=== PATIENT | male | born 1935 | race Caucasian/White ===

== ENCOUNTER 2021-07-15 10:23 | Outpatient (CLI) | payer MEDICARE, SELFPAY ==
--- NOTE | ~2021-07-15 | US_ITS ---
EXAMINATION: US carotid duplex BI DATE: 07/15/2021 11:35 INDICATION: Disorder of the skin. TECHNIQUE: Grayscale, color Doppler, and pulsed Doppler images of the cervical carotid arteries were obtained. The degree of vessel stenosis is placed in one of the following categories: normal, <50%, 5 0-69%, >=70% but less than near-occlusion, near-occlusion, or total occlusion. Note that percent sten osis relative to normal distal artery lumen diameter is indirectly measured from velocity measurement s as described by Angus, et al. Radiology 2003; 229:340-346. Notes: Normal: Peak systolic velocity <125 centimeters/sec and no plaque <50%. Peak systolic velocity <125 ( EDV <40; ICA/CCA PSV ratio <2.0; used these factors only a tandem lesions or low cardiac output or co ntralateral disease) 50-69 %: PSV 125-230 (EDV 40-100; ratio 2-4) >= 70% but less than near occlusion: PSV greater than 230 (EDV > 100; ratio> 4.0) Near Occlusion: PSV that is variable; markedly narrowed lumen Occlusion: Absent flow on color/spectral Doppler and no lumen on dang scale. COMPARISON: None. FINDINGS: RIGHT: The right common carotid artery (CCA) peak systolic velocity (PSV) is 90 cm/s. The right internal car otid artery (ICA) PSV is 75 cm/s. The right ICA end-diastolic velocity (EDV) is 26 cm/s. The right IC A/CCA PSV ratio is 0.8. The external carotid artery (ECA) PSV is 76 cm/s. There is antegrade flow in the right vertebral artery. LEFT: The left CCA PSV is 98 cm/s. The left ICA PSV is 62 cm/s. The left ICA EDV is 14 cm/s. The left ICA/C CA PSV ratio is 0.6. The ECA PSV is 70 cm/s. There is antegrade flow in the left vertebral artery. IMPRESSION: 1. Less than 50% stenosis in the right internal carotid artery by sonographic criteria. 2. Less than 50% stenosis in the left internal carotid artery by sonographic criteria. Reviewed, dictated and finalized at location B. IMPRESSION: 1. Less than 50% stenosis in the right internal carotid artery by sonographic c lynn. 2. Less than 50% stenosis in the left internal carotid artery by sonographic cr tea.
== END 2021-07-15 10:24 | disposition home or self-care (01) ==
PROVIDERS: PCP Family Medicine; Visit Provider Family Medicine
DX: I65.23 Occlusion and stenosis of bilateral carotid arteries (principal); R09.89 Other specified symptoms and signs involving the circulatory and respiratory systems
CPT/HCPCS: 93880

== ENCOUNTER 2022-03-14 13:17 | Outpatient (CLI) | payer MEDICARE, SELFPAY ==
--- NOTE | 2022-03-14 13:42 | ECHO_ITS ---
Patient Info Name: Lefty Haskins Age: 86 years : 1935 Gender: Male Ht: 70 in Wt: 230 lbs BSA: 2.30 m2 HR: 60 bpm BP: 164 / 91 mmHg Technical Quality: Fair Exam Date: 03/14/2022 2:37 PM Exam Location: [facility] Patient Status: Outpatient Admit Date: 03/14/2022 Staff Ordering Physician: Adeel Rick PA-C Gas Line Installer Supervisor: Manjeet Jacome RDCS, RT Attending Provider: Adeel Rick PA-C Referring Physician: Prabhjot MANUEL; Exam Type: CA echo doppler color flow Study Info Indications I35.0 - Nonrheumatic aortic (valve) stenosis Complete two-dimensional, color flow and Doppler transthoracic echocardiogram is performed. Strain analysis performed. Summary 1. Complete two-dimensional, color flow and Doppler transthoracic echocardiogram is performed. 2. Left ventricular chamber dimension is normal. 3. Left ventricular systolic function is normal, estimated at 60-65%. 4. There is mildly increased left ventricular wall thickness. 5. The left ventricular diastolic function is grade I diastolic dysfunction. 6. E/e' 12 is mildly elevated. 7. Global longitudinal strain is abnormal at -8.9%. 8. Right ventricular systolic function is reduced based on abnormal TAPSE 1.4 cm. 9. Left atrial chamber dimension is moderately enlarged. 10. There is severe aortic valve sclerosis. 11. There is mild aortic valve regurgitation. 12. There is moderate aortic valve stenosis based a peak velocity of 280 cm/s, mean gradient of 15 mmHg, and aortic valve area of 1.2 cm2. By visual estimation it appears more to be severe aortic stenosis. Consider JUAN C if clinically indicated. 13. The mitral valve has severely calcified annulus. 14. There is trace tricuspid valve regurgitation. Left Ventricle E/e' 12 is mildly elevated. Global longitudinal strain is abnormal at -8.9%. Left ventricular chamber dimension is normal. Left ventricular systolic function is normal, estimated at 60-65%. There is mildly increased left ventricular wall thickness. The left ventricular diastolic function is grade I diastolic dysfunction. Right Ventricle Right ventricular systolic function is reduced based on abnormal TAPSE 1.4 cm. Right ventricular chamber dimension is not well visualized. Left Atria Left atrial chamber dimension is moderately enlarged. Right Atria Right atrial chamber dimension is normal. Aortic Valve There is moderate aortic valve stenosis based a peak velocity of 280 cm/s, mean gradient of 15 mmHg, and aortic valve area of 1.2 cm2. By visual estimation it appears more to be severe aortic stenosis. Consider JUAN C if clinically indicated. The aortic valve is probable trileaflet. There is severe aortic valve sclerosis. There is mild aortic valve regurgitation. Pulmonic Valve There is no pulmonic regurgitation. Mitral Valve The mitral valve has severely calcified annulus. There is no mitral valve stenosis. There is no mitral valve regurgitation. Tricuspid Valve RVSP is not calculated due to an inadequate TR jet. There is trace tricuspid valve regurgitation. Pericardium/Pleural There is no pericardial effusion. Inferior Vena Cava Normal inferior vena cava with >50% collapse upon inspiration consistent with normal right atrial pressure, 5 mmHg. Aorta The aortic root size at the sinus of Valsalva is normal. Left Ventricular Outflow Tract Name Value No
== END 2022-03-14 13:18 | disposition home or self-care (01) ==
PROVIDERS: PCP Family Medicine; Visit Provider Physician Assistant
DX: I35.0 Nonrheumatic aortic (valve) stenosis (principal); I34.0 Nonrheumatic mitral (valve) insufficiency; I35.1 Nonrheumatic aortic (valve) insufficiency; I36.1 Nonrheumatic tricuspid (valve) insufficiency
CPT/HCPCS: 93306

== ENCOUNTER 2023-01-29 12:32 | Emergency (ER) | payer MEDICARE, SELFPAY ==
[2023-01-29] VITALS (9 sets, daily range): BP systolic 116–170; BP diastolic 66–93; PULSE 54–65; RESP 13–18; TEMP 36.4; O2SAT 91–99
--- NOTE | ~2023-01-29 | XR_ITS ---
EXAMINATION: XR chest 2V Exam Date/Time: 01/29/2023 13:52 CDT HISTORY: weakness Comparison: 03/08/2018. RESULT: Lines, tubes, and devices: Intact sternotomy wires. Lungs and pleura: Clear. Cardiomediastinal silhouette: Stable. Other: No acute osseous or upper abdominal finding. IMPRESSION: No acute cardiopulmonary process. Reviewed, dictated and finalized at location K.
--- NOTE | ~2023-01-29 | CT_ITS ---
EXAMINATION: CTA brain carotid DATE: 01/29/2023 14:57 INDICATION: dizziness TECHNIQUE: Computed tomographic angiography (CTA) of the head was performed without and with 100 mL O mnipaque-350 intravenous contrast. CTA of the neck was performed with intravenous contrast. Automated exposure control and iterative reconstruction technique were employed. The dose-length product was 1 819.27 mGy-cm. Maximum intensity projection and volume rendered 3D-reconstructions were created by e technologist on a separate workstation. COMPARISON: None. FINDINGS: CT BRAIN: No acute large vessel infarct, intracranial hemorrhage, mass, or hydrocephalus. 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 Mild atrophy and chronic white matter change. CTA HEAD: No large vessel occlusion, aneurysm, high flow vascular malformation, nidus or extravasation. Multifo bessie mild-moderate short segment stenoses in the intracranial vasculature, most evident in the anterio r circulation and to lesser extent in the posterior circulation. Moderate calcifications at the carot id siphons. CTA NECK: Aortic arch and proximal great vessels: Mild atherosclerotic calcifications at the visualized aortic arch and proximal great vessels. Right common carotid, carotid bifurcation, and internal carotid artery: Mild calcified plaque at the bifurcation.There is 0% stenosis of the proximal right internal carotid artery relative to normal [place] artery lumen diameter (NASCET criteria). Left common carotid, carotid bifurcation, and internal carotid artery: Minimal calcified plaque at th e bifurcation.There is 0% stenosis of the proximal left internal carotid artery relative to normal di stal artery lumen diameter (NASCET criteria). Vertebral arteries: Calcified plaque at the bilateral vertebral artery origins, without significant s tenosis. Calcified plaque in the bilateral V4 segments, without significant stenosis. Left vertebral artery is dominant. Other findings: Retention cysts/polyps in the left maxillary sinus. Opacification, volume loss, and s urrounding sclerosis in the right maxillary sinus. Bilateral thyroid nodules which require no additio nal imaging at this time. Degenerative changes in the cervical spine. IMPRESSION: No large vessel occlusion. No significant carotid or vertebral artery stenosis. Multifocal short segment mild-moderate atherosclerotic stenoses in the intracranial vasculature, most evident in the anterior circulation. Chronic left maxillary sinusitis. Reviewed, dictated and finalized at location K. IMPRESSION: No large vessel occlusion. No significant carotid or vertebral artery stenosis. Multifocal short segment mild-moderate atherosclerotic stenoses in the intracra nial vasculature, most evident in the anterior circulation. Chronic left maxillary sinusitis.
--- NOTE | 2023-01-29 12:37 | ECG_ITS ---
Measurements Intervals [place] Rate: 58 P: PA: 0 QRS: -20 QRSD: 109 T: 147 QT: 471 QTc: 465 Interpretive Statements SINUS RHYTHM WITH HIGH GRADE AV BLOCK MODERATE VOLTAGE CRITERIA FOR LVH, CONSIDER NORMAL VARIANT [MEETS CRITERIA IN ONE OF: R(aVL), S(V1), R(V5), R(V5/V6)+S(V1)] PREVIOUS INFEROPOSTERIOR INFARCTION MODERATE T-WAVE ABNORMALITY, CONSIDER LATERAL ISCHEMIA [-0.1+ mV T-WAVE IN I/aVL/V5/V6] ABNORMAL ECG COMPARED TO ECG 08/29/2018 13:49:45 NO SIGNIFICANT CHANGES Electronically Signed On 01-30-2023 13:22:57 CDT by Dimitrios Mcmahan M.D.
[2023-01-29 12:55] LABS: Basophils Percent Auto 0.5 % (0.2-1.2); Eosinophils Absolute Auto 0.3 K/mm3 (0-0.3); Hematocrit 39.4 % (42.0-52.0); Hemoglobin 13.4 g/dL (14.0-18.0); Immature Granulocyte Absolute 0.03 K/mm3 (0.00-0.031); Immature Granulocyte Percent A 0.5 % (0-0.5); Lymphocytes Absolute Auto 2.31 K/mm3 (0.9-3.2); Lymphocytes Percent Auto 36.4 % (18.3-44.2); Mean Corpuscular Hemoglobin 30.4 pg (26-34); Mean Corpuscular Volume 89.3 fl (80-100); Mean Platelet Volume 9.8 fl (7.4-10.4); Monocytes Absolute Auto 0.6 K/mm3 (0.1-0.6); Monocytes Percent Auto 9.5 % (2.6-8.5); Neutrophils Absolute Auto 3.1 K/mm3 (1.3-6.7); Neutrophils Percent Auto 48.1 % (45.5-73.1); Platelet Count Result 198 k/mm3 (150-375); Red Blood Count 4.41 M/mm3 (4.6-6.20); Red Cell Distribution Width 13.2 % (11.5-14.5); White Blood Count 6.3 K/mm3 (4.5-10.0)
[2023-01-29 13:05] LABS: Alanine Aminotransferase 48 U/L (6-50); Albumin Level 4.3 g/dL (3.5-5.1); Alkaline Phosphatase 100 U/L (38-126); Anion Gap 8 mmol/L (8-16); Aspartate Amino Transferase 58 U/L (17-59); Bilirubin,Total 0.8 mg/dL (0.2-1.3); Blood Urea Nitrogen 19 mg/dL (9-20); Calcium 8.9 mg/dL (8.4-10.2); Carbon Dioxide 30 mmol/L (22-30); Chloride 101 mmol/L (98-107); Estimated CRCL calculation 61 ml/min; Estimated Glomerular Filt Rate > 60; Glucose 206 mg/dL (65-110); Potassium 3.3 mmol/L (3.4-5.0); Sodium 139 mmol/L (137-145)
[2023-01-29 13:39] LABS: Appearance Urine Clear (Clear); Bilirubin Urine Negative (Negative); Blood Urine Negative (Negative); Color Urine Yellow (Yellow); Glucose Urine UA Negative (Negative); Ketones Urine Negative (Negative); Leukocyte Esterase Ur Negative LEU/UL (Negative); Nitrate Urine Negative (Negative); Protein Urine Negative (Negative); Specific Grav Ur 1.019 (1.001-1.035); pH Urine 7.5 (5.0-9.0)
[2023-01-29 13:40] LABS: Add Urine Microscopic? NO
[2023-01-29] MEDS: MECLIZINE HCL 25 MG TABLET PO (14:06)
[2023-01-29] MEDS: ONDANSETRON INJ 4 MG/2 ML VIAL IV PUSH (14:06)
--- NOTE | 2023-01-29 14:41 | ED.DIZZY ---
HPI - Dizziness General Chief Complaint: Dizziness Stated Complaint: nauseated, dizzy Time Seen by Provider: 01/29/23 13:29 Source: patient and RN notes reviewed Mode of arrival: ambulatory Limitations: no limitations History of Present Illness HPI Narrative: This is 87 year old male who presents for evaluation of dizziness. Patient reports he developed dizziness 3 hours prior to arrival. He states he was sitting down when he developed dizziness. He does report spinning with turn his head. He denies any dizziness or spinning currently sitting still in bed. HE denies history of vertigo. HE denies URI symptoms, tinnitus, focal weakness, headache, numbness or vision changes. He had associated nausea. Related Data Home Medications Medication Instructions Recorded Confirmed amlodipine 5 mg tablet 5 mg PO DAILY 06/07/19 08/17/22 aspirin 81 mg tablet,delayed 81 mg PO DAILY 06/07/19 08/17/22 release (Adult Low Dose Aspirin) hydrochlorothiazide 25 mg tablet 25 mg PO DAILY 06/07/19 08/17/22 lisinopril 40 mg tablet 40 mg PO DAILY 06/07/19 08/17/22 simvastatin 20 mg tablet 20 mg PO DAILY 06/07/19 08/17/22 ascorbic acid (vitamin C) 500 mg 500 mg PO DAILY 08/17/22 08/17/22 capsule cholecalciferol (vitamin D3) 50 50 mcg PO DAILY 08/17/22 08/17/22 mcg (2,000 unit) capsule multivitamin 1 tablet PO DAILY 08/17/22 08/17/22 omega3-dha 200 mg-epa 300 mg-othr 1 cap PO DAILY 08/17/22 08/17/22 om3 100 mg-fish oil 1,000 mg capsule Allergies Allergy/AdvReac Type Severity Reaction Status Date / Time meperidine Allergy Unknown Hallucinati Verified 08/17/22 12:54 ons Review of Systems Constitutional: Constitutional: Denies weakness Eyes: Eyes: Denies change in vision and Denies photophobia Cardiovascular: Cardiovascular: Denies syncope, Denies rapid heart rate, Denies irregular heart rhythm, Denies leg edema and Denies dyspnea Respiratory: Respiratory: Denies chest congestion, Denies hemoptysis, Denies excessive phlegm production and Denies dyspnea Gastrointestinal: Gastrointestinal: Denies abdominal pain, Denies hematochezia, Denies diarrhea, Reports nausea and Denies vomiting Genitourinary: Genitourinary: Denies hematuria, Denies dysuria, Denies penile discharge and Denies testicular pain Musculoskeletal: Musculoskeletal: Denies joint swelling, Denies loss of height and Denies muscle weakness Neurologic: Reports vertigo, Reports dizziness, Denies syncope, Denies focal weakness and Denies weakness PMFSH Past Medical History Medical History Aortic stenosis Atherosclerotic heart disease of [place] coronary artery with other forms of angina pectoris Benign prostatic hyperplasia Chronic venous insufficiency of lower extremity Dyslipidemia Essential (primary) hypertension Hypokalemia Type 2 diabetes mellitus Surgical History Surgical History History of coronary artery stent placement multiple in before CABG History of total right knee replacement (~2012) Dr. Rice Hx of CABG (~2000) MoBab Family History Family History Father Depression, Onset Age: 35 Family history of suicide, Onset Age: 35 Mother Family history of malignant neoplasm of ovary, Onset Age: 77 Other Family history of cardiovascular disease Hypertension Social History Social History Smoking status: Never smoker Alcohol intake: never Substance use: never Substance use type: does not use Lack of Transportation: No Lack of Food: Never True Current Housing: I Have Housing Concerned About Future Housing: No Difficulty Paying Gas/Electric Bills: No Difficulty Paying for Meds: No Currently Unemployed: No Education: Decline to Answer Difficulty w/ Childcare or Family Care:
[2023-01-29] MEDS: CARBAMIDE PEROXIDE 6.5% OT SOLN 15 ML BTL 5 DROP RIGHT EAR (15:22)
== END 2023-01-29 16:54 | disposition home or self-care (01) ==
PROVIDERS: Emergency Medicine; Emergency Provider General Practice; PCP Family Medicine
DX: R42 Dizziness and giddiness (principal); I35.0 Nonrheumatic aortic (valve) stenosis; I25.118 Atherosclerotic heart disease of native coronary artery with other forms of angina pectoris; I87.2 Venous insufficiency (chronic) (peripheral); I10 Essential (primary) hypertension; E78.5 Hyperlipidemia, unspecified; E11.9 Type 2 diabetes mellitus without complications; N40.0 Benign prostatic hyperplasia without lower urinary tract symptoms; Z95.5 Presence of coronary angioplasty implant and graft; Z95.1 Presence of aortocoronary bypass graft; Z96.651 Presence of right artificial knee joint; Z79.84 Long term (current) use of oral hypoglycemic drugs; Z79.82 Long term (current) use of aspirin; R94.31 Abnormal electrocardiogram [ECG] [EKG]; I44.1 Atrioventricular block, second degree; J32.0 Chronic maxillary sinusitis; I67.2 Cerebral atherosclerosis
CPT/HCPCS: 36415; 70496; 70498; 71046; 80053; 81003; 85025; 93005; 96374; 99284; A9270; J2405; Q9967

== ENCOUNTER 2023-02-16 14:30 | Outpatient (CLI) | payer MEDICARE, SELFPAY ==
[2023-02-16 18:50] LABS: Alanine Aminotransferase 46 U/L (6-50); Albumin Level 4.2 g/dL (3.5-5.1); Alkaline Phosphatase 100 U/L (38-126); Anion Gap 7 mmol/L (8-16); Aspartate Amino Transferase 67 U/L (17-59); Bilirubin,Total 0.9 mg/dL (0.2-1.3); Blood Urea Nitrogen 18 mg/dL (9-20); Calcium 9.1 mg/dL (8.4-10.2); Carbon Dioxide 29 mmol/L (22-30); Chloride 102 mmol/L (98-107); Estimated Glomerular Filt Rate > 60; Glucose 128 mg/dL (65-110); Potassium 3.9 mmol/L (3.4-5.0); Sodium 138 mmol/L (137-145)
[2023-02-16 22:32] LABS: Hemoglobin A1C 6.7 % (<5.7)
== END 2023-02-16 14:31 | disposition home or self-care (01) ==
PROVIDERS: PCP Family Medicine; Visit Provider Family Medicine
DX: E87.6 Hypokalemia (principal); E11.9 Type 2 diabetes mellitus without complications; I10 Essential (primary) hypertension
CPT/HCPCS: 36415; 80053; 83036

== ENCOUNTER 2023-06-11 20:32 | Inpatient (IN) | payer MEDICARE, SELFPAY ==
--- NOTE | ~2023-06-11 | XR_ITS ---
Portable chest x-ray Comparison: 01/29/2023 Clinical History: Nausea and vomiting Findings: Questionable minimal right pleural effusion. Left lung clear. Cardiomediastinal silhouett e is stable. Bones and soft tissues are unremarkable. Impression: Questionable minimal right pleural effusion. Reviewed, dictated and finalized at location . INE ACCOUNTANT Impression: Questionable minimal right pleural effusion.
--- NOTE | ~2023-06-11 | XR_ITS ---
EXAMINATION: XR chest 1V portable DATE: 06/13/2023 10:35 INDICATION: Hypoxia. TECHNIQUE: A single frontal view of the chest was obtained. COMPARISON: Chest single view 06/11/2023, CT abdomen and pelvis 06/14/2023 FINDINGS: There are small pleural effusions. There are airspace opacities at the lung bases. No pneum othorax. Cardiomegaly is noted. Median sternotomy wires and mediastinal surgical clips are seen, like ly from prior coronary artery bypass grafting. IMPRESSION: 1. Small pleural effusions. 2. Airspace opacities at the lung bases with worsening on the left, consistent with atelectasis or le ss likely pneumonia. 3. Cardiomegaly. Reviewed, dictated and finalized at location A. ID TESTER IMPRESSION: 1. Small pleural effusions. 2. Airspace opacities at the lung bases with worsening on the left, consistent with atelectasis or less likely pneumonia. 3. Cardiomegaly.
--- NOTE | ~2023-06-11 | XR_ITS ---
Portable chest x-ray Comparison: 06/13/2023 Clinical History: Shortness of breath Findings: Small left pleural effusion and possible minimal right pleural effusion are present. There is mild increasing bibasilar and perihilar haziness. Cardiomediastinal silhouette is stable. Bones and soft tissues are unremarkable. Impression: Probable mild pulmonary edema, worsened from prior exam. Small left pleural effusion and probable minimal right pleural effusion. Reviewed, dictated and finalized at location . GEMENT DIRECTOR Impression: Probable mild pulmonary edema, worsened from prior exam. Small left pleural effusion and probable minimal right pleural effusion.
--- NOTE | ~2023-06-11 | CT_ITS ---
CT of the Abdomen and Pelvis: Indication: Abdominal pain Technique: 2.5 mm axial scans were obtained through the abdomen and pelvis following intravenous adm inistration of 100 cc of Omnipaque 350. Dose reduction technique was used on this scan by utilizing a utomated exposure control and iterative reconstruction technique. The dose-length product (DLP) was 1 206.68 mGy-cm. Findings: Scans through the lung bases are unremarkable. The liver, spleen, adrenals and kidneys are within normal limits. Cholecystectomy clips are present. There are atherosclerotic calcifications of the aorta. No lymphadenopathy. Small amount of ascites s cattered throughout the abdomen and pelvis, with mild peripancreatic fluid as well. Possible mild hyp odensity/hypoenhancement in the pancreatic body and tail. No bowel obstruction or bowel wall thickening. There is no evidence to suggest acute appendicitis. Images through the pelvis were performed. Urinary bladder unremarkable. Prostate gland is enlarged. Impression: Suspected pancreatitis, with possible areas of early pancreatic necrosis. Correlate clinically. Small amount of abdominopelvic ascites. Reviewed, dictated and finalized at location M. MP PEELER Impression: Suspected pancreatitis, with possible areas of early pancreatic necrosis. Corre late clinically. Small amount of abdominopelvic ascites.
--- NOTE | ~2023-06-11 | XR_ITS ---
Portable chest x-ray Comparison: 06/14/2023 Clinical History: Cough Findings: Small left pleural effusion present. Right lung clear. Cardiomediastinal silhouette is st able. Bones and soft tissues are unremarkable. Impression: Small left pleural effusion. Reviewed, dictated and finalized at [facility]. 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
--- NOTE | ~2023-06-11 | MR_ITS ---
EXAMINATION: MR MRCP wo/w con/w 3D wo ind DATE: 06/14/2023 07:27 INDICATION: Pancreatitis. Elevated bilirubin. TECHNIQUE: Magnetic resonance imaging (MRI) of the abdomen was performed without and with 20 mL Multi [place] intravenous contrast. Sequences included coronal T2-weighted FS FSE, coronal T2-weighted FSE, a xial T1-weighted LAVA, coronal FS FIESTA, axial dual-echo T1-weighted SPGR, coronal lava-FLEX, sagitt al T2-weighted FSE, axial T2-weighted FSE, and axial DWI. Thick-slab T2-weighted FSE images were obta ined for magnetic resonance cholangiopancreatography (MRCP). Maximum intensity projection 3-D reconst ructions of the volumetric data were created by the technologist. Postcontrast sequences included cor onal LAVA-flex and time course of axial T1-weighted LAVA. COMPARISON: CT abdomen and pelvis 06/11/2023 FINDINGS: ABDOMEN MRI: There are small pleural effusions. The liver and spleen are normal. There are changes of cholecystectomy. There is heterogeneous enhancement of the pancreatic tail. There is fat stranding a nd fluid around the pancreas. There is a small volume of ascites. The adrenal glands are normal. Ther e are cysts in the kidneys measuring up to 8 mm on the left. The stomach is distended. There are no d ilated loops of small or large bowel. There are no pathologically enlarged lymph nodes. ABDOMEN MRCP: The common duct is normal and measures 7 mm. No choledocholithiasis. IMPRESSION: 1. Acute necrotic pancreatitis. 2. Small volume of ascites. 3. Small pleural effusions. 4. No choledocholithiasis. Reviewed, dictated and finalized at location A. UTIVE SEARCH CONSULTANT
[2023-06-11 20:28] VITALS: BP 113/62; PULSE 101; RESP 20; TEMP 36.8; O2SAT 98
[2023-06-11 20:47] LABS: Hematocrit 42.3 % (42.0-52.0); Hemoglobin 14.8 g/dL (14.0-18.0); Mean Corpuscular Hemoglobin 29.9 pg (26-34); Mean Corpuscular Volume 85.5 fl (80-100); Mean Platelet Volume 9.6 fl (7.4-10.4); Platelet Count Result 194 k/mm3 (150-375); Red Blood Count 4.95 M/mm3 (4.6-6.20); Red Cell Distribution Width 13.8 % (11.5-14.5); White Blood Count 24.2 K/mm3 (4.5-10.0)
[2023-06-11 20:57] LABS: Alanine Aminotransferase 33 U/L (6-50); Albumin Level 3.4 g/dL (3.5-5.1); Alkaline Phosphatase 84 U/L (38-126); Anion Gap 9 mmol/L (8-16); Aspartate Amino Transferase 52 U/L (17-59); Bilirubin,Total 1.8 mg/dL (0.2-1.3); Blood Urea Nitrogen 24 mg/dL (9-20); Calcium 8.4 mg/dL (8.4-10.2); Carbon Dioxide 25 mmol/L (22-30); Chloride 99 mmol/L (98-107); Estimated CRCL calculation 43 ml/min; Estimated Glomerular Filt Rate > 60; Glucose 201 mg/dL (65-110); Potassium 3.1 mmol/L (3.4-5.0); Sodium 133 mmol/L (137-145)
[2023-06-11 21:02] VITALS: BP 123/69; PULSE 84; RESP 15; O2SAT 100
[2023-06-11] MEDS: ONDANSETRON INJ 4 MG/2 ML VIAL IV PUSH (21:02)
[2023-06-11] MEDS: SODIUM CHLORIDE 0.9% IV 2,000 ML 999 ML IV CONT (21:02)
[2023-06-11 21:12] LABS: Band Neutrophils Percent 4 % (0-6); Neutrophils Percent Manual 77 % (46-73); Total Cells Counted 100
[2023-06-11 21:13] LABS: Lymphocytes Absolute Manual 3.38 K/mm3 (1.1-4.5); Lymphocytes Percent Manual 14 % (18-44); Monocytes Absolute Manual 1.21 K/mm3 (0.1-0.90); Monocytes Percent Manual 5 % (3-9); Platelet Estimate Adequate (Adequate); Schistocytes None Seen (NORMAL)
--- NOTE | 2023-06-11 21:14 | ECG_ITS ---
Measurements Intervals [place] Rate: 80 P: 55 WV: 212 QRS: -6 QRSD: 113 T: 137 QT: 427 QTc: 493 Interpretive Statements SINUS RHYTHM WITH FIRST DEGREE AV BLOCK WITH OCCASIONAL SUPRAVENTRICULAR PREMATURE COMPLEXES INFERIOR MYOCARDIAL INFARCTION , PROBABLY OLD WITH POSTERIOR EXTENSION [40+ ms Q WAVE AND/OR ST/T ABNORMALITY IN II/aVFPROMINE ANTEROLATERAL MYOCARDIAL INFARCTION , OF INDETERMINATE AGE [40+ ms Q WAVE IN I/aVL/V3- V6] ABNORMAL ECG COMPARED TO ECG 01/29/2023 12:42:35 FIRST DEGREE AV BLOCK NOW PRESENT Electronically Signed On 06-12-2023 8:40:29 WOOD ROOM HAND by Ranulfo Koch M.D.
[2023-06-11 21:16] LABS: Appearance Urine Cloudy (Clear); Bacteria Urine None Seen /hpf; Bilirubin Urine 1+ (Negative); Blood Urine 1+ (Negative); Glucose Urine UA Negative (Negative); Ketones Urine Trace mg/dL (Negative); Leukocyte Esterase Ur Trace LEU/UL (Negative); Need Manual Microscopic Reviewed; Nitrate Urine Positive (Negative); Protein Urine 2+ mg/dL (Negative); Specific Grav Ur 1.026 (1.001-1.035); Squamous Epithelial Cell Urine Occasional /hpf (Few); WBC Urine 0-5 /hpf; pH Urine 5.5 (5.0-9.0)
[2023-06-11 21:17] LABS: Color Urine Dark Yellow (Yellow)
[2023-06-11 21:18] LABS: Add Urine Microscopic? YES
[2023-06-11 21:28] LABS: Magnesium 1.9 mg/dL (1.6-2.3); Phosphorus 3.3 mg/dL (2.5-4.5)
[2023-06-11 21:36] LABS: Influenza A QL RT-PCR Negative (Negative); Influenza B QL RT-PCR Negative (Negative); RSV RNA, RT-PCR Negative (Negative); SARS-CoV-2 RNA PCR Negative (Negative)
[2023-06-11 21:38] LABS: INR 1.2; Partial Thromboplastin Time 31.7 SECONDS (22.3-36.8); Prothrombin Time 15.6 Seconds (11.1-14.7)
[2023-06-11 21:44] LABS: NT Pro B Type Natriuretic Pept 3510 pg/mL (19.9-100); Troponin I 0.096 ng/mL (0.000-0.034)
[2023-06-11 21:55] LABS: Lipase 2798 U/L (23-300)
[2023-06-11 22:02] LABS: Lactic Acid Reflex 3.6 mmol/L (0.7-2.0)
--- NOTE | 2023-06-11 22:16 | ED.GENADULT ---
HPI - General Adult General Chief complaint: Nausea/Vomiting/Diarrhea Stated complaint: n/v/d Time Seen by Provider: 06/11/23 20:36 History of Present Illness HPI narrative: this is an 87-year-old male presenting the ED with generalized weakness. Over last 2-3 days his family says he has been feeling unwell. He has had nausea vomiting diarrhea. He is also complaining of abdominal pain worse on the right than the left. Last bowel movement was yesterday. Patient denies fevers chills chest pain difficulty breathing. Patient states he gets frequent UTIs. No urinary symptoms at this time Related Data Home Medications Medication Instructions Recorded Confirmed aspirin 81 mg tablet,delayed 81 mg PO DAILY 06/07/19 02/16/23 release (Adult Low Dose Aspirin) hydrochlorothiazide 25 mg tablet 25 mg PO DAILY 06/07/19 02/16/23 lisinopril 40 mg tablet 40 mg PO DAILY 06/07/19 02/16/23 simvastatin 20 mg tablet 20 mg PO DAILY 06/07/19 02/16/23 ascorbic acid (vitamin C) 500 mg 500 mg PO DAILY 08/17/22 02/16/23 capsule cholecalciferol (vitamin D3) 50 50 mcg PO DAILY 08/17/22 02/16/23 mcg (2,000 unit) capsule multivitamin 1 tablet PO DAILY 08/17/22 02/16/23 omega3-dha 200 mg-epa 300 mg-othr 1 cap PO DAILY 08/17/22 02/16/23 om3 100 mg-fish oil 1,000 mg capsule Allergies Allergy/AdvReac Type Severity Reaction Status Date / Time meperidine Allergy Unknown Hallucinati Verified 02/16/23 13:35 ons [facility] Past Medical History Medical History Aortic stenosis Atherosclerotic heart disease of [place] coronary artery with other forms of angina pectoris Benign prostatic hyperplasia Chronic venous insufficiency of lower extremity Dyslipidemia Essential (primary) hypertension Hypokalemia Type 2 diabetes mellitus Surgical History Surgical History History of coronary artery stent placement multiple in before CABG History of total right knee replacement (~2012) Dr. Rice Hx of CABG (~2000) MoBab Family History Family History Father Depression, Onset Age: 35 Family history of suicide, Onset Age: 35 Mother Family history of malignant neoplasm of ovary, Onset Age: 77 Other Family history of cardiovascular disease Hypertension Social History Social History Smoking status: Never smoker Alcohol intake: never Substance use: never Substance use type: does not use Lack of Transportation: No Lack of Food: Never True Current Housing: I Have Housing Concerned About Future Housing: No Difficulty Paying Gas/Electric Bills: No Difficulty Paying for Meds: No Currently Unemployed: No Education: Master's Degree or Higher Difficulty w/ Childcare or Family Care: No Living arrangements: with family Additional living arrangements comments: Occupation/Education: retired 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 Head: atraumatic. EYES: EOMI, NOSE: Atraumatic NECK: Trachea midline RESPIRATORY: No increased rate of breathing, CTAB CARDIOVASCULAR: RRR, ABDOMINAL: tenderness topalpation in the right upper and lower quadrants soft no guarding rebound MUSCULOSKELETAl: No obvious deformities NEURO: Alert. Moving 4/4 extremities SKIN:: Warm, dry. Normal color PSYCHIATRIC: Normal affect Course Vital Signs Vital signs: Vital Signs Temperature 98.3 F 06/11/23 20:28 Pulse Rate 101 H 06/11/23 20:28 Respiratory Rate 20 06/11/23 20:28 Blood Pressure 113/62 06/11/23 20:28
[2023-06-11] MEDS: PIPERACILLN/TAZ 3.375GM/NS50ML 3.375 GM/50 ML BAG IVPB (22:26)
[2023-06-11] MEDS: HYDROmorphone HCL INJ (*CRX) 1 MG/ML SYR 0.5 MG IV PUSH (22:26)
--- NOTE | 2023-06-11 22:52 | PM.IMHP ---
H&P: HPI History of Present Illness Date/Time: 06/11/23 22:52 Chief Complaint: abdominal pain Narrative: This is an 87-year-old male with past medical history significant for hypertension, type diabetes mellitus, benign prostatic hyperplasia, surreptitious use of laxatives. Patient was brought to the emergency room after having 2 days of abdominal pain, lethargy, had episode diarrhea as well, altered mental status, poor appetite, poor per orally intake, patient is so weak the could not stand on his on, has been taking laxatives over the years on and off alternating with Pepto-Bismol according to daughter who is at bedside from home I have obtained most of the history. Preliminary workup was significant for pancreatitis. Portable chest x-ray Comparison: 01/29/2023 Clinical History: Nausea and vomiting Findings:? Questionable minimal right pleural effusion. Left lung clear.? Cardiomediastinal silhouette is stable. Bones and soft tissues are unremarkable. ? Impression: ? Questionable minimal right pleural effusion. CT of the Abdomen and Pelvis: Indication: Abdominal pain Technique:? 2.5 mm axial scans were obtained through the abdomen and pelvis following intravenous administration of 100 cc of Omnipaque 350. Dose reduction technique was used on this scan by utilizing automated exposure control and iterative reconstruction technique. The dose-length product (DLP) was 1206.68 mGy-cm. Findings:? Scans through the lung bases are unremarkable. The liver, spleen, adrenals and kidneys are within normal limits. Cholecystectomy clips are present. There are atherosclerotic calcifications of the aorta.? No lymphadenopathy. Small amount of ascites scattered throughout the abdomen and pelvis, with mild peripancreatic fluid as well. Possible mild hypodensity/hypoenhancement in the pancreatic body and tail. No bowel obstruction or bowel wall thickening. There is no evidence to suggest acute appendicitis. Images through the pelvis were performed. Urinary bladder unremarkable. Prostate gland is enlarged. Impression: Suspected pancreatitis, with possible areas of early pancreatic necrosis. Correlate clinically. Small amount of abdominopelvic ascites. Review of Systems Review of Systems: ROS unobtainable: Yes unobtainable due to mental status ( Lethargy/obtundation) PMFSH Past Medical History Medical History Aortic stenosis Atherosclerotic heart disease of [place] coronary artery with other forms of angina pectoris Benign prostatic hyperplasia Chronic venous insufficiency of lower extremity Dyslipidemia Essential (primary) hypertension Hypokalemia Type 2 diabetes mellitus Surgical History Surgical History History of coronary artery stent placement multiple in 1990s before CABG History of total right knee replacement (~2012) Dr. Rice Hx of CABG (~2000) MoBab Family History Family History Father Depression, Onset Age: 35 Family history of suicide, Onset Age: 35 Mother Family history of malignant neoplasm of ovary, Onset Age: 77 Other Family history of cardiovascular disease Hypertension Social History Social History Smoking status: Never smoker Alcohol intake: never Substance use: never Substance use type: does not use Do You Feel Safe in your Home?: Yes Lack of Transportation: No Lack of Food: Never True Current Housing: I Have Housing Concerned About Future Housing: No Difficulty Paying Gas/Electric Bills: No Difficulty Paying for Meds: No Currently Unemployed: No Education: Master's Degree or Higher Difficulty w/ Childcare or Family Care: No Living arrangements: with family Additional living arrangements comments: Occup
[2023-06-11 22:56] LABS: Triglycerides 138 mg/dL (<150)
[2023-06-11] MEDS: POTASSIUM CHLORIDE INJ 40 MEQ in SODIUM CHLORIDE 0.9% IV 500 ML 130 MEQ IVPB (22:59)
[2023-06-11] MEDS: SODIUM CHLORIDE 0.9% IV 1,000 ML 125 ML IV CONT (23:00)
[2023-06-11 23:30] VITALS: BP 105/63; PULSE 81; RESP 15; O2SAT 100
--- NOTE | 2023-06-11 23:41 | ECG_ITS ---
Measurements Intervals [place] Rate: 81 P: 100 [place]: 191 QRS: -16 QRSD: 114 T: 136 QT: 420 QTc: 489 Interpretive Statements SINUS RHYTHM LATERAL MYOCARDIAL INFARCTION , OF INDETERMINATE AGE [40+ ms Q WAVE AND/OR ST/T ABNORMALITY IN I/aVL/V5/V6] INFERIOR MYOCARDIAL INFARCTION , PROBABLY OLD WITH POSTERIOR EXTENSION [40+ ms Q WAVE AND/OR ST/T ABNORMALITY IN II/aVFPROMINE ABNORMAL ECG COMPARED TO ECG 06/11/2023 21:18:28 NO SIGNIFICANT CHANGES Electronically Signed On 06-12-2023 8:41:26 BUSINESS PERFORMANCE SPECIALIST by Ranulfo Koch M.D.
[2023-06-12] VITALS (18 sets, daily range): BP systolic 97–137; BP diastolic 53–65; PULSE 79–104; RESP 16–24; TEMP 36.2–38.5; O2SAT 91–98; BMI 34.9; BMI 35.0
[2023-06-12 00:08] LABS: Troponin I 0.089 ng/mL (0.000-0.034)
--- NOTE | 2023-06-12 00:37 | ADMGEN ---
This patient, Lefty Haskins, was admitted to IMU Room 204-01. Patient/family oriented to hospital policies and general routines including ID bracelet, bed and alarms, visiting hours, pain management, procedures, bathroom and other care routines, personal items, smoking policy, room service/diet, and visiting hours. Information on how to activate the Rapid Response Team has been discussed. Patient/Family are encouraged to report perceived risks to care and to ask questions if they do not understand what they are told or what they should do.
[2023-06-12 00:48] LABS: Reflex Lactic Acid Yes or No Add Lactic
--- NOTE | 2023-06-12 00:58 | PC.NURSE ---
Per patient and patient's daughter: Patient wishes to be a modified code with MEDICATIONS ONLY. Okay for central line and pressor therapy but patient requests NO CPR and NO INTUBATION at this time.
[2023-06-12 01:42] LABS: Lactic Acid 2.7 mmol/L (0.7-2.0)
[2023-06-12] MEDS: HYDROmorphone HCL INJ (*CRX) 1 MG/ML SYR IV PUSH (02:06)
[2023-06-12] MEDS: DEXTROSE 5%/LACTATED RINGERS 1,000 ML 100 ML IV CONT ×2 (03:10→13:06)
[2023-06-12] MEDS: PIPERACILLN/TAZ 3.375GM/NS50ML 3.375 GM/50 ML BAG IVPB ×3 (04:54→18:09)
--- NOTE | 2023-06-12 08:32 | PM.IMPN ---
Progress Note: A&P Assessment and Plan (1) Acute pancreatitis: Code(s): K85.90 - Acute pancreatitis without necrosis or infection, unspecified Status: Acute (2) Leukocytosis: Code(s): D72.829 - Elevated white blood cell count, unspecified Status: Acute (3) Type 2 diabetes mellitus: Qualifiers: Diabetes mellitus complication status: without complication Diabetes mellitus longwall foreman insulin use: without longwall foreman use Qualified Code(s): E11.9 - Type 2 diabetes mellitus without complications Code(s): E11.9 - Type 2 diabetes mellitus without complications Status: Acute Plan The patient is an 87-year-old male who presented to the emergency room with a chief complaint of not feeling well for an unspecified duration. He reports associated symptoms of nausea, vomiting, and diarrhea. He also complains of abdominal pain, which he describes as being worse on the right side than the left. The patient's last bowel movement was reported to have occurred the day prior to presentation. He denies experiencing fever, chills, chest pain, or shortness of breath. The patient has a history of frequent urinary tract infections but reported no urinary symptoms at this time. His past medical history is significant for aortic stenosis, coronary artery disease, benign prostatic hyperplasia (BPH), chronic venous insufficiency of the lower extremities, hypertension, hyperlipidemia, and type 2 diabetes. He has a dental history of cavities in the , a total knee replacement in 2012, and multiple stent placements prior to coronary artery bypass grafting (CABG). Upon arrival to the emergency department, the patient was found to be hemodynamically stable with no hypotension or hypoxia. Laboratory evaluation revealed leukocytosis with a white cell count of 24,000, mild hypokalemia with a potassium level of 3.1, elevated lactic acid at 3.6, and an elevated troponin I level at 0.096. His lipase was significantly elevated at 2,798. Urinalysis showed the presence of few red blood cells, urinary gas, and was positive for nitrate. Testing for influenza, respiratory syncytial virus (RSV), and COVID-19 was negative. Serial cardiac enzyme measurements showed a troponin I level of 0.096 initially, which decreased slightly to 0.089 on repeat testing. A repeat lactic acid level showed a mild improvement to 2.7. A computed tomography (CT) scan of the abdomen and pelvis was performed, which suggested pancreatitis with possible areas of early pancreatic necrosis. This finding was to be correlated clinically. The CT scan also revealed a small amount of abdominal pelvic ascites. A chest x-ray raised the possibility of a minimal right pleural effusion. Blood cultures have been obtained, and the patient remains afebrile. He has been started on intravenous fluids and intravenous antibiotics with Zosyn. Pain control is being managed with intravenous analgesics. DVT prophylaxis has been initiated with Lovenox. The patient is currently nil per os (NPO). Gastroenterology and surgery services have been consulted for further management. Continue to monitor in IMU will recheck labs this afternoon Subjective Date/time seen: 06/12/23 08:32 Interval history: Patient a poor historian and bit more confused. Reports no pain getting IV fluid chart reviewed discussed with the nursing staff Review of Systems Review of Systems: All systems reviewed & are unremarkable except as noted in HPI and below Exam Narrative: APPEARANCE: No apparent distress. Confused Head: atraumatic. EYES:? EOMI, NOSE: Atraumatic NECK: Trachea midline RESPIRATORY: No increased rate of breathing, CTAB CARDIOVASCULAR: RRR, ABDOMINAL:? Soft nondistended nontender MUSCULOSKELETAl: No obvious deformities NEURO: Alert. Moving 4/4 extremities SKIN:: Warm, dry. Normal color PSYCHIATRIC: Normal affect Objective Data Vital Signs Vital Signs: Vital Signs - 24 hr 06/11/23
[2023-06-12] MEDS: PANTOPRAZOLE SODIUM IV 40 MG VIAL IV PUSH ×2 (09:09→20:28)
[2023-06-12] MEDS: ENOXAPARIN 40 MG/0.4 ML SYRINGE SUB-Q (09:09)
[2023-06-12 14:15] LABS: Basophils Percent Auto 0.2 % (0.2-1.2); Eosinophils Absolute Auto 0.2 K/mm3 (0-0.3); Eosinophils Percent Auto 0.9 % (0-4.4); Hematocrit 34.9 % (42.0-52.0); Hemoglobin 11.9 g/dL (14.0-18.0); Immature Granulocyte Absolute 0.56 K/mm3 (0.00-0.031); Immature Granulocyte Percent A 3.1 % (0-0.5); Lymphocytes Absolute Auto 1.65 K/mm3 (0.9-3.2); Mean Corpuscular HGB Conc 34.1 g/dl (32-36); Mean Corpuscular Hemoglobin 30.6 pg (26-34); Mean Corpuscular Volume 89.7 fl (80-100); Mean Platelet Volume 10.5 fl (7.4-10.4); Monocytes Absolute Auto 1.4 K/mm3 (0.1-0.6); Monocytes Percent Auto 7.7 % (2.6-8.5); Neutrophils Absolute Auto 14.5 K/mm3 (1.3-6.7); Neutrophils Percent Auto 79.1 % (45.5-73.1); Platelet Count Result 165 k/mm3 (150-375); Red Blood Count 3.89 M/mm3 (4.6-6.20); Red Cell Distribution Width 14.5 % (11.5-14.5); White Blood Count 18.3 K/mm3 (4.5-10.0)
[2023-06-12 14:16] LABS: Alanine Aminotransferase 32 U/L (6-50); Albumin Level 2.9 g/dL (3.5-5.1); Alkaline Phosphatase 64 U/L (38-126); Anion Gap 6 mmol/L (8-16); Aspartate Amino Transferase 83 U/L (17-59); Bilirubin,Total 1.4 mg/dL (0.2-1.3); Blood Urea Nitrogen 29 mg/dL (9-20); Calcium 7.5 mg/dL (8.4-10.2); Carbon Dioxide 25 mmol/L (22-30); Chloride 104 mmol/L (98-107); Estimated CRCL calculation 41 ml/min; Estimated Glomerular Filt Rate 48; Glucose 198 mg/dL (65-110); Potassium 3.4 mmol/L (3.4-5.0); Sodium 135 mmol/L (137-145)
[2023-06-12 14:17] LABS: Lactic Acid Reflex 2.2 mmol/L (0.7-2.0)
[2023-06-12 14:37] LABS: Magnesium 1.8 mg/dL (1.6-2.3)
--- NOTE | 2023-06-12 16:33 | WPDGICN ---
Assessment and Plan Assessment and plan (1) Acute pancreatitis: Code(s): K85.90 - Acute pancreatitis without necrosis or infection, unspecified Status: Acute Assessment and Plan: no alcohol, normal TG level, he is post cholecystectomy here with elevated wbc, lactic acid (responding to medical support, fluids and abx) ok to have CL diet for now trend liver enzymes (mild elevated bili) (2) Elevated liver enzymes: Code(s): R74.8 - Abnormal levels of other serum enzymes Status: Acute Assessment and Plan: monitor, probably from pancreatitis (3) Leukocytosis: Code(s): D72.829 - Elevated white blood cell count, unspecified Status: Acute Assessment and Plan: on abx (4) GURPREET (acute kidney injury): Code(s): N17.9 - Acute kidney failure, unspecified Status: Acute Assessment and Plan: on arrival, getting ivf monitor renal function (5) Acidosis, lactic: Code(s): E87.20 - Acidosis, unspecified Status: Acute Assessment and Plan: improving (6) Abdominal pain: Code(s): R10.9 - Unspecified abdominal pain Status: Acute GI Consult Note Consult date/time: 06/12/23 16:33 Reason for consult: pancreatitis HPI: Lefty Haskins is a 87 year old male with history of aortic stenosis, coronary artery disease, benign prostatic hyperplasia (BPH), chronic venous insufficiency of the lower extremities, hypertension, hyperlipidemia, and type 2 diabetes. He is not best historian but says that last 2-3 days feeling unwell, also nausea, vomiting and abdominal pain worse on the right than the left, he was constipated and took some laxatives. ER showed leukocytosis with a white cell count of 24,000, low potassium level of 3.1, elevated lactic acid at 3.6, and an elevated troponin I level at 0.096, bili 1.8, creat 1.4 (baseline 1.1). His lipase was significantly elevated at 2,798. Testing for influenza, respiratory syncytial virus (RSV), and COVID-[address] scan of the abdomen and pelvis was performed and reviewed, which suggested pancreatitis with possible areas of early pancreatic necrosis, post cholecystectomy. Pain now is almost gone and feeling better, no nausea, he is thirsty. Had low grade fever, started on zosyn. No alcohol use, he could not tell me if had pancreatitis previously. TG level normal. Son is at bedside. Review of Systems Constitutional: Constitutional: Reports lethargy Eyes: Eyes: Denies blurry vision ENT: Reports Normal hearing present Cardiovascular: Cardiovascular: Denies chest pain Respiratory: Respiratory: Denies cough Gastrointestinal: Gastrointestinal: Reports abdominal pain and Reports nausea Genitourinary: Genitourinary: Denies dysuria Musculoskeletal: Musculoskeletal: Denies neck pain Integumentary/Breasts: Skin/Breast: Denies rash Neurologic: Denies Abnormal speech present Psychiatric: Psychiatric: Denies behavioral changes [facility] Past Medical History Medical History (Updated 06/12/23 @ 16:40 by Cedric Holliday MD) Abdominal pain GURPREET (acute kidney injury) Aortic stenosis Atherosclerotic heart disease of [place] coronary artery with other forms of angina pectoris Benign prostatic hyperplasia Chronic venous insufficiency of lower extremity Dyslipidemia Elevated liver enzymes Essential (primary) hypertension Hypokalemia Leukocytosis Type 2 diabetes mellitus Surgical History Surgical History History of coronary artery stent placement multiple in 1990s before CABG History of total right knee replacement (~2012) Dr. Rice Hx of CABG (~2000) MoBab Family History Family History Father Depression, Onset Age: 35 Family history of suicide, Onset Age: 35 Mother Family history of malignant neoplasm of ovary, Onset Age: 77 Other Family hist
[2023-06-12 17:00] LABS: Reflex Lactic Acid Yes or No Add Lactic
[2023-06-13] VITALS (22 sets, daily range): BP systolic 131–153; BP diastolic 76–90; PULSE 74–123; RESP 16–28; TEMP 36.2–37; O2SAT 92–96
[2023-06-13] MEDS: PIPERACILLN/TAZ 3.375GM/NS50ML 3.375 GM/50 ML BAG IVPB ×4 (00:20→19:03)
[2023-06-13] MEDS: DEXTROSE 5%/LACTATED RINGERS 1,000 ML 100 ML IV CONT (02:58)
[2023-06-13] MEDS: ENOXAPARIN 40 MG/0.4 ML SYRINGE SUB-Q (08:06)
[2023-06-13] MEDS: PANTOPRAZOLE SODIUM IV 40 MG VIAL IV PUSH ×2 (08:06→21:50)
[2023-06-13 09:25] LABS: Basophils Percent Auto 0.1 % (0.2-1.2); Hematocrit 36.4 % (42.0-52.0); Hemoglobin 12.3 g/dL (14.0-18.0); Immature Granulocyte Absolute 0.25 K/mm3 (0.00-0.031); Immature Granulocyte Percent A 1.4 % (0-0.5); Lymphocytes Absolute Auto 1.17 K/mm3 (0.9-3.2); Lymphocytes Percent Auto 6.7 % (18.3-44.2); Mean Corpuscular HGB Conc 33.8 g/dl (32-36); Mean Corpuscular Hemoglobin 30.1 pg (26-34); Monocytes Absolute Auto 1.2 K/mm3 (0.1-0.6); Neutrophils Absolute Auto 14.7 K/mm3 (1.3-6.7); Neutrophils Percent Auto 84.8 % (45.5-73.1); Platelet Count Result 156 k/mm3 (150-375); Red Blood Count 4.09 M/mm3 (4.6-6.20); Red Cell Distribution Width 14.2 % (11.5-14.5); White Blood Count 17.4 K/mm3 (4.5-10.0)
[2023-06-13 09:38] LABS: Alanine Aminotransferase 39 U/L (6-50); Alkaline Phosphatase 85 U/L (38-126); Anion Gap 6 mmol/L (8-16); Aspartate Amino Transferase 96 U/L (17-59); Bilirubin,Total 1.5 mg/dL (0.2-1.3); Blood Urea Nitrogen 18 mg/dL (9-20); Calcium 7.9 mg/dL (8.4-10.2); Carbon Dioxide 26 mmol/L (22-30); Chloride 105 mmol/L (98-107); Estimated CRCL calculation 63 ml/min; Estimated Glomerular Filt Rate > 60; Glucose 243 mg/dL (65-110); Lipase 269 U/L (23-300); Magnesium 1.9 mg/dL (1.6-2.3); Potassium 3.1 mmol/L (3.4-5.0); Sodium 137 mmol/L (137-145)
[2023-06-13] MEDS: carvediloL 25 MG TABLET PO ×2 (09:51→19:03)
[2023-06-13] MEDS: TAMSULOSIN HCL 0.4 MG CAPSULE PO ×2 (09:51→19:03)
--- NOTE | 2023-06-13 12:05 | PM.IMPN ---
Progress Note: A&P Assessment and Plan (1) Acute pancreatitis: Code(s): K85.90 - Acute pancreatitis without necrosis or infection, unspecified Status: Acute (2) Leukocytosis: Code(s): D72.829 - Elevated white blood cell count, unspecified Status: Acute (3) Type 2 diabetes mellitus: Qualifiers: Diabetes mellitus long-term insulin use: without rat exterminator use Diabetes mellitus complication status: without complication Qualified Code(s): E11.9 - Type 2 diabetes mellitus without complications Code(s): E11.9 - Type 2 diabetes mellitus without complications Status: Acute Plan The patient is an 87-year-old male who presented to the emergency room with a chief complaint of not feeling well for an unspecified duration. He reports associated symptoms of nausea, vomiting, and diarrhea. He also complains of abdominal pain, which he describes as being worse on the right side than the left. The patient's last bowel movement was reported to have occurred the day prior to presentation. He denies experiencing fever, chills, chest pain, or shortness of breath. The patient has a history of frequent urinary tract infections but reported no urinary symptoms at this time. His past medical history is significant for aortic stenosis, coronary artery disease, benign prostatic hyperplasia (BPH), chronic venous insufficiency of the lower extremities, hypertension, hyperlipidemia, and type 2 diabetes. He has a dental history of cavities in the , a total knee replacement in 2012, and multiple stent placements prior to coronary artery bypass grafting (CABG). Upon arrival to the emergency department, the patient was found to be hemodynamically stable with no hypotension or hypoxia. Laboratory evaluation revealed leukocytosis with a white cell count of 24,000, mild hypokalemia with a potassium level of 3.1, elevated lactic acid at 3.6, and an elevated troponin I level at 0.096. His lipase was significantly elevated at 2,798. Urinalysis showed the presence of few red blood cells, urinary gas, and was positive for nitrate. Testing for influenza, respiratory syncytial virus (RSV), and COVID-19 was negative. Serial cardiac enzyme measurements showed a troponin I level of 0.096 initially, which decreased slightly to 0.089 on repeat testing. A repeat lactic acid level showed a mild improvement to 2.7. A computed tomography (CT) scan of the abdomen and pelvis was performed, which suggested pancreatitis with possible areas of early pancreatic necrosis. This finding was to be correlated clinically. The CT scan also revealed a small amount of abdominal pelvic ascites. A chest x-ray raised the possibility of a minimal right pleural effusion. Blood cultures have been obtained, and the patient remains afebrile. He has been started on intravenous fluids and intravenous antibiotics with Zosyn. Pain control is being managed with intravenous analgesics. DVT prophylaxis has been initiated with Lovenox. The patient is currently nil per os (NPO). Gastroenterology and surgery services have been consulted for further management. Hypoxia worsening chest x-ray with airspace opacities of the lung bases worsening on the left consistent with atelectasis less likely pneumonia. Will lower IV fluids today lactic acidosis has resolved. Leukocytosis still persists but slowly improving. Lipase level has normalized today. GI on board continue IV Zosyn as ordered for necrotic pancreatitis. Blood culture to date negative DVT prophylaxis with Lovenox. Mildly tachycardic today. Will resume carvedilol today hold hydrochlorothiazide lisinopril and amlodipine monitor blood pressure Subjective Date/time seen: 06/13/23 12:05 Interval history: Patient is more awake today. Denies any abdominal pain. No nausea vomiting. Tolerating clears. Labs reviewed. Increased oxygen requirement overnight noted. Repeat chest x-ray today with small pleural effusion airspace opacit
[2023-06-13 12:55] LABS: Hemoglobin A1C 7.2 % (<5.7)
[2023-06-13 12:57] LABS: Glucose Point of Care 231 mg/dl (65-105)
--- NOTE | 2023-06-13 13:00 | PC.NURSE ---
The pt continues to remove SPO2 monitor from hand. This RN was summoned to the pts room per family request. Per family the pt was desatting down to the 80s. Upon entering the pts room no distress was noted. SPo2 monitor noted removed from the pts hand. SPO2 monitor reapplied et was WNL. Education given on the need for intervention et a new SPO2 monitor applied. Tele leads also changed. The MD was at the pts bedside giving report to the family. The Requested this RN pull up results from the CT scan for his viewing. One of the family members who self identified as a Radiologist said she wanted to read it out of the pts chart. Education was given that this RN could not do that but the family could follow up with medical records. Education was also given on My Chart. A second family member who identified herself as a RN questioned if the pt had been lying on his back the entire shift education was given that the pt has been able to turn self et reposition et that the pt has been self turning himself et attempting to get out of the bed throughout my shift. Education given the pt has not been in the same position. The pts buttocks remains unchanged with blanchable redness noted to the pts bottom skin intact. Mepilex applied to the pt buttocks et the pt was repositioned on his side with pillow support used the pt assisted in turn. No further complaints voiced. Report was given to the gettering operator et this RN questioned a link for the pt to access my chart. Per the gettering operator advised to reach out to Care Coordination to help the pt gain access to their My Chart. This RN gave report to Care coordination on the family wanting access to My Chart. Per Care Coordination Sandra RN the issue has been escalated to get a link so the pt can have access to the chart. Leads are now changed, SPO2 changed, et the pts is remains on his left side call light in reach.
--- NOTE | 2023-06-13 13:27 | WPDGIPROGNO ---
Progress Note: A&P Assessment and Plan (1) Acute pancreatitis: Code(s): K85.90 - Acute pancreatitis without necrosis or infection, unspecified Status: Acute Assessment and Plan: no obvious etiology bili 1.5 lipase and lactic acid normalized will get MRCP to assess biliary system and pancreas (CT scan report of possible necrosis)- this was discussed with family member that is radiologist. She says that patient had pancreatitis but several years ago, never had alcohol. (2) Elevated liver enzymes: Code(s): R74.8 - Abnormal levels of other serum enzymes Status: Acute Assessment and Plan: trend enzymes bili 1.5 (3) Leukocytosis: Code(s): D72.829 - Elevated white blood cell count, unspecified Status: Acute Assessment and Plan: on abx also noted uti (4) GURPREET (acute kidney injury): Code(s): N17.9 - Acute kidney failure, unspecified Status: Acute Assessment and Plan: resolved (5) Abdominal pain: Code(s): R10.9 - Unspecified abdominal pain Status: Acute (6) Acidosis, lactic: Code(s): E87.20 - Acidosis, unspecified Status: Acute (7) Atherosclerotic heart disease of [place] coronary artery with other forms of angina pectoris: Code(s): I25.118 - Atherosclerotic heart disease of [place] coronary artery with other forms of angina pectoris Status: Acute Subjective Date/time seen: 06/13/23 13:27 Interval history: no much abdominal pain but overall discomfort, also using oxygen, generalized weakness several member at bedside including a physician Review of Systems Review of Systems: All systems reviewed & are unremarkable except as noted in HPI and below Exam Const: Other: using oxygen HENMT: Face/Nose/Sinus: Normal nares present Eyes: Sclera: sclerae normal Neck: Neck: supple Resp: Effort & Inspection: normal respiratory effort Cardio: Rate: regular rate GI: Inspection: distended GI Palp: Yes Soft to palpation and No Guarding due to palpation present (GI) Auscultation: normal bowel sounds Other: only minimal tenderness in epigastric Skin: General skin exam: normal color Neuro: Speech: normal speech Motor exam (neuro): 5/5 motor strength present throughout Extrem: General: normal to inspection Psych: Mental Status: mental status grossly normal Objective Data Vital Signs Vital Signs: Vital Signs - 24 hr 06/12/23 15:18 02/12/24 20:01 06/12/23 14:00 Temperature 98.1 F 98.0 F Pulse Rate 85 87 80 Respiratory Rate 24 H 22 H Blood Pressure 124/56 L 137/65 Pulse Oximetry 91 93 Oxygen Delivery Oxygen Flow Rate 06/12/23 16:00 06/12/23 18:00 06/12/23 16:00 Temperature Pulse Rate 82 87 Respiratory Rate Blood Pressure Pulse Oximetry Oxygen Delivery Room Air Oxygen Flow Rate 06/12/23 20:00 06/12/23 22:00 06/13/23 00:09 Temperature 97.8 F Pulse Rate 83 104 H 83 Respiratory Rate 20 Blood Pressure 136/76 Pulse Oximetry 92 Oxygen Delivery Oxygen Flow Rate 06/13/23 00:00 06/13/23 02:00 06/13/23 04:00 Temperature Pulse Rate 80 74 Respiratory Rate Blood Pressure Pulse Oximetry 94 Oxygen Delivery Nasal Cannula Oxygen Flow Rate 4 06/13/23 04:04 06/13/23 04:00 06/13/23 06:00 Temperature 97.2 F L Pulse Rate 112 H 123 H 106 H Respiratory Rate 16 Blood Pressure 144/84 H Pulse Oximetry 92 Oxygen Delivery Oxygen Flow Rate 06/13/23 08:00 06/13/23 08:00 06/13/23 09:51 Temperature 97.6 F Pulse Rate 110 H 103 H Respiratory Rate 20 Blood Pressure 153/88 H Pulse Oximetry 96 Oxygen Delivery Room Air Oxygen Flow Rate 06/13/23 08:00 06/13/23 10:00 06/13/23 11:30 Temperature Pulse Rate 107 H 112 H Respiratory Rate Blood Pressure Pulse Oximetry 96 Oxygen Delivery Room Air Oxygen Flow Rate 06/13/23 11:48 06/13/23 11:49 06/13/23 12:59 Temperature
[2023-06-13] MEDS: SODIUM CHLORIDE 0.9% IV 1,000 ML 50 ML IV CONT (19:01)
[2023-06-13] MEDS: POTASSIUM CHLORIDE 20 MEQ ER TABLET 40 MEQ PO (19:02)
[2023-06-13 19:32] LABS: Glucose Point of Care 221 mg/dl (65-105)
[2023-06-13] MEDS: MELATONIN 3 MG TABLET 6 MG PO (21:51)
[2023-06-14] VITALS (19 sets, daily range): BP systolic 121–160; BP diastolic 64–89; PULSE 87–117; RESP 20–30; TEMP 36.1–37.1; O2SAT 88–97
[2023-06-14] MEDS: PIPERACILLN/TAZ 3.375GM/NS50ML 3.375 GM/50 ML BAG IVPB ×4 (00:31→16:20)
[2023-06-14] MEDS: FUROSEMIDE INJ 40 MG/4 ML VIAL 20 MG IV PUSH ×2 (03:36→16:36)
--- NOTE | 2023-06-14 03:38 | PM.EVENT ---
Event Note Event Note Event Note: I was called to see this patient admitted for acute pancreatitis with necrosis, scheduled for MRCP today. Developed mild shortness of breath and increased oxygen requirement. Examination revealed an elderly patient not in distress, sitting upright on the edge of the bed, has mild bilateral respiratory wheezes, and also crackles on both lung bases. IV fluid was discontinued, furosemide 20 mg IV push given, DuoNeb breathing treatment ordered once, chest x-ray one view, CBC comprehensive ordered. Patient is currently on Zosyn. We will review labs and x-ray subsequently Lab results and CXR were reviewed, leukocytosis has improved to 14,000, he has potassium of 3.1, he has mild pulmonary edema. Symptoms improved with breathing treatment and furosemide. IVF was discontinued and potassium correction started IV as patient is NPO
[2023-06-14] MEDS: IPRATROPIUM 0.5 MG/ALBUTEROL SULFATE 2.5 MG AMPUL.NEB 3 ML INHALATION (03:50)
[2023-06-14 03:57] LABS: Basophils Percent Auto 0.1 % (0.2-1.2); Eosinophils Percent Auto 0.2 % (0-4.4); Hematocrit 34.8 % (42.0-52.0); Hemoglobin 11.8 g/dL (14.0-18.0); Immature Granulocyte Absolute 0.07 K/mm3 (0.00-0.031); Immature Granulocyte Percent A 0.5 % (0-0.5); Lymphocytes Absolute Auto 1.23 K/mm3 (0.9-3.2); Lymphocytes Percent Auto 8.8 % (18.3-44.2); Mean Corpuscular HGB Conc 33.9 g/dl (32-36); Mean Corpuscular Volume 88.5 fl (80-100); Mean Platelet Volume 9.6 fl (7.4-10.4); Monocytes Absolute Auto 0.9 K/mm3 (0.1-0.6); Monocytes Percent Auto 6.5 % (2.6-8.5); Neutrophils Absolute Auto 11.7 K/mm3 (1.3-6.7); Neutrophils Percent Auto 83.9 % (45.5-73.1); Platelet Count Result 160 k/mm3 (150-375); Red Blood Count 3.93 M/mm3 (4.6-6.20)
[2023-06-14 04:08] LABS: Alanine Aminotransferase 50 U/L (6-50); Albumin Level 2.9 g/dL (3.5-5.1); Alkaline Phosphatase 100 U/L (38-126); Anion Gap 3 mmol/L (8-16); Aspartate Amino Transferase 81 U/L (17-59); Bilirubin,Total 1.4 mg/dL (0.2-1.3); Blood Urea Nitrogen 18 mg/dL (9-20); Calcium 8.2 mg/dL (8.4-10.2); Carbon Dioxide 28 mmol/L (22-30); Chloride 106 mmol/L (98-107); Estimated CRCL calculation 71 ml/min; Estimated Glomerular Filt Rate > 60; Glucose 192 mg/dL (65-110); Magnesium 2.2 mg/dL (1.6-2.3); Potassium 3.7 mmol/L (3.4-5.0); Sodium 137 mmol/L (137-145)
[2023-06-14 08:12] LABS: Glucose Point of Care 176 mg/dl (65-105)
--- NOTE | 2023-06-14 10:18 | PCOTNOTE ---
The patient treatment was not able to be completed. Patient was sleeping and requested to continue to sleep for now. Will plan to continue treatment per plan of care.
--- NOTE | 2023-06-14 10:34 | PM.IMPN ---
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 He reports associated symptoms of nausea, vomiting, and diarrhea. He also complains of abdominal pain, which he describes as being worse on the right side than the left. The patient's last bowel movement was reported to have occurred the day prior to presentation. He denies experiencing fever, chills, chest pain, or shortness of breath. The patient has a history of frequent urinary tract infections but reported no urinary symptoms at this time. History of CAD His past medical history is significant for aortic stenosis, coronary artery diseasemultiple stent placements prior to coronary artery bypass grafting (CABG). Serial cardiac enzyme measurements showed a troponin I level of 0.096 initially, which decreased slightly to 0.089 on repeat testing. Possible demand ischemia Patient denies chest pain Acute necrotic pancreatitis A computed tomography (CT) scan of the abdomen and pelvis was performed, which suggested pancreatitis with possible areas of early pancreatic necrosis. This finding was to be correlated clinically. The CT scan also revealed a small amount of abdominal pelvic ascites Lipase level has normalized today. GI on board continue IV Zosyn as ordered for necrotic pancreatitis. MRCP shows no obstruction Sepsis Possible resulting from acute necrotic pancreatitis and pneumonia Laboratory evaluation revealed leukocytosis with a white cell count of 24,000, mild hypokalemia with a potassium level of 3.1, elevated lactic acid at 3.6, and an elevated troponin I level at 0.096. His lipase was significantly elevated at 2,798. Urinalysis showed the presence of few red blood cells, urinary gas, and was positive for nitrate. Testing for influenza, respiratory syncytial virus (RSV), and COVID-19 was negative. A repeat lactic acid level showed a mild improvement to 2.7. Blood cultures have been obtained, and the patient remains afebrile. started on intravenous fluids and intravenous antibiotics with Zosyn. Pain control is being managed with intravenous analgesics. DVT prophylaxis has been initiated with Lovenox. The patient is currently nil per os (NPO). Gastroenterology and surgery services have been consulted for further management. Aspiration pneumonia Hypoxia worsening chest x-ray with airspace opacities of the lung bases worsening on the left consistent with atelectasis Possible aspiration pneumonia leukocytosis still persists but slowly improving. Patient is on Zosyn Acute respiratory failure Likely secondary to pneumonia, and possible fluid overload Echocardiogram 2001 showed diastolic dysfunction Patient is on 5 L oxygen DC IV fluid Received Lasix in the night 06/13 Start Lasix 20 mg b.i.d. IV push type 2 diabetes. Start insulin sliding scale Continue home medications Essential hypertension Will resume carvedilol today hold hydrochlorothiazide lisinopril and amlodipine monitor blood pressure Subjective Date/time seen: 06/14/23 10:34 Interval history: I saw and examined the patient in presents of patient's family: Patient's daughter and granddaughter. Patient denied shortness of breath, chest pain at rest. Abdomen pain is better controlled, patient is on clear
[2023-06-14] MEDS: carvediloL 25 MG TABLET PO ×2 (10:55→16:21)
[2023-06-14] MEDS: PANTOPRAZOLE SODIUM IV 40 MG VIAL IV PUSH ×2 (10:56→21:07)
[2023-06-14] MEDS: TAMSULOSIN HCL 0.4 MG CAPSULE PO (10:56)
[2023-06-14] MEDS: ENOXAPARIN 40 MG/0.4 ML SYRINGE SUB-Q (10:56)
[2023-06-14 11:51] LABS: Glucose Point of Care 208 mg/dl (65-105)
--- NOTE | 2023-06-14 13:16 | WPDGIPROGNO ---
Progress Note: A&P Assessment and Plan (1) Acute pancreatitis: Code(s): K85.90 - Acute pancreatitis without necrosis or infection, unspecified Status: Acute Assessment and Plan: no obvious etiology, MRCP showed acute necrotizing pancreatitis, no stone in bile duct, no mass on liquid diet (2) Elevated liver enzymes: Code(s): R74.8 - Abnormal levels of other serum enzymes Status: Acute Assessment and Plan: bili 1.4, from pancreatitis (3) Leukocytosis: Code(s): D72.829 - Elevated white blood cell count, unspecified Status: Acute Assessment and Plan: on abx and trending down also noted uti (4) GURPREET (acute kidney injury): Code(s): N17.9 - Acute kidney failure, unspecified Status: Acute Assessment and Plan: resolved (5) Abdominal pain: Code(s): R10.9 - Unspecified abdominal pain Status: Acute (6) Acidosis, lactic: Code(s): E87.20 - Acidosis, unspecified Status: Acute Assessment and Plan: resolved (7) Atherosclerotic heart disease of [place] coronary artery with other forms of angina pectoris: Code(s): I25.118 - Atherosclerotic heart disease of [place] coronary artery with other forms of angina pectoris Status: Acute Subjective Date/time seen: 06/14/23 13:16 Interval history: he says is feeling better, still using oxygen, denies abdominal pain Review of Systems Review of Systems: All systems reviewed & are unremarkable except as noted in HPI and below Exam Const: Other: using oxygen HENMT: Face/Nose/Sinus: Normal nares present Eyes: Sclera: sclerae normal Neck: Neck: supple Resp: Auscultation: diminished lung sounds Cardio: Rate: regular rate GI: Inspection: distended GI Palp: Yes Soft to palpation and No Guarding due to palpation present (GI) Auscultation: normal bowel sounds Skin: General skin exam: normal color Neuro: Speech: normal speech Motor exam (neuro): 5/5 motor strength present throughout Extrem: General: normal to inspection Psych: Mental Status: mental status grossly normal Objective Data Vital Signs Vital Signs: Vital Signs - 24 hr 06/13/23 15:34 06/13/23 15:40 06/13/23 19:03 Temperature 98.6 F Pulse Rate 96 95 Respiratory Rate 28 H Blood Pressure 131/85 Pulse Oximetry 94 Oxygen Delivery Nasal Cannula Oxygen Flow Rate 4 06/13/23 14:00 06/13/23 18:00 06/13/23 16:00 Temperature Pulse Rate 93 98 Respiratory Rate Blood Pressure Pulse Oximetry 94 Oxygen Delivery Nasal Cannula Oxygen Flow Rate 4 06/13/23 20:13 06/14/23 00:20 06/13/23 20:00 Temperature 98.6 F 98.8 F Pulse Rate 100 91 89 Respiratory Rate 26 H 20 Blood Pressure 136/82 160/83 H Pulse Oximetry 94 89 L Oxygen Delivery Oxygen Flow Rate 06/13/23 20:00 06/13/23 22:00 06/14/23 00:00 Temperature Pulse Rate 94 87 Respiratory Rate Blood Pressure Pulse Oximetry 95 Oxygen Delivery Nasal Cannula Oxygen Flow Rate 4 06/14/23 00:00 06/14/23 02:00 06/14/23 03:50 Temperature Pulse Rate 100 95 Respiratory Rate 20 Blood Pressure Pulse Oximetry 88 L Oxygen Delivery Nasal Cannula Oxygen Flow Rate 5 06/14/23 04:23 06/14/23 04:00 06/14/23 04:00 Temperature 98.2 F Pulse Rate 97 90 Respiratory Rate 20 Blood Pressure 144/85 H Pulse Oximetry 97 93 Oxygen Delivery Nasal Cannula Oxygen Flow Rate 5 06/14/23 06:00 06/14/23 08:00 06/14/23 08:00 Temperature 97.3 F L Pulse Rate 90 99 99 Respiratory Rate 20 20 Blood Pressure 137/88 Pulse Oximetry 93 93 Oxygen Delivery Nasal Cannula Oxygen Flow Rate 5 06/14/23 10:55 06/14/23 11:32 06/14/23 08:00 Temperature 98.2 F Pulse Rate 99 95 92 Respiratory Rate 30 H Blood Pressure 136/64 Pulse Oximetry 94 Oxygen Delivery Oxygen Flow Rate 06/14/23 10:00 06/14/23 12:00 06/14/23 12:00 Temperature Pulse
[2023-06-14 16:12] LABS: Glucose Point of Care 194 mg/dl (65-105)
[2023-06-14 20:55] LABS: Glucose Point of Care 217 mg/dl (65-105)
[2023-06-14] MEDS: MELATONIN 3 MG TABLET 6 MG PO (21:08)
[2023-06-15] VITALS (14 sets, daily range): BP systolic 131–163; BP diastolic 65–90; PULSE 65–112; RESP 16–22; TEMP 36.3–36.9; O2SAT 90–99
[2023-06-15] MEDS: PIPERACILLN/TAZ 3.375GM/NS50ML 3.375 GM/50 ML BAG IVPB ×5 (00:03→23:20)
[2023-06-15 08:03] LABS: Glucose Point of Care 211 mg/dl (65-105)
--- NOTE | 2023-06-15 09:59 | PM.IMPN ---
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 He reports associated symptoms of nausea, vomiting, and diarrhea. He also complains of abdominal pain, which he describes as being worse on the right side than the left. The patient's last bowel movement was reported to have occurred the day prior to presentation. He denies experiencing fever, chills, chest pain, or shortness of breath. The patient has a history of frequent urinary tract infections but reported no urinary symptoms at this time. History of CAD His past medical history is significant for aortic stenosis, coronary artery diseasemultiple stent placements prior to coronary artery bypass grafting (CABG). Serial cardiac enzyme measurements showed a troponin I level of 0.096 initially, which decreased slightly to 0.089 on repeat testing. Possible demand ischemia Patient denies chest pain Acute necrotic pancreatitis A computed tomography (CT) scan of the abdomen and pelvis was performed, which suggested pancreatitis with possible areas of early pancreatic necrosis. This finding was to be correlated clinically. The CT scan also revealed a small amount of abdominal pelvic ascites Lipase level has normalized y. GI on board continue IV Zosyn as ordered for necrotic pancreatitis. MRCP shows no obstruction 06/15: Patient tolerate full liquid diet well, procalcitonin 0.2, indicating no sepsis Sepsis Possible resulting from acute necrotic pancreatitis and pneumonia Laboratory evaluation revealed leukocytosis with a white cell count of 24,000, mild hypokalemia with a potassium level of 3.1, elevated lactic acid at 3.6, and an elevated troponin I level at 0.096. His lipase was significantly elevated at 2,798. Urinalysis showed the presence of few red blood cells, urinary gas, and was positive for nitrate. Testing for influenza, respiratory syncytial virus (RSV), and COVID-19 was negative. A repeat lactic acid level showed a mild improvement to 2.7. Blood cultures have been obtained, and the patient remains afebrile. started on intravenous fluids and intravenous antibiotics with Zosyn. Pain control is being managed with intravenous analgesics. DVT prophylaxis has been initiated with Lovenox. . Gastroenterology and surgery services have been consulted for further management. 06/15: Patient is afebrile, white blood cell is trending down, protectin level 0.2, sepsis has resolved Aspiration pneumonia Hypoxia worsening chest x-ray with airspace opacities of the lung bases worsening on the left consistent with atelectasis Possible aspiration pneumonia leukocytosis still persists but slowly improving. Patient is on Zosyn Will continue Zosyn IV today, white blood cells trending down Acute respiratory failure Likely secondary to pneumonia, and possible fluid overload Echocardiogram 2001 showed diastolic dysfunction Patient is on 5 L oxygen DC IV fluid Received Lasix in the night 06/13 Start Lasix 20 mg b.i.d. IV push 06/15: Patient on 2 L oxygen is, still has crackles bilateral base, patient feels short of breath has resolved. Continue Lasix IV today type 2 diabetes. Start insulin sliding scale Continue home medications Essential hypertension Will resume carvedilol today hold hydrochlor
[2023-06-15] MEDS: FUROSEMIDE INJ 40 MG/4 ML VIAL 20 MG IV PUSH ×2 (10:18→17:13)
[2023-06-15] MEDS: carvediloL 25 MG TABLET PO ×2 (10:19→17:12)
[2023-06-15] MEDS: ENOXAPARIN 40 MG/0.4 ML SYRINGE SUB-Q (10:19)
[2023-06-15] MEDS: TAMSULOSIN HCL 0.4 MG CAPSULE PO (10:19)
[2023-06-15] MEDS: PANTOPRAZOLE SODIUM IV 40 MG VIAL IV PUSH ×2 (10:20→19:27)
[2023-06-15 10:25] LABS: Basophils Percent Auto 0.3 % (0.2-1.2); Eosinophils Absolute Auto 0.1 K/mm3 (0-0.3); Eosinophils Percent Auto 0.8 % (0-4.4); Hematocrit 35.9 % (42.0-52.0); Hemoglobin 11.9 g/dL (14.0-18.0); Immature Granulocyte Absolute 0.16 K/mm3 (0.00-0.031); Immature Granulocyte Percent A 1.2 % (0-0.5); Lymphocytes Percent Auto 9.6 % (18.3-44.2); Mean Corpuscular HGB Conc 33.1 g/dl (32-36); Mean Corpuscular Hemoglobin 29.8 pg (26-34); Mean Corpuscular Volume 89.8 fl (80-100); Mean Platelet Volume 9.5 fl (7.4-10.4); Monocytes Absolute Auto 0.9 K/mm3 (0.1-0.6); Monocytes Percent Auto 6.7 % (2.6-8.5); Neutrophils Percent Auto 81.4 % (45.5-73.1); Platelet Count Result 212 k/mm3 (150-375); Red Cell Distribution Width 14.2 % (11.5-14.5); White Blood Count 13.5 K/mm3 (4.5-10.0)
[2023-06-15] MEDS: INSULIN ASPART (*BKC) 100 UNITS/ML SUB-Q ×3 (10:25→17:16)
[2023-06-15 10:38] LABS: Anion Gap 5 mmol/L (8-16); Blood Urea Nitrogen 19 mg/dL (9-20); Calcium 8.5 mg/dL (8.4-10.2); Carbon Dioxide 30 mmol/L (22-30); Chloride 101 mmol/L (98-107); Estimated CRCL calculation 70 ml/min; Estimated Glomerular Filt Rate > 60; Glucose 229 mg/dL (65-110); Magnesium 2.2 mg/dL (1.6-2.3); Phosphorus 2.8 mg/dL (2.5-4.5); Potassium 3.3 mmol/L (3.4-5.0); Sodium 136 mmol/L (137-145)
[2023-06-15 11:20] LABS: Procalcitonin 0.2 ng/mL
[2023-06-15 12:15] LABS: Glucose Point of Care 241 mg/dl (65-105)
[2023-06-15] MEDS: POTASSIUM CHLORIDE 20 MEQ PACKET (FOR LIQUID) 40 MEQ PO (12:30)
--- NOTE | 2023-06-15 14:16 | WPDGIPROGNO ---
Progress Note: A&P Assessment and Plan (1) Acute pancreatitis: Code(s): K85.90 - Acute pancreatitis without necrosis or infection, unspecified Status: Acute Assessment and Plan: no obvious etiology, MRCP showed acute necrotizing pancreatitis, no stone in bile duct, no mass will advance to low fat diet as tolerated (2) Elevated liver enzymes: Code(s): R74.8 - Abnormal levels of other serum enzymes Status: Acute Assessment and Plan: bili 1.4, stable from pancreatitis (3) Leukocytosis: Code(s): D72.829 - Elevated white blood cell count, unspecified Status: Acute Assessment and Plan: on abx and has been trending down also noted uti (4) GURPREET (acute kidney injury): Code(s): N17.9 - Acute kidney failure, unspecified Status: Acute Assessment and Plan: resolved (5) Abdominal pain: Code(s): R10.9 - Unspecified abdominal pain Status: Acute Assessment and Plan: almost resolved Subjective Date/time seen: 06/15/23 14:16 Interval history: he is feeling better, denies abdominal pain, still using oxygen, he thinks that could eat more Review of Systems Review of Systems: All systems reviewed & are unremarkable except as noted in HPI and below Exam Const: Other: using oxygen HENMT: Face/Nose/Sinus: Normal nares present Eyes: Sclera: sclerae normal Neck: Neck: supple Resp: Auscultation: diminished lung sounds Cardio: Rate: regular rate GI: Inspection: distended GI Palp: Yes Soft to palpation and No Guarding due to palpation present (GI) Auscultation: normal bowel sounds Skin: General skin exam: normal color Neuro: Speech: normal speech Motor exam (neuro): 5/5 motor strength present throughout Extrem: General: normal to inspection Psych: Mental Status: mental status grossly normal Objective Data Vital Signs Vital Signs: Vital Signs - 24 hr 06/14/23 16:05 06/14/23 16:14 06/14/23 16:21 Temperature 98.6 F Pulse Rate 91 93 Respiratory Rate 28 H Blood Pressure 149/85 H Pulse Oximetry 92 Oxygen Delivery Nasal Cannula Oxygen Flow Rate 4 06/14/23 16:00 06/14/23 16:00 06/14/23 18:00 Temperature Pulse Rate 93 115 H 115 H Respiratory Rate 28 H Blood Pressure Pulse Oximetry 92 Oxygen Delivery Nasal Cannula Oxygen Flow Rate 2 06/14/23 20:00 06/14/23 23:48 06/14/23 20:00 Temperature 96.9 F L 97 F L Pulse Rate 90 97 Respiratory Rate 26 H 20 Blood Pressure 137/72 121/89 Pulse Oximetry 95 97 93 Oxygen Delivery Nasal Cannula Oxygen Flow Rate 2 06/14/23 20:00 06/15/23 00:00 06/15/23 04:00 Temperature 97.5 F L Pulse Rate 88 96 97 Respiratory Rate 22 H Blood Pressure 143/77 H Pulse Oximetry 92 Oxygen Delivery Oxygen Flow Rate 06/15/23 04:00 06/15/23 07:36 06/15/23 10:19 Temperature 97.9 F Pulse Rate 91 94 85 Respiratory Rate 22 H Blood Pressure 140/74 Pulse Oximetry 99 Oxygen Delivery Oxygen Flow Rate 06/15/23 11:37 06/15/23 12:49 Temperature 97.3 F L Pulse Rate 94 Respiratory Rate 18 Blood Pressure 150/72 H Pulse Oximetry 95 Oxygen Delivery Nasal Cannula Oxygen Flow Rate 1 Intake/Output Intake/Output: Intake & Output 06/12/23 06/13/23 06/14/23 06/15/23 23:59 23:59 23:59 23:59 Intake Total 2009 1680 1329 840 Output Total 250 1100 960 800 Balance 1760 580 369 40 Meds/Results Medications: Active Medications Generic Name Dose Route Start Last Admin Trade Name Freq PRN Reason Stop Dose Admin Carvedilol 25 mg 06/13/23 09:00 06/15/23 10:19 Carvedilol 25 Mg Tablet PO 25 mg BID LEANNE Administration Dextrose 12.5 gm 06/13/23 12:24 Dextrose 50% 25 Gm/50 Ml Syringe IV PUSH PRN PRN Hypoglycemia Protocol Enoxaparin Sodium 40 mg 06/12/23 09:00 06/15/23 10:19 Enoxaparin 40 Mg/0.4 Ml Syringe SUB-Q 40 mg DAILY LEANNE Administration Furosemide 20 m
--- NOTE | 2023-06-15 15:06 | PC.NURSE ---
This patient, Lefty Haskins, was received from [im[facility] [id number]] on 06/15/23 at 1505. Patient/family oriented to unit policies and routines. report from kyle
--- NOTE | 2023-06-15 15:51 | PC.NURSE ---
This patient, Lefty Haskins, was transferred to [facility] on 06/15/23 at 1408. Personal belongings sent with patient. Report given to MOHINI Sigala. Appropriate documentation sent with patient.
--- NOTE | 2023-06-15 16:00 | WPDURCON ---
Assessment and Plan Assessment and plan (1) Benign prostatic hyperplasia: Qualifiers: Lower urinary tract symptom presence: symptoms absent Qualified Code(s): N40.0 - Benign prostatic hyperplasia without lower urinary tract symptoms Code(s): N40.0 - Benign prostatic hyperplasia without lower urinary tract symptoms Status: Acute Assessment and Plan: Continue tamsulosin (2) History of UTI: Code(s): Z87.440 - Personal history of urinary (tract) infections Status: Acute Assessment and Plan: Reports frequent UTIs, however no prior cultures available for review. CT of abdomen/pelvis is unremarkable. Will plan for outpatient follow-up after hospitalization for continued monitoring. May benefit from cystoscopy as an outpatient for further evaluation. Urology Consult Note HPI Date Seen: 06/15/23 Requesting Physician: Shree Oates MD Primary Care Provider: Lesia Jean MD Consult Narrative Narrative: Lefty Haskins is a 87 year old male with a history of BPH on tamsulosin and remote history of kidney stones currently admitted for pancreatitis who is being seen in consultation for evaluation of recurrent UTIs. His daughter is at the bedside who reports he has had chronic infections over the past several years. The patient reports he is asymptomatic at this time. He denies dysuria, hematuria, urgency, frequency, suprapubic pain, or flank pain. Denies nausea, vomiting, fever, or chills. Denies prior issues with urinary retention. His UA on admission was abnormal with leukocytes, nitrites, and blood. A urine culture was not obtained. He has since been on broad spectrum antibiotics. CT of his abdomen/pelvis reviewed with normal kidneys and bladder and prostatomegaly. His WBC has improved to 13.5. Creatinine is within normal limits at 0.8. He is afebrile and his vital signs are stable. At the time of my evaluation, he is feeling well and offers no concerns. Review of Systems Review of Systems: All systems reviewed & are unremarkable except as noted in HPI and below PMFSH Past Medical History Medical History (Updated 06/15/23 @ 16:08 by Elizabeth Cohen PA-C) Abdominal pain GURPREET (acute kidney injury) Aortic stenosis Atherosclerotic heart disease of [place] coronary artery with other forms of angina pectoris Benign prostatic hyperplasia Chronic venous insufficiency of lower extremity Dyslipidemia Elevated liver enzymes Essential (primary) hypertension Hypokalemia Leukocytosis Type 2 diabetes mellitus Surgical History Surgical History History of coronary artery stent placement multiple in 1990s before CABG History of total right knee replacement (~2012) Dr. Rice Hx of CABG (~2000) [facility]Bab Family History Family History Father Depression, Onset Age: 35 Family history of suicide, Onset Age: 35 Mother Family history of malignant neoplasm of ovary, Onset Age: 77 Other Family history of cardiovascular disease Hypertension Social History Social History Smoking status: Never smoker Alcohol intake: never Substance use: never Substance use type: does not use Do You Feel Safe in your Home?: Yes Lack of Transportation: No Lack of Food: Never True Current Housing: I Have Housing Concerned About Future Housing: No Difficulty Paying Gas/Electric Bills: No Difficulty Paying for Meds: No Currently Unemployed: No Education: Master's Degree or Higher Difficulty w/ Childcare or Family Care: No Living arrangements: with family Additional living arrangements comments: Occupation/Education: retired 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
[2023-06-15 16:43] LABS: Glucose Point of Care 230 mg/dl (65-105)
[2023-06-15] MEDS: MELATONIN 3 MG TABLET 6 MG PO (19:30)
[2023-06-15 20:54] LABS: Glucose Point of Care 256 mg/dl (65-105)
[2023-06-16 04:00] VITALS: BP 128/81; PULSE 91; RESP 20; TEMP 36.2; O2SAT 95
[2023-06-16] MEDS: PIPERACILLN/TAZ 3.375GM/NS50ML 3.375 GM/50 ML BAG IVPB ×2 (06:30→12:22)
[2023-06-16 07:47] LABS: Glucose Point of Care 234 mg/dl (65-105)
[2023-06-16 08:00] VITALS: BP 97/81; PULSE 90; PULSE 98; RESP 20; RESP 24; TEMP 35.7; O2SAT 91; O2SAT 98
[2023-06-16] MEDS: POTASSIUM CHLORIDE 20 MEQ PACKET (FOR LIQUID) 40 MEQ PO ×2 (09:04→18:02)
[2023-06-16] MEDS: INSULIN ASPART (*BKC) 100 UNITS/ML SUB-Q ×3 (09:04→18:02)
[2023-06-16] MEDS: FUROSEMIDE INJ 40 MG/4 ML VIAL 20 MG IV PUSH (09:04)
[2023-06-16] MEDS: carvediloL 25 MG TABLET PO ×2 (09:05→18:02)
[2023-06-16] MEDS: TAMSULOSIN HCL 0.4 MG CAPSULE PO (09:05)
[2023-06-16] MEDS: ENOXAPARIN 40 MG/0.4 ML SYRINGE SUB-Q (09:09)
[2023-06-16] MEDS: PANTOPRAZOLE SODIUM IV 40 MG VIAL IV PUSH (09:09)
--- NOTE | 2023-06-16 09:27 | PM.IMPN ---
Progress Note: A&P Assessment and Plan (1) History of UTI: Code(s): Z87.440 - Personal history of urinary (tract) infections Status: Acute (2) GURPREET (acute kidney injury): Code(s): N17.9 - Acute kidney failure, unspecified Status: Acute (3) Leukocytosis: Code(s): D72.829 - Elevated white blood cell count, unspecified Status: Acute (4) Acute pancreatitis: Code(s): K85.90 - Acute pancreatitis without necrosis or infection, unspecified Status: Acute (5) Type 2 diabetes mellitus: Qualifiers: Diabetes mellitus m[facility] insulin use: without termite technician use Diabetes mellitus complication status: without complication Qualified Code(s): E11.9 - Type 2 diabetes mellitus without complications Code(s): E11.9 - Type 2 diabetes mellitus without complications Status: Acute (6) Hypokalemia: Code(s): E87.6 - Hypokalemia Status: Acute Plan The patient is an 87-year-old male who presented to the emergency room with a chief complaint of not feeling well for an unspecified duration. He reports associated symptoms of nausea, vomiting, and diarrhea. He also complains of abdominal pain, which he describes as being worse on the right side than the left. The patient's last bowel movement was reported to have occurred the day prior to presentation. He denies experiencing fever, chills, chest pain, or shortness of breath. The patient has a history of frequent urinary tract infections but reported no urinary symptoms at this time. History of CAD His past medical history is significant for aortic stenosis, coronary artery diseasemultiple stent placements prior to coronary artery bypass grafting (CABG). Serial cardiac enzyme measurements showed a troponin I level of 0.096 initially, which decreased slightly to 0.089 on repeat testing. Possible demand ischemia Patient denies chest pain Acute necrotic pancreatitis A computed tomography (CT) scan of the abdomen and pelvis was performed, which suggested pancreatitis with possible areas of early pancreatic necrosis. This finding was to be correlated clinically. The CT scan also revealed a small amount of abdominal pelvic ascites Lipase level has normalized y.? GI on board continue IV Zosyn as ordered for necrotic pancreatitis. MRCP shows no obstruction 06/15:? Patient tolerate full liquid diet well, procalcitonin 0.2, indicating no sepsis 06/16: Patient is afebrile, leukocytosis has resolved, stop Zosyn, changed to Augmentin for total 7 days Sepsis Possible resulting from acute necrotic pancreatitis and pneumonia Laboratory evaluation revealed leukocytosis with a white cell count of 24,000, mild hypokalemia with a potassium level of 3.1, elevated lactic acid at 3.6, and an elevated troponin I level at 0.096. His lipase was significantly elevated at 2,798. Urinalysis showed the presence of few red blood cells, urinary gas, and was positive for nitrate. Testing for influenza, respiratory syncytial virus (RSV), and COVID-19 was negative. A repeat lactic acid level showed a mild improvement to 2.7. Blood cultures have been obtained, and the patient remains afebrile. ?started on intravenous fluids and intravenous antibiotics with Zosyn. Pain control is being managed with intravenous analgesics.? DVT prophylaxis has been initiated with Lovenox. . Gastroenterology and surgery services have been consulted for further management. 06/15:? Patient is afebrile, white blood cell is trending down, protectin level 0.2, sepsis has resolved 06/16: Patient is afebrile, no leukocytosis, sepsis has resolved, switch from Zosyn to Augmentin p.o. Aspiration pneumonia Hypoxia worsening chest x-ray with airspace opacities of the lung bases worsening on the left consistent with atelectasis Possible aspiration pneumonia leukocytosis still persists but slowly improving.? Patient is on Zosyn Discontinue Zosyn IV today, white blood cells within normal limit, small pleural
[2023-06-16 10:24] LABS: Basophils Percent Auto 0.3 % (0.2-1.2); Eosinophils Absolute Auto 0.2 K/mm3 (0-0.3); Eosinophils Percent Auto 1.7 % (0-4.4); Hematocrit 34.7 % (42.0-52.0); Hemoglobin 11.6 g/dL (14.0-18.0); Immature Granulocyte Absolute 0.21 K/mm3 (0.00-0.031); Immature Granulocyte Percent A 2.1 % (0-0.5); Lymphocytes Absolute Auto 1.48 K/mm3 (0.9-3.2); Lymphocytes Percent Auto 14.9 % (18.3-44.2); Mean Corpuscular HGB Conc 33.4 g/dl (32-36); Mean Corpuscular Hemoglobin 30.1 pg (26-34); Mean Corpuscular Volume 89.9 fl (80-100); Mean Platelet Volume 9.7 fl (7.4-10.4); Monocytes Absolute Auto 0.9 K/mm3 (0.1-0.6); Monocytes Percent Auto 9.3 % (2.6-8.5); Neutrophils Absolute Auto 7.1 K/mm3 (1.3-6.7); Neutrophils Percent Auto 71.7 % (45.5-73.1); Nucleated Red Blood Cells Perc 0.3 % (0.0-0.2); Platelet Count Result 204 k/mm3 (150-375); Red Blood Count 3.86 M/mm3 (4.6-6.20); Red Cell Distribution Width 14.1 % (11.5-14.5); White Blood Count 9.9 K/mm3 (4.5-10.0)
[2023-06-16 10:40] LABS: Anion Gap 4 mmol/L (8-16); Blood Urea Nitrogen 18 mg/dL (9-20); Calcium 8.3 mg/dL (8.4-10.2); Carbon Dioxide 33 mmol/L (22-30); Chloride 101 mmol/L (98-107); Estimated CRCL calculation 55 ml/min; Estimated Glomerular Filt Rate > 60; Glucose 220 mg/dL (65-110); Magnesium 1.9 mg/dL (1.6-2.3); Phosphorus 3.3 mg/dL (2.5-4.5); Potassium 2.9 mmol/L (3.4-5.0); Sodium 138 mmol/L (137-145)
[2023-06-16 11:10] LABS: Procalcitonin 0.2 ng/mL
[2023-06-16 11:42] LABS: Glucose Point of Care 218 mg/dl (65-105)
[2023-06-16 12:00] VITALS: BP 137/76; PULSE 90; RESP 20; TEMP 36.3; O2SAT 98
[2023-06-16] MEDS: POTASSIUM CHLORIDE INJ 40 MEQ in SODIUM CHLORIDE 0.9% IV 500 ML 130 MEQ IVPB (12:58)
--- NOTE | 2023-06-16 13:32 | WPDGIPROGNO ---
Progress Note: A&P Assessment and Plan (1) Acute pancreatitis: Code(s): K85.90 - Acute pancreatitis without necrosis or infection, unspecified Status: Acute Assessment and Plan: no obvious etiology, MRCP showed acute necrotizing pancreatitis, no stone in bile duct, no mass tolerating low fat diet no objections to discharge home by gi standpoint (2) Elevated liver enzymes: Code(s): R74.8 - Abnormal levels of other serum enzymes Status: Acute Assessment and Plan: improved from pancreatitis (3) Leukocytosis: Code(s): D72.829 - Elevated white blood cell count, unspecified Status: Acute Assessment and Plan: on abx and wbc normal now also noted uti- urology on board (4) Abdominal pain: Code(s): R10.9 - Unspecified abdominal pain Status: Acute Assessment and Plan: resolved Subjective Date/time seen: 06/16/23 13:32 Interval history: he is doing much better, having lunch without any pain or nausea daughter is here Review of Systems Review of Systems: All systems reviewed & are unremarkable except as noted in HPI and below Exam Const: Other: using oxygen HENMT: Face/Nose/Sinus: Normal nares present Eyes: Sclera: sclerae normal Neck: Neck: supple Resp: Auscultation: diminished lung sounds Cardio: Rate: regular rate GI: Inspection: distended GI Palp: Yes Soft to palpation and No Guarding due to palpation present (GI) Auscultation: normal bowel sounds Skin: General skin exam: normal color Neuro: Speech: normal speech Motor exam (neuro): 5/5 motor strength present throughout Extrem: General: normal to inspection Psych: Mental Status: mental status grossly normal Objective Data Vital Signs Vital Signs: Vital Signs - 24 hr 06/15/23 15:10 06/15/23 16:00 06/15/23 17:12 Temperature 98.4 F 97.6 F Pulse Rate 106 H 105 H 65 Respiratory Rate 20 18 Blood Pressure 148/65 H 143/73 H Pulse Oximetry 93 96 Oxygen Delivery Oxygen Flow Rate 06/15/23 18:21 06/15/23 15:05 06/15/23 20:00 Temperature Pulse Rate 94 Respiratory Rate Blood Pressure Pulse Oximetry 95 94 Oxygen Delivery Room Air Nasal Cannula Room Air Oxygen Flow Rate 1 06/15/23 20:00 06/15/23 23:26 06/16/23 04:00 Temperature 98.5 F 97.4 F L 97.2 F L Pulse Rate 89 72 91 Respiratory Rate 16 20 20 Blood Pressure 163/90 H 131/74 128/81 Pulse Oximetry 90 94 95 Oxygen Delivery Oxygen Flow Rate 06/16/23 08:00 06/16/23 12:00 Temperature 96.3 F L 97.4 F L Pulse Rate 98 90 Respiratory Rate 24 H 20 Blood Pressure 97/81 L 137/76 Pulse Oximetry 91 98 Oxygen Delivery Oxygen Flow Rate Intake/Output Intake/Output: Intake & Output 06/13/23 06/14/23 06/15/23 06/16/23 23:59 23:59 23:59 23:59 Intake Total 1680 1329 1466 650 Output Total 1100 960 800 650 Balance 580 369 666 0 Meds/Results Medications: Active Medications Generic Name Dose Route Start Last Admin Trade Name Freq PRN Reason Stop Dose Admin Carvedilol 25 mg 06/13/23 09:00 06/16/23 09:05 Carvedilol 25 Mg Tablet PO 25 mg BID LEANNE Administration Dextrose 12.5 gm 06/13/23 12:24 Dextrose 50% 25 Gm/50 Ml Syringe IV PUSH PRN PRN Hypoglycemia Protocol Enoxaparin Sodium 40 mg 06/12/23 09:00 06/16/23 09:09 Enoxaparin 40 Mg/0.4 Ml Syringe SUB-Q 40 mg DAILY LEANNE Administration Glucagon 1 mg 06/13/23 12:24 Glucagon For Inj 1 Mg Vial IM PRN PRN Hypoglycemia Protocol Glucose 15 gm 06/13/23 12:24 Glucose Oral Gel 15 Gm Of Glucse In 37.5 Gm Tube PO PRN PRN Hypoglycemia Protocol Hydromorphone HCl 1 mg 06/12/23 02:30 Hydromorphone Hcl Inj (*Crx) 1 Mg/Ml Syr IV PUSH Q3H PRN Pain Rated 7-10 Piperacillin/Tazobactam/Dextrose 3.375 gm in 50 mls @ 100 mls/hr 06/12/23 06:00 06/16/23 12:22 Zosyn 3.375 Gm/Ns 50 Ml IVPB 100 mls/hr Q6H LEANNE Administrati
--- NOTE | 2023-06-16 14:07 | PM.DS ---
DS: Admitting Diagnosis Discharge Date 06/16/23 Admitting Diagnosis (1) History of UTI: ?Code(s): Z87.440 - Personal history of urinary (tract) infections ?Status:?Acute (2) GURPREET (acute kidney injury): ?Code(s): N17.9 - Acute kidney failure, unspecified ?Status:?Acute (3) Leukocytosis: ?Code(s): D72.829 - Elevated white blood cell count, unspecified ?Status:?Acute (4) Acute pancreatitis: ?Code(s): K85.90 - Acute pancreatitis without necrosis or infection, unspecified ?Status:?Acute (5) Type 2 diabetes mellitus: ?Qualifiers: ?Diabetes mellitus superintendent container terminal insulin use:?without care home use??Diabetes mellitus complication status:?without complication? Qualified Code(s):?E11.9 - Type 2 diabetes mellitus without complications ?Code(s): E11.9 - Type 2 diabetes mellitus without complications ?Status:?Acute (6) Hypokalemia: ?Code(s): E87.6 - Hypokalemia ?Status:?Acute DS: Discharge Diagnosis Discharge Diagnosis (1) History of UTI: Code(s): Z87.440 - Personal history of urinary (tract) infections Status: Acute (2) GURPREET (acute kidney injury): Code(s): N17.9 - Acute kidney failure, unspecified Status: Acute (3) Leukocytosis: Code(s): D72.829 - Elevated white blood cell count, unspecified Status: Acute (4) Acute pancreatitis: Code(s): K85.90 - Acute pancreatitis without necrosis or infection, unspecified Status: Acute (5) Type 2 diabetes mellitus: Qualifiers: Diabetes mellitus superintendent container terminal insulin use: without care home use Diabetes mellitus complication status: without complication Qualified Code(s): E11.9 - Type 2 diabetes mellitus without complications Code(s): E11.9 - Type 2 diabetes mellitus without complications Status: Acute (6) Hypokalemia: Code(s): E87.6 - Hypokalemia Status: Acute DS: Summary Hospital Course Hospital Course: The patient is an 87-year-old male who presented to the emergency room with a chief complaint of not feeling well for an unspecified duration. He reports associated symptoms of nausea, vomiting, and diarrhea. He also complains of abdominal pain, which he describes as being worse on the right side than the left. The patient's last bowel movement was reported to have occurred the day prior to presentation. He denies experiencing fever, chills, chest pain, or shortness of breath. The patient has a history of frequent urinary tract infections but reported no urinary symptoms at this time. History of CAD His past medical history is significant for aortic stenosis, coronary artery diseasemultiple stent placements prior to coronary artery bypass grafting (CABG). Serial cardiac enzyme measurements showed a troponin I level of 0.096 initially, which decreased slightly to 0.089 on repeat testing. Possible demand ischemia Patient denies chest pain Acute necrotic pancreatitis A computed tomography (CT) scan of the abdomen and pelvis was performed, which suggested pancreatitis with possible areas of early pancreatic necrosis. This finding was to be correlated clinically. The CT scan also revealed a small amount of abdominal pelvic ascites Lipase level has normalized y.? GI on board continue IV Zosyn as ordered for necrotic pancreatitis. MRCP shows no obstruction 2:? Patient tolerate full liquid diet well, procalcitonin 0.2, indicating no sepsis 2:? Patient is afebrile, leukocytosis has resolved, stop Zosyn, changed to Augmentin for total 7 days Sepsis Possible resulting from acute necrotic pancreatitis and pneumonia Laboratory evaluation revealed leukocytosis with a white cell count of 24,000, mild hypokalemia with a potassium level of 3.1, elevated lactic acid at 3.6, and an elevated troponin I level at 0.096. His lipase was significantly elevated at 2,798. Urinalysis showed the presence of few red blood cells, urinary gas, and was positive for nitrat
--- NOTE | 2023-06-16 15:58 | PCPTNOTE ---
Two attempts made today to see patient however patient sleeping. RN requested in A.M. to allow patient to sleep since he has not been able to do so and family requested to allow patient to sleep when treatment attempted in the P.M. by Janette Tatum PTA.
[2023-06-16 17:07] LABS: Glucose Point of Care 249 mg/dl (65-105)
[2023-06-16 19:41] LABS: Potassium 3.9 mmol/L (3.4-5.0)
[2023-06-16] MEDS: AMOXICILLIN/CLAVULANATE K 875-125 MG TAB 1 TABLET PO (19:50)
[2023-06-16 21:00] LABS: Glucose Point of Care 266 mg/dl (65-105)
[2023-06-16 21:40] VITALS: BP 135/90; PULSE 85; RESP 20; TEMP 36.6; O2SAT 96
== END 2023-06-16 21:50 | disposition home health service (06) | DRG 871 ==
LOC: ANHED 22:48 → ANH3MEDSUR 23:15 → ANHIMU 23:46 → ANH3MEDSUR 06-15 14:58
PROVIDERS: Internal Medicine; Admitting Provider Internal Medicine; Emergency Provider Emergency Medicine; PCP Family Medicine; Visit Provider Hospitalist
DX: A41.9 Sepsis, unspecified organism (principal); J69.0 Pneumonitis due to inhalation of food and vomit; J96.01 Acute respiratory failure with hypoxia; K85.91 Acute pancreatitis with uninfected necrosis, unspecified; N17.9 Acute kidney failure, unspecified; E87.6 Hypokalemia; I10 Essential (primary) hypertension; I35.0 Nonrheumatic aortic (valve) stenosis; I25.10 Atherosclerotic heart disease of native coronary artery without angina pectoris; I87.2 Venous insufficiency (chronic) (peripheral); E78.5 Hyperlipidemia, unspecified; E11.9 Type 2 diabetes mellitus without complications; N40.0 Benign prostatic hyperplasia without lower urinary tract symptoms; Z20.822 Contact with and (suspected) exposure to COVID-19; Z96.651 Presence of right artificial knee joint; Z95.1 Presence of aortocoronary bypass graft; Z95.5 Presence of coronary angioplasty implant and graft; Z79.82 Long term (current) use of aspirin
CPT/HCPCS: 36415; 71045; 74177; 74183; 76376; 80048; 80053; 81001; 82948; 83036; 83605; 83690; 83735; 83880; 84100; 84132; 84145; 84443; 84478; 84484; 85025; 85610; 85730; 87040; 87637; 93005; 94640; 96365; 96375; 97110; 97161; 97166; 97530; 97535; 99291; A9270; A9577; C9113; J1170; J1650; J1815; J1940; J2405; J2543; J3480; J7030; J7040; J7121; Q9967

== ENCOUNTER 2023-06-20 11:55 | Outpatient (CLI) | payer MEDICARE, SELFPAY ==
[2023-06-20 12:19] LABS: Basophils Absolute Auto 0.1 K/mm3 (0.0-0.1); Basophils Percent Auto 0.5 % (0.2-1.2); Eosinophils Absolute Auto 0.2 K/mm3 (0-0.3); Eosinophils Percent Auto 1.8 % (0-4.4); Hematocrit 35.1 % (42.0-52.0); Hemoglobin 11.5 g/dL (14.0-18.0); Immature Granulocyte Absolute 0.23 K/mm3 (0.00-0.031); Immature Granulocyte Percent A 2.4 % (0-0.5); Lymphocytes Absolute Auto 1.44 K/mm3 (0.9-3.2); Lymphocytes Percent Auto 14.8 % (18.3-44.2); Mean Corpuscular HGB Conc 32.8 g/dl (32-36); Mean Corpuscular Hemoglobin 29.9 pg (26-34); Mean Corpuscular Volume 91.2 fl (80-100); Mean Platelet Volume 9.6 fl (7.4-10.4); Monocytes Absolute Auto 0.7 K/mm3 (0.1-0.6); Monocytes Percent Auto 7.3 % (2.6-8.5); Neutrophils Absolute Auto 7.1 K/mm3 (1.3-6.7); Neutrophils Percent Auto 73.2 % (45.5-73.1); Platelet Count Result 286 k/mm3 (150-375); Red Blood Count 3.85 M/mm3 (4.6-6.20); Red Cell Distribution Width 14.1 % (11.5-14.5); White Blood Count 9.7 K/mm3 (4.5-10.0)
--- NOTE | 2023-06-20 12:28 | ECG_ITS ---
Measurements Intervals [place] Rate: 97 P: MA: 0 QRS: -15 QRSD: 110 T: 142 QT: 352 QTc: 449 Interpretive Statements ATRIAL FIBRILLATION MINIMAL VOLTAGE CRITERIA FOR LVH, CONSIDER NORMAL VARIANT [MEETS CRITERIA IN ONE OF: R(aVL), S(V1), R(V5), R(V5/V6)+S(V1)] ST DEVIATION AND MODERATE T-WAVE ABNORMALITY, CONSIDER LATERAL ISCHEMIA [-0.1+ mV T WAVE IN I/aVL/V5/V6] OLD INFERIOR INFARCTION COMPARED TO ECG 06/11/2023 23:44:42 ATRIAL FIBRILLATION NOW PRESENT Electronically Signed On 06-20-2023 15:47:48 LICENSED [employer] by James Sweeney M.D.
[2023-06-20 12:31] LABS: Alanine Aminotransferase 119 U/L (6-50); Albumin Level 3.1 g/dL (3.5-5.1); Alkaline Phosphatase 225 U/L (38-126); Amylase 58 U/L (30-110); Anion Gap 3 mmol/L (8-16); Aspartate Amino Transferase 65 U/L (17-59); Bilirubin,Total 0.8 mg/dL (0.2-1.3); Blood Urea Nitrogen 22 mg/dL (9-20); Calcium 8.8 mg/dL (8.4-10.2); Carbon Dioxide 27 mmol/L (22-30); Chloride 104 mmol/L (98-107); Estimated Glomerular Filt Rate > 60; Glucose 211 mg/dL (65-110); Lipase 185 U/L (23-300); Potassium 4.7 mmol/L (3.4-5.0); Sodium 134 mmol/L (137-145)
[2023-06-20 12:32] LABS: Appearance Urine Clear (Clear); Bacteria Urine None Seen /hpf; Bilirubin Urine 1+ (Negative); Blood Urine Negative (Negative); Color Urine Dark Yellow (Yellow); Glucose Urine UA Negative (Negative); Ketones Urine Negative (Negative); Leukocyte Esterase Ur Trace LEU/UL (Negative); Nitrate Urine Negative (Negative); Non Pathogenic Casts 0-2; Protein Urine Trace mg/dL (Negative); RBC Urine 0-2 /hpf (0-2); Specific Grav Ur 1.023 (1.001-1.035); Squamous Epithelial Cell Urine None seen /hpf (Few); WBC Urine 0-5 /hpf; pH Urine 5.5 (5.0-9.0)
[2023-06-20 12:45] LABS: Add Urine Microscopic? YES
== END 2023-06-20 11:56 | disposition home or self-care (01) ==
PROVIDERS: PCP Family Medicine; Visit Provider Family Medicine
DX: R93.1 Abnormal findings on diagnostic imaging of heart and coronary circulation (principal); I48.91 Unspecified atrial fibrillation; K85.90 Acute pancreatitis without necrosis or infection, unspecified; D72.829 Elevated white blood cell count, unspecified; E87.6 Hypokalemia; N17.9 Acute kidney failure, unspecified; I10 Essential (primary) hypertension; N39.0 Urinary tract infection, site not specified
CPT/HCPCS: 36415; 80053; 81001; 82150; 83690; 85025; 87086; 93005

== ENCOUNTER 2023-07-06 15:12 | Outpatient (NON) | payer MEDICARE, SELFPAY ==
[2023-07-06 16:51] LABS: Anion Gap 7 mmol/L (8-16); Blood Urea Nitrogen 17 mg/dL (9-20); Carbon Dioxide 28 mmol/L (22-30); Chloride 100 mmol/L (98-107); Estimated Glomerular Filt Rate > 60; Glucose 116 mg/dL (65-110); Potassium 3.3 mmol/L (3.4-5.0); Sodium 135 mmol/L (137-145)
== END 2023-07-06 15:13 | disposition home or self-care (01) ==
PROVIDERS: PCP Family Medicine; Visit Provider Internal Medicine Cardiovascular Disease
DX: I25.10 Atherosclerotic heart disease of native coronary artery without angina pectoris (principal); I35.0 Nonrheumatic aortic (valve) stenosis
CPT/HCPCS: 80048

== ENCOUNTER 2023-07-17 13:04 | Outpatient (NON) | payer MEDICARE, SELFPAY ==
[2023-07-17 15:33] LABS: Alanine Aminotransferase 56 U/L (6-50); Albumin Level 3.8 g/dL (3.5-5.1); Alkaline Phosphatase 148 U/L (38-126); Anion Gap 9 mmol/L (8-16); Aspartate Amino Transferase 53 U/L (17-59); Bilirubin,Total 0.9 mg/dL (0.2-1.3); Blood Urea Nitrogen 16 mg/dL (9-20); Calcium 9.3 mg/dL (8.4-10.2); Carbon Dioxide 26 mmol/L (22-30); Chloride 101 mmol/L (98-107); Estimated Glomerular Filt Rate > 60; Glucose 141 mg/dL (65-110); Potassium 3.3 mmol/L (3.4-5.0); Sodium 136 mmol/L (137-145)
== END 2023-07-17 13:05 | disposition home or self-care (01) ==
PROVIDERS: PCP Family Medicine; Visit Provider Family Medicine
DX: R74.8 Abnormal levels of other serum enzymes (principal); I10 Essential (primary) hypertension
CPT/HCPCS: 80053

== ENCOUNTER 2023-07-25 11:39 | Outpatient (NON) | payer MEDICARE, SELFPAY ==
[2023-07-25 12:19] LABS: Alanine Aminotransferase 45 U/L (6-50); Albumin Level 3.7 g/dL (3.5-5.1); Alkaline Phosphatase 130 U/L (38-126); Anion Gap 6 mmol/L (4-12); Aspartate Amino Transferase 40 U/L (17-59); Bilirubin,Total 0.9 mg/dL (0.2-1.3); Blood Urea Nitrogen 18 mg/dL (9-20); Calcium 9.2 mg/dL (8.4-10.2); Carbon Dioxide 26 mmol/L (22-30); Chloride 103 mmol/L (98-107); Estimated Glomerular Filt Rate > 60; Glucose 124 mg/dL (65-110); Potassium 4.1 mmol/L (3.4-5.0); Sodium 135 mmol/L (137-145)
== END 2023-07-25 11:40 | disposition home or self-care (01) ==
PROVIDERS: PCP Family Medicine; Visit Provider Family Medicine
DX: A41.9 Sepsis, unspecified organism (principal); K85.91 Acute pancreatitis with uninfected necrosis, unspecified; N39.0 Urinary tract infection, site not specified; N40.1 Benign prostatic hyperplasia with lower urinary tract symptoms
CPT/HCPCS: 80053

== ENCOUNTER 2023-09-02 14:50 | Emergency (ER) | payer MEDICARE, SELFPAY ==
--- NOTE | ~2023-09-02 | CT_ITS ---
EXAMINATION: CT cervical spine wo con DATE: 09/02/2023 15:31 INDICATION: fall/hi/on eliquis TECHNIQUE: Computed tomography (CT) of the cervical spine was performed without intravenous contrast. Automated exposure control and iterative reconstruction technique were employed. The dose-length pro duct was 449.26 mGy-cm. COMPARISON: CTA brain carotid 01/29/2023. FINDINGS: Vertebral Body Alignment: Intact. Reversed lordosis, centered at C5. Craniocervical and atlantoaxial alignment: Moderate degenerative change. Alignment intact. Osseous structures/fracture: No evidence of a lytic or blastic process in the visualized spine. No e vidence of acute fracture. Multilevel vertebral body fusions. Cervical soft tissues: The paraspinal soft tissues planes are maintained. Bilateral thyroid nodules w hich require no additional evaluation at this time. Degenerative changes: Multilevel moderate degenerative disc disease and facet arthropathy. Severe rig ht neural foraminal narrowing at C3-4. No severe central canal narrowing. IMPRESSION: No acute fracture or traumatic malalignment in the cervical spine. Reviewed, dictated and finalized at location K.
--- NOTE | ~2023-09-02 | CT_ITS ---
EXAMINATION: CT brain wo con DATE: 09/02/2023 15:31 INDICATION: fall/hi/on eliquis . TECHNIQUE: Computed tomography (CT) of the head was performed without intravenous contrast. The mA wa s adjusted according to patient size. Iterative reconstruction technique was employed. The dose-lengt h product was 605.33 mGy-cm. COMPARISON: CTA brain carotid 01/29/2023. FINDINGS: No acute intracranial hemorrhage or extra-axial fluid collection. No hydrocephalus, mass, or herniation. No acute ischemic infarct. Unremarkable dural venous sinus attenuation. No acute osseous abnormality. Right maxillary opacification, the remaining aerated spaces are clear. Moderate atrophy and chronic white matter change. Atherosclerotic intracranial calcification. 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 IMPRESSION: No acute intracranial process. Reviewed, dictated and finalized at location K.
[2023-09-02 14:51] VITALS: BP 141/97; PULSE 58; RESP 16; TEMP 36.6; O2SAT 100
--- NOTE | 2023-09-02 14:59 | ECG_ITS ---
SEE SCANNED COPY FOR CONFIRMED REPORT MTDD
--- NOTE | 2023-09-02 15:46 | ED.FALL ---
HPI - Fall General Chief Complaint: Fall Stated Complaint: fall with head injury Time Seen by Provider: 09/02/23 14:53 History of Present Illness HPI Narrative: 88-year-old male presenting to the emergency department for evaluation after having a fall down some stairs. Patient states he missed his footing on the last few steps and tumbled and did strike his head on the concrete. Patient denies any recent cough colds fevers or generalized weakness prior to the fall and patient denies any loss of consciousness from the fall. Patient states he did feel that he struck his head but denied any pain. Related Data Home Medications Medication Instructions Recorded Confirmed omega3-dha 200 mg-epa 300 mg-othr 1 cap PO DAILY 08/17/22 07/10/23 om3 100 mg-fish oil 1,000 mg capsule sitagliptin phos 50 mg-metformin 1 tablet PO DAILY 06/12/23 07/10/23 ER 1,000 mg tablet,extend rel 24h mp (Janumet XR) tamsulosin 0.4 mg capsule 0.4 mg PO DAILY 06/12/23 07/10/23 albuterol sulfate 90 mcg/actuation 2 puff inhalation Q4-6H PRN 06/20/23 07/10/23 aerosol inhaler lisinopril 40 mg tablet 40 mg PO DAILY 06/20/23 07/10/23 polyethylene glycol 3350 17 17 g PO DAILY PRN 06/20/23 07/10/23 gram/dose oral powder (Miralax) simvastatin 20 mg tablet 20 mg PO QHS 06/20/23 07/10/23 furosemide 40 mg tablet 40 mg PO DAILY 07/10/23 07/10/23 metoprolol tartrate 50 mg tablet 50 mg PO BID 07/10/23 07/10/23 Allergies Allergy/AdvReac Type Severity Reaction Status Date / Time meperidine Allergy Unknown Hallucinati Verified 09/02/23 15:01 ons Review of Systems Review of Systems: All systems reviewed & are unremarkable except as noted in HPI and below PMFSH Past Medical History Medical History Abdominal pain GURPREET (acute kidney injury) Aortic stenosis Atherosclerotic heart disease of [place] coronary artery with other forms of angina pectoris Benign prostatic hyperplasia Chronic venous insufficiency of lower extremity Dyslipidemia Elevated liver enzymes Essential (primary) hypertension Hypokalemia Leukocytosis Paroxysmal atrial fibrillation Type 2 diabetes mellitus Surgical History Surgical History History of coronary artery stent placement multiple in 1990s before CABG History of total right knee replacement (~2012) Dr. Rice Hx of CABG (~2000) [facility] Family History Family History Father Depression, Onset Age: 35 Family history of suicide, Onset Age: 35 Mother Family history of malignant neoplasm of ovary, Onset Age: 77 Other Family history of cardiovascular disease Hypertension Social History Social History Smoking status: Never smoker Alcohol intake: never Substance use: never Substance use type: does not use Do You Feel Safe in your Home?: Yes Lack of Transportation: No Lack of Food: Never True Current Housing: I Have Housing Concerned About Future Housing: No Difficulty Paying Gas/Electric Bills: No Difficulty Paying for Meds: No Currently Unemployed: No Education: Master's Degree or Higher Difficulty w/ Childcare or Family Care: No Living arrangements: with family Additional living arrangements comments: Occupation/Education: retired 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 HEAD: normocephalic, atraumatic. EYES: PERRLA/EOMI, conjunctivae clear. NOSE: Normal no drainage EARS:TMS clear with good light reflex. THROAT: Pharynx clear,
[2023-09-02 16:20] VITALS: BP 141/82; PULSE 58; RESP 16; O2SAT 97
== END 2023-09-02 16:20 | disposition home or self-care (01) ==
PROVIDERS: Emergency Provider Emergency Medicine; PCP Family Medicine
DX: S09.90XA Unspecified injury of head, initial encounter (principal); I35.0 Nonrheumatic aortic (valve) stenosis; I25.118 Atherosclerotic heart disease of native coronary artery with other forms of angina pectoris; I87.2 Venous insufficiency (chronic) (peripheral); I10 Essential (primary) hypertension; I48.0 Paroxysmal atrial fibrillation; E78.5 Hyperlipidemia, unspecified; E11.9 Type 2 diabetes mellitus without complications; N40.0 Benign prostatic hyperplasia without lower urinary tract symptoms; Z95.1 Presence of aortocoronary bypass graft; Z96.651 Presence of right artificial knee joint; Z95.5 Presence of coronary angioplasty implant and graft; Z79.84 Long term (current) use of oral hypoglycemic drugs; Z79.01 Long term (current) use of anticoagulants; W10.9XXA Fall (on) (from) unspecified stairs and steps, initial encounter
CPT/HCPCS: 70450; 72125; 93005; 99284

== ENCOUNTER 2023-11-01 11:20 | Outpatient (CLI) | payer MEDICARE, SELFPAY ==
[2023-11-01 19:30] LABS: Hematocrit 36.1 % (42.0-52.0); Hemoglobin 12.1 g/dL (14.0-18.0); Mean Corpuscular HGB Conc 33.5 g/dl (32-36); Mean Corpuscular Hemoglobin 29.1 pg (26-34); Mean Corpuscular Volume 86.8 fl (80-100); Mean Platelet Volume 10.3 fl (7.4-10.4); Platelet Count Result 221 k/mm3 (150-375); Red Blood Count 4.16 M/mm3 (4.6-6.20); Red Cell Distribution Width 14.6 % (11.5-14.5); White Blood Count 7.3 K/mm3 (4.5-10.0)
[2023-11-01 19:55] LABS: Alanine Aminotransferase 31 U/L (6-50); Albumin Level 4.1 g/dL (3.5-5.1); Alkaline Phosphatase 122 U/L (38-126); Anion Gap 8 mmol/L (4-12); Aspartate Amino Transferase 37 U/L (17-59); Bilirubin,Total 0.7 mg/dL (0.2-1.3); Blood Urea Nitrogen 24 mg/dL (9-20); Carbon Dioxide 28 mmol/L (22-30); Chloride 103 mmol/L (98-107); Estimated Glomerular Filt Rate > 60; Glucose 127 mg/dL (65-110); Magnesium 2.1 mg/dL (1.6-2.3); Sodium 139 mmol/L (137-145)
[2023-11-01 20:02] LABS: NT Pro B Type Natriuretic Pept 1410 pg/mL (19.9-100)
[2023-11-01 21:24] LABS: Hemoglobin A1C 6.1 % (<5.7)
== END 2023-11-01 11:21 | disposition home or self-care (01) ==
LOC: ANHGOSHLAB 11:21
PROVIDERS: PCP Family Medicine; Visit Provider Nurse Practitioner Family
DX: E53.8 Deficiency of other specified B group vitamins (principal); R60.9 Edema, unspecified; I87.2 Venous insufficiency (chronic) (peripheral); I10 Essential (primary) hypertension; E87.6 Hypokalemia; E11.9 Type 2 diabetes mellitus without complications; R74.8 Abnormal levels of other serum enzymes; I50.9 Heart failure, unspecified
CPT/HCPCS: 36415; 80053; 82607; 83036; 83735; 83880; 85027

== ENCOUNTER 2023-12-18 10:58 | Outpatient (CLI) | payer MEDICARE, SELFPAY ==
[2023-12-18 14:28] LABS: Basophils Absolute Auto 0.1 K/mm3 (0.0-0.1); Basophils Percent Auto 0.7 % (0.2-1.2); Eosinophils Absolute Auto 0.4 K/mm3 (0-0.3); Eosinophils Percent Auto 5.3 % (0-4.4); Hematocrit 37.8 % (42.0-52.0); Hemoglobin 12.3 g/dL (14.0-18.0); Immature Granulocyte Absolute 0.04 K/mm3 (0.00-0.031); Immature Granulocyte Percent A 0.6 % (0-0.5); Lymphocytes Percent Auto 30.1 % (18.3-44.2); Mean Corpuscular HGB Conc 32.5 g/dl (32-36); Mean Corpuscular Hemoglobin 28.9 pg (26-34); Mean Corpuscular Volume 88.7 fl (80-100); Mean Platelet Volume 9.8 fl (7.4-10.4); Monocytes Absolute Auto 0.6 K/mm3 (0.1-0.6); Neutrophils Absolute Auto 3.8 K/mm3 (1.3-6.7); Neutrophils Percent Auto 54.3 % (45.5-73.1); Platelet Count Result 237 k/mm3 (150-375); Red Blood Count 4.26 M/mm3 (4.6-6.20); Red Cell Distribution Width 14.4 % (11.5-14.5)
[2023-12-18 16:11] LABS: Iron 57 ug/dL (49-181)
[2023-12-18 16:21] LABS: Percent Iron Saturation 19 % (20-50)
[2023-12-18 16:54] LABS: Alanine Aminotransferase 30 U/L (6-50); Albumin Level 3.9 g/dL (3.5-5.1); Alkaline Phosphatase 126 U/L (38-126); Anion Gap 10 mmol/L (4-12); Aspartate Amino Transferase 45 U/L (17-59); Bilirubin,Total 0.6 mg/dL (0.2-1.3); Blood Urea Nitrogen 16 mg/dL (9-20); Calcium 8.7 mg/dL (8.4-10.2); Carbon Dioxide 28 mmol/L (22-30); Chloride 99 mmol/L (98-107); Cholesterol 131 mg/dL (0-200); Estimated Glomerular Filt Rate > 60; Glucose 125 mg/dL (65-110); HDL Direct 40 mg/dL; Potassium 3.6 mmol/L (3.4-5.0); Sodium 137 mmol/L (137-145); Triglycerides 178 mg/dL (<150)
[2023-12-18 17:04] LABS: LDL Cholesterol Direct 61 mg/dL
[2023-12-18 17:12] LABS: Hemoglobin A1C 6.3 % (<5.7)
[2023-12-18 17:44] LABS: Prostate Specific Antigen 0.7 ng/mL (< OR = 4.0)
[2023-12-18 18:23] LABS: Folic Acid > 20.0 ng/mL (2.76->20)
== END 2023-12-18 10:59 | disposition home or self-care (01) ==
LOC: ANHGOSHLAB 11:00
PROVIDERS: PCP Family Medicine; Visit Provider Family Medicine
DX: D64.9 Anemia, unspecified (principal); I10 Essential (primary) hypertension; E11.9 Type 2 diabetes mellitus without complications; E78.5 Hyperlipidemia, unspecified; E55.9 Vitamin D deficiency, unspecified; Z12.5 Encounter for screening for malignant neoplasm of prostate
CPT/HCPCS: 36415; 80053; 80061; 82306; 82607; 82746; 83036; 83540; 83550; 84153; 84443; 85025; G0103

== ENCOUNTER 2023-12-20 14:42 | Outpatient (NON) | payer MEDICARE, SELFPAY ==
[2023-12-20 19:43] LABS: Creatinine Urine 82.8 mg/dL
[2023-12-20 19:47] LABS: MALB Creatinine Ratio 22.6 mg/g (0-30); Microalbumin Urine Random 18.7 mg/L (0-16.7)
== END 2023-12-20 14:43 | disposition home or self-care (01) ==
PROVIDERS: PCP Family Medicine; Visit Provider Family Medicine
DX: I10 Essential (primary) hypertension (principal); E11.9 Type 2 diabetes mellitus without complications; D64.9 Anemia, unspecified
CPT/HCPCS: 82043

== ENCOUNTER 2024-01-09 10:08 | Outpatient (CLI) | payer MEDICARE, SELFPAY ==
--- NOTE | ~2024-01-09 | MR_ITS ---
EXAMINATION: MR brain/brain stem wo/w con DATE: 01/09/2024 11:09 INDICATION: Other symptoms and signs involving cognitive function. TECHNIQUE: Magnetic resonance imaging (MRI) of the brain and brainstem was performed without and with 20 mL MultiHance intravenous contrast. COMPARISON: Head CT 09/02/2023 FINDINGS: There are scattered areas of nonspecific increased T2-weighted signal intensity in the cere bral white matter, which is within normal limits for the patient's age. There is no intracranial hemo rrhage, acute infarction, or abnormal intracranial mass lesion. The ventricles are normal in size. Ri ght maxillary sinus is small and completely opacified, consistent with silent sinus syndrome. There i s mild mucosal thickening in the other paranasal sinuses. The orbits are normal. The mastoid air cell s are normal. IMPRESSION: 1. Normal aging brain. Reviewed, dictated and finalized at location A. IMPRESSION: 1. Normal aging brain.
== END 2024-01-09 10:09 | disposition home or self-care (01) ==
LOC: MICIMG 10:09
PROVIDERS: PCP Family Medicine; Visit Provider Family Medicine
DX: R41.89 Other symptoms and signs involving cognitive functions and awareness (principal)
CPT/HCPCS: 70553; A9577

== ENCOUNTER 2024-06-13 14:31 | Outpatient (CLI) | payer MEDICARE, SELFPAY ==
--- OUTSIDE RECORDS SUMMARY | 2024-06-13 14:38 | XMS_ITS | Clinical Summary ---
Author Organization [facility] [address] Address [address] [place] [address] Care Team Providers Care Trauma Surgeon Name Role Phone Lesia Jean MD Primary Care Provider Allergies Active Allergy Reactions Criticality Noted Date Comments Meperidine Hallucinations Medium 10/20/2016 Meperidine Hallucinations Medium Preservative Hallucinations Medium Medications omega-3 fatty acids-fish oil 340-1,000 mg capsule take 1 by Oral route every day 0 05/23/19 13 Active tamsulosin (FLOMAX) 0.4 mg capsule,extend ed release 24hr take 1 capsule by oral route 2 times every day 1/2 hour following the same meal each day 0 0 07/26/19 17 Active potassium chloride ER 20 mEq CR tablet 1 tablet (20 mEq total) 2 (two) times a day 05/04/19 22 Active Janumet XR 50-1,000 mg tablet, ER multiphase 24 hr 05/04/[address] (PROTONIX) 40 mg EC tablet Take 1 tablet (40 mg total) by mouth every morning 06/19/19 24 Active cholecalcifero l (Vitamin D3) 2000 unit tablet Active ascorbic acid (ascorbic acid with devorah hips) 500 mg tablet,chewabl e Active furosemide (LASIX) 40 mg tablet Take 1 tablet (40 mg total) by mouth daily 30 tablet 11 06/29/19 24 025 Active escitalopram (LEXAPRO) 10 mg tablet Take 1 tablet (10 mg total) by mouth nightly 12/17/19 24 Active ferrous sulfate 325 mg (65 mg of elemental iron) tablet Take 1 tablet (325 mg total) by mouth daily 12/19/19 24 Active atorvastatin (LIPITOR) 20 mg tablet Take 1 tablet (20 mg total) by mouth nightly 90 tablet 6 01/17/20 24 Active amLODIPine (NORVASC) 10 mg tablet Take 1 tablet (10 mg total) by mouth daily 02/21/20 24 Active traZODone (DESYREL) 50 mg tablet Take 1 tablet (50 mg total) by mouth nightly Active multivitamin with minerals tablet Take 1 tablet by mouth daily Active magnesium citrate 100 mg tablet Take 250 mg by mouth 2 gummies Active docusate sodium (COLACE) 100 mg capsuleIndicat ions:constipat ion Take 1 capsule (100 mg total) by mouth 2 (two) times a day Active aspirin 81 mg chewable tabletIndicati ons:coronary artery disease Take 1 tablet (81 mg total) by mouth daily 30 tablet 11 04/06/20 24 025 Active clopidogreL (PLAVIX) 75 mg tabletIndicati ons:coronary artery disease Take 1 tablet (75 mg total) by mouth daily 30 tablet 11 04/06/20 24 025 Active lisinopriL (PRINIVIL,ZEST RIL) 40 mg tablet Take 1 tablet (40 mg total) by mouth daily 90 tablet 04/22/20 24 Active metoprolol tartrate (LOPRESSOR) 50 mg immediate release tablet TAKE 1 TABLET BY MOUTH TWICE A DAY(REPLACE CARVEDILOL) 180 tablet 3 06/07/19 25 Active metoprolol tartrate (LOPRESSOR) 50 mg immediate release tablet Take 1 tablet (50 mg total) by mouth 2 (two) times a day 180 tablet 3 06/27/19 24 025 Discontinued Active Problems Problem Noted Date Diagnosed Date Presence of Amulet left atrial appendage closure device 04/04/2024 Class 2 severe obesity due t o excess calories with serious comorbidity and body mass index (BMI) of 35.0 to 35.9 in adult 08/23/2022 Aortic valve stenosis 11/10/2020 Hypertension associated with diabetes 05/06/2020 Mixed diabetic hyperlipidemi a associated with type 2 diabetes mellitus ([facility]) 11/16/2017 Coronary artery disease invo lving jackson coronary artery of jackson heart without angina pectoris 05/17/2016 Overview (08/04/2016): Coronary artery disease involving jackson coronary artery of jackson heart without angina pectoris History of coronary artery bypass surgery 2016 Overview (08/04/2016): S/P CABG x 5 Hypertensive heart disease with congestive heart failure 05/17/2016 Overview (08/04/2016): Hypertensive heart disease with CHF Resolved Problems Problem Noted Date Diagnosed Date Resolved Date Dyslipidemia 05/17/2016 05/18/2021 Overview (08/04/2016): Mixed dyslipidemia Generalized ischemic myocardial dysfunction 05/17/2016 08/23/2022 Overview (08/04/2016): Ischemic cardiomyopathy Chronic coronary artery disease 12/02/2014 08/23/2022 Overview (08/04/2016): CAD (coronary artery disease) Encounters Date Type Department Care Team Description 06/04/2024 9:30 AM PIPELINE INSPECTOR Office Visit [facility] Cardiology [address] [place] [address] Svitlana Gomez NP Presence of Amulet left atrial appendage closure device (Primary Dx); PAF (paroxysmal atrial fibrillation) (CMS/HCC) ([facility]); Coronary artery disease involving jackson coronary artery of jackson heart without angina pectoris; Moderate aortic stenosis; Hypertension associated with type 2 diabetes mellitus ([facility]); Lymphedema 04/04/2024 2:18 PM PIPELINE INSPECTOR Anesthesia Event [facility] Cardiac Catheterization Lab [address] [place] [address] Jennifer Carter DO Barnhart, Lynlee Jo, NP 04/04/2024 1:50 PM PIPELINE INSPECTOR - 04/04/2024 3:50 PM PIPELINE INSPECTOR Surgery [facility] Cardiac Catheterization Lab [address] [place] [address] Bijan Echevarria MD PERC JOSUÉ CLOSE W/IMPLANT [id number] 04/04/2024 10:02 AM PIPELINE INSPECTOR - 04/04/2024 11:59 PM PIPELINE INSPECTOR Hospital Encounter [facility] Cardiac Catheterization Lab [address] [place] [id number] Discharge Disposition: Discharge to home or self care 04/04/2024 9:41 AM PIPELINE INSPECTOR - 04/05/2024 2:57 PM PIPELINE INSPECTOR Hospital Encounter [address] [address] Bijan Echevarria MD Nonrheumatic aortic valve stenosis Discharge Disposition: Discharge to home or self care 04/02/2024 11:15 AM PIPELINE INSPECTOR Ancillary Procedure [facility] Cardiology [address] [place] [address] Coronary artery disease involving jackson coronary artery of jackson heart without angina pectoris; Hypertension associated with diabetes (HCC); History of coronary artery bypass surgery; Nonrheumatic aortic valve stenosis 04/01/2024 10:45 AM PIPELINE INSPECTOR Pre-Admission Testing [facility] Pre Anesthesia Testing [address] [place] [address] 03/26/2024 9:00 AM PIPELINE INSPECTOR - 03/26/2024 11:59 PM PIPELINE INSPECTOR Hospital Encounter [facility] Imaging and Radiology [address] [place] [address] PAF (paroxysmal atrial fibrillation) (CMS/HCC) ([facility]); Gait instability; Personal history of fall Discharge Disposition: Discharge to home or self care 03/19/2024 Orders Only Cardiology Bijan Echevarria MD Nonrheumatic aortic valve stenosis (Primary Dx) from Last 3 Months Surgical History Surgery Date Site/Laterality Comments CORONARY ARTERY BYPASS GRAFT 2000 Left rad art graft to first branch of diagonal system sequentially to the major marginal branch of circumflex coronary art, Saphenous vein graft to third diagonal branch of ant desc coronary system. Saphenous vein graft sequentially to post desc & post vent branches of right coronary art. Left int mammary artery graft of the anterior descending coronary artery (total of six distal anastomoses) CORONARY ANGIOPLASTY WITH ST ENT PLACEMENT CHOLECYSTECTOMY Medical History Medical History Date Comments Cardiovascular disease Coronary Artery Disease Hypertension Hypertension Hx Other Medical Cardiomyopathy Adiposity Obesity Hyperlipidemia Atrial fibrillation (CMS/HCC) (HCC) Cardiomyopathy (HCC) Myocardial infarction (HCC) Coronary artery disease Type 2 diabetes mellitus (HCC) GERD (gastroesophageal reflux disease) Kidney stone Depression Cataract Personal history of fall Memory deficit per daughter, luz maria elma will attempt to get out of bed without help when hospitalized Family History Medical History Relation Name Comments Suicidality Father 2 suicide; Cause of : suicide Ovarian cancer Mother 2 Ovarian Cance r; Cause of : Ovarian Cancer Relation Name Status Comments Father 1 (Age 41) Father 2 Mother 1 (Age 77) Mother 2 Social History Tobacco Use Types Packs/Day Years Used Date Smoking Tobacco: Never Smokeless Tobacco: Never Tobacco Cessation:Counseling Given: Not Answered Alcohol Use Standard Drinks/Week Comments No 0 (1 standard drink = 0.6 oz pur e alcohol) [facility] Utilities Answer Date Recorded In the past 12 months has th e electric, gas, oil, or water company threatened to shut off services in your home? No 04/05/2024 Social Connection and Isolat ion Panel [NHANES] Answer Date Recorded In a typical week, how many times do you talk on the phone with family, friends, or neighbors? More than three times a week 04/05/2024 How often do you get togethe r with friends or relatives? More than three times a week 04/05/2024 How often do you attend chur ch or uatsdin services? More than 4 times per year 04/05/2024 Do you belong to any clubs o r organizations such as scientology groups, unions, fraternal or athletic groups, or school groups? Yes 04/05/2024 How often do you attend meet ings of the clubs or organizations you belong to? Never 04/05/2024 Are you , , di vorced, , never , or living with a partner? 04/05/2024 AUDIT-C Answer Date Recorded Q1: How often do you have a drink containing alcohol? Never 04/04/2024 Q2: How many drinks containi ng alcohol do you have on a typical day when you are drinking? Patient does not drink Q3: How often do you have si x or more drinks on one occasion? Never 04/04/2024 Overall Financial Resource Strain (CARDIA) Answe r Date Recorded How hard is it for you to pa y for the very basics like food, housing, medical care, and heating? Not hard at all 04/05/2024 Hunger Vital Sign Answer Date Recorded Within the past 12 months, y ou worried that your food would run out before you got the money to buy more. Never true 04/05/20 24 Within the past 12 months, t he food you bought just didn't last and you didn't have money to get more. Never true 04/05/2024 PRAPARE - Transportation Answer Date Re corded In the past 12 months, has l ack of transportation kept you from medical appointments or from getting medications? No 09/2023 In the past 12 months, has l ack of transportation kept you from meetings, work, or from getting things needed for daily living? No 04/05/2024 Housing Stability Vital Sign Answer Adi e Recorded In the last 12 months, was t here a time when you were not able to pay the mortgage or rent on time? No 04/05/2024 In the past 12 months, how m any times have you moved where you were living? 0 04/05/2024 At any time in the past 12 m [facility], were you homeless or living in a mcc (including now)? No 04/05/2024 Personal Safety Answer Date Recorded Have you ever been in or are you currently in a harmful physical or emotional relationship or is someone making you feel afraid or unsafe? Denies 04/04/2024 Sex and Gender Information Value Date Recorded Sex Assigned at Not on file Legal Sex Male 5:27 PM PIPELINE INSPECTOR Gender Identity Not on file Sexual Orientation Not on file Obstetrics History Last Filed Vital Signs Vital Sign Reading Time Taken Comments Blood Pressure 132/74 06/04/2024 9:21 AM PIPELINE INSPECTOR Pulse 64 06/04/2024 9:21 AM PIPELINE INSPECTOR Temperature 36.6 C (97.8 F) 04/05/2024 3:56 AM PIPELINE INSPECTOR Respiratory Rate 22 04/05/2024 11:47 AM PIPELINE INSPECTOR Oxygen Saturation 98% 06/04/2024 9:21 AM PIPELINE INSPECTOR Inhaled Oxygen Concentration - - Weight 113.4 kg (250 lb) 04/04/2024 6:41 PM PIPELINE INSPECTOR Height 175.3 cm (5' 9 ) 04/04/2024 6:41 PM PIPELINE INSPECTOR Body Mass Index 36.92 04/04/2024 6:41 PM PIPELINE INSPECTOR Plan of Treatment Health Maintenance Due Date Last Done Comments Albumin Creatinine Ratio, Urine 1936 Depression Screening 1935 Hemoglobin A1C 1936 Dilated Eye Exam 1936 Foot Exam 1936 Pneumococcal vaccine 65+ (1 of 2 - PCV) 1942 DTaP/Tdap/Td Vaccine (1 - Tdap) 07/24/1947 Hepatitis B Screening 1954 Zoster Vaccine (1 of 2) 1986 Well Visit 65+ 2001 Lipid Panel 08/24/2023 08/23/2022, 05/01, 05/06/2020, Additional history exists Influenza Vaccine (#1) 2023 0, 02/21/2019, 02/01/2018, Additional history exists Fall Risk Assessment 04/05/2025 04/05/2024 eGFR 04/05/2025 04/05/2024, 04/01/2024 Medical Devices Implanted Type Area Para Machine Operator Device Identifier Shelf Expiration Date Model / Serial / Lot [employer] System Closure Repair Femoral Artery Suture Mediated Perclose Prostyle 07870-21 - [id number] Implanted:Qty: 1 on 04/04/2024 by Bijan Echevarria MD at [facility] [employer] 12/29/2025 [id number] / / [id number] [employer] Occluder Cvasc Josué Flexible Braided Amplatzer Amulet 25mm Nitinol [id number] - [id number] Implanted:Qty: 1 on 04/04/2024 by Bijan Echevarria MD at [facility] 08/29/2027 [id number] / / [id number] [employer] [facility] Vascade Mvp [id number] Venous Closure [id number] - [id number] Implanted:Qty: 1 on 04/04/2024 by Bijan Echevarria MD at [facility] 08/24/2025 [id number] / / [id number] Procedures Procedure Name Priority Date/Time Associated Diagnosis Comments TRANSTHORACIC ECHO (TTE) LIMITED/FOLLOW UP W LTD DOPPLER/CF WO CONTRAST Routine 04/05/2024 8:30 AM PIPELINE INSPECTOR ECG 12-LEAD Routine 04/05/2024 7:29 AM PIPELINE INSPECTOR EGFR Routine 04/05/2024 2:42 AM PIPELINE INSPECTOR DIFFERENTIAL AUTO Routine 04/05/2024 2:4 2 AM PIPELINE INSPECTOR CBC WITH AUTO DIFFERENTIAL Routine 04/05/2024 2:42 AM PIPELINE INSPECTOR MAGNESIUM Routine 04/05/2024 2:42 AM PIPELINE INSPECTOR BASIC METABOLIC PANEL Routine 04/05/2024 2:42 AM PIPELINE INSPECTOR APTT Routine 04/04/2024 7:20 PM PIPELINE INSPECTOR PROTIME-INR Routine 04/04/2024 7:20 PM PIPELINE INSPECTOR XR CHEST 1 VIEW IP Routine 04/04/2024 6:13 PM PIPELINE INSPECTOR POCT GLUCOSE DEVICE Routine 04/04/2024 5 :05 PM PIPELINE INSPECTOR PERC JOSUÉ CLOSURE W/IMPLANT (WATCHMAN) [id number] Routine 04/04/2024 4:28 PM PIPELINE INSPECTOR Nonrheumatic aortic valve stenosis POCT ACTIVATED CLOTTING TIME, HIGH RANGE Routine 04/04/2024 3:59 PM PIPELINE INSPECTOR POCT ACTIVATED CLOTTING TIME, HIGH RANGE Routine 04/04/2024 3:40 PM PIPELINE INSPECTOR POCT GLUCOSE DEVICE Routine 04/04/2024 3 :22 PM PIPELINE INSPECTOR POCT ACTIVATED CLOTTING TIME, HIGH RANGE Routine 04/04/2024 3:20 PM PIPELINE INSPECTOR VT AN ELECTIVE ENDOTRACHEAL AIRWAY Routine 04/04/2024 2:41 PM PIPELINE INSPECTOR ANESTHESIA ARTERIAL LINE PLACEMENT Routine 04/04/2024 2:28 PM PIPELINE INSPECTOR POCT GLUCOSE DEVICE Routine 04/04/2024 1 :39 PM PIPELINE INSPECTOR B CHECK SAMPLE STAT 04/04/2024 10:46 AM PIPELINE INSPECTOR POTASSIUM, WHOLE BLOOD STAT 04/04/2024 10:05 AM PIPELINE INSPECTOR POCT GLUCOSE DEVICE Routine 04/04/2024 10:04 AM PIPELINE INSPECTOR PREPARE RBC STAT 04/04/2024 9:57 AM PIPELINE INSPECTOR TRANSTHORACIC ECHO (TTE) COMPLETE W DOPPLER/CF WO CONTRAST Routine 04/02/2024 11:59 AM PIPELINE INSPECTOR Coronary artery disease involving jackson coronary artery of jackson heart without angina pectoris Hypertension associated with diabetes (HCC) History of coronary artery bypass surgery Nonrheumatic aortic valve stenosis ECG 12-LEAD Routine 04/01/2024 12:48 PM PIPELINE INSPECTOR EGFR Routine 04/01/2024 12:20 PM PIPELINE INSPECTOR DIFFERENTIAL AUTO Routine 04/01/2024 12:20 PM PIPELINE INSPECTOR TYPE AND SCREEN Timed 04/01/2024 12:20 PM PIPELINE INSPECTOR PROTIME-INR Routine 04/01/2024 12:20 PM PIPELINE INSPECTOR COMPREHENSIVE METABOLIC PANEL Routine 04/01/2024 12:20 PM PIPELINE INSPECTOR CBC WITH AUTO DIFFERENTIAL Routine 04/01/2024 12:20 PM PIPELINE INSPECTOR APTT Routine 04/01/2024 12:[address] HEART MORPHOLOGY W CONTRAST Schedule Routine, Read Routine (OP Routine) 03/26/2024 9:51 AM PIPELINE INSPECTOR PAF (paroxysmal atrial fibrillation) (CMS/HCC) (HCC) Gait instability Personal history of fall POCT CREATININE FOR CONTRAST EVALUATION Routine 03/26/2024 9:36 AM PIPELINE INSPECTOR POCT LIPID PANEL Routine 08/23/2022 8:35 AM CDT Coronary artery disease involving jackson coronary artery of jackson heart without angina pectoris Mixed diabetic hyperlipidemia associated with type 2 diabetes mellitus (CMS/HCC) (HCC) from Last 3 Months or Most Recently Relevant to Health Maintenance Results * TRANSTHORACIC ECHO (TTE) LIMITED/FOLLOW UP W LTD DOPPLER/CF WO CONTRAST (04/05/2024 8:30 AM PIPELINE INSPECTOR) Anatomical Region Laterality Modality Ultrasound 04/05/2024 9:38 AM PIPELINE INSPECTOR Narrative 04/05/2024 10:16 AM PIPELINE INSPECTOR [place] [id number] Limited Echocardiogram Report Patient Name: FAUSTINO HASKINS WILLIAM : 1935 Study Date: 04/05/2024 9:38:31 AM Gender: M Tech: Location: [id number] Ref Provider: BIJAN ECHEVARRIA Height(Cm): 175 BSA: Weight(Kg): 113 Heart Rate: 63 BP: 148/67 Quality: Good Order Provider: BIJAN ECHEVARRIA PROCEDURES: Echocardiographic Report: Limited transthoracic echocardiogram with 2D and M-Mode. INDICATIONS: S/P LAAO. MEASUREMENTS: 2D/MM Value Range Estimated EF 55 % 2D/MM Value Range - FINDINGS: Atrial Septum: Normal atrial septum. Left Ventricle: Normal left ventricular systolic function with no focal wall motion abnormalities. Normal left ventricular size. Normal global left ventricular systolic function. Ejection Fraction: Ejection Fraction is visually estimated to be 55 %. Left Atrium: Left atrium is adequately Visualized. Left atrial appendage occluder device is present. Pericardium: Normal pericardium with no significant pericardial effusion. CONCLUSIONS: Normal left ventricular systolic function with no focal wall motion abnormalities. Normal left ventricular size. Normal global left ventricular systolic function. Ejection Fraction is visually estimated to be 55 %. Left atrium is adequately Visualized. Left atrial appendage occluder device is present. Normal pericardium with no significant pericardial effusion. Electronically Signed By: Tess Amos DO, FACC, FASE, FASNC 04/05/2024 10:16:26 AM PIPELINE INSPECTOR Procedure Note Tess Amos DO - 04/05/2024 [place] [address] Limited Echocardiogram Report Patient Name: FAUSTINO HASKINS WILLIAM : 1935 Study Date: 04/05/2024 9:38:31 AM Gender: M Tech: Location: [id number] [facility] Provider: BIJAN ECHEVARRIA Height(Cm): 175 BSA: Weight(Kg): 113 Heart Rate: 63 BP: 148/67 Quality: Good Order Provider: BIJAN ECHEVARRIA PROCEDURES: Echocardiographic Report: Limited transthoracic echocardiogram with 2D and M-Mode. INDICATIONS: S/P LAAO. MEASUREMENTS: 2D/MM Value Range Estimated EF 55 % 2D/MM Value Range - FINDINGS: Atrial Septum: Normal atrial septum. Left Ventricle: Normal left ventricular systolic function with no focal wall motionabnormalities. Normal left ventricular size. Normal global left ventricular systolic function. Ejection Fraction: Ejection Fraction is visually estimated to be 55 %. Left Atrium: Left atrium is adequately Visualized. Left atrial appendage occluderdevice is present. Pericardium: Normal pericardium with no significant pericardial effusion. CONCLUSIONS: Normal left ventricular systolic function with no focal wall motionabnormalities. Normal left ventricular size. Normal global left ventricular systolic function. Ejection Fraction is visually estimated to be 55 %. Left atrium is adequately Visualized. Left atrial appendage occluderdevice is present. Normal pericardium with no significant pericardial effusion. Electronically Signed By: Tess Amos, , FACRivera, TAYLOR LOMELI 04/05/2024 10:16:26 AM PIPELINE INSPECTOR Bijan Echevarria MD CV ECHO PROCEDURES Final Result * ECG 12 lead (04/05/2024 7:29 AM PIPELINE INSPECTOR) 04/05/2024 7:29 AM PIPELINE INSPECTOR Narrative [facility] - 04/05/2024 8:10 AM PIPELINE INSPECTOR Vent Rate: 61 bpm RR Interval: 981 msec VT Interval: 189 msec QRS Duration: 113 msec QT Interval: 442 msec QTC Interval: 444 msec P-R-T [place]: 69 - -15 - 148 degrees IMPRESSION: SINUS RHYTHM Unchanged from March [address] changes, Electronically Signed By: Dr. Adán Sal[facility] Bijan Echevarria MD ECG ORDERABLES Final Result [facility] * eGFR (04/05/2024 2:42 AM PIPELINE INSPECTOR) eGFR 86 >=60 mL/min/1. 73 m2 Comment: Interpretive Data Reference Interval Normal >/= 90 mL/min/1.73m2 Mildly decreased* 60 - 89 mL/min/1.73m2 Mildly to moderately decreased 45 - 59 mL/min/1.73m2 Moderately to severely decreased 30 - 44 mL/min/1.73m2 Severely decreased 15 - 29 mL/min/1.73m2 Kidney Failure < 15 mL/min/1.73m2 *Relative to young adult level Estimated glomerular filtration rate is determined by the 2020 CKD-EPI equation recommended by the National Kidney Foundation (A Unifying Approach to GFR Estimation: Recommendations of the NKF-ASK Task Force on Reassessing the Inclusion of Race in Diagnosing Kidney Disease, JASN 2021). The CKD-EPI equation should not be used for patients with unstable renal function and has not been validated in children and those over 70. Current interpretive data was last reviewed 2021. Blood 04/05/2024 2:42 AM PIPELINE INSPECTOR 04/05/2024 3:08 AM PIPELINE INSPECTOR us Bijan Echevarria MD LAB BLOOD ORDERABLES Final Resul t [facility] [id number] Department [place] [address] * Differential, auto (04/05/2024 2:42 AM PIPELINE INSPECTOR) Neutrophil abs 1.8 1.5 - 6.5 K/cumm Imm gran abs 0.0 0.0 - 0.1 K/cumm [facility] Lymphocyte abs 1.5 0.8 - 3.3 K/cumm [facility] Monocyte abs 0.5 0.2 - 0.8 K/cumm [facility] Eosinophil abs 0.0 0.0 - 0.5 K/cumm [facility] Basophil abs 0.0 0.0 - 0.1 K/cumm [facility] Neutrophil pct 45.7 % [facility] Comment: Interpretive Data Percent cell count reference ranges are not reported, since discordance with absolute values may lead to misinterpretation of CBC data. Current Interpretive Data was last revised on 2017. Imm gran pct 0.8 % [facility] Comment: Interpretive Data Percent cell count reference ranges are not reported, since discordance with absolute values may lead to misinterpretation of CBC data. Current Interpretive Data was last revised on 2017. Lymphocyte pct 38.4 % [facility] Comment: Interpretive Data Percent cell count reference ranges are not reported, since discordance with absolute values may lead to misinterpretation of CBC data. Current Interpretive Data was last revised on 2017. Monocyte pct 13.8 % [facility] Comment: Interpretive Data Percent cell count reference ranges are not reported, since discordance with absolute values may lead to misinterpretation of CBC data. Current Interpretive Data was last revised on 2017. Eosinophil pct 1.0 % [facility] Comment: Interpretive Data Percent cell count reference ranges are not reported, since discordance with absolute values may lead to misinterpretation of CBC data. Current Interpretive Data was last revised on 2017. Basophil pct 0.3 % [facility] Comment: Interpretive Data Percent cell count reference ranges are not reported, since discordance with absolute values may lead to misinterpretation of CBC data. Current Interpretive Data was last revised on 2017. Blood 04/05/2024 2:42 AM PIPELINE INSPECTOR 04/05/2024 3:07 AM PIPELINE INSPECTOR Bijan Echevarria MD LAB BLOOD ORDERABLES Final Resul t Performing Organization Address City/[facility]/ZIP Co de Phone Number JERROD [id number] [address] Department [place] [address] * (ABNORMAL) CBC with auto differential (04/05/2024 2:42 AM PIPELINE INSPECTOR) WBC 3.8 3.8 - 9.9 K/cumm Hgb 11.3(L) 13.0 - 17.5 g/dL [facility] Hct 33.4(L) 38.9 - 50.3 % [facility] Plt 146(L) 150 - 400 K/cumm [facility] MPV 9.4 9.1 - 12.3 fL [facility] RBC 3.87(L) 4.30 - 5.80 M/cumm [facility] MCV 86.3 81.3 - 96.4 fL [facility] MCH 29.2 27.1 - 33.3 pg [facility] MCHC 33.8 32.3 - 35.7 g/dL [facility] RDW CV 14.1 11.1 - 14.9 % [facility] RDW SD 44.3 35.7 - 48.1 fL [facility] NRBC abs 0.00 0.00 - 0.01 K/cumm [facility] Blood 04/05/2024 2:42 AM PIPELINE INSPECTOR 04/05/2024 3:07 AM PIPELINE INSPECTOR Bijan Echevarria MD LAB BLOOD ORDERABLES Final Resul t JERROD BRAR [address] [facility] [place] [address] * Magnesium (04/05/2024 2:42 AM PIPELINE INSPECTOR) Pathologist [facility] Magnesium 1.7 1.4 - 2.5 mg/dL Blood 04/05/2024 2:42 AM PIPELINE INSPECTOR 04/05/2024 3:08 AM PIPELINE INSPECTOR Bijan Echevarria MD LAB BLOOD ORDERABLES Final Resul t Performing Organization Address [facility] de Phone Number [facility] [address] [place] [address] * Basic metabolic panel (04/05/2024 2:42 AM PIPELINE INSPECTOR) Pathologist [facility] Sodium 139 135 - 145 mmol/L Potassium, pl 3.6 3.3 - 4.9 mmol/L [facility] Chloride 103 97 - 110 mmol/L [facility] CO2 24 22 - 32 mmol/L [facility] Anion gap 12 2 - 15 mmol/L [facility] BUN 9 6 - 25 mg/dL [facility] Creatinine 0.80 0.80 - 1.30 mg/dL [facility] Glucose 164 70 - 199 mg/dL [facility] Comment: Interpretive Data Fasting glucose >/= 126 mg/dl is diagnostic for diabetes. Fasting is defined as no caloric intake for at least 8 hours. Fasting glucose between 100 mg/dl to 125 mg/dl is diagnostic of prediabetes. In a patient with classic symptoms of hyperglycemia or hyperglycemic crisis, a random glucose >/= 200 mg/dl is diagnostic for diabetes. In the absence of unequivocal hyperglycemia, results should be confirmed by repeat testing. The classification and Diagnosis of Diabetes Diabetes Care 2021; 46: S19-S40. Current interpretive data was last revised 2022. Calcium 8.6 8.5 - 10.3 mg/dL [facility] Blood 04/05/2024 2:42 AM PIPELINE INSPECTOR 04/05/2024 3:08 AM PIPELINE INSPECTOR Bijan Echevarria MD LAB BLOOD ORDERABLES Final Resul t Performing Organization Address [facility]/ZIP Co de Phone Number JERROD BRAR [address] [facility] [place] [address] * aPTT (04/04/2024 7:20 PM PIPELINE INSPECTOR) aPTT 35 28 - 38 sec Comment: Interpretive Data Heparin therapeutic range: 66.0 - 100.0 seconds. Range based on correlation with therapeutic heparin activity range of 0.3 - 0.7 Units/mL. Current interpretive data was last revised on 2023. Blood 04/04/2024 7:20 PM PIPELINE INSPECTOR 04/04/2024 7:46 PM PIPELINE INSPECTOR Bijan Echevarria MD LAB BLOOD ORDERABLES Final Resul t Performing Organization Address [facility] de Phone Number JERROD [address] [address] [facility] [place] [address] * Protime-INR (04/04/2024 7:20 PM PIPELINE INSPECTOR) PT 12.3 9.7 - 13.0 sec INR 1.14 0.90 - 1.20 [facility] Comment: Interpretive data Oral anticoagulant therapeutic ranges: Venous thromboembolism prophylaxis or treatment: 2.0-3.0 CARDIOLOGY Standard range: 2.0-3.0 High-intensity range: 2.5-3.5 Refer to indication-specific guidelines for appropriate target ranges for prosthetic heart valve replacement. Current interpretive data was last revised on 2019. Blood 04/04/2024 7:20 PM PIPELINE INSPECTOR 04/04/2024 7:46 PM PIPELINE INSPECTOR Bijan Echevarria MD LAB BLOOD ORDERABLES Final Resul t Performing Organization Address [facility] de Phone Number JERROD BRAR [address] [address] [facility] [employer] [place], [place] [phone] * XR Chest 1 Vw Portable (04/04/2024 6:13 PM PIPELINE INSPECTOR) Anatomical Region Laterality Modality Body, Chest N/A Computed Radiogr aphy 04/04/2024 6:19 PM PIPELINE INSPECTOR Impressions 04/04/2024 6:19 PM PIPELINE INSPECTOR Findings/impression: No pneumothorax or pleural effusion. Poststernotomy changes. No cardiomegaly. Mild pulmonary vascular congestion. No acute osseous abnormality. Electronically signed by: Obi Esteban II, D.O. Narrative 04/04/2024 6:19 PM PIPELINE INSPECTOR EXAMINATION: XR CHEST 1 VIEW DATE: 04/04/2024 6:05 PM INDICATION: Josué placement. COMPARISON: None. Procedure Note Obi Esteban II, - 04/04/2024 EXAMINATION: XR CHEST 1 VIEW DATE: 04/04/2024 6:05 PM INDICATION: Josué placement. COMPARISON: None. IMPRESSION: Findings/impression: No pneumothorax or pleural effusion. Poststernotomy changes. No cardiomegaly. Mild pulmonary vascular congestion. No acute osseous abnormality. Electronically signed by: Obi Esteban II, D.O. Bijan Echevarria MD IMG XR PROCEDURES Final Result * POCT glucose (04/04/2024 5:05 PM PIPELINE INSPECTOR) Glucose, POC 133 70 - 199 mg/dL Blood 04/04/2024 5:05 PM PIPELINE INSPECTOR 04/04/2024 5:05 PM PIPELINE INSPECTOR Bijan Echevarria MD LAB POCT ORDERABLES - DEVICE Fin al Result [facility] [address] Department [place] [address] * PERC JOSUÉ CLOSURE W/IMPLANT (WATCHMAN) [id number] (04/04/2024 4:28 PM PIPELINE INSPECTOR) Anatomical Region Laterality Modality X-Ray Angiograph y Narrative 04/04/2024 4:51 PM PIPELINE INSPECTOR LEFT ATRIAL APPENDAGE OCCLUSION (LAAO) PROCEDURE REPORT DATE OF PROCEDURE: 04/04/24 INDICATION FOR PROCEDURE: Atrial fibrillation with contraindication for anticoagulation. BRIEF CLINICAL HISTORY: Faustino Haskins is a 88 y.o. male with CAD, history of PCI/stenting; remote CABG (Left radial artery graft to the first branch of the diagonal system sequentially to the major marginal branch of the circumflex coronary artery. Saphenous vein graft to the third diagonal branch of the anterior descending coronary system. Saphenous vein graft sequentially to the posterior descending and posterior ventricular branches of the right coronary artery. Left internal mammary artery graft of the anterior descending coronary artery (total of six distal anastomoses) on 06/06/2000; PAF, HTN, DM2, history of ? Pancreatitis as per family, obesity, history of falls. Patient has paroxysmal atrial fibrillation and has been on anticoagulation with apixaban. He has unsteady gait, uses walker for ambulation and has had 2 falls this year. Patient and his family were concerned about continuation of anticoagulation. Current CHADSVASc score is 6 (high-risk of CVA in the absence of chronic anticoagulation) and HASBLED score is 2 (intermediate risk). After discussing benefits, risks and alternatives, patient and his family were willing to proceed with percutaneous left atrial appendage closure. Preprocedure cardiac CT was performed for assessment of the left atrial appendage. Left atrial appendage thrombus was ruled out prior to the procedure. Patient was given IV hydration with normal saline prior to the procedure. Benefits and risks of the procedure were discussed with the patient in depth, and informed consent was taken prior to the procedure. Risks of the procedure include but are not limited to vascular complications like groin hematoma, retroperitoneal bleed, vessel perforation; pericardial effusion or tamponade; cardiac arrhythmias; device embolization, air embolization, device thrombosis or leak, contrast induced nephropathy, . After discussing all the benefits, risks and alternatives, patient was willing to proceed with the procedure. PROCEDURES PERFORMED: Successful implantation of 25 mm Huang Amplatzer Amulet left atrial appendage occluder (CPT 39202) Transesophageal echocardiogram and Intracardiac echocardiogram (3D/4D ICE) Deployment of Perclose and Vascade closure devices at the right common femoral venous access sites SEDATION: General anesthesia - by anesthesiology team ACCESS SITES: Right common femoral vein PROCEDURE: After obtaining informed consent, patient was brought to the chemical processing laborer and prepped and draped in the usual sterile manner. Time-out and immediate reassessment of the patient was performed. Patient was placed under general anesthesia by the anesthesiologist team. Two right common femoral venous accesses were taken under ultrasound guidance with micropuncture needle. Preclose suture mediated vascular closure device were placed. [place] [address] units of unfractionated heparin for procedural anticoagulation at different intervals during the procedure, to maintain ACT between 250-350 seconds. ACT was monitored throughout the procedure at regular intervals. Long 12 Belizean sheath was advanced over 035 wire from the inferior access site in the right common femoral vein. 3D/4D ICE catheter was advanced in to right atrium. [place] sheath was advanced over 035 wire from the superior access site in the right common femoral vein. Atrial septal puncture was performed using [place] transseptal needle under intracardiac echo and fluoroscopic guidance. The sheath was advanced to the left atrium towards the pulmonary vein over the pre shaped wire. The sheath was taken out and it was exchanged with a 14 Belizean amulet delivery sheath. The sheath was advanced into the left atrium, the atrial septum was dilated with the sheath, and then sheath was taken out over the wire and positioned in the right atrium/IVC junction. Next, ICE catheter was advanced however, despite multiple attempts, the ice catheter could not be advanced through the transseptal puncture into the left atrial cavity. In light of this, the remainder of the procedure was done under transesophageal echocardiogram with assistance in holding the transesophageal echocardiogram probe by anesthesiology team. After this, the 14 Belizean sheath was reintroduced over [place] wire. A 5 Belizean pigtail catheter was advanced over the wire and the pre shaped wire was taken out. Left atrial pressure was measured at 23 mmHg. A 5 Belizean pigtail catheter was later positioned in the left atrial appendage. Left atrial appendage was visualized after injection of contrast in PETE caudal projection. The tip of the sheath was advanced close to the left atrial appendage orifice over the pigtail catheter. Next, the delivery sheath of the Amplatzer amulet was thoroughly prepped and flushed with normal saline multiple times to remove any air from the device. Wet to wet connection was performed and the delivery sheath was advanced to the left atrial appendage orifice through the delivery sheath after removal of the pigtail catheter. 25 mm Amulet at device was deployed under 3D and 4D ICE and fluoroscopic guidance. The amulet device was retrieved device, and finally optimized and deployed. Verification of proper Amulet device deployment was performed with CLOSE signs (Cx lobe at least 2/3 distal, lobe compression, orientation of lobe in line with axis of the JOSUÉ neck, separation between the disc lobe and the disc, elliptical -concave disc). TUG test was performed. Post-implant ICE did not show rivera-device leak or pericardial effusion. After completion of successful procedure, hemostasis was achieved by deployment of Perclose and Vascade hemostatic devices. Patient received 50 mg protamine at the conclusion of the procedure. Patient tolerated procedure well without any immediate procedural complications. Estimated blood loss minimal. All specimens removed. Patient was transferred to the telemetry bed in hemodynamically stable condition. Patient's family was updated about the procedure. CONCLUSIONS: Successful implantation of 25 Amplatzer Amulet left atrial appendage closure device. PLAN/RECOMMENDATIONS: Patient will be admitted to the telemetry unit and will be monitored for any potential postprocedure complications. Follow-up JUAN C or CTA heart in 45 to 90 days for device surveillance to assess for any peridevice leak and device related thrombus. Dual antiplatelet therapy with aspirin and clopidogrel for 6 months, then single antiplatelet treatment. Endocarditis prophylaxis for 6 months. Outpatient cardiology follow-up. Voice recognition software was used to complete this document, therefore, transcription coordinator variances may occur. Bijan Echevarria MD, [facility] 04/04/24 Bijan Echevarria MD CV ELECTROPHYSIOLOGY PROCS Final Result * (ABNORMAL) POC Activated Clotting Time, High Range (04/04/2024 3:59 PM PIPELINE INSPECTOR) ACT 269(H) 87 - 138 sec Blood 04/04/2024 3:59 PM PIPELINE INSPECTOR 04/04/2024 3:59 PM PIPELINE INSPECTOR Bijan Echevarria MD LAB BLOOD ORDERABLES Final Resul t [facility] [address] Department [place] [address] * (ABNORMAL) POC Activated Clotting Time, High Range (04/04/2024 3:40 PM PIPELINE INSPECTOR) ACT 211(H) 87 - 138 sec Blood 04/04/2024 3:40 PM PIPELINE INSPECTOR 04/04/2024 3:40 PM PIPELINE INSPECTOR Bijan Echevarria MD LAB BLOOD ORDERABLES Final Resul t Performing Organization Address [facility] de Phone Number JERROD BRAR [address] [address] [facility] [employer] [place], [place] [id number] * POCT glucose (04/04/2024 3:22 PM PIPELINE INSPECTOR) Glucose, POC 125 70 - 199 mg/dL Blood 04/04/2024 3:22 PM PIPELINE INSPECTOR 04/04/2024 3:22 PM PIPELINE INSPECTOR Bijan Echevarria MD LAB POCT ORDERABLES - DEVICE Fin al Result Performing Organization Address [facility] de Phone Number JERROD BRAR [address] [facility] [place] [address] * (ABNORMAL) POC Activated Clotting Time, High Range (04/04/2024 3:20 PM PIPELINE INSPECTOR) ACT 170(H) 87 - 138 sec Blood 04/04/2024 3:20 PM PIPELINE INSPECTOR 04/04/2024 3:20 PM PIPELINE INSPECTOR Result [facility] Bijan Echevarria MD LAB BLOOD ORDERABLES Final Resul t Performing Organization Address [facility] Phone Number JERROD BRAR [address] [address] [facility] [place] [address] * VT AN ELECTIVE ENDOTRACHEAL AIRWAY (04/04/2024 2:41 PM PIPELINE INSPECTOR) Narrative Efe Corea AA - 04/04/2024 2:41 PM PIPELINE INSPECTOR Efe Corea AA 04/04/2024 2:42 PM Airway Patient location: OR Urgency: elective Indications for airway management: anesthesia Difficult airway: no Staff: Supervising provider: eJnnifer Carter DO Placed by: AA: Efe Corea AA Emergent airway documentation: Risks and benefits discussed: yes Consent obtained: yes Consent given by: patient Airway prep: Preoxygenated: yes Patient position: ramp Mask difficulty assessment: 2 - vent by mask + OA or adjuvant Spontaneous ventilation during airway: absent Sedation level during airway: GA Final airway details: Final airway type: endotracheal airway Tube type: ETT ETT size: 8.0 mm Cuffed: yes Technique used for successful ETT placement: video laryngoscopy Devices/Methods used in placement: cricoid pressure and stylet Insertion site: oral Blade type: Damian Video blade type: Manriquez Blade size: 4 Cormack-Lehane (video): grade I - full view of glottis Cuff volume: 7 mL Cuff inflated with: air ETT to lips: 23 cm Placement verified by: auscultation and CO2 detection Airway secured with: silk tape Number of attempts: 1 Additional comments: Cruz ZURITA performed intubation under direct supervision Jennifer Carter DO ANESTHESIA ORDERABLES Final Result * Arterial Line (04/04/2024 2:28 PM PIPELINE INSPECTOR) Narrative Efe Corea AA - 04/04/2024 2:28 PM PIPELINE INSPECTOR Efe Corea AA 04/04/2024 2:41 PM Arterial Line Patient location: OR Indication: continuous blood pressure monitoring Staff: Supervising provider: Jennifer Carter DO Placed by: Anesthesiologist: Jennifer Carter DO Procedure prep: Prep solution: alcohol Prep: provider hat/mask Skin infiltrated with lidocaine 1%: yes Arterial line: Catheter size: 20 gauge Catheter length: 1 and 1/4 inch Catheter type: wire-guided catheter Seldinger technique: yes Laterality: right Site: radial artery Line secured: suture and Tegaderm Results: good waveform Number of attempts: 1 Assessment: Events: patient tolerated procedure well with no complications Jennifer Carter DO ANESTHESIA ORDERABLES Edite d Result - Final * POCT glucose (04/04/2024 1:39 PM PIPELINE INSPECTOR) Glucose, POC 131 70 - 199 mg/dL Blood 04/04/2024 1:39 PM PIPELINE INSPECTOR 04/04/2024 1:39 PM PIPELINE INSPECTOR Bijan Echevarria MD LAB POCT ORDERABLES - DEVICE Fin al Result JERROD BRAR [address] [place] [address] * Check Sample (04/04/2024 10:46 AM PIPELINE INSPECTOR) ABO Rh O Positive [facility] OTHER 04/04/2024 10:4 6 AM PIPELINE INSPECTOR 04/04/2024 10:46 AM PIPELINE INSPECTOR Bijan Echevarria MD LAB BLOOD ORDERABLES Final Resul t Performing Organization Address [facility] Co de Phone Number JERROD BRAR [address] Department [place] [address] CH * Potassium, whole blood (04/04/2024 10:05 AM PIPELINE INSPECTOR) Potassium, bld 3.9 3.3 - 4.9 mmol/L Comment: Interpretive Data This method is not able to assess for hemolysis, which may falsely increase potassium concentrations. If further testing is needed to evaluate this result, consider in-laboratory plasma potassium. Current Interpretive Data was last revised on 2022. Blood 04/04/2024 10:0 5 AM PIPELINE INSPECTOR 04/04/2024 10:42 AM PIPELINE INSPECTOR Deepthi Raza NP LAB BLOOD ORDERABLES Final Res ult Performing Organization Address [facility] Co de Phone Number JERROD BRAR [address] of [employer] [place], [place] [phone] * POCT glucose (04/04/2024 10:04 AM PIPELINE INSPECTOR) Glucose, POC 169 70 - 199 mg/dL Blood 04/04/2024 10:0 4 AM PIPELINE INSPECTOR 04/04/2024 10:04 AM PIPELINE INSPECTOR Bijan Echevarria MD LAB POCT ORDERABLES - DEVICE Fin al Result Performing Organization Address [facility] Co de Phone Number JERROD BRAR [address] Department of Laboratories [place], [place] [phone] * Prepare RBC: 2 Units (04/04/2024 9:57 AM PIPELINE INSPECTOR) Product code [id number] CERNER CH Unit Number [id number] 9-T CERNER CH Product Blood Type OPOS CERNER CH Dispense Status RETURNED CERNER CH Product code [id number] Unit Number [id number] 6-H CERNER CH Product Blood Type OPOS CERNER CH Dispense Status RETURNED CERNER CH Blood 04/04/2024 9:57 AM PIPELINE INSPECTOR Narrative CERNER CH - 04/05/2024 12:28 AM PIPELINE INSPECTOR Specify Procedure:->LAAO Are special requirements needed? (All products are leukoreduced and CMV- safe)- >No Date required:-[id number] LRRBC # of [id number] Reasons:-Hold for procedure (specify procedure)} us Bijan Echevarria MD BLOOD BANK PRODUCT ORDERABLES Fi nal Result JERROD [address] Department [place] [address] * TRANSTHORACIC ECHO (TTE) COMPLETE W DOPPLER/CF WO CONTRAST (04/02/2024 11:59 AM PIPELINE INSPECTOR) Anatomical Region Laterality Modality Ultrasound 04/02/2024 11:1 9 AM PIPELINE INSPECTOR Narrative 04/02/2024 2:36 PM PIPELINE INSPECTOR [facility] Medical Group Cardiology [address] [place] [address], [place] [address] [address] [facility] [address], [place] [address] P:[phone] P:[phone] Echocardiographic Report Patient Name: FAUSTINO HASKINS W : 1935 Study Date: 04/02/2024 11:19:12 AM Gender: M Tech: DARLYN Location: CT Ref Provider: CARISA ROBBINS Height(Cm): 175 BSA: 2.31 Weight(Kg): 110.2 Heart Rate: 63 BP: 139 / 86 Quality: Good Order Provider: CARISA ROBBINS PROCEDURES: Echocardiographic Report: Transthoracic echocardiogram with complete 2D, M-Mode, and color Doppler examination. With Strain Analysis. 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 Measurements: 2D/M Mode Doppler Measurement Value Normal Range Measurement Value Normal Range LVIDd 2D 4.33 [ 4.20 - 5.80 ] cm ELEAZAR Vmax 1.01 [ 2.00 - 4.00 ] cm2 LVIDs 2D 3.79 [ 2.50 - 4.00 ] cm AV Mean PG 24 mmHg LVPWd 2D 1.73 [ 0.60 - 1.00 ] cm AV Peak Connor 3.29 [ 1.00 - 1.70 ] m/s IVSd 2D 1.73 [ 0.60 - 1.00 ] cm AV Peak PG 43 mmHg LA Dimension MM 5.01 [ 3.00 - 4.00 ] cm AV VTI 69.61 cm AoR Diam MM 3.75 [ 3.10 - 3.70 ] cm LVOT Diam 2.25 [ 1.70 - 2.10 ] cm LA Volume Index 38 [ 16 - 34 ] cc/m2 LVOT Peak Connor 0.57 [ 0.70 - 1.10 ] m/s ACS MM 1.59 [ 1.50 - 2.60 ] cm LVOT VTI 13.27 cm ___ ___ ___ MV E Peak Connor 0.85 [ 0.60 - 1.30 ] m/s ___ ___ ___ MV A Peak Connor 0.78 [ 1.00 - 1.20 ] m/s ___ ___ ___ MV Mean PG 0 [ 0 - 5 ] mmHg ___ ___ ___ MV Decel Time 323 [ 104 - 258 ] msec ___ ___ ___ Lateral E` 0.06 [ 0.10 - 0.15 ] m/s ___ ___ ___ E` 0.04 m/s E/E` 15 Measurement Value Normal Range Measurement Value Normal Range 2D/M Mode Doppler - FINDINGS: Interpretation Site: Exam was interpreted at [facility]. Left Ventricle: Global Longitudinal Strain is -12 %. The left ventricle is normal in size and systolic function. There is moderate concentric left ventricular hypertrophy. Left ventricular ejection fraction is visually estimated to be 60-65%. There is grade 2 diastolic dysfunction suggestive of elevated filling pressures. Right Ventricle: The right ventricle is normal in size and systolic function. Left Atrium: The left atrium is mildly dilated. Right Atrium: The right atrium is normal size. Atrial Septum: Normal atrial septum. Mitral Valve: The mitral valve leaflets are sclerotic and there is mitral annular calcification. There is trace mitral regurgitation. Aortic Valve: The aortic valve is trileaflet and heavily calcified. There is paradoxical low- flow low gradient severe aortic stenosis with a valve area of 0.7cm2 and stroke volume index of 23.51cc/m2. There is trace aortic regurgitation. Tricuspid Valve: The tricuspid valve is not well visualized. There is no tricuspid regurgitation. Pulmonic Valve: The pulmonic valve is not well visualized. There is trace pulmonic valve regurgitation. Pericardium: Normal pericardium with no significant pericardial effusion. Aorta: The aortic root at the level of the sinus of Valsalva measures 3.5 cm in diameter which is normal when indexed to BSA. IVC: Normal size and normal respiratory collapse consistent with normal right atrial pressure (<5 mmHg). CONCLUSIONS: There is moderate concentric left ventricular hypertrophy. The left ventricular ejection fraction is visually estimated to be 60-65% with no regional wall motion abnormalities. There is grade 2 diastolic dysfunction. There is paradoxical low-flow low gradient severe aortic stenosis with a valve area of 0.7 cm2 by continuity equation. Electronically Signed By: Dr. Alhaji Martinez 2024-04-02 14:35:50 PIPELINE INSPECTOR Procedure Note Alhaji Martinez MD - 04/02/2024 [facility] Medical Group Cardiology [address] [facility] [address], [place] [address] [address] [facility] [address], [place] [address] P:[phone] P:[phone] Echocardiographic Report Patient Name: FAUSTINO HASKINS W : [birth year] Study Date: 04/02/2024 11:19:12 AM Gender: M Tech: Location: [place] Ref Provider: DIMMITT,CARISA Height(Cm): 175 BSA: 2.31 Weight(Kg): 110.2 Heart Rate: 63 BP: 139 / 86 Quality: Good Order Provider: CARISA ROBBINS PROCEDURES: Echocardiographic Report: Transthoracic echocardiogram with complete 2D, M-Mode, and color Dopplerexamination. With Strain Analysis. 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 Measurements: 2D/M ModeDoppler Measurement Value Normal Range Measurement ValueNormal Range LVIDd 2D 4.33 [ 4.20 - 5.80 ] cm ELEAZAR Vmax 1.01[ 2.00 - 4.00 ] cm2 LVIDs 2D 3.79 [ 2.50 - 4.00 ] cm AV Mean PG 24mmHg LVPWd 2D 1.73 [ 0.60 - 1.00 ] cm AV Peak Connor 3.29[ 1.00 - 1.70 ] m/s IVSd 2D 1.73 [ 0.60 - 1.00 ] cm AV Peak PG 43mmHg LA Dimension MM 5.01 [ 3.00 - 4.00 ] cm AV VTI 69.61cm AoR Diam MM 3.75 [ 3.10 - 3.70 ] cm LVOT Diam 2.25[ 1.70 - 2.10 ] cm LA Volume Index 38 [ 16 - 34 ] cc/m2 LVOT Peak Connor 0.57[ 0.70 - 1.10 ] m/s ACS MM 1.59 [ 1.50 - 2.60 ] cm LVOT VTI 13.27cm ___ ___ ___ MV E Peak Connor 0.85[ 0.60 - 1.30 ] m/s ___ ___ ___ MV A Peak Connor 0.78[ 1.00 - 1.20 ] m/s ___ ___ ___ MV Mean PG 0[ 0 - 5 ] mmHg ___ ___ ___ MV Decel Time 323[ 104 - 258 ] msec ___ ___ ___ Lateral E` 0.06[ 0.10 - 0.15 ] m/s ___ ___ ___ E` 0.04m/s E/E` 15 Measurement Value Normal Range Measurement ValueNormal Range 2D/M ModeDoppler - FINDINGS: Interpretation Site: Exam was interpreted at [facility]. Left Ventricle: Global Longitudinal Strain is -12 %. The left ventricle is normal in sizeand systolic function. There is moderate concentric left ventricular hypertrophy. Leftventricular ejection fraction is visually estimated to be 60-65%. There is grade 2diastolic dysfunction suggestive of elevated filling pressures. Right Ventricle: The right ventricle is normal in size and systolic function. Left Atrium: The left atrium is mildly dilated. Right Atrium: The right atrium is normal size. Atrial Septum: Normal atrial septum. Mitral Valve: The mitral valve leaflets are sclerotic and there is mitral annularcalcification. There is trace mitral regurgitation. Aortic Valve: The aortic valve is trileaflet and heavily calcified. There is paradoxicallow- flow low gradient severe aortic stenosis with a valve area of 0.7cm2 and strokevolume index of 23.51cc/m2. There is trace aortic regurgitation. Tricuspid Valve: The tricuspid valve is not well visualized. There is no tricuspidregurgitation. Pulmonic Valve: The pulmonic valve is not well visualized. There is trace pulmonic valveregurgitation. Pericardium: Normal pericardium with no significant pericardial effusion. Aorta: The aortic root at the level of the sinus of Valsalva measures 3.5 cm indiameter which is normal when indexed to BSA. IVC: Normal size and normal respiratory collapse consistent with normal rightatrial pressure (<5 mmHg). CONCLUSIONS: There is moderate concentric left ventricular hypertrophy. The left ventricular ejection fraction is visually estimated to be 60-65%with no regional wall motion abnormalities. There is grade 2 diastolic dysfunction. 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 Electronically Signed By: Dr. Alhaji Martinez 2024-04-02 14:35:50 PIPELINE INSPECTOR us Carisa Robbins MD CV ECHO PROCEDURES Final Result * ECG 12 lead (04/01/2024 12:48 PM PIPELINE INSPECTOR) 04/01/2024 12:4 8 PM PIPELINE INSPECTOR Narrative [facility] - 04/01/2024 2:45 PM PIPELINE INSPECTOR Vent Rate: 58 bpm RR Interval: 1025 msec VT Interval: 210 msec QRS Duration: 109 msec QT Interval: 460 msec QTC Interval: 457 msec P-R-T [place]: 79 - -18 - 131 degrees IMPRESSION: SINUS BRADYCARDIA WITH MARKED SINUS ARRHYTHMIA WITH FIRST DEGREE AV BLOCK LEFT VENTRICULAR HYPERTROPHY AND ST-T CHANGE ABNORMAL ECG Electronically Signed By: Ella Nails MD Bijan Echevarria MD ECG ORDERABLES Final Result [facility] * eGFR (04/01/2024 12:20 PM PIPELINE INSPECTOR) eGFR 78 >=60 mL/min/1. 73 m2 Comment: Interpretive Data Reference Interval Normal >/= 90 mL/min/1.73m2 Mildly decreased* 60 - 89 mL/min/1.73m2 Mildly to moderately decreased 45 - 59 mL/min/1.73m2 Moderately to severely decreased 30 - 44 mL/min/1.73m2 Severely decreased 15 - 29 mL/min/1.73m2 Kidney Failure < 15 mL/min/1.73m2 *Relative to young adult level Estimated glomerular filtration rate is determined by the 2020 CKD-EPI equation recommended by the National Kid[employer] (A Unifying Approach to GFR Estimation: Recommendations of the NKF-ASK Task Force on Reassessing the Inclusion of Race in Diagnosing Kidney Disease, JASN 2020). The CKD-EPI equation should not be used for patients with unstable renal function and has not been validated in children and those over 70. Current interpretive data was last reviewed 2021. Blood 04/01/2024 12:2 0 PM PIPELINE INSPECTOR 04/01/2024 12:38 PM PIPELINE INSPECTOR Bijan Echevarria MD LAB BLOOD ORDERABLES Final Resul t [facility] [id number] Department [place] [address] * Differential, auto (04/01/2024 12:20 PM PIPELINE INSPECTOR) Neutrophil abs 2.6 1.5 - 6.5 K/cumm Imm gran abs 0.0 0.0 - 0.1 K/cumm [facility] Lymphocyte abs 1.6 0.8 - 3.3 K/cumm [facility] Monocyte abs 0.6 0.2 - 0.8 K/cumm [facility] Eosinophil abs 0.2 0.0 - 0.5 K/cumm [facility] Basophil abs 0.0 0.0 - 0.1 K/cumm [facility] Neutrophil pct 51.3 % [facility] Comment: Interpretive Data Percent cell count reference ranges are not reported, since discordance with absolute values may lead to misinterpretation of CBC data. Current Interpretive Data was last revised on 2017. Imm gran pct 0.2 % [facility] Comment: Interpretive Data Percent cell count reference ranges are not reported, since discordance with absolute values may lead to misinterpretation of CBC data. Current Interpretive Data was last revised on 2017. Lymphocyte pct 32.2 % [facility] Comment: Interpretive Data Percent cell count reference ranges are not reported, since discordance with absolute values may lead to misinterpretation of CBC data. Current Interpretive Data was last revised on 2017. Monocyte pct 10.8 % [facility] Comment: Interpretive Data Percent cell count reference ranges are not reported, since discordance with absolute values may lead to misinterpretation of CBC data. Current Interpretive Data was last revised on 2017. Eosinophil pct 4.7 % [facility] Comment: Interpretive Data Percent cell count reference ranges are not reported, since discordance with absolute values may lead to misinterpretation of CBC data. Current Interpretive Data was last revised on 2017. Basophil pct 0.8 % [facility] Comment: Interpretive Data Percent cell count reference ranges are not reported, since discordance with absolute values may lead to misinterpretation of CBC data. Current Interpretive Data was last revised on 2017. Blood 04/01/2024 12:2 0 PM PIPELINE INSPECTOR 04/01/2024 12:39 PM PIPELINE INSPECTOR us Bijan Echevarria MD LAB BLOOD ORDERABLES Final Resul t JERR[facility] [id number] [address] Department [place] [address] * (ABNORMAL) CBC with auto differential (04/01/2024 12:20 PM PIPELINE INSPECTOR) [facility] WBC 5.1 3.8 - 9.9 K/cumm Hgb 12.5(L) 13.0 - 17.5 g/dL [facility] Hct 37.4(L) 38.9 - 50.3 % [facility] Plt 197 150 - 400 K/cumm [facility] MPV 9.4 9.1 - 12.3 fL [facility] RBC 4.27(L) 4.30 - 5.80 M/cumm [facility] MCV 87.6 81.3 - 96.4 fL [facility] MCH 29.3 27.1 - 33.3 pg [facility] MCHC 33.4 32.3 - 35.7 g/dL [facility] RDW CV 14.1 11.1 - 14.9 % [facility] RDW SD 45.2 35.7 - 48.1 fL [facility] NRBC abs 0.00 0.00 - 0.01 K/cumm [facility] Blood 04/01/2024 12:2 0 PM PIPELINE INSPECTOR 04/01/2024 12:39 PM PIPELINE INSPECTOR us Bijan Echevarria MD LAB BLOOD ORDERABLES Final Resul t Performing Organization Address [facility] Co de Phone Number [facility] [id number] [facility] Department [place] [address] * aPTT (04/01/2024 12:20 PM PIPELINE INSPECTOR) [facility] aPTT 34 28 - 38 sec Comment: Interpretive Data Heparin therapeutic range: 66.0 - 100.0 seconds. Range based on correlation with therapeutic heparin activity range of 0.3 - 0.7 Units/mL. Current interpretive data was last revised on 2023. Blood 04/01/2024 12:2 0 PM PIPELINE INSPECTOR 04/01/2024 12:39 PM PIPELINE INSPECTOR us Bijan Echevarria MD LAB BLOOD ORDERABLES Final Resul t [facility] [facility] [id number] [facility] [place] [address] * Protime-INR (04/01/2024 12:20 PM PIPELINE INSPECTOR) Pathologist [facility] PT 11.0 9.7 - 13.0 sec INR 1.02 0.90 - 1.20 [facility] Comment: Interpretive data Oral anticoagulant therapeutic ranges: Venous thromboembolism prophylaxis or treatment: 2.0-3.0 CARDIOLOGY Standard range: 2.0-3.0 High-intensity range: 2.5-3.5 Refer to indication-specific guidelines for appropriate target ranges for prosthetic heart valve replacement. Current interpretive data was last revised on 2019. Blood 04/01/2024 12:2 0 PM PIPELINE INSPECTOR 04/01/2024 12:39 PM PIPELINE INSPECTOR Bijan Echevarria MD LAB BLOOD ORDERABLES Final Resul t Performing Organization Address [facility] de Phone Number [facility] [facility] [address] [address] [facility] [place] [address] * Type and screen (04/01/2024 12:20 PM PIPELINE INSPECTOR) Pathologist [facility] Bro, indirect Negative ABO Rh O Positive [facility] Blood 04/01/2024 12:2 0 PM PIPELINE INSPECTOR 04/01/2024 12:38 PM PIPELINE INSPECTOR Narrative [facility] - 04/01/2024 1:22 PM PIPELINE INSPECTOR Has the patient had Daratumumab or Isatuximab in the past 6 months?->Unknown Bijan Echevarria MD LAB BLOOD BANK TEST ORDERABLES F inal Result Performing Organization Address [facility] Co de Phone Number [facility] [facility] [address] [address] [facility] [place] [address] * (ABNORMAL) Comprehensive metabolic panel (04/01/2024 12:20 PM PIPELINE INSPECTOR) Pathologist [facility] Sodium 137 135 - 145 mmol/L Potassium, pl 4.2 3.3 - 4.9 mmol/L [facility] Chloride 101 97 - 110 mmol/L [facility] CO2 23 22 - 32 mmol/L [facility] Anion gap 13 2 - 15 mmol/L [facility] BUN 12 6 - 25 mg/dL [facility] Creatinine 0.94 0.80 - 1.30 mg/dL [facility] Glucose 133 70 - 199 mg/dL [facility] Comment: Interpretive Data Fasting glucose >/= 126 mg/dl is diagnostic for diabetes. Fasting is defined as no caloric intake for at least 8 hours. Fasting glucose between 100 mg/dl to 125 mg/dl is diagnostic of prediabetes. In a patient with classic symptoms of hyperglycemia or hyperglycemic crisis, a random glucose >/= 200 mg/dl is diagnostic for diabetes. In the absence of unequivocal hyperglycemia, results should be confirmed by repeat testing. The classification and Diagnosis of Diabetes Diabetes Care 2021; 46: S19-S40. Current interpretive data was last revised 2022. Calcium 9.4 8.5 - 10.3 mg/dL [facility] Bilirubin, total 0.5 0.1 - 1.2 mg/dL [facility] Protein, pl 7.5 6.5 - 8.5 g/dL [facility] Albumin 3.9 3.5 - 5.0 g/dL [facility] Alk phos 163(H) 40 - 130 Units/L [facility] ALT 39 7 - 55 Units/L [facility] AST 47 10 - 50 Units/L [facility] Blood 04/01/2024 12:2 0 PM PIPELINE INSPECTOR 04/01/2024 12:38 PM PIPELINE INSPECTOR us Bijan Echevarria MD LAB BLOOD ORDERABLES Final Resul t [facility] [address] [address] Department [place] [address] * CT Heart Morphology W Contrast (03/26/2024 9:51 AM PIPELINE INSPECTOR) Anatomical Region Laterality Modality Chest N/A Computed Tomogra phy 03/26/2024 10:3 5 AM PIPELINE INSPECTOR Impressions 03/26/2024 11:00 AM PIPELINE INSPECTOR 1. Left atrial appendage measurements for placement of occlusion device as described. 2. No evidence of left atrial appendage thrombus. Dictated by: Jose Tovar M.D. The radiology attending physician has personally reviewed this study, and had reviewed and/or edited this written report and agrees with it. Electronically signed by: Ashley Motta M.D. Narrative 03/26/2024 11:[address] of the heart with IV contrast. HISTORY: Atrial fibrillation. Measurements in preparation for left atrial appendage occlusion device placement. COMPARISON: None TECHNIQUE: Heart CT performed during administration of 118 mL of Optiray 350, intravenously per pulmonary vein protocol. Images were transferred to an independent workstation for additional 3D post-processing. FINDINGS: Left atrial depth: 17 mm Left atrial length: 36 mm Left atrial appendage ostium: Area 470 mm squared, Circumference 8.1 cm, Diameter 29 x 21 mm. Left atrial appendage shape: Chicken wing No evidence of left atrial appendage thrombus. Left atrial diameter (atrial diastole): 60 mm Interatrial septum measures 7 mm thick and is free of device or thrombus. Esophagus lies immediately posterior to the Left superior and inferior pulmonary vein. Other findings: There is severe three-vessel coronary artery disease present. Aortic valvular calcifications consistent with aortic stenosis. Mitral annular calcifications. 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 No pericardial effusion. No thoracic lymphadenopathy. There is subpleural reticulation is noted within the lungs. 2 mm nodule in the right upper lobe. No suspicious pulmonary nodules. No dense consolidation. No pleural effusions. No pneumothorax. Small hiatal hernia. Procedure Note Ashley Motta MD - 03/26/2024 CT of the heart with IV contrast. HISTORY: Atrial fibrillation. Measurements in preparation for left atrial appendage occlusion device placement. COMPARISON: None TECHNIQUE: Heart CT performed during administration of 118 mL of Optiray 350, intravenously per pulmonary vein protocol. Images were transferred to an independent workstation for additional 3D post-processing. FINDINGS: Left atrial depth: 17 mm Left atrial length: 36 mm Left atrial appendage ostium: Area 470 mm squared, Circumference 8.1 cm, Diameter 29 x 21 mm. Left atrial appendage shape: Chicken wing No evidence of left atrial appendage thrombus. Left atrial diameter (atrial diastole): 60 mm Interatrial septum measures 7 mm thick and is free of device or thrombus. Esophagus lies immediately posterior to the Left superior and inferior pulmonary vein. Other findings: There is severe three-vessel coronary artery disease present. Aortic valvular calcifications consistent with aortic stenosis. Mitral annular calcifications. 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 No pericardial effusion. No thoracic lymphadenopathy. There is subpleural reticulation is noted within the lungs. 2 mm nodule in the right upper lobe. No suspicious pulmonary nodules. No dense consolidation. No pleural effusions. No pneumothorax. Small hiatal hernia. IMPRESSION: 1. Left atrial appendage measurements for placement of occlusion device as described. 2. No evidence of left atrial appendage thrombus. Dictated by: Jose Tovar M.D. The radiology attending physician has personally reviewed this study, and had reviewed and/or edited this written report and agrees with it. Electronically signed by: Ashley Motta M.D. Result [facility] Bijan Echevarria MD IMG CT PROCEDURES Final Result * POCT creatinine for contrast evaluation (03/26/2024 9:36 AM PIPELINE INSPECTOR) Creatinine, POC 1.0 0.6 - 1.3 mg/dL Blood 03/26/2024 9:36 AM PIPELINE INSPECTOR Result [facility] Bijan Echevarria MD POINT OF CARE TEST ORDERABLES Fi nal Result * POCT lipid panel (08/23/2022 8:35 AM CDT) Cholesterol, POC 106 mg/dL Comment:GLU = 203 HDL, POC 34 mg/dL Triglycerides, POC 217 mg/dL LDL Cholesterol POC 29 mg/dL Chol/HDL Ratio, POC 0.9 Non-HDL Cholesterol, POC 72 mg/dL Cholesterol Total, POC 106 mg/dL Capillary blood 08/23/2022 8 :35 AM CDT Result [facility] Carisa Robbins MD POINT OF CARE TEST ORDER IZABEL Final Result from Last 3 Months or Most Recently Relevant to Health Maintenance Insurance [facility] MEDICARE [facility] MEDICARE [facility] Care Teams Trauma Surgeon Relationship Specialty Start Date End Date Lesia Jean MD PCP - General Family Practice 05/16/22
--- OUTSIDE RECORDS SUMMARY | 2024-06-13 14:38 | XMS_ITS | Referral Summary ---
Author Organization [facility] [address] Address [address] [place] [address] Care Team Providers Care Waste Specialist Name Role Phone Lesia Jean MD Primary Care Provider Encounters Date Type Department Care Team Description 06/04/2024 9:30 AM TURRET PUNCH OPERATOR Office Visit [facility] Medical Group Cardiology [address] [place] [address] Svitlana Gomez NP Presence of Amulet left atrial appendage closure device (Primary Dx); PAF (paroxysmal atrial fibrillation) (CMS/HCC) (HCC); Coronary artery disease involving [place] coronary artery of [place] heart without angina pectoris; Moderate aortic stenosis; Hypertension associated with type 2 diabetes mellitus ([facility]); Lymphedema 04/04/2024 9:41 AM TURRET PUNCH OPERATOR - 04/05/2024 2:57 PM TURRET PUNCH OPERATOR Hospital Encounter [address] [address] Bijan Echevarria MD Nonrheumatic aortic valve stenosis Discharge Disposition: Discharge to home or self care 04/04/2024 10:02 AM TURRET PUNCH OPERATOR - 04/04/2024 11:59 PM TURRET PUNCH OPERATOR Hospital Encounter [facility] Cardiac Catheterization Lab [address] [place] [address] Discharge Disposition: Discharge to home or self care 04/04/2024 1:50 PM TURRET PUNCH OPERATOR - 04/04/2024 3:50 PM TURRET PUNCH OPERATOR Surgery [facility] Cardiac Catheterization Lab [address] [place] [address] Bijan Echevarria MD PERC JOSUÉ CLOSE W/IMPLANT [id number] 04/04/2024 2:18 PM TURRET PUNCH OPERATOR Anesthesia Event [facility] Cardiac Catheterization Lab [address] [place] [address] Jennifer Carter DO Barnhart, Lynlee Jo, NP 04/02/2024 11:15 AM TURRET PUNCH OPERATOR Ancillary Procedure [facility] Medical Group Cardiology [address] [place] [address] Coronary artery disease involving [place] coronary artery of [place] heart without angina pectoris; Hypertension associated with diabetes ([facility]); History of coronary artery bypass surgery; Nonrheumatic aortic valve stenosis 04/01/2024 10:45 AM TURRET PUNCH OPERATOR Pre-Admission Testing [facility] Pre Anesthesia Testing [address] [place] [address] 03/26/2024 9:00 AM TURRET PUNCH OPERATOR - 03/26/2024 11:59 PM TURRET PUNCH OPERATOR Hospital Encounter [facility] Imaging and Radiology [address] [place] [id number] PAF (paroxysmal atrial fibrillation) (CMS/HCC) ([facility]); Gait instability; Personal history of fall Discharge Disposition: Discharge to home or self care 03/19/2024 Orders Only Cardiology Bijan Echevarria MD Nonrheumatic aortic valve stenosis (Primary Dx) from Last 3 Months Allergies Active Allergy Reactions Criticality Noted Date [...] a associated with type 2 diabetes mellitus ([facility]/HCC) 11/16/2017 Coronary artery disease invo lving [place] coronary artery of [place] heart without angina pectoris 05/17/2016 Overview (08/04/2016): Coronary artery disease involving [place] coronary artery of [place] heart without angina pectoris History of coronary [...] 08/23/2022 Overview (08/04/2016): CAD (coronary artery disease) Social History Tobacco Use Types Packs/Day Years Used Date Smoking Tobacco: Never Smokeless Tobacco: Never Tobacco Cessation:Counseling Given: Not Answered Alcohol Use Standard Drinks/Week Comments No 0 (1 standard drink = 0.6 oz pur e alcohol) [facility] Utilities Answer Date Recorded In the past 12 months has e [employer], gas, oil, or water [employer] threatened to shut off services in your [...] often do you attend chur ch or congregation services? More than 4 times per year 04/05/2024 Do you belong to any clubs o r organizations such as adventist groups, unions, fraternal or athletic groups, or [...] any time in the past 12 m [facility], were you homeless or living in a long term (including now)? No 04/05/2024 Personal Safety Answer Date Recorded Have you ever been in or are you currently in a harmful physical or emotional relationship or is someone making you feel afraid or unsafe? Denies 04/04/2024 Sex and Gender Information Value Date Recorded Sex Assigned at Not on file Legal Sex Male 5:27 PM TURRET PUNCH OPERATOR Gender Identity Not on file Sexual Orientation Not on file Last Filed Vital Signs Vital Sign Reading Time Taken Comments Blood Pressure 132/74 06/04/2024 9:21 AM TURRET PUNCH OPERATOR Pulse 64 06/04/2024 9:21 AM TURRET PUNCH OPERATOR Temperature 36.6 C (97.8 F) 04/05/2024 3:56 AM TURRET PUNCH OPERATOR Respiratory Rate 22 04/05/2024 11:47 AM TURRET PUNCH OPERATOR Oxygen Saturation 98% 06/04/2024 9:21 AM TURRET PUNCH OPERATOR Inhaled Oxygen Concentration - - Weight 113.4 kg (250 lb) 04/04/2024 6:41 PM TURRET PUNCH OPERATOR Height 175.3 cm (5' 9 ) 04/04/2024 6:41 PM TURRET PUNCH OPERATOR Body Mass Index 36.92 04/04/2024 6:41 PM TURRET PUNCH OPERATOR Plan of Treatment Not on file Medical Devices Implanted Type Area Lang Path Therapist Device Identifier Shelf Expiration Date Model / Serial / Lot [employer] V[employer] System Closure Repair Femoral Artery Suture Mediated Perclose Prostyle 68295-61 - [id number] Implanted:Qty: 1 on 04/04/2024 by Bijan Echevarria MD at [facility] [employer] 12/29/2025 [id number] / / [id number] [employer] Occluder Cvasc Josué Flexible Braided Amplatzer Amulet 25mm Nitinol [id number] - [id number] Implanted:Qty: 1 on 04/04/2024 by Bijan Echevarria MD at [facility] [employer] 08/29/2027 [id number] / / [id number] [employer] Vascade Mvp 6-12fr Venous Closure [id number] - [id number] Implanted:Qty: 1 on 04/04/2024 by Bijan Echevarria MD at [facility] [employer] 08/24/2025 [id number] / / [id number] Procedures Procedure Name Priority Date/Time Associated Diagnosis Comments TRANSTHORACIC ECHO (TTE) LIMITED/FOLLOW UP W LTD DOPPLER/CF WO CONTRAST Routine 04/05/2024 8:30 AM TURRET PUNCH OPERATOR ECG 12-LEAD Routine 04/05/2024 7:29 AM TURRET PUNCH OPERATOR EGFR Routine 04/05/2024 2:42 AM TURRET PUNCH OPERATOR DIFFERENTIAL AUTO Routine 04/05/2024 2:4 2 AM TURRET PUNCH OPERATOR CBC WITH AUTO DIFFERENTIAL Routine 04/05/2024 2:42 AM TURRET PUNCH OPERATOR MAGNESIUM Routine 04/05/2024 2:42 AM TURRET PUNCH OPERATOR BASIC METABOLIC PANEL Routine 04/05/2024 2:42 AM TURRET PUNCH OPERATOR APTT Routine 04/04/2024 7:20 PM TURRET PUNCH OPERATOR PROTIME-INR Routine 04/04/2024 7:20 PM TURRET PUNCH OPERATOR XR CHEST 1 VIEW IP Routine 04/04/2024 6:13 PM TURRET PUNCH OPERATOR POCT GLUCOSE DEVICE Routine 04/04/2024 5 :05 PM TURRET PUNCH OPERATOR PERC JOSUÉ CLOSURE W/IMPLANT (WATCHMAN) [id number] Routine 04/04/2024 4:28 PM TURRET PUNCH OPERATOR Nonrheumatic aortic valve stenosis POCT ACTIVATED CLOTTING TIME, HIGH RANGE Routine 04/04/2024 3:59 PM TURRET PUNCH OPERATOR POCT ACTIVATED CLOTTING TIME, HIGH RANGE Routine 04/04/2024 3:40 PM TURRET PUNCH OPERATOR POCT GLUCOSE DEVICE Routine 04/04/2024 3 :22 PM TURRET PUNCH OPERATOR POCT ACTIVATED CLOTTING TIME, HIGH RANGE Routine 04/04/2024 3:20 PM TURRET PUNCH OPERATOR ID AN ELECTIVE ENDOTRACHEAL AIRWAY Routine 04/04/2024 2:41 PM TURRET PUNCH OPERATOR ANESTHESIA ARTERIAL LINE PLACEMENT Routine 04/04/2024 2:28 PM TURRET PUNCH OPERATOR POCT GLUCOSE DEVICE Routine 04/04/2024 1 :39 PM TURRET PUNCH OPERATOR B CHECK SAMPLE STAT 04/04/2024 10:46 AM TURRET PUNCH OPERATOR POTASSIUM, WHOLE BLOOD STAT 04/04/2024 10:05 AM TURRET PUNCH OPERATOR POCT GLUCOSE DEVICE Routine 04/04/2024 10:04 AM TURRET PUNCH OPERATOR PREPARE RBC STAT 04/04/2024 9:57 AM TURRET PUNCH OPERATOR TRANSTHORACIC ECHO (TTE) COMPLETE W DOPPLER/CF WO CONTRAST Routine 04/02/2024 11:59 AM TURRET PUNCH OPERATOR Coronary artery disease involving [place] coronary artery of [place] heart without angina pectoris Hypertension associated with diabetes (HCC) History of coronary artery bypass surgery Nonrheumatic aortic valve stenosis ECG 12-LEAD Routine 04/01/2024 12:48 PM TURRET PUNCH OPERATOR EGFR Routine 04/01/2024 12:20 PM TURRET PUNCH OPERATOR DIFFERENTIAL AUTO Routine 04/01/2024 12:20 PM TURRET PUNCH OPERATOR TYPE AND SCREEN Timed 04/01/2024 12:20 PM TURRET PUNCH OPERATOR PROTIME-INR Routine 04/01/2024 12:20 PM TURRET PUNCH OPERATOR COMPREHENSIVE METABOLIC PANEL Routine 04/01/2024 12:20 PM TURRET PUNCH OPERATOR CBC WITH AUTO DIFFERENTIAL Routine 04/01/2024 12:20 PM TURRET PUNCH OPERATOR APTT Routine 04/01/2024 12:[address] HEART MORPHOLOGY W CONTRAST Schedule Routine, Read Routine (OP Routine) 03/26/2024 9:51 AM TURRET PUNCH OPERATOR PAF (paroxysmal atrial fibrillation) (CMS/HCC) (HCC) Gait instability Personal history of fall POCT CREATININE FOR CONTRAST EVALUATION Routine 03/26/2024 9:36 AM TURRET PUNCH OPERATOR POCT LIPID PANEL Routine 08/23/2022 8:35 AM CDT Coronary artery disease involving [place] coronary artery of [place] heart without angina pectoris Mixed diabetic hyperlipidemia associated with type 2 diabetes mellitus (CMS/HCC) (HCC) from Last 3 Months or Most Recently Relevant to Health Maintenance Results * TRANSTHORACIC ECHO (TTE) LIMITED/FOLLOW UP W LTD DOPPLER/CF WO CONTRAST (04/05/2024 8:30 AM TURRET PUNCH OPERATOR) Anatomical Region Laterality Modality Ultrasound 04/05/2024 9:38 AM TURRET PUNCH OPERATOR Narrative 04/05/2024 10:16 AM TURRET [place] [address] Limited Echocardiogram Report Patient Name: FAUSTINO HASKINS WILLIAM : 1935 Study Date: 04/05/2024 9:38:31 AM Gender: M Tech: Location: [id number] Ref Provider: BIJAN ECHEVARRIA Height(Cm): 175 BSA: [...] DO, FACC, FASE, FASNC 04/05/2024 10:16:26 AM TURRET PUNCH OPERATOR Procedure Note Tess Amos DO - 04/05/2024 [place] [address] Limited Echocardiogram Report Patient Name: FAUSTINO HASKINS WILLIAM : 1935 Study Date: 04/05/2024 9:38:31 AM Gender: M Tech: Location: [id number] Ref Provider: BIJAN ECHEVARRIA Height(Cm): 175 BSA: [...] Signed By: Tess Amos DO, FACC, FASE, FASSARAN 04/05/2024 10:16:26 AM TURRET PUNCH OPERATOR Bijan Echevarria MD CV ECHO PROCEDURES Final Result * ECG 12 lead (04/05/2024 7:29 AM TURRET PUNCH OPERATOR) 04/05/2024 7:29 AM TURRET PUNCH OPERATOR Narrative [facility] - 04/05/2024 8:10 AM TURRET PUNCH OPERATOR Vent Rate: 61 bpm RR Interval: 981 msec ID Interval: 189 msec QRS Duration: 113 msec QT Interval: 442 msec QTC Interval: 444 msec P-R-T [place]: 69 - -15 - 148 degrees IMPRESSION: SINUS RHYTHM Unchanged from March [address] changes, Electronically Signed By: Dr. Adán Salgado [facility] Bijan Echevarria MD ECG ORDERABLES Final Result [facility] * eGFR (04/05/2024 2:42 AM TURRET PUNCH OPERATOR) eGFR 86 >=60 mL/min/1. 73 m2 Comment: [...] of Race in Diagnosing Kidney Disease, JASN 202). The CKD-EPI equation should not be used for patients with unstable renal function and has not been validated in children and those over 70. Current interpretive data was last reviewed 2021. Blood 04/05/2024 2:42 AM TURRET PUNCH OPERATOR 04/05/2024 3:08 AM TURRET PUNCH OPERATOR us Bijan Echevarria MD LAB BLOOD ORDERABLES Final Resul t [facility] [id number] Department [place] [address] * Differential, auto (04/05/2024 2:42 AM TURRET PUNCH OPERATOR) Neutrophil abs 1.8 1.5 - 6.5 K/cumm Imm gran abs 0.0 0.0 - 0.1 K/cumm [facility] Lymphocyte abs 1.5 0.8 - 3.3 K/cumm [facility] Monocyte abs 0.5 0.2 - 0.8 K/cumm [facility] Eosinophil abs 0.0 0.0 - 0.5 K/cumm [facility] Basophil abs 0.0 0.0 - 0.1 K/cumm [facility] Neutrophil pct 45.7 % [facility] Comment: Interpretive Data Percent cell count reference ranges are not reported, since discordance with absolute values may lead to misinterpretation of CBC data. Current Interpretive Data was last revised on 2017. Imm gran pct 0.8 % [facility] Comment: Interpretive Data Percent cell count reference ranges are not reported, since discordance with absolute values may lead to misinterpretation of CBC data. Current Interpretive Data was last revised on 2017. Lymphocyte pct 38.4 % [facility] Comment: Interpretive Data Percent cell count reference ranges are not reported, since discordance with absolute values may lead to misinterpretation of CBC data. Current Interpretive Data was last revised on 2017. Monocyte pct 13.8 % [facility] Comment: Interpretive Data Percent cell count reference ranges are not reported, since discordance with absolute values may lead to misinterpretation of CBC data. Current Interpretive Data was last revised on 2017. Eosinophil pct 1.0 % [facility] Comment: Interpretive Data Percent cell count reference ranges are not reported, since discordance with absolute values may lead to misinterpretation of CBC data. Current Interpretive Data was last revised on 2017. Basophil pct 0.3 % [facility] Comment: Interpretive Data Percent cell count reference ranges are not reported, since discordance with absolute values may lead to misinterpretation of CBC data. Current Interpretive Data was last revised on 2017. Blood 04/05/2024 2:42 AM TURRET PUNCH OPERATOR 04/05/2024 3:07 AM TURRET PUNCH OPERATOR us Bijan Echevarria MD LAB BLOOD ORDERABLES Final Resul t [facility] [address] Department [place] [address] * (ABNORMAL) CBC with auto differential (04/05/2024 2:42 AM TURRET PUNCH OPERATOR) WBC 3.8 3.8 - 9.9 K/cumm Hgb 11.3(L) 13.0 - 17.5 g/dL [facility] Hct 33.4(L) 38.9 - 50.3 % [facility] Plt 146(L) 150 - 400 K/cumm [facility] MPV 9.4 9.1 - 12.3 fL [facility] RBC 3.87(L) 4.30 - 5.80 M/cumm [facility] MCV 86.3 81.3 - 96.4 fL [facility] MCH 29.2 27.1 - 33.3 pg [facility] MCHC 33.8 32.3 - 35.7 g/dL [facility] RDW CV 14.1 11.1 - 14.9 % [facility] RDW SD 44.3 35.7 - 48.1 fL [facility] NRBC abs 0.00 0.00 - 0.01 K/cumm [facility] Blood 04/05/2024 2:42 AM TURRET PUNCH OPERATOR 04/05/2024 3:07 AM TURRET PUNCH OPERATOR Bijan Echevarria MD LAB BLOOD ORDERABLES Final Resul t Performing Organization Address City/[facility] Co de Phone Number [facility] [address] [facility] [place] [address] * Magnesium (04/05/2024 2:42 AM TURRET PUNCH OPERATOR) Magnesium 1.7 1.4 - 2.5 mg/dL Blood 04/05/2024 2:42 AM TURRET PUNCH OPERATOR 04/05/2024 3:08 AM TURRET PUNCH OPERATOR Bijan Echevarria MD LAB BLOOD ORDERABLES Final Resul t Performing Organization Address [facility] de Phone Number [facility] [address] [address] [facility] [place] [address] * Basic metabolic panel (04/05/2024 2:42 AM TURRET PUNCH OPERATOR) Sodium 139 135 - 145 mmol/L Potassium, pl 3.6 3.3 - 4.9 mmol/L [facility] Chloride 103 97 - 110 mmol/L [facility] CO2 24 22 - 32 mmol/L [facility] Anion gap 12 2 - 15 mmol/L [facility] BUN 9 6 - 25 mg/dL [facility] Creatinine 0.80 0.80 - 1.30 mg/dL [facility] Glucose 164 70 - 199 mg/dL [facility] Comment: Interpretive Data Fasting glucose >/= 126 [...] 2022. Calcium 8.6 8.5 - 10.3 mg/dL [facility] Blood 04/05/2024 2:42 AM TURRET PUNCH OPERATOR 04/05/2024 3:08 AM TURRET PUNCH OPERATOR us Bijan Echevarria MD LAB BLOOD ORDERABLES Final Resul t Performing Organization Address City/[facility] Co de Phone Number JERROD [address] [place] [address] * aPTT (04/04/2024 7:20 PM TURRET PUNCH OPERATOR) aPTT 35 28 - 38 sec Comment: Interpretive Data Heparin therapeutic range: 66.0 - 100.0 seconds. Range based on correlation with therapeutic heparin activity range of 0.3 - 0.7 Units/mL. Current interpretive data was last revised on 2023. Blood 04/04/2024 7:20 PM TURRET PUNCH OPERATOR 04/04/2024 7:46 PM TURRET PUNCH OPERATOR us Bijan Echevarria MD LAB BLOOD ORDERABLES Final Resul t Performing Organization Address [facility] Co de Phone Number [facility] [address] [facility] [place] [address] * Protime-INR (04/04/2024 7:20 PM TURRET PUNCH OPERATOR) PT 12.3 9.7 - 13.0 sec INR 1.14 0.90 - 1.20 [facility] Comment: Interpretive data Oral anticoagulant therapeutic ranges: Venous thromboembolism prophylaxis or treatment: 2.0-3.0 CARDIOLOGY Standard range: 2.0-3.0 High-intensity range: 2.5-3.5 Refer to indication-specific guidelines for appropriate target ranges for prosthetic heart valve replacement. Current interpretive data was last revised on 2019. Blood 04/04/2024 7:20 PM TURRET PUNCH OPERATOR 04/04/2024 7:46 PM TURRET PUNCH OPERATOR us Bijan Echevarria MD LAB BLOOD ORDERABLES Final Resul t Performing Organization Address [facility] Co de Phone Number JERROD [address] [facility] [place] [address] * XR Chest 1 Vw Portable (04/04/2024 6:13 PM TURRET PUNCH OPERATOR) Anatomical Region Laterality Modality Body, Chest N/A Computed Radiogr aphy 04/04/2024 6:19 PM TURRET PUNCH OPERATOR Impressions 04/04/2024 6:19 PM TURRET PUNCH OPERATOR Findings/impression: No pneumothorax or pleural effusion. Poststernotomy changes. No cardiomegaly. Mild pulmonary vascular congestion. No acute osseous abnormality. Electronically signed by: Obi Esteban II, D.O. Narrative 04/04/2024 6:19 PM TURRET PUNCH OPERATOR EXAMINATION: XR CHEST 1 VIEW DATE: 04/04/2024 6:05 PM INDICATION: Josué placement. COMPARISON: None. Procedure Note Obi Esteban II, DO - 04/04/2024 EXAMINATION: XR CHEST 1 VIEW DATE: 04/04/2024 6:05 PM INDICATION: Josué placement. COMPARISON: None. IMPRESSION: Findings/impression: No pneumothorax or pleural effusion. Poststernotomy changes. No cardiomegaly. Mild pulmonary vascular congestion. No acute osseous abnormality. Electronically signed by: Obi Esteban II, D.O. us Bijan Echevarria MD IMG XR PROCEDURES Final Result * POCT glucose (04/04/2024 5:05 PM TURRET PUNCH OPERATOR) Glucose, POC 133 70 - 199 mg/dL Blood 04/04/2024 5:05 PM TURRET PUNCH OPERATOR 04/04/2024 5:05 PM TURRET PUNCH OPERATOR us Bijan Echevarria MD LAB POCT ORDERABLES - DEVICE Fin al Result JERR[facility] [address] Department [place] [address] * PERC JOSUÉ CLOSURE W/IMPLANT (WATCHMAN) [id number] (04/04/2024 4:28 PM TURRET PUNCH OPERATOR) Anatomical Region Laterality Modality X-Ray Angiograph y Narrative 04/04/2024 4:51 PM TURRET PUNCH OPERATOR LEFT ATRIAL APPENDAGE OCCLUSION (LAAO) PROCEDURE REPORT [...] Amplatzer Amulet left atrial appendage occluder (CPT 29447) Transesophageal echocardiogram and Intracardiac echocardiogram (3D/4D ICE) Deployment of Perclose and Vascade closure devices at the right common femoral venous access sites SEDATION: General anesthesia - by anesthesiology team ACCESS SITES: Right common femoral vein PROCEDURE: After obtaining informed consent, patient was brought to the lab pack chemist and prepped and draped in the usual sterile manner. Time-out and immediate reassessment of the patient was performed. Patient was placed under general anesthesia by the anesthesiologist team. Two right common femoral venous accesses were taken under ultrasound guidance with micropuncture needle. Preclose suture mediated vascular closure [place]. [place] [address] [place] of unfractionated heparin for procedural anticoagulation at different intervals during the procedure, to maintain ACT between 250-350 seconds. ACT was monitored throughout the procedure at regular intervals. Long 12 Malawian sheath was advanced over 035 wire from the inferior access site in the right common femoral vein. 3D/4D ICE catheter was advanced in to right atrium. [place] sheath was advanced over 035 wire from the superior access site in the right common femoral vein. Atrial septal puncture was performed using [place] transseptal needle under intracardiac echo and fluoroscopic guidance. The sheath was advanced to the left atrium towards the pulmonary vein over the pre shaped wire. The sheath was taken out and it was exchanged with a 14 Malawian amulet delivery sheath. The sheath was advanced [...] by anesthesiology team. After this, the 14 Malawian sheath was reintroduced over [place] wire. A 5 Malawian pigtail catheter was advanced over the wire and the pre shaped wire was taken out. Left atrial pressure was measured at 23 mmHg. A 5 [place]awian pigtail catheter was later positioned in the [...] was used to complete this document, therefore, evs manager variances may occur. Bijan Echevarria MD, [facility] 04/04/24 us Bijan Echevarria MD CV ELECTROPHYSIOLOGY PROCS Final Result * (ABNORMAL) POC Activated Clotting Time, High Range (04/04/2024 3:59 PM TURRET PUNCH OPERATOR) ACT 269(H) 87 - 138 sec Blood 04/04/2024 3:59 PM TURRET PUNCH OPERATOR 04/04/2024 3:59 PM TURRET PUNCH OPERATOR us Bijan Echevarria MD LAB BLOOD ORDERABLES Final Resul t [facility] [address] Department [place] [address] * (ABNORMAL) POC Activated Clotting Time, High Range (04/04/2024 3:40 PM TURRET PUNCH OPERATOR) ACT 211(H) 87 - 138 sec Blood 04/04/2024 3:40 PM TURRET PUNCH OPERATOR 04/04/2024 3:40 PM TURRET PUNCH OPERATOR us Bijan Echevarria MD LAB BLOOD ORDERABLES Final Resul t Performing Organization Address [facility] de Phone Number JERROD [address] [address] [facility] [place] [address] * POCT glucose (04/04/2024 3:22 PM TURRET PUNCH OPERATOR) Glucose, POC 125 70 - 199 mg/dL Blood 04/04/2024 3:22 PM TURRET PUNCH OPERATOR 04/04/2024 3:22 PM TURRET PUNCH OPERATOR Result Alfredo Echevarria MD LAB POCT ORDERABLES - DEVICE Fin al Result Performing Organization Address [facility] de Phone Number JERROD [address] [address] [facility] [place] [address] * (ABNORMAL) POC Activated Clotting Time, High Range (04/04/2024 3:20 PM TURRET PUNCH OPERATOR) ACT 170(H) 87 - 138 sec Blood 04/04/2024 3:20 PM TURRET PUNCH OPERATOR 04/04/2024 3:20 PM TURRET PUNCH OPERATOR us Bijan Echevarria MD LAB BLOOD ORDERABLES Final Resul t Performing Organization Address [facility] de Phone Number [facility] [address] [address] [facility] [place] [address] * ID AN ELECTIVE ENDOTRACHEAL AIRWAY (04/04/2024 2:41 PM TURRET PUNCH OPERATOR) Narrative Efe Corea AA - 04/04/2024 2:41 PM TURRET PUNCH OPERATOR Efe Corea AA 04/04/2024 2:42 PM Airway Patient location: OR Urgency: elective Indications for airway management: anesthesia Difficult airway: no Staff: Supervising provider: Jennifer Carter DO Placed by: AA: Efe Corea [...] Number of attempts: 1 Additional comments: Cruz RICHTERS performed intubation under direct supervision Jennifer Carter DO ANESTHESIA ORDERABLES Final Result * Arterial Line (04/04/2024 2:28 PM TURRET PUNCH OPERATOR) Narrative Efe Corea AA - 04/04/2024 2:28 PM TURRET PUNCH OPERATOR Efe Corea AA 04/04/2024 2:41 PM Arterial [...] patient tolerated procedure well with no complications us Jennifer Carter DO ANESTHESIA ORDERABLES Edite d Result - Final * POCT glucose (04/04/2024 1:39 PM TURRET PUNCH OPERATOR) Glucose, POC 131 70 - 199 mg/dL Blood 04/04/2024 1:39 PM TURRET PUNCH OPERATOR 04/04/2024 1:39 PM TURRET PUNCH OPERATOR Bijan Echevarria MD LAB POCT ORDERABLES - DEVICE Fin al Result Performing Organization Address [facility] Co de Phone Number JERROD BRAR [address] [facility] [place] [address] * Check Sample (04/04/2024 10:46 AM TURRET PUNCH OPERATOR) ABO Rh O Positive [facility] OTHER 04/04/2024 10:4 6 AM TURRET PUNCH OPERATOR 04/04/2024 10:46 AM TURRET PUNCH OPERATOR Bijan Echevarria MD LAB BLOOD ORDERABLES Final Resul t Performing Organization Address [facility] de Phone Number JERROD BRAR [address] [facility] [place] [address] CH * Potassium, whole blood (04/04/2024 10:05 AM TURRET PUNCH OPERATOR) Pathologist [facility] Potassium, bld 3.9 3.3 - 4.9 mmol/L Comment: Interpretive Data This method is not able to assess for hemolysis, which may falsely increase potassium concentrations. If further testing is needed to evaluate this result, consider in-laboratory plasma potassium. Current Interpretive Data was last revised on 2022. Blood 04/04/2024 10:0 5 AM TURRET PUNCH OPERATOR 04/04/2024 10:42 AM TURRET PUNCH OPERATOR Deepthi Raza GAS DERRICK OPERATOR LAB BLOOD ORDERABLES Final Res ult Performing Organization Address [facility] Co de Phone Number JERROD BRAR [address] [address] [place] [address] * POCT glucose (04/04/2024 10:04 AM TURRET PUNCH OPERATOR) Glucose, POC 169 70 - 199 mg/dL Blood 04/04/2024 10:0 4 AM TURRET PUNCH OPERATOR 04/04/2024 10:04 AM TURRET PUNCH OPERATOR Bijan Echevarria MD LAB POCT ORDERABLES - DEVICE Fin al Result Performing Organization Address [facility] Co de Phone Number JERROD [address] [facility] [place] [address] * Prepare RBC: 2 Units (04/04/2024 9:57 AM TURRET PUNCH OPERATOR) Product code [id number] CERNER CH Unit Number [id number] 9-T CERNER CH Product Blood Type OPOS CERNER CH Dispense Status RETURNED [facility]ERNER [facility] Product code [id number] Unit Number [id number] 6-H CERNER CH Product Blood Type OPOS CERNER CH Dispense Status RETURNED [facility]ERNER CH Blood 04/04/2024 9:57 AM TURRET PUNCH OPERATOR Narrative [facility] - 04/05/2024 12:28 AM TURRET PUNCH OPERATOR Specify Procedure:->LAAO Are special requirements needed? (All products are leukoreduced and CMV- safe)- >No Date required:-[id number] LRRBC # of [id number] Reasons:-Hold for procedure (specify procedure)} Bijan Echevarria MD BLOOD BANK PRODUCT ORDERABLES Fi nal Result Performing Organization Address [facility] Co de Phone Number JERROD [address] [place] [place] [address] * TRANSTHORACIC ECHO (TTE) COMPLETE W DOPPLER/CF WO CONTRAST (04/02/2024 11:59 AM TURRET PUNCH OPERATOR) Anatomical Region Laterality Modality Ultrasound 04/02/2024 11:1 9 AM TURRET PUNCH OPERATOR Narrative 04/02/2024 2:36 PM TURRET PUNCH OPERATOR [facility] Medical Group Cardiology [address], [place] [address] [address] [facility] [address], [place] [address] P:[phone] P:[phone] Echocardiographic Report Patient Name: FAUSTINO HASKINS W : 1935 Study Date: 04/02/2024 11:19:12 AM Gender: M Tech: DARLYN Location: [place] Ref Provider: CARISA ROBBINS Height(Cm): 175 BSA: 2.31 Weight(Kg): 110.2 Heart Rate: 63 BP: 139 / 86 Quality: Good Order Provider: CARISA ROBBINS PROCEDURES: Echocardiographic Report: Transthoracic echocardiogram with complete 2D, M-Mode, and color Doppler examination. With Strain Analysis. INDICATIONS: I25.10 Atherosclerotic heart disease of [place] coronary artery without angina pectoris, E11.59 Type [...] FINDINGS: Interpretation Site: Exam was interpreted at [facility]. Left Ventricle: Global Longitudinal Strain is -12 [...] Signed By: Dr. Alhaji Martinez 2024-04-02 14:35:50 TURRET PUNCH OPERATOR Procedure Note Alhaji Martinez MD - 04/02/2024 [facility] Medical Group Cardiology [address] [facility] [address] [facility] [address], [place] [address] [address] [facility] [address], [place] [address] P:[phone] P:[phone] Echocardiographic Report Patient Name: FAUSTINO HASKINS W : 1935 Study Date: 04/02/2024 11:19:12 AM Gender: M Tech: DARLYN Location: [place] Ref Provider: CARISA ROBBINS Height(Cm): 175 BSA: 2.31 Weight(Kg): 110.2 Heart Rate: 63 BP: 139 / 86 Quality: Good Order Provider: CARISA ROBBINS PROCEDURES: Echocardiographic Report: Transthoracic echocardiogram with complete 2D, M-Mode, and color Dopplerexamination. With Strain Analysis. 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 Left Ventricle: Global Longitudinal Strain is -12 [...] Signed By: Dr. Alhaji Martinez 2024-04-02 14:35:50 TURRET PUNCH OPERATOR Carisa Robbins MD CV ECHO PROCEDURES Final Result * ECG 12 lead (04/01/2024 12:48 PM TURRET PUNCH OPERATOR) 04/01/2024 12:4 8 PM TURRET PUNCH OPERATOR Narrative [facility] - 04/01/2024 2:45 PM TURRET PUNCH OPERATOR Vent Rate: 58 bpm RR Interval: 1025 msec ID Interval: 210 msec QRS Duration: 109 msec QT Interval: 460 msec QTC Interval: 457 msec P-R-T [place]: 79 - -18 - 131 degrees IMPRESSION: SINUS BRADYCARDIA WITH MARKED SINUS ARRHYTHMIA WITH FIRST DEGREE AV BLOCK LEFT VENTRICULAR HYPERTROPHY AND ST-T CHANGE ABNORMAL ECG Electronically Signed By: Ella Nails MD Bijan Echevarria MD ECG ORDERABLES Final Result Performing Organization Address City/[facility]/ZIP Co de Phone Number [facility] * eGFR (04/01/2024 12:20 PM TURRET PUNCH OPERATOR) eGFR 78 >=60 mL/min/1. 73 m2 Comment: [...] reviewed 2021. Blood 04/01/2024 12:2 0 PM TURRET PUNCH OPERATOR 04/01/2024 12:38 PM TURRET PUNCH OPERATOR us Bijan Echevarria MD LAB BLOOD ORDERABLES Final Resul t JERROD [address] [place] [address] * Differential, auto (04/01/2024 12:20 PM TURRET PUNCH OPERATOR) Neutrophil abs 2.6 1.5 - 6.5 K/cumm Imm gran abs 0.0 0.0 - 0.1 K/cumm CERNER CH Lymphocyte abs 1.6 0.8 - 3.3 K/cumm CERNER CH Monocyte abs 0.6 0.2 - 0.8 K/cumm CERNER CH Eosinophil abs 0.2 0.0 - 0.5 K/cumm CERNER CH Basophil abs 0.0 0.0 - 0.1 K/cumm CERNER Neutrophil pct 51.3 % CERNER CH Comment: Interpretive Data Percent cell count reference ranges are not reported, since discordance with absolute values may lead to misinterpretation of CBC data. Current Interpretive Data was last revised on 2017. Imm gran pct 0.2 % CERNER Comment: Interpretive Data Percent cell count reference ranges are not reported, since discordance with absolute values may lead to misinterpretation of CBC data. Current Interpretive Data was last revised on 2017. Lymphocyte pct 32.2 % CERNER Comment: Interpretive Data Percent cell count reference ranges are not reported, since discordance with absolute values may lead to misinterpretation of CBC data. Current Interpretive Data was last revised on 2017. Monocyte pct 10.8 % CERNER Comment: Interpretive Data Percent cell count reference ranges are not reported, since discordance with absolute values may lead to misinterpretation of CBC data. Current Interpretive Data was last revised on 2017. Eosinophil pct 4.7 % CERNER Comment: Interpretive Data Percent cell count reference ranges are not reported, since discordance with absolute values may lead to misinterpretation of CBC data. Current Interpretive Data was last revised on 2017. Basophil pct 0.8 % CERNER Comment: Interpretive Data Percent cell count reference ranges are not reported, since discordance with absolute values may lead to misinterpretation of CBC data. Current Interpretive Data was last revised on 2017. Blood 04/01/2024 12:2 0 PM TURRET PUNCH OPERATOR 04/01/2024 12:39 PM TURRET PUNCH OPERATOR Bijan Echevarria MD LAB BLOOD ORDERABLES Final Resul t Performing Organization Address [facility] Co de Phone Number JERROD BRAR [address] [place], [place] [id number] * (ABNORMAL) CBC with auto differential (04/01/2024 12:20 PM TURRET PUNCH OPERATOR) WBC 5.1 3.8 - 9.9 K/cumm Hgb 12.5(L) 13.0 - 17.5 g/dL CERNER CH Hct 37.4(L) 38.9 - 50.3 % [facility] Plt 197 150 - 400 K/cumm [facility] MPV 9.4 9.1 - 12.3 fL [facility] RBC 4.27(L) 4.30 - 5.80 M/cumm [facility] MCV 87.6 81.3 - 96.4 fL [facility] MCH 29.3 27.1 - 33.3 pg [facility] MCHC 33.4 32.3 - 35.7 g/dL [facility] R[facility] CV 14.1 11.1 - 14.9 % [facility] RDW SD 45.2 35.7 - 48.1 fL [facility] NRBC abs 0.00 0.00 - 0.01 K/cumm [facility] Blood 04/01/2024 12:2 0 PM TURRET PUNCH OPERATOR 04/01/2024 12:39 PM TURRET PUNCH OPERATOR Bijan Echevarria MD LAB BLOOD ORDERABLES Final Resul t Performing Organization Address [facility] Co de Phone Number JERROD BRAR [address] [place] [address] * aPTT (04/01/2024 12:20 PM TURRET PUNCH OPERATOR) aPTT 34 28 - 38 sec Comment: Interpretive Data Heparin therapeutic range: 66.0 - 100.0 seconds. Range based on correlation with therapeutic heparin activity range of 0.3 - 0.7 Units/mL. Current interpretive data was last revised on 2023. Blood 04/01/2024 12:2 0 PM TURRET PUNCH OPERATOR 04/01/2024 12:39 PM TURRET PUNCH OPERATOR Bijan Echevarria MD LAB BLOOD ORDERABLES Final Resul t Performing Organization Address City/[facility]/ZIP Co de Phone Number JERROD BRAR [address] [address] [facility] [place] [address] * Protime-INR (04/01/2024 12:20 PM TURRET PUNCH OPERATOR) PT 11.0 9.7 - 13.0 sec INR 1.02 0.90 - 1.20 [facility] Comment: Interpretive data Oral anticoagulant therapeutic ranges: Venous thromboembolism prophylaxis or treatment: 2.0-3.0 CARDIOLOGY Standard range: 2.0-3.0 High-intensity range: 2.5-3.5 Refer to indication-specific guidelines for appropriate target ranges for prosthetic heart valve replacement. Current interpretive data was last revised on 2019. Blood 04/01/2024 12:2 0 PM TURRET PUNCH OPERATOR 04/01/2024 12:39 PM TURRET PUNCH OPERATOR Bijan Echevarria MD LAB BLOOD ORDERABLES Final Resul t Performing Organization Address [facility] Co de Phone Number AMBROCIOFLORIDA BRAR [address] [address] [facility] [place] [address] * Type and screen (04/01/2024 12:20 PM TURRET PUNCH OPERATOR) Bro, indirect Negative ABO Rh O Positive [facility] Blood 04/01/2024 12:2 0 PM TURRET PUNCH OPERATOR 04/01/2024 12:38 PM TURRET PUNCH OPERATOR Narrative [facility] - 04/01/2024 1:22 PM TURRET PUNCH OPERATOR Has the patient had Daratumumab or Isatuximab in the past 6 months?->Unknown Result [facility] us Bijan Echevarria MD LAB BLOOD BANK TEST ORDERABLES F inal Result Performing Organization Address City/[facility]/ZIP Co de Phone Number JERROD BRAR [address] [address] [facility] [place] [address] * (ABNORMAL) Comprehensive metabolic panel (04/01/2024 12:20 PM TURRET PUNCH OPERATOR) Sodium 137 135 - 145 mmol/L Potassium, pl 4.2 3.3 - 4.9 mmol/L C[facility]ER [facility] Chloride 101 97 - 110 mmol/L CERNER [...] CERNER CH Blood 04/01/2024 12:2 0 PM TURRET PUNCH OPERATOR 04/01/2024 12:38 PM TURRET PUNCH OPERATOR us Bijan Echevarria MD LAB BLOOD ORDERABLES Final Resul t JERROD BRAR [address] Department [place] [address] * CT Heart Morphology W Contrast (03/26/2024 9:51 AM TURRET PUNCH OPERATOR) Anatomical Region Laterality Modality Chest N/A Computed Tomogra phy 03/26/2024 10:3 5 AM TURRET PUNCH OPERATOR Impressions 03/26/2024 11:00 AM TURRET PUNCH OPERATOR 1. Left atrial appendage measurements for placement of occlusion device as described. 2. No evidence of left atrial appendage thrombus. Dictated by: Jose Tovar M.D. The radiology attending physician has personally reviewed this study, and had reviewed and/or edited this written report and agrees with it. Electronically signed by: Ashley Motta M.D. Narrative 03/26/2024 11:00 [address]URRET PUNCH OPERATOR CT of the heart with IV contrast. [...] it. Electronically signed by: Ashley Motta M.D. us Bijan Echevarria MD IMG CT PROCEDURES Final Result * POCT creatinine for contrast evaluation (03/26/2024 9:36 AM TURRET PUNCH OPERATOR) Creatinine, POC 1.0 0.6 - 1.3 mg/dL Blood 03/26/2024 9:36 AM TURRET PUNCH OPERATOR Bijan Echevarria MD POINT OF CARE TEST ORDERABLES Fi nal Result * POCT lipid panel (08/23/2022 8:35 AM CDT) Cholesterol, POC 106 mg/dL Comment:GLU = 203 HDL, POC 34 mg/dL Triglycerides, POC 217 mg/dL LDL Cholesterol POC 29 mg/dL Chol/HDL Ratio, POC 0.9 Non-HDL Cholesterol, POC 72 mg/dL Cholesterol Total, POC 106 mg/dL Capillary blood 08/23/2022 8 :35 AM CDT Carisa Robbins MD POINT OF CARE TEST ORDER IZABEL Final Result from Last 3 Months or Most Recently Relevant to Health Maintenance Insurance [employer] MEDICARE AETNA MEDICARE T MEDICARE Care Teams Waste Specialist Relationship Specialty Start Date End Date Lesia Jean MD PCP - General Family Practice 05/16/22
--- OUTSIDE RECORDS SUMMARY | 2024-06-13 14:38 | XMS_ITS | Clinical Summary ---
Author Organization [facility] Address [facility] [place] [address] Care Team Providers Care Core Baker Name Role Phone Unavailable Primary Care Provider Unavailabl e Social History Tobacco Use Types Packs/Day Years Used Date Smoking Tobacco: Never Assessed Sex and Gender Information Value Date Recorded Sex Assigned at Not on file Legal Sex Male 5:01 PM CDT Gender Identity Not on file Sexual Orientation Not on file Plan of Treatment Health Maintenance Due Date Last Done Comments DTaP, Tdap and Td Vaccines ( 1 - Tdap) [birth year]24/1954 Zoster Vaccines (1 of 2) 1986 Pneumococcal Vaccine: 65+ Ye ars (1 of 1 - PCV) 2001 RSV Immunization or 60+ Years (1 - 1-dose 75+ series) 07/24/2011 COVID-19 Vaccine (2023-2 5 season) 2023 Influenza Adult (#1) 2024 Meningococcal B Vaccine Aged Out No l onger eligible based on patient's age to complete this topic Meningococcal Vaccine Aged Out No chiquita greg eligible based on patient's age to complete this topic RSV Immunizations Under 20 Months Aged Out No longer eligible based on patient's age to complete this topic
--- OUTSIDE RECORDS SUMMARY | 2024-06-13 14:38 | XMS_ITS | Encounter Summary ---
Author Organization [facility] Healthcare Address [address] [place] [address] Care Team Providers Care Library Circulation Assistant Name Role Phone Lesia Jean MD Primary Care Provider Encounter Details Date Type Department Care Team (Late st Contact Info) Description 07/17/2023 Orders Only [facility] [place] [address] [place] [address] Scanning, Provider Social History Tobacco Use Types Packs/Day Years Used Date Smoking Tobacco: Never Smokeless Tobacco: Never Alcohol Use Standard Drinks/Week Comments No 0 (1 standard drink = 0.6 oz pur e alcohol) Sex and Gender Information Value Date Recorded Sex Assigned at Not on file Legal Sex Male 5:27 PM MEDICAL SUPERVISOR Gender Identity Not on file Sexual Orientation Not on file documented as of this encounter Plan of Treatment Not on file documented as of this encounter Procedures Procedure Name Priority Date/Time Associated Diagnosis Comments SCAN - LABS 07/17/2023 documented in this encounter Results * SCAN - LABS (07/17/2023) us Provider Scanning Final Result documented in this encounter Visit Diagnoses Not on filedocumented in this encounter Care Teams Library Circulation Assistant Relationship Specialty Start Date End Date Lesia Jean MD PCP - General Family Practice 05/16/22 documented as of this encounter
[2024-06-13 19:49] LABS: Alanine Aminotransferase 32 U/L (6-50); Albumin Level 3.7 g/dL (3.5-5.1); Alkaline Phosphatase 163 U/L (38-126); Anion Gap 9 mmol/L (4-12); Aspartate Amino Transferase 67 U/L (17-59); Bilirubin,Total 0.8 mg/dL (0.2-1.3); Blood Urea Nitrogen 16 mg/dL (9-20); Calcium 9.1 mg/dL (8.4-10.2); Carbon Dioxide 28 mmol/L (22-30); Chloride 101 mmol/L (98-107); Estimated Glomerular Filt Rate > 60; Glucose 121 mg/dL (65-110); Potassium 4.3 mmol/L (3.4-5.0); Sodium 138 mmol/L (137-145)
[2024-06-13 20:20] LABS: Hemoglobin A1C 6.9 % (<5.7)
== END 2024-06-13 14:32 | disposition home or self-care (01) ==
PROVIDERS: PCP Family Medicine; Visit Provider Family Medicine
DX: E11.9 Type 2 diabetes mellitus without complications (principal); I10 Essential (primary) hypertension
CPT/HCPCS: 36415; 80053; 83036

== ENCOUNTER 2024-08-08 13:11 | Inpatient (IN) | payer MEDICARE, SELFPAY ==
[2024-08-08] VITALS (10 sets, daily range): BP systolic 154–183; BP diastolic 63–82; PULSE 55–62; RESP 16–26; TEMP 36.5–36.8; O2SAT 89–96; BMI 32.5
--- NOTE | ~2024-08-08 | CT_ITS ---
CTA chest PE protocol Ordering provider: Ariana Hunter MD History: 89 years Male with . SOB, dimer >1 . Comparison: None. Technique: CT angiogram chest was performed following timed intravenous injection of contrast. Thin s lice axial images and reformatted coronal images were obtained. Three dimensional reformatted images of the chest were also obtained using a [employer] workstation. . Automated exposure control and iterati ve reconstruction technique were employed. The dose-length product was 921.99 mGy-cm. 100 mL Omnipaqu e 350 was given IV. Findings: PULMONARY ARTERIES: No pulmonary embolus. VISUALIZED THORACIC INLET: Normal. MEDIASTINUM: Aorta/coronary arteries: Mild atheromatous disease. Heart/other: The heart is not enlarged. Lymph nodes: No mediastinal or hilar adenopathy. Precarinal lymph node measuring 1.5 cm is noted. Sma ll paratracheal lymph nodes are seen. Postoperative changes seen in the sternum and mediastinum. LUNGS: No pulmonary nodules or masses. Bilateral moderate pleural effusion more on the right side with adjac ent atelectasis versus pneumonia. No pneumothorax. VISUALIZED UPPER ABDOMEN: Status post cholecystectomy. Otherwise, the visualized upper abdomen is nor mal. MUSCULOSKELETAL: Soft tissues: The superficial soft tissues are normal. Bones: Age appropriate degenerative changes of the spine. IMPRESSION: 1. No pulmonary embolism. 2. Bilateral moderate pleural effusion larger on the right side with adjacent atelectasis versus pne umonia. Reviewed, dictated and finalized at location A. IMPRESSION: 1. No pulmonary embolism. 2. Bilateral moderate pleural effusion larger on the right side with adjacent atelectasis versus pneumonia.
--- NOTE | ~2024-08-08 | XR_ITS ---
EXAM/PROCEDURE: XR chest 1V portable - 08/10/2024 09:10 CDT HISTORY: 89 years old Male with pleural effusion TECHNIQUE: Two view(s) of the chest. COMPARISON: 08/08/2024 FINDINGS: LUNGS/ PLEURA: Small bilateral pleural effusions causing compressive atelectasis. Bibasilar linear op acities may represent pneumonia, atelectasis versus scarring. No large pneumothorax or airspace plast y. HEART/ MEDIASTINUM: Cardiomediastinal silhouette is unchanged. Findings of prior median sternotomy ar e noted. BONES: Degenerative changes. OTHER: Visualized upper abdomen is unremarkable. IMPRESSION: 1. Small bilateral pleural effusions causing compressive atelectasis. 2. Bibasilar linear opacities may represent pneumonia, atelectasis versus scarring. Clinical correla tion is recommended. Short-term total follow-up chest radiograph is recommended after appropriate cli nical therapy. Reviewed, dictated and finalized at location A. IMPRESSION: 1. Small bilateral pleural effusions causing compressive atelectasis. 2. Bibasilar linear opacities may represent pneumonia, atelectasis versus scar ring. Clinical correlation is recommended. Short-term total follow-up chest rad iograph is recommended after appropriate clinical therapy.
--- NOTE | ~2024-08-08 | XR_ITS ---
EXAMINATION: XR chest 1V portable DATE: 08/08/2024 14:30 INDICATION: Shortness of breath TECHNIQUE: frontal view of the chest was obtained. COMPARISON: Chest radiograph dated 06/16/2023 FINDINGS: Interstitial and airspace opacities in the bilateral lower lung zones. Small bilateral pleural effusi ons. No pneumothorax. Cardiomegaly. Median sternotomy wires and mediastinal surgical clips are seen, likely from prior coronary artery bypass grafting. IMPRESSION: 1. Small bilateral pleural effusions with interstitial and airspace opacities in the bilateral lower lung zones most likely mild pulmonary edema with differential including pneumonia. 2. Cardiomegaly. Reviewed, dictated and finalized at location B. IMPRESSION: 1. Small bilateral pleural effusions with interstitial and airspace opacities i n the bilateral lower lung zones most likely mild pulmonary edema with differen tial including pneumonia. 2. Cardiomegaly.
--- NOTE | 2024-08-08 13:27 | ECG_ITS ---
Test Date: 2024-08-08 13:29:22 Measurements Intervals [place] Rate: 56 P: 0 NE: 0 QRS: -12 QRSD: 110 T: 161 QT: 450 QTc: 436 Interpretive Statements ECTOPIC ATRIAL RHYTHM INTRAVENTRICULAR CONDUCTION DELAY LEFT VENTRICULAR HYPERTROPHY WITH ST-T CHANGE MINIMAL Q WAVES- HIGH LATERAL LEADS CONSIDER INFERIOR INFARCT, AGE INDETERMINATE BORDERLINE ST-T WAVE ABNORMALITY- LATERAL LEADS BASELINE ARTIFACT- I, II, AVR, AVL, AVF, V1-V6 ABNORMAL ECG No previous ECG available for comparison Electronically Signed On 08-08-2024 13:51:57 CDT by Jovanny Cano D.O.
[2024-08-08 13:37] LABS: Basophils Percent Auto 0.4 % (0.2-1.2); Eosinophils Absolute Auto 0.1 K/mm3 (0-0.3); Eosinophils Percent Auto 1.8 % (0-4.4); Hematocrit 34.8 % (42.0-52.0); Hemoglobin 11.4 g/dL (14.0-18.0); Immature Granulocyte Absolute 0.05 K/mm3 (0.00-0.031); Immature Granulocyte Percent A 0.7 % (0-0.5); Lymphocytes Absolute Auto 1.54 K/mm3 (0.9-3.2); Lymphocytes Percent Auto 20.8 % (18.3-44.2); Mean Corpuscular HGB Conc 32.8 g/dl (32-36); Mean Corpuscular Hemoglobin 28.4 pg (26-34); Mean Corpuscular Volume 86.8 fl (80-100); Monocytes Absolute Auto 0.6 K/mm3 (0.1-0.6); Neutrophils Absolute Auto 5.1 K/mm3 (1.3-6.7); Neutrophils Percent Auto 68.3 % (45.5-73.1); Platelet Count Result 226 k/mm3 (150-375); Red Blood Count 4.01 M/mm3 (4.6-6.20); Red Cell Distribution Width 14.9 % (11.5-14.5); White Blood Count 7.4 K/mm3 (4.5-10.0)
--- OUTSIDE RECORDS SUMMARY | 2024-08-08 13:37 | XMS_ITS | Clinical Summary ---
Author Organization [facility] Address [address] [place] [address] Care Team Providers Care Geriatric Physical Therapist Name Role Phone Unavailable Primary Care Provider [...] - 1-dose 75+ series) 07/24/2011 COVID-19 Vaccine ( - 2023-2 5 season) 2023 Meningococcal B Vaccine Aged Out No l onger eligible based on patient's age to complete this topic Meningococcal Vaccine Aged Out No chiquita greg eligible based on patient's age to complete this topic RSV Immunizations Under 20 Months Aged Out No longer eligible based on patient's age to complete this topic
--- OUTSIDE RECORDS SUMMARY | 2024-08-08 13:37 | XMS_ITS | Referral Summary ---
Author Organization [place] [address] [address] [place] [address] [address] [place] [address] Care Team Providers Care Feed Elevator Worker Name Role Phone Lesia Jean MD Primary Care Provider Encounters Date Type Department Care Team Description 07/15/2024 9:30 AM CDT Office Visit [facility] Medical [facility] Cardiology [address] [place] [address] [address] [place] [phone] Dimitrios Mcmahan MD History of coronary artery bypass surgery (Primary Dx); Nonrheumatic aortic valve stenosis; Presence of Amulet left atrial appendage closure device 06/17/2024 Telephone [facility] Cardiology [address] [place] [address] [address] [place] [phone] Bijan Alvares MD Med Management 06/04/2024 9:30 AM EDGE GRINDER MACHINE Office Visit [facility] Cardiology [address] [place] [address] [address] [place] [phone] Svitlana Gomez NP Presence of Amulet left atrial appendage closure device (Primary Dx); PAF (paroxysmal atrial fibrillation) ([facility]); Coronary artery disease involving kashia coronary artery of kashia heart without angina pectoris; Moderate aortic stenosis; Hypertension associated with type 2 diabetes mellitus ([facility]); Lymphedema from Last 3 Months Allergies Active Allergy [...] each day 0 0 07/26/19 17 Active Additional Information Patient taking differently:0.4 mg,Take 1 capsule with eat meal, Reported on 07/15/2024 potassium chloride ER 20 mEq CR tablet [...] mouth daily 30 tablet 11 06/29/19 24 Active Additional Information Patient not taking.Reported on 07/15/2024 escitalopram (LEXAPRO) 10 mg tablet Take 1 [...] tablet (50 mg total) by mouth nightly 1-2 tablets nightly Active multivitamin with minerals tablet Take [...] 30 tablet 11 04/06/20 24 025 Active metoprolol tartrate (LOPRESSOR) 50 mg immediate release tablet TAKE 1 TABLET BY MOUTH TWICE A DAY(REPLACE CARVEDILOL) 180 tablet 3 06/07/19 25 Active lisinopriL (PRINIVIL,ZEST RIL) 40 mg tablet TAKE 1 TABLET BY MOUTH EVERY DAY 90 tablet 07/30/19 25 Active lisinopriL (PRINIVIL,ZEST RIL) 40 mg tablet Take 1 tablet (40 mg total) by mouth daily 90 tablet 04/22/20 24 025 Discontinued Active Problems Problem Noted Date Diagnosed Date Presence of Amulet left atrial appendage closure device 04/04/2024 Class 2 severe obesity due t o excess calories with serious comorbidity and body mass index (BMI) of 35.0 to 35.9 in adult 08/23/2022 Aortic valve stenosis 11/10/2020 Hypertension associated with diabetes 05/06/2020 Mixed diabetic hyperlipidemi a associated with type 2 diabetes mellitus ([facility]) 11/16/2017 Coronary artery disease invo lving kashia coronary artery of kashia heart without angina pectoris 05/17/2016 Overview (08/04/2016): 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 More than 4 times per year 04/05/2024 Do you belong to any clubs o r organizations such as buddhism groups, unions, fraternal or athletic groups, or [...] any time in the past 12 m [facility], were you homeless or living in a custodial (including now)? No 04/05/2024 Personal Safety Answer Date Recorded Have you ever been in or are you currently in a harmful physical or emotional relationship or is someone making you feel afraid or unsafe? Denies 04/04/2024 Sex and Gender Information Value Date Recorded Sex Assigned at Not on file Legal Sex Male 5:27 PM EDGE GRINDER MACHINE Gender Identity Not on file Sexual Orientation Not on file Last Filed Vital Signs Vital Sign Reading Time Taken Comments Blood Pressure 118/80 07/15/2024 9:17 AM CDT Pulse 53 07/15/2024 9:17 AM CDT Temperature 36.6 C (97.8 F) 04/05/2024 3:56 AM EDGE GRINDER MACHINE Respiratory Rate 22 04/05/2024 11:47 AM EDGE GRINDER MACHINE Oxygen Saturation 96% 07/15/2024 9:17 AM CDT Inhaled Oxygen Concentration - - Weight 104.3 kg (230 lb) 07/15/2024 9:17 AM CDT per Height 175.3 cm (5' 9 ) 07/15/2024 9:17 AM CDT Body Mass Index 33.97 07/15/2024 9:17 AM CDT Plan of Treatment Not on file Medical Devices Implanted Type Area Hospice Plan Administrator Device Identifier Shelf Expiration Date Model / Serial / Lot Huang Vascular System Closure Repair Femoral Artery Suture Mediated Perclose Prostyle 23034-86 - [id number] Implanted:Qty: 1 on 04/04/2024 by Bijan Alvares MD at [facility] [employer] 12/29/2025 [id number] / / [id number] [employer] Occluder Cvasc Maddie Flexible Braided Amplatzer Amulet 25mm Nitinol [id number] - [id number] Implanted:Qty: 1 on 04/04/2024 by Bijan Alvares MD at [facility] V[facility] 08/29/2027 9-ACP2-01 0- [id number] / / [id number] [facility] Vascade Mvp 6-12fr Venous Closure [id number] - [id number] Implanted:Qty: 1 on 04/04/2024 by Bijan Alvares MD at [facility] 08/24/2025 [id number] / / [id number] Procedures Procedure Name Priority Date/Time Associated Diagnosis Comments EGFR Routine 04/05/2024 2:42 AM EDGE GRINDER MACHINE POCT LIPID PANEL Routine 08/23/2022 8:35 AM CDT 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 73 m2 Comment: [...] last reviewed 2021. Blood 04/05/2024 2:42 AM EDGE GRINDER MACHINE 04/05/2024 3:08 AM EDGE GRINDER MACHINE Bijan Alvares MD LAB BLOOD ORDERABLES Final Resul t [facility] [address] [place] [address] * POCT lipid panel (08/23/2022 8:35 AM CDT) Cholesterol, POC 106 mg/dL Comment:GLU = 203 HDL, POC 34 mg/dL Triglycerides, POC 217 mg/dL LDL Cholesterol POC 29 mg/dL Chol/HDL Ratio, POC 0.9 Non-HDL Cholesterol, POC 72 mg/dL Cholesterol Total, POC 106 mg/dL Capillary blood 08/23/2022 8 :35 AM CDT Aaron Robbins MD POINT OF CARE TEST ORDER IZABEL Final Result from Last 3 Months or Most Recently Relevant to Health Maintenance Insurance T MEDICARE [employer] MEDICARE T MEDICARE Care Teams Feed Elevator Worker Relationship Specialty Start Date End Date Lesia Jean MD PCP - General Family Practice 05/16/22
--- OUTSIDE RECORDS SUMMARY | 2024-08-08 13:37 | XMS_ITS | Clinical Summary ---
Author Organization [facility] [address] Address [address] [place] [address] Care Team Providers Care Executive Admin Name Role Phone Lesia Jean MD Primary [...] a associated with type 2 diabetes mellitus ([facility]/HCC) 11/16/2017 Coronary artery disease invo lving [place] band coronary artery of [place] heart without angina pectoris 05/17/2016 Overview (08/04/2016): Coronary artery disease involving [place] band coronary artery of [place] heart without angina pectoris History of coronary [...] Description 07/15/2024 9:30 AM CDT Office Visit [facility] Cardiology [address] [place] [address] [place] [phone] Dimitrios Mcmahan MD History of coronary artery bypass surgery (Primary Dx); Nonrheumatic aortic valve stenosis; Presence of Amulet left atrial appendage closure device 06/17/2024 Telephone [facility] Cardiology [address] [place] [address] [address] [place] [phone] Bijan Alvares MD Med Management 06/04/2024 9:30 AM TOUCH UP PAINTER Office Visit [facility] Cardiology [address] [place] [address] [address] [place] [phone] Svitlana Gomez NP Presence of Amulet left atrial appendage closure device (Primary Dx); PAF (paroxysmal atrial fibrillation) (HCC); Coronary artery disease involving [place] band coronary artery of [place] heart without angina pectoris; Moderate aortic stenosis; Hypertension associated with type 2 diabetes mellitus (HCC); Lymphedema from Last 3 Months Surgical History Surgery [...] Medical Cardiomyopathy Adiposity Obesity Hyperlipidemia Atrial fibrillation (HCC) Cardiomyopathy (HCC) Myocardial infarction (HCC) Coronary artery disease Type 2 diabetes mellitus (HCC) GERD (gastroesophageal reflux disease) Kidney stone Depression Cataract Personal history of fall Memory deficit per daughter, luz maria wills will attempt to get out of bed [...] drink = 0.6 oz pur e alcohol) [facility] Utilities Answer Date Recorded In the past 12 months has [employer], gas, oil, or water [employer] threatened to shut off services in your [...] often do you attend chur ch or hoahaoism services? More than 4 times per year 04/05/2024 Do you belong to any clubs o r organizations such as congregation groups, unions, fraternal or athletic groups, or [...] any time in the past 12 m [facility], were you homeless or living in a assisted (including now)? No 04/05/2024 Personal Safety Answer Date Recorded Have you ever been in or are you currently in a harmful physical or emotional relationship or is someone making you feel afraid or unsafe? Denies 04/04/2024 Sex and Gender Information Value Date Recorded Sex Assigned at Not on file Legal Sex Male 5:27 PM TOUCH UP PAINTER Gender Identity Not on file Sexual Orientation Not on file Obstetrics History Last Filed Vital Signs Vital Sign Reading Time Taken Comments Blood Pressure 118/80 07/15/2024 9:17 AM CDT Pulse 53 07/15/2024 9:17 AM CDT Temperature 36.6 C (97.8 F) 04/05/2024 3:56 AM TOUCH UP PAINTER Respiratory Rate 22 04/05/2024 11:47 AM TOUCH UP PAINTER Oxygen Saturation 96% 07/15/2024 9:17 AM CDT Inhaled Oxygen Concentration - - Weight 104.3 kg (230 lb) 07/15/2024 9:17 AM CDT per Height 175.3 cm (5' 9 ) 07/15/2024 9:17 AM CDT Body Mass Index 33.97 07/15/2024 9:17 AM CDT Plan of Treatment Health Maintenance Due Date Last Done Comments Albumin Creatinine Ratio, Urine 1936 Depression Screening 1936 Hemoglobin A1C 1936 Dilated Eye Exam 1936 Foot Exam 1936 DTaP/Tdap/Td Vaccine (1 - Tdap) 07/24/1947 Hepatitis B Screening 1954 Pneumococcal vaccine 65+ (1 of 2 - PCV) 07/24/1955 Zoster Vaccine (1 of 2) 1986 Well Visit 65+ 2001 Lipid Panel 08/24/2023 08/23/2022, 05/01, 05/06/2020, Additional history exists Influenza Vaccine (#1) 2023 , 02/21/2019, 02/01/2018, Additional history exists Fall Risk Assessment 04/05/2025 04/05/2024 eGFR 04/05/2025 04/05/2024, 04/01/2024 Medical Devices Implanted Type Area Evaporator Device Identifier Shelf Expiration Date Model / Serial / Lot Huang Vascular System Closure Repair Femoral Artery Suture Mediated Perclose Prostyle 51852-31 - [id number] Implanted:Qty: 1 on 04/04/2024 by Bijan Alvares MD at [facility] [employer] 12/29/2025 [id number] / / [id number] [employer] Occluder Cvasc Maddie Flexible Braided Amplatzer Amulet 25mm Nitinol [id number] - [id number] Implanted:Qty: 1 on 04/04/2024 by Bijan lAvares MD at [facility] [employer] 08/29/2027 9-ACP2-01 0- 025 / / [id number] [employer] [facility] Vascade Mvp 6-12fr Venous Closure [id number] - [id number] Implanted:Qty: 1 on 04/04/2024 by Bijan Alvares MD at [facility] 08/24/2025 [id number] / / [id number] Procedures Procedure Name Priority Date/Time Associated Diagnosis Comments EGFR Routine 04/05/2024 2:42 AM TOUCH UP PAINTER POCT LIPID PANEL Routine 08/23/2022 8:35 AM CDT Coronary artery disease involving [place] band coronary artery of [place] heart without angina pectoris Mixed diabetic hyperlipidemia associated with type 2 diabetes mellitus (CMS/HCC) (HCC) from Last 3 Months or Most Recently Relevant to Health Maintenance Results * eGFR (04/05/2024 2:42 AM TOUCH UP PAINTER) eGFR 86 >=60 mL/min/1. 73 m2 Comment: [...] last reviewed 2021. Blood 04/05/2024 2:42 AM TOUCH UP PAINTER 04/05/2024 3:08 AM TOUCH UP PAINTER us Bijan Alvares MD LAB BLOOD ORDERABLES Final Resul t [facility] [address] Department [place] [address] * POCT lipid panel (08/23/2022 8:35 AM CDT) Cholesterol, POC 106 mg/dL Comment:GLU = 203 HDL, POC 34 mg/dL Triglycerides, POC 217 mg/dL LDL Cholesterol POC 29 mg/dL Chol/HDL Ratio, POC 0.9 Non-HDL Cholesterol, POC 72 mg/dL Cholesterol Total, POC 106 mg/dL Capillary blood 08/23/2022 8 :35 AM CDT us Aaron Robbins MD POINT OF CARE TEST ORDER IZABEL Final Result from Last 3 Months or Most Recently Relevant to Health Maintenance Insurance [facility] T MEDICARE T MEDICARE Care Teams Executive Admin Relationship Specialty Start Date End Date Lesia Jean MD PCP - General Family Practice 05/16/22
[2024-08-08 13:55] LABS: Alanine Aminotransferase 30 U/L (6-50); Alkaline Phosphatase 148 U/L (38-126); Anion Gap 12 mmol/L (4-12); Aspartate Amino Transferase 36 U/L (17-59); Bilirubin,Total 1.1 mg/dL (0.2-1.3); Blood Urea Nitrogen 13 mg/dL (9-20); Calcium 8.8 mg/dL (8.4-10.2); Carbon Dioxide 26 mmol/L (22-30); Chloride 101 mmol/L (98-107); Estimated CRCL calculation 71 ml/min; Estimated Glomerular Filt Rate > 60; Glucose 260 mg/dL (65-110); Potassium 3.9 mmol/L (3.4-5.0); Sodium 139 mmol/L (137-145)
--- NOTE | 2024-08-08 14:11 | ED.SOB ---
HPI - SOB/Dyspnea General Chief Complaint: Shortness of Breath/Dyspnea Stated Complaint: Shortness of breath Time Seen by Provider: 08/08/24 13:42 Source: patient and family ( and daughter) History of Present Illness HPI Narrative: Patient with History of atrial fibrillation, aortic stenosis, and diabetes mellitus presents report of shortness of breath particularly dyspnea on exertion. He has been going the past 3 days. He was saturating 87% on room air per family who also note that he was hypertensive. Daughter is a nurse. He had been on furosemide which had been discontinued by PCP Dr Samuel who felt that his leg edema was not cardiac in nature, per family. With patient's symptoms today daughter did give him pill of his previously prescribed furosemide as pill of potassium. He has been trying to participate in physical therapy exercises but seems to get winded more easily. He denies any chest pain or cough. No fevers or chills. He denies any underlying respiratory issues. Nonsmoker. Patient is metoprolol and tamsulosin this was clopidogrel an aspirin a his other medications. He is not on other anticoagulation. Related Data Home Medications ?Medication ?Instructions ?Recorded ?Confirmed ?Last Taken ?Type omega3-dha 200 mg-epa 300 mg-othr 1 cap PO .pm 08/17/22 08/08/24 08/07/24 History om3 100 mg-fish oil 1,000 mg capsule lisinopril 40 mg tablet 40 mg PO DAILY 06/20/23 08/08/24 08/08/24 History metoprolol tartrate 50 mg tablet 50 mg PO BID 07/10/23 08/08/24 08/08/24 09:33 History ascorbate calcium (vitamin C) 500 500 mg PO .pm 11/01/23 08/08/24 08/07/24 History mg tablet cholecalciferol (vitamin D3) 50 50 mcg PO .pm 11/01/23 08/08/24 08/07/24 History mcg (2,000 unit) capsule magnesium citrate,mag oxide 250 mg 250 mg PO DAILY 12/12/23 08/08/24 08/08/24 History capsule aspirin 81 mg tablet,delayed 81 mg PO DAILY 04/12/24 08/08/24 08/08/24 History release clopidogrel 75 mg tablet (Plavix) 75 mg PO DAILY 04/12/24 08/08/24 08/08/24 History misbyili-jx-fqmkr 300 mcg-K 60 1 tablet PO DAILY 04/12/24 08/08/24 08/08/24 History mcg-lycop 600 mcg-lutein 300 mcg tablet (Men 50 Plus Multivitamin) pantoprazole 40 mg tablet,delayed 40 mg PO DAILY 06/13/24 08/08/24 08/08/24 History release amlodipine 10 mg tablet 10 mg PO .pm 08/08/24 08/08/24 08/07/24 History atorvastatin 20 mg tablet (Lipitor) 20 mg PO QPM 08/08/24 08/08/24 08/07/24 History diclofenac sodium 0.1 % eye drops 1 drp LEFT EYE BID 08/08/24 08/08/24 08/08/24 09:00 History escitalopram oxalate 10 mg tablet 10 mg PO .pm 08/08/24 08/08/24 08/07/24 History sitagliptin phos 50 mg-metformin 1 tablet PO QPM 08/08/24 08/08/24 08/07/24 History ER 1,000 mg tablet,extend rel 24h mp (Janumet XR) tamsulosin 0.4 mg capsule 0.4 mg PO QPM 08/08/24 08/08/24 08/07/24 History triamcinolone acetonide 0.1 % 1 applic topical BID PRN itching 08/08/24 08/08/24 Unknown History topical cream Allergies Allergy/AdvReac Type Severity Reaction Status Date / Time meperidine Allergy Unknown Hallucinati Verified 06/13/24 13:14 ons [facility] Past Medical History Medical History Insomnia Lymphedema of lower extremity Dermatitis Paroxysmal atrial fibrillation Abdominal pain GURPREET (acute kidney injury) Leukocytosis Elevated liver enzymes Chronic venous insufficiency of lower extremity Dyslipidemia Aortic stenosis Hypokalemia Benign prostatic hyperplasia Type 2 diabetes mellitus Atherosclerotic heart disease of [place] coronary artery with other forms of angina pectoris Essential (primary) hypertension Surgical History Surgical History 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 Rice Family History Family History Father Depression, Onset Age: 35 Family history of suicide, Onset Age: 35 Mother Family history of malignant neoplasm of ovary, Onset Age: 77 Other Family history of cardiovascular disease Hypertension Social History Social History Smoking status: Never smoker Alcohol intake: never Substance use: never Substance use type: does not use Do You Feel Safe in your Home?: Yes Lack of Transportation: No Lack of Food: Never True Current Housing: I Have Housing Concerned About Future Housing: No Difficulty Paying Gas/Electric Bills: No Difficulty Paying for Meds: No Currently Unemployed: No Education: Master's Degree or Higher Difficulty w/ Childcare or Family Care: No Living arrangements: with family Additional living arrangements comments: and daughter Occupation/Education: retired 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 HEAD: Normocephalic, atraumatic. EYES: Non injected, non icteric ENT: Nares clear, no rhinorrhea or epistaxis. NECK: Supple. CHEST: Speaking in full sentences. No respiratory distress. HEART: Rate controlled. Holosystolic murmur. ABDOMEN: Protuberant but Soft, nondistended. EXTREMITIES: Normal range of motion. 4+ bilateral lower extremity edema. SKIN: Warm, dry, no rash. NEURO: No focal deficits. Alert and oriented x3. PSYCH: Normal mood and affect. Course Vital Signs Vital signs: Vital Signs Temperature 97.9 F 08/08/24 13:16 Pulse Rate 60 08/08/24 13:16 Respiratory Rate 26 H 08/08/24 13:16 Blood Pressure 172/76 H 08/08/24 13:16 Pulse Oximetry 93 08/08/24 13:16 Oxygen Delivery Room Air 08/08/24 13:16 Temperature 98.1 F 08/09/24 08:00 Pulse Rate 63 08/09/24 08:00 Respiratory Rate 18 08/09/24 08:00 Blood Pressure 160/90 H 08/09/24 09:45 Pulse Oximetry 95 08/09/24 10:44 Oxygen Delivery Nasal Cannula 08/09/24 10:44 Oxygen Flow Rate 1 08/09/24 10:44 MDM - SOB/Dyspnea MDM Narrative Medical decision making narrative: Patient presents with shortness of breath, particularly dyspnea on exertion for the past 3 days. In the emergency department he is afebrile with vital signs notable for hypertension, tachypnea, and hypoxia/borderline hypoxia as he is 9 3% on room air. 4+ bilateral lower extremity edema. Dimer greater than 1, will proceed with CT PE imaging. Normocytic anemia, stable from previous. Hyperglycemia without anion gap acidosis. Isolated alkaline phosphatase elevation. BNP is 2870. Patient has ranged from the 1000s to 3000s previously. Patient desaturates while in bed down to 86 - 87% and oxygen applied. IV Lasix ordered. Given patient's aortic stenosis, caution will need to be paid in regards to his hemodynamics. Given patient has a new oxygen requirement, recommend admission. Patient initially adamantly declining. Family will discuss with him. They have convinced him to stay. Are requesting that be allowed to stay as a visitor as patient has a history of sundowning . bridges and buildings supervisor to work on this request. We did discuss code status and, in the event of cardiopulmonary arrest, chest compressions and intubation/mechanical ventilation would not be in line with his goals/values/wishes/desires. He would prefer a more natural if it came to and even states, if it came to that, my brain probably wouldn't come back right, would it? Discussed with home mission worker hospitals[facility]. Differential Diagnosis Differential diagnosis: Likely congestive heart failure, community acquired pneumonia, pulmonary embolism and other (acute viral syndrome) Lab Data Attestation: I reviewed the patient's lab results. Lab results narrative: Troponin normal. Viral swab negative. 08/09/24 05:33 08/09/24 05:33 Labs: Lab Results 08/08/24 08/08/24 08/08/24 Range/Units 13:30 14:29 22:20 WBC 7.4 (4.5-10.0) K/mm3 RBC 4.01 L (4.6-6.20) M/mm3 Hgb 11.4 L (14.0-18.0) g/dL Hct 34.8 L (42.0-52.0) % MCV 86.8 (80-100) fl MCH 28.4 (26-34) pg MCHC 32.8 (32-36) g/dl RDW 14.9 H (11.5-14.5) % Plt Count 226 (150-375) k/mm3 MPV 9.0 (7.4-10.4) fl Immature Gran % (Auto) 0.7 H (0-0.5) % Neut % (Auto) 68.3 (45.5-73.1) % Lymph % (Auto) 20.8 (18.3-44.2) % [place] % (Auto) 8.0 (2.6-8.5) % Eos % (Auto) 1.8 (0-4.4) % Baso % (Auto) 0.4 (0.2-1.2) % Lymph # (Auto) 1.54 (0.9-3.2) K/mm3 [place] # (Auto) 0.6 (0.1-0.6) K/mm3 Eos # (Auto) 0.1 (0-0.3) K/mm3 Baso # (Auto) 0.0 (0.0-0.1) K/mm3 Abs Immat Gran (auto) 0.05 H (0.00-0.031) K/mm3 Absolute Neuts (auto) 5.1 (1.3-6.7) K/mm3 Absolute Nucleated RBC 0.000 (0.0-0.012) K/mm3 Nucleated RBC % 0.0 (0.0-0.2) % D-Dimer 1.27 H (<0.48) ug/mL Sodium 139 (137-145) mmol/L Potassium 3.9 (3.4-5.0) mmol/L Chloride 101 (98-107) mmol/L Carbon Dioxide 26 (22-30) mmol/L Anion Gap 12 (4-12) mmol/L BUN 13 (9-20) mg/dL Creatinine 0.77 (0.7-1.3) mg/dL Estim Creat Clear Calc 71 ml/min Estimated GFR > 60 (59 - ) Glucose 260 H (65-110) mg/dL POC Capillary Glucose 166 H (65-105) mg/dl Calcium 8.8 (8.4-10.2) mg/dL Magnesium 2.0 (1.6-2.3) mg/dL Total Bilirubin 1.1 (0.2-1.3) mg/dL AST 36 (17-59) U/L ALT 30 (6-50) U/L Alkaline Phosphatase 148 H (38-126) U/L Troponin I 0.016 (0.000-0.034) ng/mL NT-Pro-B Natriuret Pep 2870 H (19.9-100) pg/mL Total Protein 7.0 (6.3-8.2) g/dL Albumin 4.0 (3.5-5.1) g/dL Influenza A (RT-PCR) Negative (Negative) Influenza B (RT-PCR) Negative (Negative) RSV (RT-PCR) Negative (Negative) SARS-CoV-2 RNA (RT-PCR) Negative (Negative) 08/09/24 Range/Units 05:33 WBC 7.8 (4.5-10.0) K/mm3 RBC 4.12 L (4.6-6.20) M/mm3 Hgb 11.7 L (14.0-18.0) g/dL Hct 35.1 L (42.0-52.0) % MCV 85.2 (80-100) fl MCH 28.4 (26-34) pg MCHC 33.3 (32-36) g/dl RDW 14.8 H (11.5-14.5) % Plt Count 235 (150-375) k/mm3 MPV 8.9 (7.4-10.4) fl Immature Gran % (Auto) 0.4 (0-0.5) % Neut % (Auto) 62.7 (45.5-73.1) % Lymph % (Auto) 23.4 (18.3-44.2) % [place] % (Auto) 9.5 H (2.6-8.5) % Eos % (Auto) 3.5 (0-4.4) % Baso % (Auto) 0.5 (0.2-1.2) % Lymph # (Auto) 1.82 (0.9-3.2) K/mm3 [place] # (Auto) 0.7 H (0.1-0.6) K/mm3 Eos # (Auto) 0.3 (0-0.3) K/mm3 Baso # (Auto) 0.0 (0.0-0.1) K/mm3 Abs Immat Gran (auto) 0.03 (0.00-0.031) K/mm3 Absolute Neuts (auto) 4.9 (1.3-6.7) K/mm3 Absolute Nucleated RBC 0.000 (0.0-0.012) K/mm3 Nucleated RBC % 0.0 (0.0-0.2) % D-Dimer (<0.48) ug/mL Sodium 138 (137-145) mmol/L Potassium 2.9 L (3.4-5.0) mmol/L Chloride 98 (98-107) mmol/L Carbon Dioxide 29 (22-30) mmol/L Anion Gap 11 (4-12) mmol/L BUN 10 (9-20) mg/dL Creatinine 0.68 L (0.7-1.3) mg/dL Estim Creat Clear Calc 75 ml/min Estimated GFR > 60 (59 - ) Glucose 172 H (65-110) mg/dL POC Capillary Glucose (65-105) mg/dl Calcium 8.5 (8.4-10.2) mg/dL Magnesium (1.6-2.3) mg/dL Total Bilirubin 1.3 (0.2-1.3) mg/dL AST 33 (17-59) U/L ALT 30 (6-50) U/L Alkaline Phosphatase 173 H (38-126) U/L Troponin I (0.000-0.034) ng/mL NT-Pro-B Natriuret Pep (19.9-100) pg/mL Total Protein 8.0 (6.3-8.2) g/dL Albumin 3.9 (3.5-5.1) g/dL Influenza A (RT-PCR) (Negative) Influenza B (RT-PCR) (Negative) RSV (RT-PCR) (Negative) SARS-CoV-2 RNA (RT-PCR) (Negative) Imaging Data Radiologist's impression: Impressions Chest X-Ray 08/08/24 14:39 IMPRESSION: 1. Small bilateral pleural effusions with interstitial and airspace opacities in the bilateral lower lung zones most likely mild pulmonary edema with differential including pneumonia. 2. Cardiomegaly. Chest CTA 08/08/24 16:00 IMPRESSION: 1. No pulmonary embolism. 2. Bilateral moderate pleural effusion larger on the right side with adjacent atelectasis versus pneumonia. ECG Data EKG #1: Attestation: I personally reviewed and interpreted this ECG as follows: ECG completion date: 08/08/24 ECG completion time: 13:29 Interpretation: Pre populated EKG algorithm suggests sinus rhythm with a high grade AV block however there are not consistent distinct P-waves in the thus this does appear to be more of an atrial rhythm although the significant baseline artifact/wander of the tracing limits full interpretation. Good R-wave progression across the precordial leads. QRS 110. QT/QTC 450/441. Discharge Plan Discharge Clinical Impression: Bilateral pleural effusion, Cardiomegaly, Normocytic anemia, Shortness of breath, [place] (dyspnea on exertion), Hyperglycemia due to diabetes mellitus, Alkaline phosphatase elevation, Holosystolic murmur Aortic stenosis Qualifiers: Cardiac valve disease etiology: nonrheumatic Qualified Code(s): I35.0 - Nonrheumatic aortic (valve) stenosis Patient Disposition: Still a Patient Condition: Stable
--- OUTSIDE RECORDS SUMMARY | 2024-08-08 14:17 | XMS_ITS | Clinical Summary ---
Author Organization [facility] Address [address] [place] [address] Care Team Providers Care Staff Accountant Name Role Phone Unavailable Primary Care Provider [...]
--- OUTSIDE RECORDS SUMMARY | 2024-08-08 14:17 | XMS_ITS | Clinical Summary ---
Author Organization [facility] [address] Address [address] [place] [address] Care Team Providers Care Brassiere Cup Mold Cutter Name Role Phone Lesia Jean MD Primary [...] tablet Active ascorbic acid (ascorbic acid with devroah hips) 500 mg tablet,chewabl e Active furosemide [...] a associated with type 2 diabetes mellitus ([facility]/HCC) 11/16/2017 Coronary artery disease invo lving [place] coronary artery of [place] heart without angina pectoris 05/17/2016 Overview (08/04/2016): Coronary artery disease involving [place] coronary artery of [place] heart without angina pectoris History of coronary [...] Description 07/15/2024 9:30 AM CDT Office Visit [facility] Cardiology [address] [place] [address] [place] [phone] Dimitrios Mcmahan MD History of coronary artery bypass surgery (Primary Dx); Nonrheumatic aortic valve stenosis; Presence of Amulet left atrial appendage closure device 06/17/2024 Telephone [facility]iology [address] [place] [address] [address] [place] [phone] Bijan Alvares MD Med Management 06/04/2024 9:30 AM SECURITY SYSTEMS ADMINISTRATOR Office Visit [facility]iology [address] [place] [address] [address] [place] [phone] Svitlana Gomez NP Presence of Amulet left atrial appendage closure device (Primary Dx); PAF (paroxysmal atrial fibrillation) (HCC); Coronary artery disease involving [place] coronary artery of [place] heart without angina pectoris; Moderate aortic stenosis; [...] drink = 0.6 oz pur e alcohol) [facility] Utilities Answer Date Recorded In the past 12 months has [facility], gas, oil, or water [employer] threatened to shut off services in your [...] often do you attend chur ch or sikh services? More than 4 times per year 04/05/2024 Do you belong to any clubs o r organizations such as episcopalian groups, unions, fraternal or athletic groups, or [...] any time in the past 12 m [facility], were you homeless or living in a jail (including now)? No 04/05/2024 Personal Safety Answer Date Recorded Have you ever been in or are you currently in a harmful physical or emotional relationship or is someone making you feel afraid or unsafe? Denies 04/04/2024 Sex and Gender Information Value Date Recorded Sex Assigned at Not on file Legal Sex Male 5:27 PM SECURITY SYSTEMS ADMINISTRATOR Gender Identity Not on file Sexual Orientation Not on file Obstetrics History Last Filed Vital Signs Vital Sign Reading Time Taken Comments Blood Pressure 118/80 07/15/2024 9:17 AM CDT Pulse 53 07/15/2024 9:17 AM CDT Temperature 36.6 C (97.8 F) 04/05/2024 3:56 AM SECURITY SYSTEMS ADMINISTRATOR Respiratory Rate 22 04/05/2024 11:47 AM SECURITY SYSTEMS ADMINISTRATOR Oxygen Saturation 96% 07/15/2024 9:17 AM CDT [...] 04/05/2024, 04/01/2024 Medical Devices Implanted Type Area Rock Worker Device Identifier Shelf Expiration Date Model / Serial / Lot Huang Vascular System Closure Repair Femoral Artery Suture Mediated Perclose Prostyle 39334-39 - [id number] Implanted:Qty: 1 on 04/04/2024 by Bijan Alvares MD at [facility] [employer] 12/29/2025 [id number] / / [id number] [employer] Occluder Cvasc Maddie Flexible Braided Amplatzer Amulet 25mm Nitinol [id number] - [id number] Implanted:Qty: 1 on 04/04/2024 by Bijan Alvares MD at [facility] [employer] 08/29/2027 9-ACP2-01 [id number] / / [id number] [facility] Vascade Mvp 6-12fr Venous Closure [id number] - [id number] Implanted:Qty: 1 on 04/04/2024 by Bijan Alvares MD at [facility] 08/24/2025 [id number]-10 [id number] / / [id number] Procedures Procedure Name Priority Date/Time Associated Diagnosis Comments EGFR Routine 04/05/2024 2:42 AM SECURITY SYSTEMS ADMINISTRATOR POCT LIPID PANEL Routine 08/23/2022 8:35 AM CDT Coronary artery disease involving [place] coronary artery of [place] heart without angina pectoris Mixed diabetic hyperlipidemia associated with type 2 diabetes mellitus (CMS/HCC) (HCC) from Last 3 Months or Most Recently Relevant to Health Maintenance Results * eGFR (04/05/2024 2:42 AM SECURITY SYSTEMS ADMINISTRATOR) eGFR 86 >=60 mL/min/1. 73 m2 Comment: [...] last reviewed 2021. Blood 04/05/2024 2:42 AM SECURITY SYSTEMS ADMINISTRATOR 04/05/2024 3:08 AM SECURITY SYSTEMS ADMINISTRATOR us Bijan Alvares MD LAB BLOOD ORDERABLES Final Resul t JERROD [address] Department [place] [address] * POCT lipid panel (08/23/2022 [...] Most Recently Relevant to Health Maintenance Insurance [facility] MEDICARE T MEDICARE T MEDICARE Care Teams Brassiere Cup Mold Cutter Relationship Specialty Start Date End Date Lesia Jean MD PCP - General Family Practice 05/16/22
--- OUTSIDE RECORDS SUMMARY | 2024-08-08 14:17 | XMS_ITS | Referral Summary ---
Author Organization [facility] [address] [address] [place] [address] [address] [place] [address] Care Team Providers Care Backer Up Name Role Phone Lesia Jean MD Primary Care Provider Encounters Date Type Department Care Team Description 07/15/2024 9:30 AM CDT Office Visit [facility] Medical [facility] Cardiology [address] [place] [address] [place] [phone] Dimitrios Mcmahan MD History of coronary artery bypass surgery (Primary Dx); Nonrheumatic aortic valve stenosis; Presence of Amulet left atrial appendage closure device 06/17/2024 Telephone [facility] Cardiology [address] [place] [address] [address] [place] [phone] Bijan Alvares MD Med Management 06/04/2024 9:30 AM APPLE SORTER Office Visit [facility] Cardiology [address] [place] [address] [address] [place] [phone] Svitlana Gomez NP Presence of Amulet left atrial appendage closure device (Primary Dx); PAF (paroxysmal atrial fibrillation) ([facility]); Coronary artery disease involving [place] coronary artery of [place] heart without angina pectoris; Moderate aortic stenosis; Hypertension associated with type 2 diabetes mellitus ([facility]); Lymphedema from Last 3 Months Allergies Active [...] a associated with type 2 diabetes mellitus ([facility]) 11/16/2017 Coronary artery disease invo lving [place] coronary artery of [place] heart without angina pectoris 05/17/2016 Overview (08/04/2016): Coronary artery disease involving [place] coronary artery of [place] heart without angina pectoris History of coronary [...] drink = 0.6 oz pur e alcohol) [facility] Utilities Answer Date Recorded In the [...] How often do you attend chur or congregational services? More than 4 times per year 04/05/2024 Do you belong to any clubs o r organizations such as methodist groups, unions, fraternal or athletic groups, or [...] any time in the past 12 m [facility], were you homeless or living in a fci (including now)? No 04/05/2024 Personal Safety Answer Date Recorded Have you ever been in or are you currently in a harmful physical or emotional relationship or is someone making you feel afraid or unsafe? Denies 04/04/2024 Sex and Gender Information Value Date Recorded Sex Assigned at Not on file Legal Sex Male 5:27 PM APPLE SORTER Gender Identity Not on file Sexual Orientation Not on file Last Filed Vital Signs Vital Sign Reading Time Taken Comments Blood Pressure 118/80 07/15/2024 9:17 AM CDT Pulse 53 07/15/2024 9:17 AM CDT Temperature 36.6 C (97.8 F) 04/05/2024 3:56 AM APPLE SORTER Respiratory Rate 22 04/05/2024 11:47 AM APPLE SORTER Oxygen Saturation 96% 07/15/2024 9:17 AM CDT Inhaled Oxygen Concentration - - Weight 104.3 kg (230 lb) 07/15/2024 9:17 AM CDT per Height 175.3 cm (5' 9 ) 07/15/2024 9:17 AM CDT Body Mass Index 33.97 07/15/2024 9:17 AM CDT Plan of Treatment Not on file Medical Devices Implanted Type Area Assembling Inspector Device Identifier Shelf Expiration Date Model / Serial / Lot Huang Vascular System Closure Repair Femoral Artery Suture Mediated Perclose Prostyle 65562-98 - [id number] Implanted:Qty: 1 on 04/04/2024 by Bijan Alvares MD at [facility] [employer] 12/29/2025 [id number] / / [id number] [employer] Occluder Cvasc Maddie Flexible Braided Amplatzer Amulet 25mm Nitinol [id number] - [id number] Implanted:Qty: 1 on 04/04/2024 by Bijan Alvares MD at [facility] Vascular 08/29/2027 9-ACP2-01 0- [id number] / / [id number] [facility] Vascade Mvp 6-12fr Venous Closure [id number] - [id number] Implanted:Qty: 1 on 04/04/2024 by Bijan Alvares MD at [facility] 08/24/2025 800-612C-10 [id number] / / [id number] Procedures Procedure Name Priority Date/Time Associated Diagnosis Comments EGFR Routine 04/05/2024 2:42 AM APPLE SORTER POCT LIPID PANEL Routine 08/23/2022 8:35 AM CDT Coronary artery disease involving [place] coronary artery of [place] heart without angina pectoris Mixed diabetic hyperlipidemia associated with type 2 diabetes mellitus ([facility]/HCC) ([facility]) from Last 3 Months or Most Recently Relevant to Health Maintenance Results * eGFR (04/05/2024 2:42 AM APPLE SORTER) eGFR 86 >=60 mL/min/1. 73 m2 Comment: [...] last reviewed 2021. Blood 04/05/2024 2:42 AM APPLE SORTER 04/05/2024 3:08 AM APPLE SORTER Bijan Alvares MD LAB BLOOD ORDERABLES Final Resul t [facility] [address] [address] Department [place] [address] * POCT lipid panel (08/23/2022 8:35 AM [...] MEDICARE [employer] MEDICARE T MEDICARE Care Teams Backer Up Relationship Specialty Start Date End Date Lesia Jean MD PCP - General Family Practice 05/16/22
[2024-08-08 14:52] LABS: D Dimer 1.27 ug/mL (<0.48)
[2024-08-08 15:14] LABS: Influenza A QL RT-PCR Negative (Negative); Influenza B QL RT-PCR Negative (Negative); RSV RNA, RT-PCR Negative (Negative); SARS-CoV-2 RNA PCR Negative (Negative)
[2024-08-08 15:33] LABS: NT Pro B Type Natriuretic Pept 2870 pg/mL (19.9-100); Troponin I 0.016 ng/mL (0.000-0.034)
[2024-08-08] MEDS: FUROSEMIDE INJ 40 MG/4 ML VIAL IV PUSH ×2 (16:40→23:45)
--- NOTE | 2024-08-08 18:01 | PC.NURSE ---
Patient linens changed and patient cleaned up after urinating through depend. patient is incontinent.
--- NOTE | 2024-08-08 18:02 | PC.NURSE ---
Male purewick placed on patient
--- NOTE | 2024-08-08 19:22 | PC.NURSE ---
Assumed care of patient after receiving report from MOHINI De Souza @ [phone]
--- NOTE | 2024-08-08 21:03 | PM.IMHP ---
H&P: HPI History of Present Illness Date/Time: 08/08/24 21:03 Chief Complaint: 1. Shortness of breath 2. Bilatera leg swellings Narrative: Lefty Haskins is an 89-year-old male with a medical history significant for hypertension, dyslipidemia, CAD s/p CABG, depression, MENA, GERD, BPH, CHF; Since his PCP advised him to stop his daily furosemide regimen about a month ago, he has remained stable until the recent 1-2 weeks when he has developed progressive bilateral pedal edema, and last 3 days dyspnea on exertion. He is dyspneic status aggravated by exertion, alleviated by rest, associated with restriction of his ADLs. He denies cough, hemoptysis, fevers, chills, wheezing, orthopnea or PND. He does not smoke or chew tobacco, vape nicotine, or consume recreational drugs or alcohol Work-up findings: VS demonstrate hypertension and hypoxia Mildly confused at the bedside Na 139; K 3.9; Cl 101; CO2 26; A/G 12; BUN 13; CR 0.77; GFR > 60 Mg 2; AST 36; ALT 30; ALP 148; Tdap bilirubin 1.1 Troponin 0.016; BNP 2870 CTA Chest: 1. No pulmonary embolism. 2. Bilateral moderate pleural effusion larger on the right side with adjacent atelectasis versus pneumonia. CXR: 1. Small bilateral pleural effusions with interstitial and airspace opacities in the bilateral lower lung zones most likely mild pulmonary edema with differential including pneumonia. 2. Cardiomegaly. EKG: Ectopic atrial rhythm; left ventricular hypertrophy; obvious signs of ischemia; HR 56; QTC 436 Influenza a/B; RSV; COVID-19: Negative Lefty Haskins will be admitted, evaluated and managed for CHF exacerbation, dyspnea, pleural effusions, physical deconditioning Review of Systems Review of Systems: All systems reviewed & are unremarkable except as noted in HPI and below PMFSH Past Medical History Medical History Insomnia Lymphedema of lower extremity Dermatitis Paroxysmal atrial fibrillation Abdominal pain GURPREET (acute kidney injury) Leukocytosis Elevated liver enzymes Chronic venous insufficiency of lower extremity Dyslipidemia Aortic stenosis Hypokalemia Benign prostatic hyperplasia Type 2 diabetes mellitus Atherosclerotic heart disease of [place] coronary artery with other forms of angina pectoris Essential (primary) hypertension Surgical History Surgical History 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 Rice Family History Family History Father Depression, Onset Age: 35 Family history of suicide, Onset Age: 35 Mother Family history of malignant neoplasm of ovary, Onset Age: 77 Other Family history of cardiovascular disease Hypertension Social History Social History Smoking status: Never smoker Alcohol intake: never Substance use: never Substance use type: does not use Do You Feel Safe in your Home?: Yes Lack of Transportation: No Lack of Food: Never True Current Housing: I Have Housing Concerned About Future Housing: No Difficulty Paying Gas/Electric Bills: No Difficulty Paying for Meds: No Currently Unemployed: No Education: Master's Degree or Higher Difficulty w/ Childcare or Family Care: No Living arrangements: with family Additional living arrangements comments: Occupation/Education: retired 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 [employer] Gender identity (if verbalized by the patient): Male Sexual Orientation (if Verbalized by the Patient): Straight or Heterosexual Spiritual care concerns: No Agree to blood products: Yes Meds Home Medications and Allergies Home Medications ?Medication ?Instructions ?Recorded ?Confirmed ?Type omega3-dha 200 mg-epa 300 mg-othr 1 cap PO DAILY 08/17/22 06/13/24 History om3 100 mg-fish oil 1,000 mg capsule lisinopril 40 mg tablet 40 mg PO DAILY 06/20/23 06/13/24 History blood sugar diagnostic (Blood #100 ea 07/05/23 06/13/24 Rx Glucose Test strips) lancets #100 ea 07/05/23 06/13/24 Rx furosemide 40 mg tablet 40 mg PO DAILY 07/10/23 06/13/24 History metoprolol tartrate 50 mg tablet 50 mg PO BID 07/10/23 06/13/24 History blood-glucose meter (OneTouch #1 ea 07/24/23 06/13/24 Rx Verio Flex Meter) ascorbate calcium (vitamin C) 500 500 mg PO DAILY 11/01/23 06/13/24 History mg tablet cholecalciferol (vitamin D3) 50 50 mcg PO DAILY 11/01/23 06/13/24 History mcg (2,000 unit) capsule sitagliptin phos 50 mg-metformin 1 tablet PO DAILY #90 tabs 11/23/23 06/13/24 Rx ER 1,000 mg tablet,extend rel 24h mp (Janumet XR) magnesium citrate,mag oxide 250 mg 250 mg PO DAILY 12/12/23 06/13/24 History capsule ferrous sulfate 325 mg (65 mg 325 mg PO DAILY #100 tabs 12/19/23 06/13/24 Rx iron) tablet,delayed release potassium chloride 20 mEq 40 meq (2 x 20 mEq) PO BID #360 01/22/24 06/13/24 Rx tablet,extended release tabs amlodipine 10 mg tablet 10 mg PO DAILY #90 tabs 02/21/24 06/13/24 Rx escitalopram oxalate 10 mg tablet 10 mg PO DAILY #90 tabs 03/14/24 06/13/24 Rx aspirin 81 mg tablet,delayed 81 mg PO DAILY 04/12/24 06/13/24 History release clopidogrel 75 mg tablet (Plavix) 75 mg PO DAILY 04/12/24 06/13/24 History ctcfgesr-wa-wftzb 300 mcg-K 60 1 tablet PO DAILY 04/12/24 06/13/24 History mcg-lycop 600 mcg-lutein 300 mcg tablet (Men 50 Plus Multivitamin) tamsulosin 0.4 mg capsule 0.4 mg PO DAILY #90 caps 05/13/24 06/13/24 Rx atorvastatin 20 mg tablet (Lipitor) 20 mg PO QHS #100 tabs 06/13/24 06/13/24 Rx pantoprazole 40 mg tablet,delayed 40 mg PO DAILY 06/13/24 06/13/24 History release trazodone 50 mg tablet See Rx Instructions PO QHS PRN 06/13/24 06/13/24 Rx sleep #180 tabs triamcinolone acetonide 0.1 % 1 applic topical BID #30 grams 06/13/24 06/13/24 Rx topical cream Allergies Allergy/AdvReac Type Severity Reaction Status Date / Time meperidine Allergy Unknown Hallucinati Verified 06/13/24 13:14 ons Vital Signs Vital Signs - 24 hr 08/08/24 13:16 08/08/24 15:00 08/08/24 16:00 Temperature 97.9 F Pulse Rate 60 57 L 55 L Respiratory Rate 26 H 16 21 H Blood Pressure 172/76 H 168/68 H 154/63 H Pulse Oximetry 93 94 89 L Oxygen Delivery Room Air Oxygen Flow Rate 08/08/24 16:39 08/08/24 17:00 08/08/24 19:30 Temperature Pulse Rate 56 L 62 Respiratory Rate 23 H Blood Pressure 173/75 H Pulse Oximetry 95 96 Oxygen Delivery Nasal Cannula Oxygen Flow Rate 2 08/08/24 19:30 Temperature 98.2 F Pulse Rate 61 Respiratory Rate 22 H Blood Pressure 183/82 H Pulse Oximetry 96 Oxygen Delivery Oxygen Flow Rate Exam Const: General: comfortable and no acute distress HENMT: Ears: TM's normal bilaterally Face/Nose/Sinus: Normal nares present Eyes: General: appearance normal, both eyes and all related structures Pupils: Equal, round and reactive pupils present Neck: Neck: supple Thyroid: thyroid normal Resp: Effort & Inspection: normal respiratory effort Auscultation: diminished lung sounds bilateral Cardio: Rate: regular rate Urinary Catheter: Urinary Catheter: patent and draining and urine clear Skin: General skin exam: normal color Neuro: Speech: normal speech Motor exam (neuro): 5/5 motor strength present throughout Extrem: General: pedal edema bilaterally pitting Psych: Mental Status: mental status grossly normal Affect: Anxious affect present H&P: Results Labs Labs: Short CBC 08/08/24 Range/Units 13:30 WBC 7.4 (4.5-10.0) K/mm3 Hgb 11.4 L (14.0-18.0) g/dL Hct 34.8 L (42.0-52.0) % Plt Count 226 (150-375) k/mm3 BMP 08/08/24 13:30 Sodium 139 Potassium 3.9 Chloride 101 Carbon Dioxide 26 BUN 13 Creatinine 0.77 Glucose 260 H Calcium 8.8 Cardiac Enzymes 08/08/24 Range/Units 13:30 Troponin I 0.016 (0.000-0.034) ng/mL Liver Function 08/08/24 Range/Units 13:30 Total Bilirubin 1.1 (0.2-1.3) mg/dL AST 36 (17-59) U/L ALT 30 (6-50) U/L Alkaline Phosphatase 148 H (38-126) U/L Albumin 4.0 (3.5-5.1) g/dL Assessment and Plan Assessment and plan (1) CHF exacerbation: Code(s): I50.9 - Heart failure, unspecified Status: Acute (2) Aortic stenosis: Qualifiers: Cardiac valve disease etiology: nonrheumatic Qualified Code(s): I35.0 - Nonrheumatic aortic (valve) stenosis Code(s): I35.0 - Nonrheumatic aortic (valve) stenosis Status: Acute (3) Cardiomegaly: Code(s): I51.7 - Cardiomegaly Status: Acute (4) Essential (primary) hypertension: Code(s): I10 - Essential (primary) hypertension Status: Acute (5) Dyslipidemia: Code(s): E78.5 - Hyperlipidemia, unspecified Status: Acute Plan Acute and principal conditions 1. Bilateral pleural effusion 2. Acute hypoxic respiratory failure 3. CHF exacerbation; Fluid overload 4. Physical deconditioning Rx: A. Furosemide gtt; I/O B. Supplemental oxygen with wean as tolerated C. Incentive spirometry D. PT/OT eval and Rx; Fall and safety precautions E. Telemetry monitoring F. ECHO Chronic and stable conditions 1. Hx of A-fib 2. CAD s/p CABG 3. Insomnia. 4. BPH. 5. GERD. 6. Hypertension. 7. Obesity. BMI 36 8. Cognitive impairment. Probably unconfirmed 9. MENA. 10. Dyslipidemia. Miscellaneous care 1. Code status. DNR 2. Nutrition. Heart healthy; low Na 3. VTE prophylaxis. SCDs; [facility] Quality VTE Prophylaxis VTE prophylaxis: mechanical ordered and pharmacologic ordered Hospitalist MIPS Advance Care Plan I have confirmed that the patient's Advanced Care Plan is present, code status is documented, or surrogate decision maker is listed in patient medical record.: Yes Medication Reconciliation I have utilized all available resources to obtain, update and review the patients current medications (includes all prescriptions, OTC, herbals, cannabis, and nutritional supplements).: Yes The patient is not eligible for med reconciliation; the patient is in a emergent medical situation where delaying treatment would jeopardize the patients health.: Yes
--- NOTE | 2024-08-08 21:10 | PC.NURSE ---
This RN called report at [phone]. Floor RN asked for pt to receive bp medication before being brought to the floor. DR. Hunter ordered metoprolol. Pharmacy stated it is to be pulled from [address] [place] [address].
--- NOTE | 2024-08-08 21:20 | ADMGEN ---
This patient, Lefty Haskins, was admitted to Medical Room 258-. Patient/family oriented to hospital policies and general routines including ID bracelet, bed and alarms, visiting hours, pain management, procedures, bathroom and other care routines, personal items, smoking policy, room service/diet, and visiting hours. Information on how to activate the Rapid Response Team has been discussed. Patient/Family are encouraged to report perceived risks to care and to ask questions if they do not understand what they are told or what they should do.
[2024-08-08] MEDS: METOPROLOL SUCCINATE EXT REL 50 MG TABCR PO (22:14)
[2024-08-08 22:23] LABS: Glucose Point of Care 166 mg/dl (65-105)
[2024-08-08] MEDS: traZODone HCL 50 MG TABLET PO (23:45)
[2024-08-09] VITALS (17 sets, daily range): BP systolic 125–176; BP diastolic 64–119; PULSE 58–67; RESP 16–20; TEMP 36.6–36.9; O2SAT 93–96
--- NOTE | 2024-08-09 | ECHO_ITS ---
Patient Info Name: Lefyt Haskins Age: 89 years : 1935 Gender: Male Ht: 69 in Wt: 244 lbs BSA: 2.36 m2 HR: 63 bpm BP: 176 / 64 mmHg Technical Quality: Good Exam Date: 08/09/2024 11:16 AM Exam Location: Echo Lab Patient Status: Inpatient Admit Date: 08/09/2024 Staff Ordering Physician: Gurinder Garnett MD Service Delivery Manager: Thuy Huizar RDCS Attending Provider: Sissy Chakraborty APRN Referring Physician: Mariola LOUIE; Exam Type: CA echo doppler color flow Study Info Indications - CHF Complete two-dimensional, color flow and Doppler transthoracic echocardiogram is performed. Summary 1. Left ventricular chamber dimension is normal. 2. Left ventricular systolic function is normal, estimated at 65-70%. 3. There is moderately increased left ventricular wall thickness. 4. The left ventricular diastolic function is grade I diastolic dysfunction. 5. Right ventricular systolic function is normal. 6. Left atrial chamber dimension is severely enlarged. 7. There is severe aortic valve calcification. 8. There is moderate aortic valve stenosis with a peak velocity of 341 cm/s, mean gradient of 27 mmHg, and aortic valve area of 1.0 cm2. 9. There is mild aortic valve regurgitation. 10. There is moderate mitral valve regurgitation. 11. There is moderate tricuspid valve regurgitation; this may be underestimated due to eccentricity of the jet. 12. There is mild pulmonic regurgitation. Left Ventricle Left ventricular chamber dimension is normal. Left ventricular systolic function is normal, estimated at 65-70%. There is moderately increased left ventricular wall thickness. The left ventricular diastolic function is grade I diastolic dysfunction. Right Ventricle Right ventricular chamber dimension is normal. Right ventricular systolic function is normal. Left Atria Left atrial chamber dimension is severely enlarged. Right Atria Right atrial chamber dimension is normal. Atrial Septum Intact interatrial septum visualized by color flow imaging. Aortic Valve The aortic valve is not well visualized. There is moderate aortic valve stenosis with a peak velocity of 341 cm/s, mean gradient of 27 mmHg, and aortic valve area of 1.0 cm2. There is mild aortic valve regurgitation. There is severe aortic valve calcification. Pulmonic Valve The pulmonic valve is not well visualized. There is mild pulmonic regurgitation. Mitral Valve The mitral valve has thickened leaflets. There is moderate mitral valve regurgitation. The mitral valve annulus is severely calcified. Tricuspid Valve There is moderate tricuspid valve regurgitation; this may be underestimated due to eccentricity of the jet. Pericardium/Pleural There is no pericardial effusion. Inferior Vena Cava Inferior vena cava is not well visualized. Aorta The aortic root size at the sinus of Valsalva is normal. Left Ventricular Outflow Tract Name Value Normal LVOT 2D LVOT Diameter 2.3 cm LVOT Doppler LVOT Peak Gradient 3 mmHg LVOT Mean Gradient 2 mmHg LVOT VTI 22 cm LVOT VTI/AV VTI Ratio 0.3 LVOT Stroke Volume 90 ml LVOT CO 16.3 l/min LVOT CI 6.9 l/min/m2 Pulmonic Valve Name Value Normal PV Doppler PV Peak Gradient 4 mmHg Mitral Valve Name Value Normal MV Doppler MV Peak Gradient 7 mmHg MV Mean Gradient 2 mmHg MV Decel Maverick 476 cm/s2 MV PHT 71 ms MV Area (PHT) 3.1 cm2 4.0-5.0 MV Area (Cont Eq VTI) 2.2 cm2 MV Diastolic Function MV E Peak Velocity 116 cm/s MV A Peak Velocity 81 cm/s MV E/A 1.4 MV Decel Time 244 ms MV Annular TDI MV E/e' (Septal) 25.6 <=8.0 MV E/e' (Lateral) 24.2 <=8.0 MV E/e' (Average) 24.9 Tricuspid Valve Name Value Normal TV Regurgitation Doppler TR Peak Velocity 184 cm/s TR Peak Gradient 14 mmHg Estimated PAP/RSVP RA Pressure 10 mmHg <=5 PA Systolic Pressure 24 mmHg <36 RV Systolic Pressure 24 mmHg <36 Aorta Name Value Normal Ascending Aorta Ao Root Diameter (MM) 3.7 cm Ao Root Diam Index (MM) 1.6 cm/m2 Aortic Valve Name Value Normal AV Doppler AV Peak Velocity 341 cm/s AV Peak Gradient 47 mmHg AV Mean Gradient 27 mmHg AV VTI 86 cm AV Area (Cont Eq VTI) 1.0 cm2 >=3.0 AV Area (Cont Eq Connor) 1.1 cm2 AV Regurgitation 2D LVOT Area 4.0 cm2 Ventricles Name Value Normal LV Dimensions 2D/MM IVS Diastolic Thickness (2D) 1.5 cm 0.6-1.0 LVID Diastole (2D) 4.7 cm 4.2-5.8 LVIW Diastolic Thickness (2D) 1.4 cm 0.6-1.0 LVID Systole (2D) 3.8 cm 2.5-4.0 LVOT Diameter 2.3 cm LV Mass (2D Cubed) 290.89 g 88.00-224.00 LV Mass Index (2D Cubed) 123 g/m2 49-115 Relative Wall Thickness (2D) 0.61 LV Fractional Shortening/Ejection Fraction 2D/MM LV Fractional Shortening (2D) 21 % 25-43 LV EF (2D Teicholz) 42 % 52-72 LV Diastolic Volume (4C MOD) 90 ml LV EF (4C MOD) 76 % LV Diastolic Volume (2C MOD) 101 ml LV EF (2C MOD) 76 % LV Diastolic Volume (BP MOD) 96 ml 62-150 LV Diastolic Volume Index (BP MOD) 41 ml/m2 34-74 LV Systolic Volume (BP MOD) 23 ml 21-61 LV Systolic Volume Index (BP MOD) 10 ml/m2 11-31 LV EF (BP MOD) 76 % 52-72 LV Diastolic Length (4C) 7.6 cm LV Systolic Length (4C) 6.1 cm LV Stroke Volume (4C MOD) 68 ml RV Dimensions 2D/MM RVID Diastole (2D) 3.7 cm 2.5-3.5 Atria Name Value Normal LA Dimensions LA Dimension (MM) 4.0 cm 3.0-4.1 LA Volume (4C A-L) 88 ml LA Volume (BP A-L) 86 ml RA Dimensions RA Area (4C) 15.6 cm2 <=18.0 Report Signatures
[2024-08-09 05:41] LABS: Basophils Percent Auto 0.5 % (0.2-1.2); Eosinophils Absolute Auto 0.3 K/mm3 (0-0.3); Eosinophils Percent Auto 3.5 % (0-4.4); Hematocrit 35.1 % (42.0-52.0); Hemoglobin 11.7 g/dL (14.0-18.0); Immature Granulocyte Absolute 0.03 K/mm3 (0.00-0.031); Immature Granulocyte Percent A 0.4 % (0-0.5); Lymphocytes Absolute Auto 1.82 K/mm3 (0.9-3.2); Lymphocytes Percent Auto 23.4 % (18.3-44.2); Mean Corpuscular HGB Conc 33.3 g/dl (32-36); Mean Corpuscular Hemoglobin 28.4 pg (26-34); Mean Corpuscular Volume 85.2 fl (80-100); Mean Platelet Volume 8.9 fl (7.4-10.4); Monocytes Absolute Auto 0.7 K/mm3 (0.1-0.6); Monocytes Percent Auto 9.5 % (2.6-8.5); Neutrophils Absolute Auto 4.9 K/mm3 (1.3-6.7); Neutrophils Percent Auto 62.7 % (45.5-73.1); Platelet Count Result 235 k/mm3 (150-375); Red Blood Count 4.12 M/mm3 (4.6-6.20); Red Cell Distribution Width 14.8 % (11.5-14.5); White Blood Count 7.8 K/mm3 (4.5-10.0)
[2024-08-09 05:58] LABS: Alanine Aminotransferase 30 U/L (6-50); Albumin Level 3.9 g/dL (3.5-5.1); Alkaline Phosphatase 173 U/L (38-126); Anion Gap 11 mmol/L (4-12); Aspartate Amino Transferase 33 U/L (17-59); Bilirubin,Total 1.3 mg/dL (0.2-1.3); Blood Urea Nitrogen 10 mg/dL (9-20); Calcium 8.5 mg/dL (8.4-10.2); Carbon Dioxide 29 mmol/L (22-30); Chloride 98 mmol/L (98-107); Estimated CRCL calculation 75 ml/min; Estimated Glomerular Filt Rate > 60; Glucose 172 mg/dL (65-110); Potassium 2.9 mmol/L (3.4-5.0); Sodium 138 mmol/L (137-145)
--- NOTE | 2024-08-09 09:10 | P.PNIM_ITS ---
Progress Note: A&P Assessment and Plan (1) CHF exacerbation: Code(s): I50.9 - Heart failure, unspecified Status: Acute Assessment and Plan: * Chest x-ray showed small bilateral pleural effusion with opacities in bilateral lower lung zones likely mild pulmonary edema, cardiomegaly. * Chest CTA was negative for PE, showed bilateral moderate pleural effusions larger on the right side with adjacent atelectasis. * Echo from 03/14/22 was reviewed and shown normal LV systolic function with an estimated EF of 60-65%, grade 1 diastolic dysfunction, moderate aortic valve stenosis with severe aortic valve sclerosis * Continue IV Lasix 40 mg b.i.d. * Obtain echocardiogram * Continue cardiac monitoring * Monitor electrolytes (2) Aortic stenosis: Qualifiers: Cardiac valve disease etiology: nonrheumatic Qualified Code(s): I35.0 - Nonrheumatic aortic (valve) stenosis Code(s): I35.0 - Nonrheumatic aortic (valve) stenosis Status: Acute Assessment and Plan: * Noted on last Echo 2021, was noted to be severe * Will obtain another echo today (3) Cardiomegaly: Code(s): I51.7 - Cardiomegaly Status: Acute Assessment and Plan: * Noted on chest x-ray (4) Essential (primary) hypertension: Code(s): I10 - Essential (primary) hypertension Status: Acute Assessment and Plan: * Blood pressures ranging 154/69 to 175/119 * Continue amlodipine, lisinopril, metoprolol (5) Dyslipidemia: Code(s): E78.5 - Hyperlipidemia, unspecified Status: Acute Assessment and Plan: * Continue aspirin, Plavix, atorvastatin (6) Weakness: Code(s): R53.1 - Weakness Status: Acute Assessment and Plan: * PT and OT Time Spent With Patient Time with patient: 25 - 35 minutes Subjective Date/time seen: 08/09/24 09:10 Interval history: Interval history: This is an 89-year-old male with a significant past medical history of hypertension, hyperlipidemia, coronary artery disease status post CABG, depression, iron deficiency anemia, GERD, BPH, CHF, aortic stenosis who presented to the hospital with increased shortness of breath and bilateral leg swelling. Workup in the hospital included a chest x-ray which showed small bilateral pleural effusions with interstitial airspace opacities in bilateral lower lung zones compatible with mild pulmonary edema, cardiomegaly. Chest CTA was negative for PE however did show bilateral moderate pleural effusions larger on the right side with adjacent atelectasis. Initial labs showed a normal white blood cell count of 7.4, hemoglobin 11.4, D-dimer 1.27, blood sugar ranging 166- 260, alkaline phosphate 148, troponin negative, proBNP 2870. Respiratory panel was negative for influenza a and B, RSV, COVID. EKG shown ectopic atrial rhythm with a rate of 56, QTC 436. Last echocardiogram was reviewed from 03/14/2022 which showed normal LV systolic function with an estimated EF of 60-65%, grade 1 diastolic dysfunction, moderate aortic valve stenosis, severe aortic valve sclerosis. Patient was given 40 mg IV push Lasix and metoprolol while in the ED. Subjective: Patient denies any new complaints today. Labs reviewed. Review of Systems Review of Systems: All systems reviewed & are unremarkable except as noted in HPI and below Exam Narrative: General: In no acute distress, well nourished Head: atraumatic, no encephalopathy Eyes: PERRLA, sclera clear ENT: moist mucous membranes, nasal passages clear Neck: supple, no JVD, no adenopathy, trachea midline Cardiac: Normal S1 and S2. Murmur noted, no gallops or friction rubs, peripheral pulses intact. Respiratory: Lungs clear to auscultation, no adventitious lung sounds, currently on 1L NC Gastrointestinal: soft, non-distended, non-tender, normoactive bowel sounds. : voiding without difficulty. Extremities: moves all extremities well, 3-4+ edema BLE Skin: clean, dry, intact. No wounds or lesions. Neuro: Alert and oriented x4, cranial nerves intact, no neuro deficits. Psych: normal mood, normal affect, interactive Objective Data Vital Signs Vital Signs: Vital Signs - 24 hr 08/08/24 13:16 08/08/24 15:00 08/08/24 16:00 Temperature 97.9 F Pulse Rate 60 57 L 55 L Respiratory Rate 26 H 16 21 H Blood Pressure 172/76 H 168/68 H 154/63 H Pulse Oximetry 93 94 89 L Oxygen Delivery Room Air Oxygen Flow Rate 08/08/24 16:39 08/08/24 17:00 08/08/24 19:30 Temperature Pulse Rate 56 L 62 Respiratory Rate 23 H Blood Pressure 173/75 H Pulse Oximetry 95 96 Oxygen Delivery Nasal Cannula Oxygen Flow Rate 2 08/08/24 19:30 08/08/24 21:42 08/08/24 21:43 Temperature 98.2 F 97.7 F Pulse Rate 61 57 L 56 L Respiratory Rate 22 H 20 Blood Pressure 183/82 H 181/74 H Pulse Oximetry 96 92 Oxygen Delivery Oxygen Flow Rate 08/08/24 22:00 08/08/24 22:14 08/09/24 00:00 Temperature Pulse Rate 56 L 62 Respiratory Rate Blood Pressure Pulse Oximetry 92 Oxygen Delivery Nasal Cannula Oxygen Flow Rate 2 08/09/24 00:03 08/09/24 04:00 08/09/24 04:31 Temperature 97.8 F Pulse Rate 62 64 Respiratory Rate 20 Blood Pressure 154/69 H 176/64 H Pulse Oximetry 93 Oxygen Delivery Oxygen Flow Rate 08/09/24 08:00 08/09/24 08:00 Temperature 98.1 F Pulse Rate 67 63 Respiratory Rate 18 Blood Pressure 175/119 H Pulse Oximetry 95 Oxygen Delivery Oxygen Flow Rate Intake/Output Intake/Output: Intake & Output 08/06/24 08/07/24 08/08/24 08/09/24 23:59 23:59 23:59 23:59 Intake Total 390 Output Total 1700 Balance -1310 Meds/Results Medications: Active Medications Generic Name Dose Route Start Last Admin Trade Name Freq PRN Reason Stop Dose Admin Acetaminophen 650 mg 08/08/24 17:33 Acetaminophen 325 Mg Tablet PO Q4H PRN Mild Pain (1-3) or Fever Furosemide 40 mg 08/08/24 22:25 08/08/24 23:45 Furosemide Inj 40 Mg/4 Ml Vial IV PUSH 40 mg BID LEANNE Administration Heparin Sodium (Porcine) 5,000 units 08/09/24 09:00 Heparin Sodium 5,000 Units/Ml Vial SUB-Q Q12HR LEANNE Melatonin 5 mg 08/08/24 21:01 Melatonin 5 Mg Tablet PO HS PRN Insomnia Ondansetron HCl 4 mg 08/08/24 17:33 Ondansetron Inj 4 Mg/2 Ml Vial IV PUSH Q4H PRN Nausea Perflutren Lipid Microsphere 0 ml 08/08/24 21:27 Perflutren Lipid Microspheres 1.5 Ml Vial Diluted To 10 Ml Total Volume IV PUSH 08/11/24 21:27 ONCE PRN adequate visualization Protocol Trazodone HCl 50 - 100 mg 08/08/24 22:27 08/08/24 23:45 Trazodone Hcl 50 Mg Tablet PO 100 mg QHS PRN Administration sleep Radiology Results: ITS Impressions Chest X-Ray 08/08/24 14:39 IMPRESSION: 1. Small bilateral pleural effusions with interstitial and airspace opacities in the bilateral lower lung zones most likely mild pulmonary edema with differential including pneumonia. 2. Cardiomegaly. Chest CTA 08/08/24 16:00 IMPRESSION: 1. No pulmonary embolism. 2. Bilateral moderate pleural effusion larger on the right side with adjacent atelectasis versus pneumonia. Labs Labs: Laboratory Results - last 24 hr 08/08/24 08/08/24 08/08/24 13:30 14:29 22:20 WBC 7.4 RBC 4.01 L Hgb 11.4 L Hct 34.8 L MCV 86.8 MCH 28.4 MCHC 32.8 RDW 14.9 H Plt Count 226 MPV 9.0 Immature Gran % (Auto) 0.7 H Neut % (Auto) 68.3 Lymph % (Auto) 20.8 [place] % (Auto) 8.0 Eos % (Auto) 1.8 Baso % (Auto) 0.4 Lymph # (Auto) 1.54 [place] # (Auto) 0.6 Eos # (Auto) 0.1 Baso # (Auto) 0.0 Abs Immat Gran (auto) 0.05 H Absolute Neuts (auto) 5.1 Absolute Nucleated RBC 0.000 Nucleated RBC % 0.0 D-Dimer 1.27 H Sodium 139 Potassium 3.9 Chloride 101 Carbon Dioxide 26 Anion Gap 12 BUN 13 Creatinine 0.77 Estim Creat Clear Calc 71 Estimated GFR > 60 Glucose 260 H POC Capillary Glucose 166 H Calcium 8.8 Magnesium 2.0 Total Bilirubin 1.1 AST 36 ALT 30 Alkaline Phosphatase 148 H Troponin I 0.016 NT-Pro-B Natriuret Pep 2870 H Total Protein 7.0 Albumin 4.0 Influenza A (RT-PCR) Negative Influenza B (RT-PCR) Negative RSV (RT-PCR) Negative SARS-CoV-2 RNA (RT-PCR) Negative 08/09/24 05:33 WBC 7.8 RBC 4.12 L Hgb 11.7 L Hct 35.1 L MCV 85.2 MCH 28.4 MCHC 33.3 RDW 14.8 H Plt Count 235 MPV 8.9 Immature Gran % (Auto) 0.4 Neut % (Auto) 62.7 Lymph % (Auto) 23.4 [place] % (Auto) 9.5 H Eos % (Auto) 3.5 Baso % (Auto) 0.5 Lymph # (Auto) 1.82 [place] # (Auto) 0.7 H Eos # (Auto) 0.3 Baso # (Auto) 0.0 Abs Immat Gran (auto) 0.03 Absolute Neuts (auto) 4.9 Absolute Nucleated RBC 0.000 Nucleated RBC % 0.0 D-Dimer Sodium 138 Potassium 2.9 L Chloride 98 Carbon Dioxide 29 Anion Gap 11 BUN 10 Creatinine 0.68 L Estim Creat Clear Calc 75 Estimated GFR > 60 Glucose 172 H POC Capillary Glucose Calcium 8.5 Magnesium Total Bilirubin 1.3 AST 33 ALT 30 Alkaline Phosphatase 173 H Troponin I NT-Pro-B Natriuret Pep Total Protein 8.0 Albumin 3.9 Influenza A (RT-PCR) Influenza B (RT-PCR) RSV (RT-PCR) SARS-CoV-2 RNA (RT-PCR) Quality VTE Prophylaxis VTE prophylaxis: mechanical ordered and pharmacologic ordered
[2024-08-09] MEDS: FUROSEMIDE INJ 40 MG/4 ML VIAL IV PUSH ×2 (10:09→18:11)
[2024-08-09] MEDS: HEPARIN SODIUM 5,000 UNITS/ML VIAL 5000 UNITS SUB-Q ×2 (10:09→20:38)
[2024-08-09] MEDS: METOPROLOL TARTRATE 50 MG TAB PO ×2 (11:51→20:38)
[2024-08-09] MEDS: OPTI-GEN TAB 1 TABLET PO (11:51)
[2024-08-09] MEDS: ASPIRIN 81 MG ENTERIC TABLET PO (11:52)
[2024-08-09] MEDS: CLOPIDOGREL BISULFATE 75 MG TABLET PO (11:52)
[2024-08-09] MEDS: lisinopriL 20 MG TABLET 40 MG PO (11:52)
[2024-08-09] MEDS: FERROUS SULFATE 325 MG TABLET DR PO (11:53)
[2024-08-09] MEDS: PANTOPRAZOLE 40 MG TABLET PO (11:55)
[2024-08-09] MEDS: POTASSIUM CHLORIDE 20 MEQ ER TABLET 40 MEQ PO ×2 (12:19→18:11)
[2024-08-09] MEDS: DICLOFENAC SODIUM 0.1% OPHTH SOLN 2.5 ML BOTTLE 1 DROP LEFT EYE ×2 (12:52→18:59)
[2024-08-09] MEDS: TAMSULOSIN HCL 0.4 MG CAPSULE PO (18:10)
[2024-08-09] MEDS: ASCORBIC ACID 500 MG TABLET PO (18:10)
[2024-08-09] MEDS: ATORVASTATIN 20 MG TABLET PO (18:10)
[2024-08-09] MEDS: CHOLECALCIFEROL 1,000 UNITS TABLET 2000 UNITS PO (18:11)
[2024-08-09] MEDS: ESCITALOPRAM OXALATE 10 MG TABLET PO (18:11)
[2024-08-09] MEDS: amLODIPine BESYLATE 10 MG TABLET PO (18:11)
[2024-08-09] MEDS: MELATONIN 5 MG TABLET PO (22:39)
[2024-08-09] MEDS: traZODone HCL 50 MG TABLET 100 MG PO (22:39)
[2024-08-10] VITALS (16 sets, daily range): BP systolic 123–169; BP diastolic 68–78; PULSE 52–63; RESP 16–18; TEMP 36.5–36.8; O2SAT 94–99
[2024-08-10 06:27] LABS: Basophils Percent Auto 0.6 % (0.2-1.2); Eosinophils Absolute Auto 0.3 K/mm3 (0-0.3); Eosinophils Percent Auto 4.7 % (0-4.4); Hemoglobin 11.4 g/dL (14.0-18.0); Immature Granulocyte Absolute 0.03 K/mm3 (0.00-0.031); Immature Granulocyte Percent A 0.5 % (0-0.5); Lymphocytes Absolute Auto 1.82 K/mm3 (0.9-3.2); Lymphocytes Percent Auto 27.4 % (18.3-44.2); Mean Corpuscular HGB Conc 32.6 g/dl (32-36); Mean Corpuscular Hemoglobin 28.5 pg (26-34); Mean Corpuscular Volume 87.5 fl (80-100); Mean Platelet Volume 9.3 fl (7.4-10.4); Monocytes Absolute Auto 0.7 K/mm3 (0.1-0.6); Monocytes Percent Auto 11.1 % (2.6-8.5); Neutrophils Absolute Auto 3.7 K/mm3 (1.3-6.7); Neutrophils Percent Auto 55.7 % (45.5-73.1); Platelet Count Result 239 k/mm3 (150-375); Red Cell Distribution Width 15.1 % (11.5-14.5); White Blood Count 6.7 K/mm3 (4.5-10.0)
[2024-08-10 06:43] LABS: Alanine Aminotransferase 30 U/L (6-50); Albumin Level 3.7 g/dL (3.5-5.1); Alkaline Phosphatase 161 U/L (38-126); Anion Gap 7 mmol/L (4-12); Aspartate Amino Transferase 34 U/L (17-59); Blood Urea Nitrogen 13 mg/dL (9-20); Calcium 8.5 mg/dL (8.4-10.2); Carbon Dioxide 31 mmol/L (22-30); Chloride 99 mmol/L (98-107); Estimated CRCL calculation 58 ml/min; Estimated Glomerular Filt Rate > 60; Glucose 151 mg/dL (65-110); Potassium 3.3 mmol/L (3.4-5.0); Sodium 137 mmol/L (137-145)
--- NOTE | 2024-08-10 09:24 | P.PNIM_ITS ---
Progress Note: A&P Assessment and Plan (1) CHF exacerbation: Code(s): I50.9 - Heart failure, unspecified Status: Acute Assessment and Plan: * Chest x-ray showed small bilateral pleural effusion with opacities in bilateral lower lung zones likely mild pulmonary edema, cardiomegaly. * Chest CTA was negative for PE, showed bilateral moderate pleural effusions larger on the right side with adjacent atelectasis. * Echo from 03/14/22 was reviewed and shown normal LV systolic function with an estimated EF of 60-65%, grade 1 diastolic dysfunction, moderate aortic valve stenosis with severe aortic valve sclerosis * Continue IV Lasix 40 mg b.i.d. * Obtain echocardiogram * Continue cardiac monitoring * Monitor electrolytes 08/10 * CXR today showing improvement * Switch Lasix to 40 mg daily p.o. * Echocardiogram showing normal LV systolic function with an estimated EF of 65- 70%, grade 1 diastolic dysfunction, severe aortic valve calcification, moderate aortic valve stenosis, moderate mitral and tricuspid valve regurgi tation * Continue cardiac monitoring * Continue potassium 40 meq p.o. b.i.d., potassium today 3.3 * Continue to wean O2 for oxygen saturation of 92% or greater * IS 10x per hour while awake (2) Aortic stenosis: Qualifiers: Cardiac valve disease etiology: nonrheumatic Qualified Code(s): I35.0 - Nonrheumatic aortic (valve) stenosis Code(s): I35.0 - Nonrheumatic aortic (valve) stenosis Status: Acute Assessment and Plan: * Noted on last Echo 2021, was noted to be severe * Will obtain another echo today 08/10 * Essentially no change on echocardiogram for his aortic stenosis. (3) Cardiomegaly: Code(s): I51.7 - Cardiomegaly Status: Acute Assessment and Plan: * Noted on chest x-ray (4) Essential (primary) hypertension: Code(s): I10 - Essential (primary) hypertension Status: Acute Assessment and Plan: * Blood pressures ranging 154/69 to 175/119 * Continue amlodipine, lisinopril, metoprolol 08/10 * No change to current treatment plan (5) Dyslipidemia: Code(s): E78.5 - Hyperlipidemia, unspecified Status: Acute Assessment and Plan: * Continue aspirin, Plavix, atorvastatin 08/10 * No change to current treatment plan (6) Weakness: Code(s): R53.1 - Weakness Status: Acute Assessment and Plan: * PT and OT 08/10 * PT and OT recommending skilled therapy for strength training, gait, balance, endurance, transfers * Case coordination following for potential outpatient rehab needs Time Spent With Patient Time with patient: 25 - 35 minutes Subjective Date/time seen: 08/10/24 09:24 Interval history: Interval history: This is an 89-year-old male with a significant past medical history of hypertension, hyperlipidemia, coronary artery disease status post CABG, depression, iron deficiency anemia, GERD, BPH, CHF, aortic stenosis who presented to the hospital with increased shortness of breath and bilateral leg swelling. Workup in the hospital included a chest x-ray which showed small bilateral pleural effusions with interstitial airspace opacities in bilateral lower lung zones compatible with mild pulmonary edema, cardiomegaly. Chest CTA was negative for PE however did show bilateral moderate pleural effusions larger on the right side with adjacent atelectasis. Initial labs showed a normal white blood cell count of 7.4, hemoglobin 11.4, D-dimer 1.27, blood sugar ranging 166- 260, alkaline phosphate 148, troponin negative, proBNP 2870. Respiratory panel was negative for influenza A and B, RSV, COVID. EKG shown ectopic atrial rhythm with a rate of 56, QTC 436. Last echocardiogram was reviewed from 03/14/2022 which showed normal LV systolic function with an estimated EF of 60-65%, grade 1 diastolic dysfunction, moderate aortic valve stenosis, severe aortic valve sclerosis. Patient was given 40 mg IV push Lasix and metoprolol while in the ED. Subjective: Patient denies any new complaints today. Labs reviewed. Review of Systems Review of Systems: All systems reviewed & are unremarkable except as noted in HPI and below Exam Narrative: General: In no acute distress, well nourished Cardiac: Normal S1 and S2. Murmur noted, no gallops or friction rubs, peripheral pulses intact. Respiratory: Lungs clear to auscultation, no adventitious lung sounds, currently on 1L NC Gastrointestinal: soft, non-distended, non-tender, normoactive bowel sounds. : voiding without difficulty. Extremities: moves all extremities well, 3-4+ edema BLE Neuro: Alert and oriented x4 Objective Data Vital Signs Vital Signs: Vital Signs - 24 hr 08/09/24 09:45 08/09/24 10:44 08/09/24 11:51 Temperature Pulse Rate 64 Respiratory Rate Blood Pressure 160/90 H Pulse Oximetry 95 Oxygen Delivery Nasal Cannula Oxygen Flow Rate 1 08/09/24 12:00 08/09/24 12:06 08/09/24 14:00 Temperature 98.5 F Pulse Rate 65 58 L Respiratory Rate 16 Blood Pressure 167/75 H Pulse Oximetry 93 96 Oxygen Delivery Nasal Cannula Oxygen Flow Rate 1 08/09/24 14:05 08/09/24 14:44 08/09/24 16:00 Temperature Pulse Rate 64 Respiratory Rate Blood Pressure Pulse Oximetry Oxygen Delivery Nasal Cannula Nasal Cannula Oxygen Flow Rate 1 1 08/09/24 20:00 08/09/24 20:18 08/09/24 20:28 Temperature 98.3 F Pulse Rate 60 63 Respiratory Rate 18 Blood Pressure 125/68 Pulse Oximetry 96 96 Oxygen Delivery Nasal Cannula Oxygen Flow Rate 1 08/09/24 20:38 08/09/24 21:20 08/10/24 00:00 Temperature Pulse Rate 63 54 L Respiratory Rate Blood Pressure Pulse Oximetry 95 Oxygen Delivery Nasal Cannula Oxygen Flow Rate 1 08/10/24 04:00 08/10/24 05:11 Temperature 97.7 F Pulse Rate 56 L 58 L Respiratory Rate 17 Blood Pressure 157/72 H Pulse Oximetry 94 Oxygen Delivery Oxygen Flow Rate Intake/Output Intake/Output: Intake & Output 08/07/24 08/08/24 08/09/24 08/10/24 23:59 23:59 23:59 23:59 Intake Total 1235 350 Output Total 3300 600 Balance -2065 -250 Meds/Results Medications: Active Medications Generic Name Dose Route Start Last Admin Trade Name Freq PRN Reason Stop Dose Admin Acetaminophen 650 mg 08/08/24 17:33 Acetaminophen 325 Mg Tablet PO Q4H PRN Mild Pain (1-3) or Fever Amlodipine Besylate 10 mg 08/09/24 18:00 08/09/24 18:11 Amlodipine Besylate 10 Mg Tablet PO 10 mg QPM LEANNE Administration Ascorbic Acid 500 mg 08/09/24 18:00 08/09/24 18:10 Ascorbic Acid 500 Mg Tablet PO 500 mg QPM LEANNE Administration Aspirin 81 mg 08/09/24 09:00 08/09/24 11:52 Aspirin 81 Mg Enteric Tablet PO 81 mg DAILY LEANNE Administration Atorvastatin Calcium 20 mg 08/09/24 18:00 08/09/24 18:10 Atorvastatin 20 Mg Tablet PO 20 mg QPM LEANNE Administration Clopidogrel Bisulfate 75 mg 08/09/24 09:00 08/09/24 11:52 Clopidogrel Bisulfate 75 Mg Tablet PO 75 mg DAILY LEANNE Administration Diclofenac Sodium 1 drop 08/09/24 09:00 08/09/24 18:59 Diclofenac Sodium 0.1% Ophth Soln 2.5 Ml Bottle LEFT EYE 1 drop BID LEANNE Administration Escitalopram Oxalate 10 mg 08/09/24 18:00 08/09/24 18:11 Escitalopram Oxalate 10 Mg Tablet PO 10 mg QPM LEANNE Administration Ferrous Sulfate 325 mg 08/09/24 09:00 08/09/24 11:53 Ferrous Sulfate [address] PO 325 mg DAILY@0800 LEANNE Administration Furosemide 40 mg 08/08/24 22:25 08/09/24 18:11 Furosemide Inj 40 Mg/4 Ml Vial IV PUSH 40 mg BID LEANNE Administration Heparin Sodium (Porcine) 5,000 units 08/09/24 09:00 08/09/24 20:38 Heparin Sodium 5,000 Units/Ml Vial SUB-Q 5,000 units Q12HR LEANNE Administration Lisinopril 40 mg 08/09/24 09:00 08/09/24 11:52 Lisinopril 20 Mg Tablet PO 40 mg DAILY LEANNE Administration Melatonin 5 mg 08/08/24 21:01 08/09/24 22:39 Melatonin 5 Mg Tablet PO 5 mg HS PRN Administration Insomnia Metoprolol Tartrate 50 mg 08/09/24 09:00 08/09/24 20:38 Metoprolol Tartrate 50 Mg Tab PO 50 mg Q12HR LEANNE Administration Multivitamins/Minerals 1 tablet 08/09/24 09:00 08/09/24 11:51 Opti-Gen Tab PO 1 tablet DAILY LEANNE Administration Ondansetron HCl 4 mg 08/08/24 17:33 Ondansetron Inj 4 Mg/2 Ml Vial IV PUSH Q4H PRN Nausea Pantoprazole Sodium 40 mg 08/09/24 09:00 08/09/24 11:55 Pantoprazole 40 Mg Tablet PO 40 mg DAILY LEANNE Administration Perflutren Lipid Microsphere 0 ml 08/08/24 21:27 Perflutren Lipid Microspheres 1.5 Ml Vial Diluted To 10 Ml Total Volume IV PUSH 08/11/24 21:27 ONCE PRN adequate visualization Protocol Potassium Chloride 40 meq 08/09/24 11:45 08/09/24 18:11 Potassium Chloride 20 Meq Er Tablet PO 40 meq BID LEANNE Administration Tamsulosin HCl 0.4 mg 08/09/24 18:00 08/09/24 18:10 Tamsulosin Hcl 0.4 Mg Capsule PO 0.4 mg QPM LEANNE Administration Trazodone HCl 100 mg 08/09/24 11:41 08/09/24 22:39 Trazodone Hcl 50 Mg Tablet PO 100 mg QHS PRN Administration sleep Vitamin D 2,000 units 08/09/24 18:00 08/09/24 18:11 Cholecalciferol 1,000 Units Tablet PO 2,000 units QPM LEANNE Administration Radiology Results: ITS Impressions Chest X-Ray 08/08/24 14:39 IMPRESSION: 1. Small bilateral pleural effusions with interstitial and airspace opacities in the bilateral lower lung zones most likely mild pulmonary edema with differe ntial including pneumonia. 2. Cardiomegaly. Chest CTA 08/08/24 16:00 IMPRESSION: 1. No pulmonary embolism. 2. Bilateral moderate pleural effusion larger on the right side with adjacent atelectasis versus pneumonia. Labs Labs: Laboratory Results - last 24 hr 08/10/24 06:06 WBC 6.7 RBC 4.00 L Hgb 11.4 L Hct 35.0 L MCV 87.5 MCH 28.5 MCHC 32.6 RDW 15.1 H Plt Count 239 MPV 9.3 Immature Gran % (Auto) 0.5 Neut % (Auto) 55.7 Lymph % (Auto) 27.4 [place] % (Auto) 11.1 H Eos % (Auto) 4.7 H Baso % (Auto) 0.6 Lymph # (Auto) 1.82 [place] # (Auto) 0.7 H Eos # (Auto) 0.3 Baso # (Auto) 0.0 Abs Immat Gran (auto) 0.03 Absolute Neuts (auto) 3.7 Absolute Nucleated RBC 0.000 Nucleated RBC % 0.0 Sodium 137 Potassium 3.3 L Chloride 99 Carbon Dioxide 31 H Anion Gap 7 BUN 13 Creatinine 0.90 Estim Creat Clear Calc 58 Estimated GFR > 60 Glucose 151 H Calcium 8.5 Total Bilirubin 1.0 AST 34 ALT 30 Alkaline Phosphatase 161 H Total Protein 7.0 Albumin 3.7 Quality VTE Prophylaxis VTE prophylaxis: mechanical ordered and pharmacologic ordered
[2024-08-10] MEDS: FERROUS SULFATE 325 MG TABLET DR PO (09:37)
[2024-08-10] MEDS: ASPIRIN 81 MG ENTERIC TABLET PO (09:37)
[2024-08-10] MEDS: POTASSIUM CHLORIDE 20 MEQ ER TABLET 40 MEQ PO ×2 (09:37→17:24)
[2024-08-10] MEDS: PANTOPRAZOLE 40 MG TABLET PO (09:37)
[2024-08-10] MEDS: lisinopriL 20 MG TABLET 40 MG PO (09:37)
[2024-08-10] MEDS: OPTI-GEN TAB 1 TABLET PO (09:37)
[2024-08-10] MEDS: CLOPIDOGREL BISULFATE 75 MG TABLET PO (09:37)
[2024-08-10] MEDS: FUROSEMIDE INJ 40 MG/4 ML VIAL IV PUSH (09:38)
[2024-08-10] MEDS: HEPARIN SODIUM 5,000 UNITS/ML VIAL 5000 UNITS SUB-Q ×2 (09:38→20:33)
[2024-08-10] MEDS: DICLOFENAC SODIUM 0.1% OPHTH SOLN 2.5 ML BOTTLE 1 DROP LEFT EYE ×2 (09:38→17:33)
[2024-08-10] MEDS: TAMSULOSIN HCL 0.4 MG CAPSULE PO (17:24)
[2024-08-10] MEDS: ATORVASTATIN 20 MG TABLET PO (17:24)
[2024-08-10] MEDS: ESCITALOPRAM OXALATE 10 MG TABLET PO (17:24)
[2024-08-10] MEDS: CHOLECALCIFEROL 1,000 UNITS TABLET 2000 UNITS PO (17:24)
[2024-08-10] MEDS: amLODIPine BESYLATE 10 MG TABLET PO (17:24)
[2024-08-10] MEDS: ASCORBIC ACID 500 MG TABLET PO (17:24)
[2024-08-10] MEDS: METOPROLOL TARTRATE 50 MG TAB PO (20:34)
[2024-08-10] MEDS: traZODone HCL 50 MG TABLET 100 MG PO (20:38)
[2024-08-11] VITALS: PULSE 66
[2024-08-11 04:00] VITALS: PULSE 58
[2024-08-11 05:32] VITALS: BP 164/68; PULSE 64; RESP 16; TEMP 36.6; O2SAT 95
[2024-08-11 06:13] LABS: Basophils Absolute Auto 0.1 K/mm3 (0.0-0.1); Basophils Percent Auto 0.7 % (0.2-1.2); Eosinophils Absolute Auto 0.4 K/mm3 (0-0.3); Eosinophils Percent Auto 6.1 % (0-4.4); Hematocrit 37.3 % (42.0-52.0); Hemoglobin 11.9 g/dL (14.0-18.0); Immature Granulocyte Absolute 0.02 K/mm3 (0.00-0.031); Immature Granulocyte Percent A 0.3 % (0-0.5); Lymphocytes Absolute Auto 1.95 K/mm3 (0.9-3.2); Lymphocytes Percent Auto 27.9 % (18.3-44.2); Mean Corpuscular HGB Conc 31.9 g/dl (32-36); Mean Corpuscular Hemoglobin 28.1 pg (26-34); Mean Platelet Volume 9.3 fl (7.4-10.4); Monocytes Absolute Auto 0.6 K/mm3 (0.1-0.6); Monocytes Percent Auto 8.6 % (2.6-8.5); Neutrophils Percent Auto 56.4 % (45.5-73.1); Platelet Count Result 248 k/mm3 (150-375); Red Blood Count 4.24 M/mm3 (4.6-6.20); Red Cell Distribution Width 15.2 % (11.5-14.5)
[2024-08-11 06:25] LABS: Alanine Aminotransferase 33 U/L (6-50); Alkaline Phosphatase 161 U/L (38-126); Anion Gap 10 mmol/L (4-12); Aspartate Amino Transferase 37 U/L (17-59); Bilirubin,Total 0.8 mg/dL (0.2-1.3); Blood Urea Nitrogen 14 mg/dL (9-20); Calcium 8.9 mg/dL (8.4-10.2); Carbon Dioxide 29 mmol/L (22-30); Chloride 100 mmol/L (98-107); Estimated CRCL calculation 59 ml/min; Estimated Glomerular Filt Rate > 60; Glucose 153 mg/dL (65-110); Potassium 3.7 mmol/L (3.4-5.0); Sodium 139 mmol/L (137-145)
--- NOTE | 2024-08-11 07:34 | P.PNIM_ITS ---
Progress Note: A&P Assessment and Plan (1) CHF exacerbation: Code(s): I50.9 - Heart failure, unspecified Status: Acute Assessment and Plan: * Chest x-ray showed small bilateral pleural effusion with opacities in bilateral lower lung zones likely mild pulmonary edema, cardiomegaly. * Chest CTA was negative for PE, showed bilateral moderate pleural effusions larger on the right side with adjacent atelectasis. * Echo from 03/14/22 was reviewed and shown normal LV systolic function with an estimated EF of 60-65%, grade 1 diastolic dysfunction, moderate aortic valve stenosis with severe aortic valve sclerosis * Continue IV Lasix 40 mg b.i.d. * Obtain echocardiogram * Continue cardiac monitoring * Monitor electrolytes 08/10 * CXR today showing improvement * Switch Lasix to 40 mg daily p.o. * Echocardiogram showing normal LV systolic function with an estimated EF of 65- 70%, grade 1 diastolic dysfunction, severe aortic valve calcification, moderate aortic valve stenosis, moderate mitral and tricuspid valve regurgi tation * Continue cardiac monitoring * Continue potassium 40 meq p.o. b.i.d., potassium today 3.3 * Continue to wean O2 for oxygen saturation of 92% or greater * IS 10x per hour while awake 08/11 * Continue cardiac monitoring * IS 10x per hour while awake * Continue to wean O2 for oxygen saturation of 92% or greater * Lasix 40 mg daily p.o. (2) Aortic stenosis: Qualifiers: Cardiac valve disease etiology: nonrheumatic Qualified Code(s): I35.0 - Nonrheumatic aortic (valve) stenosis Code(s): I35.0 - Nonrheumatic aortic (valve) stenosis Status: Acute Assessment and Plan: * Noted on last Echo 2021, was noted to be severe * Will obtain another echo today 08/10 * Essentially no change on echocardiogram for his aortic stenosis. (3) Cardiomegaly: Code(s): I51.7 - Cardiomegaly Status: Acute Assessment and Plan: * Noted on chest x-ray (4) Essential (primary) hypertension: Code(s): I10 - Essential (primary) hypertension Status: Acute Assessment and Plan: * Blood pressures ranging 154/69 to 175/119 * Continue amlodipine, lisinopril, metoprolol 08/10 * No change to current treatment plan (5) Dyslipidemia: Code(s): E78.5 - Hyperlipidemia, unspecified Status: Acute Assessment and Plan: * Continue aspirin, Plavix, atorvastatin 08/10 * No change to current treatment plan (6) Weakness: Code(s): R53.1 - Weakness Status: Acute Assessment and Plan: * PT and OT 08/10 * PT and OT recommending skilled therapy for strength training, gait, balance, endurance, transfers * Case coordination following for potential outpatient rehab needs Subjective Date/time seen: 08/11/24 07:34 Interval history: Interval history: This is an 89-year-old male with a significant past medical history of hypertension, hyperlipidemia, coronary artery disease status post CABG, depression, iron deficiency anemia, GERD, BPH, CHF, aortic stenosis who presented to the hospital with increased shortness of breath and bilateral leg swelling. Workup in the hospital included a chest x-ray which showed small bilateral pleural effusions with interstitial airspace opacities in bilateral lower lung zones compatible with mild pulmonary edema, cardiomegaly. 08/11/2024 Patient denies any new complaints today. Labs reviewed. Review of Systems Review of Systems: All systems reviewed & are unremarkable except as noted in HPI and below Exam Narrative: General: In no acute distress, well nourished Cardiac: Normal S1 and S2. Murmur noted, no gallops or friction rubs, peripheral pulses intact. Respiratory: Lungs clear to auscultation, no adventitious lung sounds, currently on 1L NC Gastrointestinal: soft, non-distended, non-tender, normoactive bowel sounds. : voiding without difficulty. Extremities: moves all extremities well, 3-4+ edema BLE Neuro: Alert and oriented x4 Const: General: comfortable and no acute distress HENMT: Ears: TM's normal bilaterally Face/Nose/Sinus: Normal nares present Eyes: General: appearance normal, both eyes and all related structures Pupils: Equal, round and reactive pupils present Neck: Neck: supple Thyroid: thyroid normal Resp: Effort & Inspection: normal respiratory effort Auscultation: diminished lung sounds bilateral Cardio: Rate: regular rate Urinary Catheter: Urinary Catheter: patent and draining and urine clear Skin: General skin exam: normal color Neuro: Cranial nerves: Yes Equal, round and reactive pupils present Speech: normal speech Motor exam (neuro): 5/5 motor strength present throughout Extrem: General: pedal edema bilaterally pitting Psych: Mental Status: mental status grossly normal Affect: Anxious affect present Objective Data Vital Signs Vital Signs: Vital Signs - 24 hr 08/10/24 08:00 08/10/24 09:34 08/10/24 09:45 Temperature Pulse Rate 58 L 52 L Respiratory Rate 16 Blood Pressure 160/70 H Pulse Oximetry 97 95 Oxygen Delivery Nasal Cannula Oxygen Flow Rate 1 08/10/24 10:00 08/10/24 12:00 08/10/24 14:00 Temperature 98.1 F Pulse Rate 52 L 52 L 52 L Respiratory Rate 16 Blood Pressure 123/78 Pulse Oximetry 99 Oxygen Delivery Oxygen Flow Rate 08/10/24 16:00 08/10/24 17:30 08/10/24 17:50 Temperature Pulse Rate 61 Respiratory Rate Blood Pressure Pulse Oximetry 96 94 Oxygen Delivery Nasal Cannula Room Air Oxygen Flow Rate 1 08/10/24 18:37 08/10/24 20:00 08/10/24 20:00 Temperature Pulse Rate 60 63 Respiratory Rate 18 Blood Pressure Pulse Oximetry 95 95 Oxygen Delivery Room Air Room Air Oxygen Flow Rate 08/10/24 20:34 08/10/24 21:00 08/11/24 00:00 Temperature 98.3 F Pulse Rate 63 63 66 Respiratory Rate 18 Blood Pressure 169/68 H Pulse Oximetry 95 Oxygen Delivery Oxygen Flow Rate 08/11/24 04:00 08/11/24 05:32 Temperature 97.9 F Pulse Rate 58 L 64 Respiratory Rate 16 Blood Pressure 164/68 H Pulse Oximetry 95 Oxygen Delivery Oxygen Flow Rate Intake/Output Intake/Output: Intake & Output 08/08/24 08/09/24 08/10/24 08/11/24 23:59 23:59 23:59 23:59 Intake Total 1235 930 327 Output Total 3300 1250 850 [facility] -[phone] Meds/Results Medications: Active Medications Generic Name Dose Route Start Last Admin Trade Name Freq PRN Reason Stop Dose Admin Acetaminophen 650 mg 08/08/24 17:33 Acetaminophen 325 Mg Tablet PO Q4H PRN Mild Pain (1-3) or Fever Amlodipine Besylate 10 mg 08/09/24 18:00 08/10/24 17:24 Amlodipine Besylate 10 Mg Tablet PO 10 mg QPM LEANNE Administration Ascorbic Acid 500 mg 08/09/24 18:00 08/10/24 17:24 Ascorbic Acid 500 Mg Tablet PO 500 mg QPM LEANNE Administration Aspirin 81 mg 08/09/24 09:00 08/10/24 09:37 Aspirin 81 Mg Enteric Tablet PO 81 mg DAILY [facility] Administration Atorvastatin Calcium 20 mg 08/09/24 18:00 08/10/24 17:24 Atorvastatin 20 Mg Tablet PO 20 mg QPM LEANNE Administration Clopidogrel Bisulfate 75 mg 08/09/24 09:00 08/10/24 09:37 Clopidogrel Bisulfate 75 Mg Tablet PO 75 mg DAILY [facility] Administration Diclofenac Sodium 1 drop 08/09/24 09:00 08/10/24 17:33 Diclofenac Sodium 0.1% Ophth Soln 2.5 Ml Bottle LEFT EYE 1 drop BID [facility] Administration Escitalopram Oxalate 10 mg 08/09/24 18:00 08/10/24 17:24 Escitalopram Oxalate 10 Mg Tablet PO 10 mg QPM LEANNE Administration Ferrous Sulfate 325 mg 08/09/24 09:00 08/10/24 09:37 Ferrous Sulfate [address] PO 325 mg DAILY@0800 [facility] Administration Furosemide 40 mg 08/11/24 09:00 Furosemide 40 Mg Tablet PO DAILY [facility] Heparin Sodium (Porcine) 5,000 units 08/09/24 09:00 08/10/24 20:33 Heparin Sodium 5,000 Units/Ml Vial SUB-Q 5,000 units Q12HR [facility] Administration Lisinopril 40 mg 08/09/24 09:00 08/10/24 09:37 Lisinopril 20 Mg Tablet PO 40 mg DAILY [facility] Administration Melatonin 5 mg 08/08/24 21:01 08/09/24 22:39 Melatonin 5 Mg Tablet PO 5 mg HS PRN Administration Insomnia Metoprolol Tartrate 50 mg 08/09/24 09:00 08/10/24 20:34 Metoprolol Tartrate 50 Mg Tab PO 50 mg Q12HR [facility] Administration Multivitamins/Minerals 1 tablet 08/09/24 09:00 08/10/24 09:37 Opti-Gen Tab PO 1 tablet DAILY [facility] Administration Ondansetron HCl 4 mg 08/08/24 17:33 Ondansetron Inj 4 Mg/2 Ml Vial IV PUSH Q4H PRN Nausea Pantoprazole Sodium 40 mg 08/09/24 09:00 08/10/24 09:37 Pantoprazole 40 Mg Tablet PO 40 mg DAILY [facility] Administration Perflutren Lipid Microsphere 0 ml 08/08/24 21:27 Perflutren Lipid Microspheres 1.5 Ml Vial Diluted To 10 Ml Total Volume IV PUSH 08/11/24 21:27 ONCE PRN adequate visualization Protocol Potassium Chloride 40 meq 08/09/24 11:45 08/10/24 17:24 Potassium Chloride 20 Meq Er Tablet PO 40 meq BID LEANNE Administration Tamsulosin HCl 0.4 mg 08/09/24 18:00 08/10/24 17:24 Tamsulosin Hcl 0.4 Mg Capsule PO 0.4 mg QPM LEANNE Administration Trazodone HCl 100 mg 08/09/24 11:41 08/10/24 20:38 Trazodone Hcl 50 Mg Tablet PO 100 mg QHS PRN Administration sleep Vitamin D 2,000 units 08/09/24 18:00 08/10/24 17:24 Cholecalciferol 1,000 Units Tablet PO 2,000 units QPM LEANNE Administration Radiology Results: ITS Impressions Chest CTA 08/08/24 16:00 IMPRESSION: 1. No pulmonary embolism. 2. Bilateral moderate pleural effusion larger on the right side with adjacent atelectasis versus pneumonia. Chest X-Ray 08/10/24 10:09 IMPRESSION: 1. Small bilateral pleural effusions causing compressive atelectasis. 2. Bibasilar linear opacities may represent pneumonia, atelectasis versus scarring. Clinical correlation is recommended. Short-term total follow-up chest radiograph is recommended after appropriate clinical therapy. Labs Labs: Laboratory Results - last 24 hr 08/11/24 05:45 WBC 7.0 RBC 4.24 L Hgb 11.9 L Hct 37.3 L MCV 88.0 MCH 28.1 MCHC 31.9 L RDW 15.2 H Plt Count 248 MPV 9.3 Immature Gran % (Auto) 0.3 Neut % (Auto) 56.4 Lymph % (Auto) 27.9 [place] % (Auto) 8.6 H Eos % (Auto) 6.1 H Baso % (Auto) 0.7 Lymph # (Auto) 1.95 [place] # (Auto) 0.6 Eos # (Auto) 0.4 H Baso # (Auto) 0.1 Abs Immat Gran (auto) 0.02 Absolute Neuts (auto) 4.0 Absolute Nucleated RBC 0.000 Nucleated RBC % 0.0 Sodium 139 Potassium 3.7 Chloride 100 Carbon Dioxide 29 Anion Gap 10 BUN 14 Creatinine 0.88 Estim Creat Clear Calc 59 Estimated GFR > 60 Glucose 153 H Calcium 8.9 Total Bilirubin 0.8 AST 37 ALT 33 Alkaline Phosphatase 161 H Total Protein 8.0 Albumin 4.0 Quality VTE Prophylaxis VTE prophylaxis: mechanical ordered and pharmacologic ordered
[2024-08-11 09:04] VITALS: BP 136/55; PULSE 61; O2SAT 98
[2024-08-11 09:05] VITALS: PULSE 61
[2024-08-11] MEDS: PANTOPRAZOLE 40 MG TABLET PO (09:05)
[2024-08-11] MEDS: ASPIRIN 81 MG ENTERIC TABLET PO (09:05)
[2024-08-11] MEDS: POTASSIUM CHLORIDE 20 MEQ ER TABLET 40 MEQ PO (09:05)
[2024-08-11] MEDS: HEPARIN SODIUM 5,000 UNITS/ML VIAL 5000 UNITS SUB-Q (09:05)
[2024-08-11] MEDS: METOPROLOL TARTRATE 50 MG TAB PO (09:05)
[2024-08-11] MEDS: OPTI-GEN TAB 1 TABLET PO (09:05)
[2024-08-11] MEDS: CLOPIDOGREL BISULFATE 75 MG TABLET PO (09:05)
[2024-08-11] MEDS: FUROSEMIDE 40 MG TABLET PO (09:05)
[2024-08-11] MEDS: lisinopriL 20 MG TABLET 40 MG PO (09:05)
[2024-08-11] MEDS: FERROUS SULFATE 325 MG TABLET DR PO (09:05)
[2024-08-11] MEDS: DICLOFENAC SODIUM 0.1% OPHTH SOLN 2.5 ML BOTTLE 1 DROP LEFT EYE (09:06)
--- NOTE | 2024-08-11 10:51 | P.DS_ITS ---
DS: Admitting Diagnosis Discharge Date 08/11/2024 Admitting Diagnosis Bilateral pleural effusion CHF exacerbation; Fluid overload Acute hypoxic respiratory failure DS: Discharge Diagnosis Discharge Diagnosis (1) CHF exacerbation: Code(s): I50.9 - Heart failure, unspecified Status: Acute (2) Aortic stenosis: Qualifiers: Cardiac valve disease etiology: nonrheumatic Qualified Code(s): I35.0 - Nonrheumatic aortic (valve) stenosis Code(s): I35.0 - Nonrheumatic aortic (valve) stenosis Status: Acute (3) Cardiomegaly: Code(s): I51.7 - Cardiomegaly Status: Acute (4) Essential (primary) hypertension: Code(s): I10 - Essential (primary) hypertension Status: Acute (5) Dyslipidemia: Code(s): E78.5 - Hyperlipidemia, unspecified Status: Acute (6) Weakness: Code(s): R53.1 - Weakness Status: Acute DS: Summary Hospital Course Reason for hospitalization: Shortness of breath Hospital Course: This is an 89-year-old male with a significant past medical history of hypertension, hyperlipidemia, coronary artery disease status post CABG, depression, iron deficiency anemia, GERD, BPH, CHF, aortic stenosis who presented to the hospital with increased shortness of breath and bilateral leg swelling. Workup in the hospital included a chest x-ray which showed small bilateral pleural effusions with interstitial airspace opacities in bilateral lower lung zones compatible with mild pulmonary edema, cardiomegaly. Chest CTA was negative for PE however did show bilateral moderate pleural effusions larger on the right side with adjacent atelectasis. Initial labs showed a normal white blood cell count of 7.4, hemoglobin 11.4, D-dimer 1.27, blood sugar ranging 166- 260, alkaline phosphate 148, troponin negative, proBNP 2870. Respiratory panel was negative for influenza a and B, RSV, COVID. EKG shown ectopic atrial rhythm with a rate of 56, QTC 436. Last echocardiogram was reviewed from 03/14/2022 which showed normal LV systolic function with an estimated EF of 60-65%, grade 1 diastolic dysfunction, moderate aortic valve stenosis, severe aortic valve sclerosis. Patient was given 40 mg IV push Lasix and metoprolol while in the ED. Lasix 40mg PO daily was continued throughout visit and additional echocardiogram was obtained and showed normal LV systolic function with an estimated EF of 65- 70%, grade 1 diastolic dysfunction, severe aortic valve calcification, moderate aortic valve stenosis, moderate mitral and tricuspid valve regurgitation. CXR obtained on 08/10 and showed improvement. O2 supplementation was weaned to the point where pt had o2 saturation of 98% on room air. He was able to work with PT/OT with minimal limitations. Home health was managed to be set up and pt otherwise with stable blood work and vital signs at time of discharge. She's otherwise stable for discharge at this time. Time Spent with Patient Time attestation: Total time spent providing and/or coordinating discharge services:45 Exam Narrative: General: In no acute distress, well nourished Cardiac: Normal S1 and S2. Murmur noted, no gallops or friction rubs, peripheral pulses intact. Respiratory: Lungs clear to auscultation, no adventitious lung sounds, currently on 1L NC Gastrointestinal: soft, non-distended, non-tender, normoactive bowel sounds. : voiding without difficulty. Extremities: moves all extremities well, 1+ edema BLE Neuro: Alert and oriented x4 DS: Data Data Completed and Pending Labs on day of discharge: Labs from last 24 hours 08/11/24 05:45 WBC 7.0 RBC 4.24 L Hgb 11.9 L Hct 37.3 L MCV 88.0 MCH 28.1 MCHC 31.9 L RDW 15.2 H Plt Count 248 MPV 9.3 Immature Gran % (Auto) 0.3 Neut % (Auto) 56.4 Lymph % (Auto) 27.9 [place] % (Auto) 8.6 H Eos % (Auto) 6.1 H Baso % (Auto) 0.7 Lymph # (Auto) 1.95 [place] # (Auto) 0.6 Eos # (Auto) 0.4 H Baso # (Auto) 0.1 Abs Immat Gran (auto) 0.02 Absolute Neuts (auto) 4.0 Absolute Nucleated RBC 0.000 Nucleated RBC % 0.0 Sodium 139 Potassium 3.7 Chloride 100 Carbon Dioxide 29 Anion Gap 10 BUN 14 Creatinine 0.88 Estim Creat Clear Calc 59 Estimated GFR > 60 Glucose 153 H Calcium 8.9 Total Bilirubin 0.8 AST 37 ALT 33 Alkaline Phosphatase 161 H Total Protein 8.0 Albumin 4.0 Imaging Radiologist's impression: XR chest 1V portable 08/08/24 IMPRESSION: 1. Small bilateral pleural effusions with interstitial and airspace opacities in the bilateral lower lung zones most likely mild pulmonary edema with differential including pneumonia. 2. Cardiomegaly. CTA chest PE protocol 08/08/24 IMPRESSION: 1. No pulmonary embolism. 2. Bilateral moderate pleural effusion larger on the right side with adjacent atelectasis versus pneumonia. XR chest 1V portable 08/10/24 IMPRESSION: 1. Small bilateral pleural effusions causing compressive atelectasis. 2. Bibasilar linear opacities may represent pneumonia, atelectasis versus scarr ing. Clinical correlation is recommended. Short-term total follow-up chest radiograph is recommended after appropriate clinical therapy. CA echo doppler color flow 08/09/24 Summary 1. Left ventricular chamber dimension is normal. 2. Left ventricular systolic function is normal, estimated at 65-70%. 3. There is moderately increased left ventricular wall thickness. 4. The left ventricular diastolic function is grade I diastolic dysfunction. 5. Right ventricular systolic function is normal. 6. Left atrial chamber dimension is severely enlarged. 7. There is severe aortic valve calcification. 8. There is moderate aortic valve stenosis with a peak velocity of 341 cm/s, mean gradient of 27 mmHg, and aortic valve area of 1.0 cm2. 9. There is mild aortic valve regurgitation. 10. There is moderate mitral valve regurgitation. 11. There is moderate tricuspid valve regurgitation; this may be underestimated due to eccentricity of the jet. 12. There is mild pulmonic regurgitation. Discharge Plan Discharge Attending physician on discharge: Spencer Galarza Discharging Clinician: Spencer Galarza Anticipated Discharge Date/Time: 08/11/24 10:49 Patient Disposition: Home with Home Health Service Activity: as tolerated Diet: as tolerated Discharge Instructions: Per Care Coordiantion Patient has been accepted to have [facility] for RN, PT,OT. [facility] will see you early next week. [phone] Take medications as prescribed. Continue taking Lasix 40mg once daily. Maintain a cardiac diet, 2 g sodium, do not over hydrate Remain active Monitor urine output Daily weights, if you gain more than 3 lb within 1 day or 5 lb in 1 week notify your primary care provider If you develop chest pain, shortness breath, fever greater than 101, nausea, or vomiting notify a clinician or come to the emergency department Follow-up with primary care provider within 1-2 weeks Thank you for [facility] for your healthcare needs Patient Instructions: Antibiotic Form, Clopidogrel (By mouth), Heart Failure (GEN), Pain Management in Older Adults (DC), Safe Use of Anticoagulants (GEN), Blood Thinners (GEN) Patient Language: Brazilian Stand Alone Forms: General Discharge Information Follow-up/Referrals: Barbara Jean MD [Primary Care Provider] - Discharge Medications: New furosemide 40 mg tablet 40 mg PO DAILY Qty: 30 0RF Continued [id number] oil 200 mg-300 mg- 100 mg-1,000 mg capsule 1 cap PO .pm Men 50 Plus Multivitamin [id number] mcg tablet 1 tablet PO DAILY clopidogrel [Plavix] 75 mg tablet 75 mg PO DAILY aspirin 81 mg tablet,delayed release (DR/EC) 81 mg PO DAILY lisinopril 40 mg tablet 40 mg PO DAILY metoprolol tartrate 50 mg tablet 50 mg PO BID ascorbate calcium (vitamin C) 500 mg tablet 500 mg PO .pm cholecalciferol (vitamin D3) 50 mcg (2,000 unit) capsule 50 mcg PO .pm magnesium citrate,mag oxide 250 mg capsule 250 mg PO DAILY pantoprazole 40 mg tablet,delayed release (DR/EC) 40 mg PO DAILY trazodone 50 mg tablet See Rx Instructions PO QHS PRN (Reason: sleep) Qty: 180 1RF Rx Instructions: 1-2 tablets orally every day at bedtime PRN; diclofenac sodium 0.1 % drops 1 drp LEFT EYE BID atorvastatin [Lipitor] 20 mg tablet 20 mg PO QPM triamcinolone acetonide 0.1 % cream 1 applic topical BID PRN (Reason: itching) Rx Instructions: legs tamsulosin 0.4 mg capsule 0.4 mg PO QPM amlodipine 10 mg tablet 10 mg PO .pm escitalopram oxalate 10 mg tablet 10 mg PO .pm Janumet XR 50-1,000 mg tablet, ER multiphase 24 hr 1 tablet PO QPM (DME) Blood Glucose Test Strip See Rx Instructions .Route Qty: 100 1RF Rx Instructions: Use to check BS daily (DME) lancets Misc See Rx Instructions .Route Qty: 100 1RF Rx Instructions: Use to kitty BS daily (DME) blood-glucose meter [OneTouch Verio Flex meter] Misc See Rx Instructions .Route Qty: 1 0RF Rx Instructions: check blood sugars q.day As directed ferrous sulfate 325 mg (65 mg iron) tablet,delayed release (DR/EC) 325 mg PO DAILY Qty: 100 2RF Date of admission: 08/09/24 07:40 Primary Care Provider: Barbara Jean Admitting Provider: Anthony Pryor Attending physician on admission: Spencer Galarza Condition: Stable Quality VTE Prophylaxis VTE prophylaxis: mechanical ordered and pharmacologic ordered Hospitalist MIPS Heart Failure (Exclusion) Patient has history of Heart Transplant or Left Ventricular Assistive Device?: No IF YES, STOP HERE Heart Failure (Qualifier) Patient has current or prior documentation of LVEF less than or equal to 40%, or mod/servere depressed LVSF?: No IF NO, STOP HERE
== END 2024-08-11 11:50 | disposition home health service (06) | DRG 291 ==
LOC: ANHED 13:46 → ANH3MEDSUR 18:39 → ANH2MED 20:37
PROVIDERS: Emergency Medicine; Internal Medicine; Admitting Provider Internal Medicine; Emergency Provider Student in an Organized Health Care Education/Training Program; PCP Family Medicine; Visit Provider Physician Assistant
DX: I11.0 Hypertensive heart disease with heart failure (principal); I50.33 Acute on chronic diastolic (congestive) heart failure; I35.0 Nonrheumatic aortic (valve) stenosis; E78.5 Hyperlipidemia, unspecified; I25.10 Atherosclerotic heart disease of native coronary artery without angina pectoris; D50.9 Iron deficiency anemia, unspecified; K21.9 Gastro-esophageal reflux disease without esophagitis; N40.0 Benign prostatic hyperplasia without lower urinary tract symptoms; E11.9 Type 2 diabetes mellitus without complications; I48.0 Paroxysmal atrial fibrillation; E66.9 Obesity, unspecified; Z66 Do not resuscitate; Z96.651 Presence of right artificial knee joint; Z95.1 Presence of aortocoronary bypass graft; Z95.5 Presence of coronary angioplasty implant and graft
CPT/HCPCS: 36415; 71045; 71275; 80053; 82948; 83735; 83880; 84484; 85025; 85380; 87637; 93005; 93306; 96374; 96375; 96376; 97110; 97161; 97166; 97530; 97535; 99285; A9270; G0378; J1644; J1938; Q9967

== ENCOUNTER 2024-08-15 10:52 | Outpatient (CLI) | payer MEDICARE, SELFPAY ==
--- OUTSIDE RECORDS SUMMARY | 2024-08-15 11:45 | XMS_ITS | Clinical Summary ---
Author Organization [facility] [address] Address [address] [place] [address] Care Team Providers Care News Gathering Technician Name Role Phone Lesia Jean MD Primary [...] a associated with type 2 diabetes mellitus ([facility]) 11/16/2017 Coronary artery disease invo lving [place] coronary artery of [place] heart without angina pectoris 05/17/2016 Overview (08/04/2016): Coronary artery disease involving [place] coronary artery of [place] heart without angina pectoris History of coronary [...] Encounters Date Type Department Care Team Description 08/14/2024 Telephone [facility] Cardiology [address] [place] [address] [place] [phone] Dimitrios Mcmahan MD 07/15/2024 9:30 AM CDT Office Visit [facility] Cardiology [address] [place] [address] [place] [phone] Dimitrios Mcmahan MD History of coronary artery bypass surgery (Primary Dx); Nonrheumatic aortic valve stenosis; Presence of Amulet left atrial appendage closure device 06/17/2024 Telephone [facility] Cardiology [address] [place] [address] [place] [phone] Bijan Alvares MD Med Management 06/04/2024 9:30 AM CLAIMS SORTER Office Visit [facility] Cardiology [address] [place] [address] [place] [phone] Svitlana Gomez NP Presence of Amulet left atrial appendage closure device (Primary Dx); PAF (paroxysmal atrial fibrillation) (HCC); Coronary artery disease involving [place] coronary artery of [place] heart without angina pectoris; Moderate aortic stenosis; [...] drink = 0.6 oz pur e alcohol) [employer] Utilities Answer Date Recorded In the past 12 months has [employer], oil, or water [employer] threatened to shut off services in your [...] week 04/05/2024 How often do you attend [facility] or anglican services? More than 4 times per year 04/05/2024 Do you belong to any clubs o r organizations such as mu-ism groups, unions, fraternal or athletic groups, or [...] any time in the past 12 m [facility], were you homeless or living in a residential (including now)? No 04/05/2024 Personal Safety Answer Date Recorded Have you ever been in or are you currently in a harmful physical or emotional relationship or is someone making you feel afraid or unsafe? Denies 04/04/2024 Sex and Gender Information Value Date Recorded Sex Assigned at Not on file Legal Sex Male 5:27 PM CLAIMS SORTER Gender Identity Not on file Sexual Orientation Not on file Obstetrics History Last Filed Vital Signs Vital Sign Reading Time Taken Comments Blood Pressure 118/80 07/15/2024 9:17 AM CDT Pulse 53 07/15/2024 9:17 AM CDT Temperature 36.6 C (97.8 F) 04/05/2024 3:56 AM CLAIMS SORTER Respiratory Rate 22 04/05/2024 11:47 AM CLAIMS SORTER Oxygen Saturation 96% 07/15/2024 9:17 AM [...] 05/01, 05/06/2020, Additional history exists Influenza Vaccine (Season Ended) 2024 02/19/2020, 02/21/2019, 02/01/2018, Additional history exists Fall Risk Assessment 04/05/2025 04/05/2024 eGFR 04/05/2025 04/05/2024, 04/01/2024 Medical Devices Implanted Type Area Cad Manager Device Identifier Shelf Expiration Date Model / Serial / Lot Huang Vascular System Closure Repair Femoral Artery Suture Mediated Perclose Prostyle 73732-82 - [id number] Implanted:Qty: 1 on 04/04/2024 by Bijan Alvares MD at [facility] [employer] 12/29/2025 [id number] / / [id number] [employer] Vascular Occluder Cvasc Maddie Flexible Braided Amplatzer Amulet 25mm Nitinol [id number] - [id number] Implanted:Qty: 1 on 04/04/2024 by Bijan Alvares MD at [facility] [employer] 08/29/2027 9-ACP2-01 0- 025 / / [id number] [employer] Vascade Mvp 6-12fr Venous Closure [id number] - [id number] Implanted:Qty: 1 on 04/04/2024 by Bijan Alvares MD at [facility] [employer] 08/24/2025 [id number]-10 [id number] / / [id number] C Procedures Procedure Name Priority Date/Time Associated Diagnosis Comments EGFR Routine 04/05/2024 2:42 AM CLAIMS SORTER POCT LIPID PANEL Routine 08/23/2022 8:35 AM CDT Coronary artery disease involving [place] coronary artery of [place] heart without angina pectoris Mixed diabetic hyperlipidemia associated with type 2 diabetes mellitus (CMS/HCC) (HCC) from Last 3 Months or Most Recently Relevant to Health Maintenance Results * eGFR (04/05/2024 2:42 AM CLAIMS SORTER) eGFR 86 >=60 mL/min/1. 73 m2 [...] last reviewed 2021. Blood 04/05/2024 2:42 AM CLAIMS SORTER 04/05/2024 3:08 AM CLAIMS SORTER Bijan Alvares MD LAB [place] [id number] [address] Department [place] [address] * POCT lipid panel (08/23/2022 8:35 AM [...] Relevant to Health Maintenance Insurance T MEDICARE T MEDICARE [facility] MEDICARE Care Teams News Gathering Technician Relationship Specialty Start Date End Date Lesia Jean MD PCP - General Family Practice 05/16/22
--- OUTSIDE RECORDS SUMMARY | 2024-08-15 11:45 | XMS_ITS | Clinical Summary ---
Author Organization [facility] Address [address] [place] [address] Care Team Providers Care Launch Manager Name Role Phone Unavailable Primary Care Provider [...] Td Vaccines ( 1 - Tdap) 07/24/1954 Pneumococcal Vaccine: 50+ Ye ars (1 of 1 - PCV) 1986 Zoster Vaccines (1 of 2) 1986 RSV Immunization or 60+ Years (1 - [...]
--- OUTSIDE RECORDS SUMMARY | 2024-08-15 11:45 | XMS_ITS | Encounter Summary ---
Author Organization [facility] Healthcare Address [address] [place] [address] Care Team Providers Care Transcriber Name Role Phone Lesia Jean MD Primary Care Provider Encounter Details Date Type Department Care Team (Late st Contact Info) Description 08/14/2024 Telephone [facility] Medical Group Cardiology [address] [facility] [address] [place] [address] Dimitrios Mcmahan MD [address] [facility] [address] [place] [address] Social History Tobacco Use Types Packs/Day Years Used Date Smoking Tobacco: Never Smokeless Tobacco: Never Alcohol Use Standard Drinks/Week Comments No 0 (1 standard drink = 0.6 oz pur e alcohol) [facility] Utilities Answer Date Recorded In the past 12 months has [employer], gas, oil, or water [employer] threatened to shut off services in your [...] How often do you attend chur or worship services? More than 4 times per year 04/05/2024 Do you belong to any clubs o r organizations such as yazdanism groups, unions, fraternal or athletic groups, or [...] any time in the past 12 m [facility], were you homeless or living in a halfway (including now)? No 04/05/2024 Personal Safety Answer Date Recorded Have you ever been in or are you currently in a harmful physical or emotional relationship or is someone making you feel afraid or unsafe? Denies 04/04/2024 Sex and Gender Information Value Date Recorded Sex Assigned at Not on file Legal Sex Male 5:27 PM ADMINISTRATIVE DIRECTOR Gender Identity Not on file Sexual Orientation Not on file documented as of this encounter Miscellaneous Notes * Telephone Encounter - Rosy Espinal RN - 08/15/2024 8:27 AM CDT Reviewed chart, it does not look like we were involved in pts care while he was admitted to the . I scanned in the discharge summary under media. Spoke with Layla the nurse and advised that they should reach out to pts PCP for orders. She verbalizes understanding. Will forward to CT as FYI. * Telephone Encounter - Rosy Espinal RN - 08/14/2024 3:15 PM CDT Spoke with Layla with [facility], she advised that pt was recently discharged from the hospital with CHFexacerbation and they are seeing pt now at home. Pt is taking lasix 40 mg daily and daughter is concerned that pt is not taking potassium with the lasix, they are also requesting an order for 2 layer compression stockings due to 3+ pitting edema to lower extremities. Advised that MJF and CT out of the office this week and will get back to her with an answer as soon as possible. Will forward to CT. Please advise. * Telephone Encounter - Alesia Cabral - 08/14/2024 2:51 PM CDT Layla hutchins/ [facility] called requesting to speak with [facility] nurse regarding compression and potassium. Please advise she needs a call back today. Thank you Contact: documented in this encounter Plan of Treatment Not on file documented as of this encounter Visit Diagnoses Not on filedocumented in this encounter Care Teams Transcriber Relationship Specialty Start Date End Date Lesia Jean MD PCP - General Family Practice 05/16/22 documented as of this encounter
--- OUTSIDE RECORDS SUMMARY | 2024-08-15 11:45 | XMS_ITS | Referral Summary ---
Author Organization [facility] [address] [address] [place] [address] [address] [place] [address] Care Team Providers Care Speech And Language Tutor Name Role Phone Lesia Jean MD Primary Care Provider Encounters Date Type Department Care Team Description 08/14/2024 Telephone [facility] Cardiology [address] [place] [address] [address] [place] [phone] Dimitrios Mcmahan MD 07/15/2024 9:30 AM CDT Office Visit [address] [place] [phone] Dimitrios Mcmahan MD History of coronary artery bypass surgery (Primary Dx); Nonrheumatic aortic valve stenosis; Presence of Amulet left atrial appendage closure device 06/17/[address] [place] [phone] Bijan Alvares MD Med Management 06/04/2024 9:30 AM RACING MECHANIC Office Visit [address] [place] [phone] Svitlana Gomez NP Presence of Amulet left atrial appendage closure device (Primary Dx); PAF (paroxysmal atrial fibrillation) (HCC); Coronary artery disease involving [place] coronary artery of [place] heart without angina pectoris; Moderate aortic stenosis; Hypertension associated with type 2 diabetes mellitus (HCC); Lymphedema from Last 3 Months Allergies Active [...] a associated with type 2 diabetes mellitus ([facility]) 11/16/2017 Coronary artery disease invo lving [place] coronary artery of [place] heart without angina pectoris 05/17/2016 Overview (08/04/2016): Coronary artery disease involving [place] coronary artery of [place] heart without angina pectoris History of coronary [...] drink = 0.6 oz pur e alcohol) [facility] Utilities Answer Date Recorded In the [...] any clubs o r organizations such as mandaeism groups, unions, fraternal or athletic groups, or [...] any time in the past [address] [facility], were you homeless or living in a retirement (including now)? No 04/05/2024 Personal Safety Answer Date Recorded Have you ever been in or are you currently in a harmful physical or emotional relationship or is someone making you feel afraid or unsafe? Denies 04/04/2024 Sex and Gender Information Value Date Recorded Sex Assigned at Not on file Legal Sex Male 5:27 PM RACING MECHANIC Gender Identity Not on file Sexual Orientation Not on file Last Filed Vital Signs Vital Sign Reading Time Taken Comments Blood Pressure 118/80 07/15/2024 9:17 AM CDT Pulse 53 07/15/2024 9:17 AM CDT Temperature 36.6 C (97.8 F) 04/05/2024 3:56 AM RACING MECHANIC Respiratory Rate 22 04/05/2024 11:47 AM RACING MECHANIC Oxygen Saturation 96% 07/15/2024 9:17 AM CDT Inhaled Oxygen Concentration - - Weight 104.3 kg (230 lb) 07/15/2024 9:17 AM CDT per Height 175.3 cm (5' 9 ) 07/15/2024 9:17 AM CDT Body Mass Index 33.97 07/15/2024 9:17 AM CDT Plan of Treatment Not on file Medical Devices Implanted Type Area Boilermaker Welder Device Identifier Shelf Expiration Date Model / Serial / Lot Huang Vascular System Closure Repair Femoral Artery Suture Mediated Perclose Prostyle 63542-02 - [id number] Implanted:Qty: 1 on 04/04/2024 by Bijan Alvares MD at [facility] [employer] 12/29/2025 [id number] / / [id number] [employer] V[employer] Occluder Cvasc Maddie Flexible Braided Amplatzer Amulet 25mm Nitinol [id number] - [id number] Implanted:Qty: 1 on 04/04/2024 by Bijan Alvares MD at [facility] [employer] 08/29/2027 9-ACP2-01 0- 025 / / [id number] [employer] Vascade Mvp 6-12fr Venous Closure [id number] - [id number] Implanted:Qty: 1 on 04/04/2024 by Bijan Alvares MD at [facility] [employer] 08/24/2025 800-612C-10 [id number] / / [id number] C Procedures Procedure Name Priority Date/Time Associated Diagnosis Comments EGFR Routine 04/05/2024 2:42 AM RACING MECHANIC POCT LIPID PANEL Routine 08/23/2022 8:35 AM CDT Coronary artery disease involving [place] coronary artery of [place] heart without angina pectoris Mixed diabetic hyperlipidemia associated with type 2 diabetes mellitus ([facility]/HCC) ([facility]) from Last 3 Months or Most Recently Relevant to Health Maintenance Results * eGFR (04/05/2024 2:42 AM RACING MECHANIC) eGFR 86 >=60 mL/min/1. 73 m2 Comment: [...] last reviewed 2021. Blood 04/05/2024 2:42 AM RACING MECHANIC 04/05/2024 3:08 AM RACING MECHANIC Bijan Alvares MD LAB BLOOD ORDERABLES Final Resul t [place] [address] [id number] [address] Department [place] [address] * POCT lipid panel (08/23/2022 [...] Most Recently Relevant to Health Maintenance Insurance [facility] MEDICARE [facility] Address: [facility] [id number] [place] [address] [employer] MEDICARE A[employer] MEDICARE Care Teams Speech And Language Tutor Relationship Specialty Start Date End Date Lesia Jean MD PCP - General Family Practice 05/16/22
[2024-08-15 13:04] LABS: Alanine Aminotransferase 31 U/L (6-50); Albumin Level 3.9 g/dL (3.5-5.1); Alkaline Phosphatase 146 U/L (38-126); Anion Gap 9 mmol/L (4-12); Aspartate Amino Transferase 76 U/L (17-59); Bilirubin,Total 0.9 mg/dL (0.2-1.3); Blood Urea Nitrogen 17 mg/dL (9-20); Calcium 8.8 mg/dL (8.4-10.2); Carbon Dioxide 30 mmol/L (22-30); Chloride 100 mmol/L (98-107); Estimated Glomerular Filt Rate > 60; Glucose 164 mg/dL (65-110); Potassium 3.5 mmol/L (3.4-5.0); Sodium 139 mmol/L (137-145)
== END 2024-08-15 10:53 | disposition home or self-care (01) ==
PROVIDERS: PCP Family Medicine; Visit Provider Family Medicine
DX: I10 Essential (primary) hypertension (principal)
CPT/HCPCS: 36415; 80053

== ENCOUNTER 2024-08-27 09:53 | Outpatient (CLI) | payer MEDICARE, SELFPAY ==
[2024-08-27 10:22] LABS: Anion Gap 7 mmol/L (4-12); Blood Urea Nitrogen 17 mg/dL (9-20); Calcium 8.9 mg/dL (8.4-10.2); Carbon Dioxide 29 mmol/L (22-30); Chloride 101 mmol/L (98-107); Estimated Glomerular Filt Rate > 60; Glucose 145 mg/dL (65-110); Potassium 3.8 mmol/L (3.4-5.0); Sodium 137 mmol/L (137-145)
--- OUTSIDE RECORDS SUMMARY | 2024-08-27 11:03 | XMS_ITS | Clinical Summary ---
Author Organization [facility] Address [address] [place] [address] Care Team Providers Care Line Assembler Aircraft Name Role Phone Unavailable Primary Care Provider [...]
--- OUTSIDE RECORDS SUMMARY | 2024-08-27 11:03 | XMS_ITS | Clinical Summary ---
Author Organization [facility] [address] Address [address] [place] [address] Care Team Providers Care Engineer Chief Name Role Phone Lesia Jean MD Primary [...] a associated with type 2 diabetes mellitus ([facility]) 11/16/2017 Coronary artery disease invo lving [place] coronary artery of big [place] heart without angina pectoris 05/17/2016 Overview (08/04/2016): Coronary artery disease involving big [place] coronary artery of [place] heart without angina pectoris History of coronary [...] Type Department Care Team Description 08/14/2024 Telephone [facility] Cardiology [address] [place] [address] [place] [phone] Dimitrios Mcmahan MD 07/15/2024 9:30 AM CDT Office Visit [facility] Cardiology [address] [place] [address] [place] [phone] Dimitrios Mcmahan MD History of coronary artery bypass surgery (Primary Dx); Nonrheumatic aortic valve stenosis; Presence of Amulet left atrial appendage closure device 06/17/2024 Telephone [facility] Cardiology [address] [place] [address] [place] [phone] Bijan Alvares MD Med Management 06/04/2024 9:30 AM MECHANICAL ORDNANCE ASSEMBLER Office Visit [facility] Cardiology [address] [place] [address] [place] [phone] Svitlana Gomez NP Presence of Amulet left atrial appendage closure device (Primary Dx); PAF (paroxysmal atrial fibrillation) (HCC); Coronary artery disease involving [place] coronary artery of big [place] heart without angina pectoris; Moderate aortic stenosis; [...] drink = 0.6 oz pur e alcohol) [employer] Utilities Answer Date Recorded In the past 12 months has [employer], oil, or water [employer] threatened to shut off services in your [...] week 04/05/2024 How often do you attend [facility] or adventism services? More than 4 times per year 04/05/2024 Do you belong to any clubs o r organizations such as alevism groups, unions, fraternal or athletic groups, or [...] any time in the past 12 m [facility], were you homeless or living in a usp (including now)? No 04/05/2024 Personal Safety Answer Date Recorded Have you ever been in or are you currently in a harmful physical or emotional relationship or is someone making you feel afraid or unsafe? Denies 04/04/2024 Sex and Gender Information Value Date Recorded Sex Assigned at Not on file Legal Sex Male 5:27 PM MECHANICAL ORDNANCE ASSEMBLER Gender Identity Not on file Sexual Orientation Not on file Obstetrics History Last Filed Vital Signs Vital Sign Reading Time Taken Comments Blood Pressure 118/80 07/15/2024 9:17 AM CDT Pulse 53 07/15/2024 9:17 AM CDT Temperature 36.6 C (97.8 F) 04/05/2024 3:56 AM MECHANICAL ORDNANCE ASSEMBLER Respiratory Rate 22 04/05/2024 11:47 AM MECHANICAL ORDNANCE ASSEMBLER Oxygen Saturation 96% 07/15/2024 9:17 AM CDT [...] 04/05/2024, 04/01/2024 Medical Devices Implanted Type Area Manager Of Tax Device Identifier Shelf Expiration Date Model / Serial / Lot Huang Vascular System Closure Repair Femoral Artery Suture Mediated Perclose Prostyle 81336-91 - [id number] Implanted:Qty: 1 on 04/04/2024 by Bijan Alvares MD at [facility] [employer] 12/29/2025 [id number] / / [id number] [employer] Occluder Cvasc Maddie Flexible Braided Amplatzer Amulet 25mm Nitinol [id number] - [id number] Implanted:Qty: 1 on 04/04/2024 by Bijan Alvares MD at [facility] [employer] 08/29/2027 9-ACP2-01 0- 025 / / [id number] [employer] Vascade Mvp 6-12fr Venous Closure [id number] - [id number] Implanted:Qty: 1 on 04/04/2024 by Bijan Alvares MD at [facility] [employer] 08/24/2025 800-612C-10 [id number] / / [id number] Procedures Procedure Name Priority Date/Time Associated Diagnosis Comments EGFR Routine 04/05/2024 2:42 AM MECHANICAL ORDNANCE ASSEMBLER POCT LIPID PANEL Routine 08/23/2022 8:35 AM CDT Coronary artery disease involving [place] coronary artery of big [place] heart without angina pectoris Mixed diabetic hyperlipidemia associated with type 2 diabetes mellitus (CMS/HCC) (HCC) from Last 3 Months or Most Recently Relevant to Health Maintenance Results * eGFR (04/05/2024 2:42 AM MECHANICAL ORDNANCE ASSEMBLER) eGFR 86 >=60 mL/min/1. 73 m2 Comment: [...] last reviewed 2021. Blood 04/05/2024 2:42 AM MECHANICAL ORDNANCE ASSEMBLER 04/05/2024 3:08 AM MECHANICAL ORDNANCE ASSEMBLER Bijan Alvares MD LAB [place] [id number] [address] Department [place] [address] * POCT lipid panel (08/23/2022 8:35 AM [...] Health Maintenance Insurance T MEDICARE T MEDICARE [facility] MEDICARE Care Teams Engineer Chief Relationship Specialty Start Date End Date Lesia Jean MD PCP - General Family Practice 05/16/22
--- OUTSIDE RECORDS SUMMARY | 2024-08-27 11:03 | XMS_ITS | Encounter Summary ---
Author Organization [facility] Healthcare Address [address] [place] [address] Care Team Providers Care Juvenile Detention Officer Name Role Phone Lesia Jean MD Primary Care Provider Encounter Details Date Type Department Care Team (Late st Contact Info) Description 08/14/2024 Telephone [facility] Medical [facility] Cardiology [address] [facility] [address] [place] [phone] Dimitrios Mcmahan MD [address] [facility] [address] [place] [address] Social History Tobacco Use Types Packs/Day Years Used Date Smoking Tobacco: Never Smokeless Tobacco: Never Alcohol Use Standard Drinks/Week Comments No 0 (1 standard drink = 0.6 oz pur e alcohol) [facility] Utilities Answer Date Recorded In the past 12 months has [email or web address], gas, oil, or water [employer] threatened to shut off services in your [...] How often do you attend chur or spiritism services? More than 4 times per year 04/05/2024 Do you belong to any clubs o r organizations such as yazidism groups, unions, fraternal or athletic groups, or [...] any time in the past 12 m [facility], were you homeless or living [...] on file Legal Sex Male 5:27 PM BOTTLE PACKER Gender Identity Not on file Sexual Orientation [...] PM CDT Spoke with Layla with [facility], she advised that pt was recently discharged [...] Home Care called requesting to speak with [facility] nurse regarding compression and potassium. Please advise she needs a call back today. Thank you Contact: documented in this encounter Plan of Treatment Not on file documented as of this encounter Visit Diagnoses Not on filedocumented in this encounter Care Teams Juvenile Detention Officer Relationship Specialty Start Date End Date Lesia Jean MD PCP - General Family Practice 05/16/22 documented as of this encounter
--- OUTSIDE RECORDS SUMMARY | 2024-08-27 11:03 | XMS_ITS | Referral Summary ---
Author Organization [facility] [address] [address] [place] [address] [address] [place] [address] Care Team Providers Care Water Softener Service Supervisor Name Role Phone Lesia Jean MD Primary Care Provider Encounters Date Type Department Care Team Description 08/14/2024 Telephone [facility] Cardiology [address] [place] [address] [address] [place] [phone] Dimitrios Mcmahan MD 07/15/2024 9:30 AM CDT Office Visit [address] [place] [phone] Dimitrios Mcmahan MD History of coronary artery bypass surgery (Primary Dx); Nonrheumatic aortic valve stenosis; Presence of Amulet left atrial appendage closure device 06/17/[address] [place] [phone] Bijan Alvares MD Med Management 06/04/2024 9:30 AM DRYING TUMBLER OPERATOR Office Visit [address] [place] [phone] Svitlana Gomez NP Presence of Amulet left atrial appendage closure device (Primary Dx); PAF (paroxysmal atrial fibrillation) (HCC); Coronary artery disease involving eastern shoshone coronary artery of eastern shoshone heart without angina pectoris; Moderate aortic stenosis; [...] diabetes mellitus ([facility]) 11/16/2017 Coronary artery disease invo lving eastern shoshone coronary artery of eastern [place] heart without angina pectoris 05/17/2016 Overview (08/04/2016): Coronary artery disease involving eastern [place]one coronary artery of eastern [place]osh[place] heart without angina pectoris History of coronary [...] drink = 0.6 oz pur e alcohol) [facility] Utilities Answer Date Recorded In the [...] often do you attend chur ch or oriental orthodox services? More than 4 times per year 04/05/2024 Do you belong to any clubs o r organizations such as spiritism groups, unions, fraternal or athletic groups, or [...] any time in the past 12 m [facility], were you homeless or living in a custodial (including now)? No 04/05/2024 Personal Safety Answer Date Recorded Have you ever been in or are you currently in a harmful physical or emotional relationship or is someone making you feel afraid or unsafe? Denies 04/04/2024 Sex and Gender Information Value Date Recorded Sex Assigned at Not on file Legal Sex Male 5:27 PM DRYING TUMBLER OPERATOR Gender Identity Not on file Sexual Orientation Not on file Last Filed Vital Signs Vital Sign Reading Time Taken Comments Blood Pressure 118/80 07/15/2024 9:17 AM CDT Pulse 53 07/15/2024 9:17 AM CDT Temperature 36.6 C (97.8 F) 04/05/2024 3:56 AM DRYING TUMBLER OPERATOR Respiratory Rate 22 04/05/2024 11:47 AM DRYING TUMBLER OPERATOR Oxygen Saturation 96% 07/15/2024 9:17 AM CDT Inhaled Oxygen Concentration - - Weight 104.3 kg (230 lb) 07/15/2024 9:17 AM CDT per Height 175.3 cm (5' 9 ) 07/15/2024 9:17 AM CDT Body Mass Index 33.97 07/15/2024 9:17 AM CDT Plan of Treatment Not on file Medical Devices Implanted Type Area Defensive Secondary Coach Device Identifier Shelf Expiration Date Model / Serial / Lot [employer] System Closure Repair Femoral Artery Suture Mediated Perclose Prostyle 95631-55 - [id number] Implanted:Qty: 1 on 04/04/2024 by Bijan Alvares MD at [facility] [employer] 12/29/2025 [id number] / / [id number] [employer] Occluder Cvasc Maddie Flexible Braided Amplatzer Amulet 25mm Nitinol [id number] - [id number] Implanted:Qty: 1 on 04/04/2024 by Bijan Alvares MD at [facility] [employer] 08/29/2027 [id number] / / [id number] [employer] Vascade Mvp 6-12fr Venous Closure [id number] - [id number] Implanted:Qty: 1 on 04/04/2024 by Bijan Alvares MD at [facility] [employer] 08/24/2025 [id number] / / [id number] Procedures Procedure Name Priority Date/Time Associated Diagnosis Comments EGFR Routine 04/05/2024 2:42 AM DRYING TUMBLER OPERATOR POCT LIPID PANEL Routine 08/23/2022 8:35 AM CDT Coronary artery disease involving eastern [place]osh[place] coronary artery of eastern shosh[place] heart without angina pectoris Mixed diabetic hyperlipidemia associated with type 2 diabetes mellitus ([facility]/HCC) ([facility]) from Last 3 Months or Most Recently Relevant to Health Maintenance Results * eGFR (04/05/2024 2:42 AM DRYING TUMBLER OPERATOR) eGFR 86 >=60 mL/min/1. 73 m2 [...] last reviewed 2021. Blood 04/05/2024 2:42 AM DRYING TUMBLER OPERATOR 04/05/2024 3:08 AM DRYING TUMBLER OPERATOR Bijan Alvares MD LAB BLOOD ORDERABLES Final Resul t [facility] [address] [address] [place] [place] [address] * POCT lipid panel (08/23/2022 [...] Most Recently Relevant to Health Maintenance Insurance [facility] MEDICARE [facility], [facility]IC[facility] Address: [facility] [id number] [place] [address] [employer] MEDICARE AETNA MEDICARE Care Teams Water Softener Service Supervisor Relationship Specialty Start Date End Date Lesia Jean MD PCP - General Family Practice 05/16/22
== END 2024-08-27 09:54 | disposition home or self-care (01) ==
PROVIDERS: PCP Family Medicine; Visit Provider Family Medicine
DX: E87.6 Hypokalemia (principal)
CPT/HCPCS: 36415; 80048

== ENCOUNTER 2025-01-07 12:19 | Inpatient (IN) | payer MEDICARE, SELFPAY ==
[2025-01-07] VITALS (14 sets, daily range): BP systolic 140–168; BP diastolic 62–95; PULSE 54–78; RESP 16–23; TEMP 36.4–37; O2SAT 90–97; BMI 35.6
--- NOTE | ~2025-01-07 | XR_ITS ---
Examination: XR chest 2V Clinical History: sob Comparison: 08/10/2024 Technique: PA and Lateral Findings: Cardiomegaly. Pleural effusions with bibasilar atelectasis. Diffusely increased interstitial markings. No acute bony abnormality. IMPRESSION: 1. Pleural effusions with bibasilar atelectasis and/or airspace disease. 2. Mild interstitial pulmonary edema. Reviewed, dictated and finalized at location R.
--- NOTE | ~2025-01-07 | XR_ITS ---
Examination: XR chest 1V portable Clinical History: shortness of breath Comparison: X-rays 01/07/2025 Technique: Portable AP Findings: Cardiomegaly. Improving interstitial markings and pleural effusions. No acute bony abnormality. Round probable artifact overlying humeral neck, given absence on prior x-ray. IMPRESSION: 1. Improving interstitial pulmonary edema and pleural effusions. Reviewed, dictated and finalized at location R.
--- NOTE | 2025-01-07 12:30 | ECG_ITS ---
Test Date: 2025-01-07 12:39:57 Measurements Intervals [place] Rate: 57 P: 0 [place]: 0 QRS: -7 QRSD: 115 T: 190 QT: 476 QTc: 466 Interpretive Statements NON SINUS, ECTOPIC ATRIAL RHYTHM WITH FREQUENT PVCS NONSPECIFIC ST AND T-WAVE ABNORMALITY CONSIDER PREVIOUS INFERIOR INFARCTION ABNORMAL ECG Compared to ECG 08/08/2024 13:29:22 Ventricular premature complex(es) now present Electronically Signed On 01-08-2025 15:46:31 CDT by Dimitrios Mcmahan M.D.
[2025-01-07 13:00] LABS: Hematocrit 35.1 % (42.0-52.0); Hemoglobin 11.7 g/dL (14.0-18.0); Immature Granulocyte Percent A 0.6 % (0-0.5); Lymphocytes Absolute Auto 1.45 K/mm3 (0.9-3.2); Mean Corpuscular HGB Conc 33.3 g/dl (32-36); Mean Corpuscular Hemoglobin 28.7 pg (26-34); Mean Corpuscular Volume 86.0 fl (80-100); Nucleated Red Blood Cells Absolute Auto 0.000 K/mm3 (0.0-0.012); Nucleated Red Blood Cells Perc 0.0 % (0.0-0.2); Platelet Count Result 189 k/mm3 (150-375); Red Blood Count 4.08 M/mm3 (4.6-6.20); White Blood Count 9.6 K/mm3 (4.5-10.0)
[2025-01-07 13:12] LABS: Alanine Aminotransferase 51 U/L (6-50); Albumin Level 3.7 g/dL (3.5-5.1); Alkaline Phosphatase 193 U/L (38-126); Anion Gap 9 mmol/L (4-12); Aspartate Amino Transferase 56 U/L (17-59); Bilirubin,Total 1.7 mg/dL (0.2-1.3); Blood Urea Nitrogen 16 mg/dL (9-20); Calcium 8.7 mg/dL (8.4-10.2); Carbon Dioxide 27 mmol/L (22-30); Chloride 98 mmol/L (98-107); Estimated CRCL calculation 67 ml/min; Estimated Glomerular Filt Rate > 60; Glucose 273 mg/dL (65-110); Potassium 3.9 mmol/L (3.4-5.0); Sodium 134 mmol/L (137-145); Total Protein 7.3 g/dL (6.3-8.2)
[2025-01-07 13:13] LABS: INR 1.1; Partial Thromboplastin Time 27.2 Seconds (22.3-36.8); Prothrombin Time 14.2 Seconds (11.1-14.7)
[2025-01-07 13:21] LABS: NT Pro B Type Natriuretic Pept 6110 pg/mL (19.9-100)
[2025-01-07 13:25] LABS: Troponin I 0.027 ng/mL (0.000-0.034)
--- NOTE | 2025-01-07 13:28 | ED.SOB ---
HPI - SOB/Dyspnea General Chief Complaint: Shortness of Breath/Dyspnea Stated Complaint: SOB since yesterday Time Seen by Provider: 01/07/25 12:52 History of Present Illness HPI Narrative: this is a an 89-year-old male with history of dementia, Parkinson's, CHF, diabetes, hyperlipidemia, hypertension, paroxysmal AFib who presents to the ED for shortness of breath. Patient states that yesterday, he had onset of shortness of breath that became much worse this morning. He states he was given a breathing treatment by EMS and has been feeling much better since then. He does not wear oxygen at home baseline. Family states that patient has had episodes of CHF in the past. He was diagnosed with AFib last year an ambulance placed and is no longer on anticoagulation due to that. Denies fevers, chills, chest pain, nausea, vomiting, diarrhea, constipation, abdominal pain. Patient is unsure of his driveway. Related Data Home Medications ?Medication ?Instructions ?Recorded ?Confirmed ?Last Taken ?Type omega3-dha 200 mg-epa 300 mg-othr 1 cap PO .pm 08/17/22 12/24/24 08/07/24 History om3 100 mg-fish oil 1,000 mg capsule lisinopril 40 mg tablet 40 mg PO DAILY 06/20/23 12/24/24 08/08/24 History metoprolol tartrate 50 mg tablet 50 mg PO BID 07/10/23 12/24/24 08/08/24 09:33 History ascorbate calcium (vitamin C) 500 500 mg PO .pm 11/01/23 12/24/24 08/07/24 History mg tablet magnesium citrate,mag oxide 250 mg 250 mg PO DAILY 12/12/23 12/24/24 08/08/24 History capsule aspirin 81 mg tablet,delayed 81 mg PO DAILY 04/12/24 12/24/24 08/08/24 History release clopidogrel 75 mg tablet (Plavix) 75 mg PO DAILY 04/12/24 12/24/24 08/08/24 History pobbovvl-br-dqxif 300 mcg-K 60 1 tablet PO DAILY 04/12/24 12/24/24 08/08/24 History mcg-lycop 600 mcg-lutein 300 mcg tablet (Men 50 Plus Multivitamin) atorvastatin 20 mg tablet (Lipitor) 20 mg PO QPM 08/08/24 12/24/24 08/07/24 History diclofenac sodium 0.1 % eye drops 1 drp LEFT EYE BID 08/08/24 12/24/24 08/08/24 09:00 History cholecalciferol (vitamin D3) 50 50 mcg PO QPM 08/15/24 12/24/24 Unknown History mcg (2,000 unit) capsule docusate sodium 50 mg capsule 50 mg PO DAILY 11/26/24 12/24/24 Unknown History sennosides 8.6 mg capsule (senna) 8.6 mg PO DAILY 11/26/24 12/24/24 Unknown History amlodipine 10 mg tablet 10 mg PO DAILY 12/24/24 12/24/24 Unknown History polyethylene glycol 3350 17 17 g PO DAILY PRN 12/24/24 12/24/24 Unknown History gram/dose oral powder (Miralax) potassium chloride 20 mEq 40 meq PO BID 12/24/24 12/24/24 Unknown History tablet,extended release Allergies Allergy/AdvReac Type Severity Reaction Status Date / Time meperidine Allergy Unknown Hallucinati Verified 01/07/25 12:35 ons Review of Systems Review of Systems: Gen.: Denies fevers or chills Eyes: Denies eye pain or visual change ENT: Denies congestion Respiratory: As per HPI CV: Denies chest pain or palpitations GI: Denies abdominal pain nausea, emesis or diarrhea denies burning, urgency, frequency or hematuria Musculoskeletal: Denies back pain or muscle pain Neuro: Denies numbness, tingling, weakness or focal weakness Skin: Denies rash Except as documented, all other systems reviewed and negative [facility] Past Medical History Medical History Acute pancreatitis (~06/2023) Parkinsons disease Dementia of the Alzheimer's type Insomnia Lymphedema of lower extremity Dermatitis Paroxysmal atrial fibrillation Abdominal pain GURPREET (acute kidney injury) Leukocytosis Elevated liver enzymes Chronic venous insufficiency of lower extremity Dyslipidemia Aortic stenosis Hypokalemia Benign prostatic hyperplasia Type 2 diabetes mellitus Atherosclerotic heart disease of [place] coronary artery with other forms of angina pectoris Essential (primary) hypertension Surgical History Surgical History 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 Rice Family History Family History Father Depression, Onset Age: 35 Family history of suicide, Onset Age: 35 Mother Family history of malignant neoplasm of ovary, Onset Age: 77 Other Family history of cardiovascular disease Hypertension Social History Social History Smoking status: Never smoker Alcohol intake: never Substance use: never Substance use type: does not use Do You Feel Safe in your Home?: Yes Lack of Transportation: No Lack of Food: Never True Current Housing: I Have Housing Concerned About Future Housing: No Difficulty Paying Gas/Electric Bills: No Difficulty Paying for Meds: No Currently Unemployed: No Education: Master's Degree or Higher Difficulty w/ Childcare or Family Care: No Living arrangements: with family Additional living arrangements comments: and daughter Occupation/Education: retired 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 On 3 L nasal cannula. CARDIOVASCULAR: Regular rate and rhythm without murmurs rubs or gallops. ABDOMINAL: Soft, nontender, nondistended, no rebound or guarding MUSCULOSKELETAl: 4+ pitting edema to the bilateral lower extremities up to the level of the thigh NEURO: Awake and alert. Following commands, speech normal, no focal deficits SKIN:: 4 x 5 cm area of erythema to the right anterior lower leg, evidence of a healing cellulitis PSYCHIATRIC: Normal affect/mood, Course Vital Signs Vital signs: Vital Signs Temperature 98.6 F 01/07/25 12:18 Pulse Rate 62 01/07/25 12:18 Respiratory Rate 23 H 01/07/25 12:18 Blood Pressure 159/64 H 01/07/25 12:18 Pulse Oximetry 90 01/07/25 12:18 Oxygen Delivery Room Air 01/07/25 12:18 Temperature 97.6 F 01/07/25 15:06 Pulse Rate 62 01/07/25 15:43 Respiratory Rate 19 01/07/25 15:43 Blood Pressure 143/95 H 01/07/25 15:43 Pulse Oximetry 94 01/07/25 15:43 Oxygen Delivery Nasal Cannula 01/07/25 13:42 Oxygen Flow Rate 3 01/07/25 13:42 MDM - SOB/Dyspnea MDM Narrative Medical decision making narrative: 89-year-old male presents to the ED for shortness of breath. On initial evaluation, patient was in no acute distress, afebrile, hemodynamically stable. He had diminished breath sounds at bilateral bases he was on 3 L nasal cannula up from baseline of no oxygen. Abdomen soft and nontender. He had significant pitting edema of the bilateral lower extremities up to the thighs. He had a mild anemia at 11.7. BNP elevated at 6000. Chest x-ray showed evidence of pulmonary vascular congestion. Patient is unsure of his dry weight but family does note that he seems larger than normal. Patient was given 40 mg Lasix IV. He had desats to the low 90s oxygen is off. Patient will require admission for aggressive diuresis. Case discussed with hospitalist who will admit the patient. Differential Diagnosis Differential diagnosis: Likely acute exacerbation of chronic obstructive airways disease, congestive heart failure and other (PNA, electrolyte abnormality, cellulitis) Medical Records Attestation: I reviewed the patient's medical records. Lab Data Attestation: I reviewed the patient's lab results. 01/07/25 12:53 01/07/25 12:53 Labs: Lab Results 01/07/25 01/07/25 Range/Units 12:53 14:12 WBC 9.6 (4.5-10.0) K/mm3 RBC 4.08 L (4.6-6.20) M/mm3 Hgb 11.7 L (14.0-18.0) g/dL Hct 35.1 L (42.0-52.0) % MCV 86.0 (80-100) fl MCH 28.7 (26-34) pg MCHC 33.3 (32-36) g/dl RDW 14.8 H (11.5-14.5) % Plt Count 189 (150-375) k/mm3 MPV 9.3 (7.4-10.4) fl Immature Gran % (Auto) 0.6 H (0-0.5) % Neut % (Auto) 73.8 H (45.5-73.1) % Lymph % (Auto) 15.2 L (18.3-44.2) % [place] % (Auto) 9.4 H (2.6-8.5) % Eos % (Auto) 0.7 (0-4.4) % Baso % (Auto) 0.3 (0.2-1.2) % Lymph # (Auto) 1.45 (0.9-3.2) K/mm3 [place] # (Auto) 0.9 H (0.1-0.6) K/mm3 Eos # (Auto) 0.1 (0-0.3) K/mm3 Baso # (Auto) 0.0 (0.0-0.1) K/mm3 Abs Immat Gran (auto) 0.06 H (0.00-0.031) K/mm3 Absolute Neuts (auto) 7.1 H (1.3-6.7) K/mm3 Absolute Nucleated RBC 0.000 (0.0-0.012) K/mm3 Nucleated RBC % 0.0 (0.0-0.2) % PT 14.2 (11.1-14.7) Seconds INR 1.1 APTT 27.2 (22.3-36.8) Seconds Sodium 134 L (137-145) mmol/L Potassium 3.9 (3.4-5.0) mmol/L Chloride 98 (98-107) mmol/L Carbon Dioxide 27 (22-30) mmol/L Anion Gap 9 (4-12) mmol/L BUN 16 (9-20) mg/dL Creatinine 0.84 (0.7-1.3) mg/dL Estim Creat Clear Calc 67 ml/min Estimated GFR > 60 (59 - ) Glucose 273 H (65-110) mg/dL Calcium 8.7 (8.4-10.2) mg/dL Total Bilirubin 1.7 H (0.2-1.3) mg/dL AST 56 (17-59) U/L ALT 51 H (6-50) U/L Alkaline Phosphatase 193 H (38-126) U/L Troponin I 0.027 (0.000-0.034) ng/mL NT-Pro-B Natriuret Pep 6110 H (19.9-100) pg/mL Total Protein 7.3 (6.3-8.2) g/dL Albumin 3.7 (3.5-5.1) g/dL Influenza A (RT-PCR) Negative (Negative) Influenza B (RT-PCR) Negative (Negative) RSV (RT-PCR) Negative (Negative) SARS-CoV-2 RNA (RT-PCR) Negative (Negative) Imaging Data Radiologist's impression: Impressions Chest X-Ray 01/07/25 13:20 IMPRESSION: 1. Pleural effusions with bibasilar atelectasis and/or airspace disease. 2. Mild interstitial pulmonary edema. ECG Data EKG #1: Attestation: I personally reviewed and interpreted this ECG as follows: ECG completion date: 01/07/25 ECG completion time: 12:39 Interpretation: AFib with slow ventricular response, frequent PVCs, Q-waves in inferior leads, no acute ST or T-wave changes Discharge Plan Discharge Clinical Impression: Acute hypoxic respiratory failure Acute exacerbation of CHF (congestive heart failure) Qualifiers: Heart failure type: unspecified Qualified Code(s): I50.9 - Heart failure, unspecified Anemia Qualifiers: Anemia type: unspecified type Qualified Code(s): D64.9 - Anemia, unspecified Dementia Qualifiers: Dementia type: Parkinson's disease Dementia severity: moderate Dementia behavioral or psychological symptom: without behavioral, psychotic, or mood disturbance or anxiety Qualified Code(s): G20.A1 - Parkinson's disease without dyskinesia, without mention of fluctuations; F02.B0 - Dementia in other diseases classified elsewhere, moderate, without behavioral disturbance, psychotic disturbance, mood disturbance, and anxiety Patient Disposition: Still a Patient Condition: Stable Patient Language: Nigerien Prescriptions: No Action wayrl-7m-slv-epa-fish oil 200 mg-300 mg- 100 mg-1,000 mg capsule 1 cap PO .pm memantine [Christaa Talon Patterson] 5-10 mg tablets,dose pack See Rx Instructions PO PER PKG DIR Qty: 49 0RF Rx Instructions: PO PER PKG DIR and after 4 weeks started 10 mg twice a day memantine 10 mg tablet 10 mg PO BID Qty: 180 3RF senna 8.6 mg capsule 8.6 mg PO DAILY docusate sodium 50 mg capsule 50 mg PO DAILY polyethylene glycol 3350 [Miralax] 17 gram/dose powder 17 g PO DAILY PRN Men 50 Plus Multivitamin 554-70-088-300 mcg tablet 1 tablet PO DAILY clopidogrel [Plavix] 75 mg tablet 75 mg PO DAILY aspirin 81 mg tablet,delayed release (DR/EC) 81 mg PO DAILY lisinopril 40 mg tablet 40 mg PO DAILY metoprolol tartrate 50 mg tablet 50 mg PO BID ascorbate calcium (vitamin C) 500 mg tablet 500 mg PO .pm magnesium citrate,mag oxide 250 mg capsule 250 mg PO DAILY cholecalciferol (vitamin D3) 50 mcg (2,000 unit) capsule 50 mcg PO QPM amlodipine 10 mg tablet 10 mg PO DAILY ketoconazole 2 % cream 1 applic topical DAILY Qty: 60 1RF cephalexin 500 mg capsule 500 mg PO Q8H Qty: 15 0RF triamcinolone acetonide 0.1 % cream 1 applic topical BID PRN (Reason: itching) Qty: 80 1RF Rx Instructions: legs potassium chloride 20 mEq tablet extended release 40 meq PO BID diclofenac sodium 0.1 % drops 1 drp LEFT EYE BID atorvastatin [Lipitor] 20 mg tablet 20 mg PO QPM (DME) Blood Glucose Test Strip See Rx Instructions .Route Qty: 100 1RF Rx Instructions: Use to check BS daily (DME) lancets Misc See Rx Instructions .Route Qty: 100 1RF Rx Instructions: Use to kitty BS daily (DME) blood-glucose meter [OneTouch Verio Flex meter] Misc See Rx Instructions .Route Qty: 1 0RF Rx Instructions: check blood sugars q.day As directed escitalopram oxalate 10 mg tablet 10 mg PO QPM Qty: 90 1RF ferrous sulfate 325 mg (65 mg iron) tablet,delayed release (DR/EC) 325 mg PO DAILY Qty: 100 1RF Janumet XR 50-1,000 mg tablet, ER multiphase 24 hr 1 tablet PO QPM Qty: 90 1RF furosemide 40 mg tablet 40 mg PO DAILY Qty: 90 1RF tamsulosin 0.4 mg capsule 0.4 mg PO QPM Qty: 90 1RF pantoprazole 40 mg tablet,delayed release (DR/EC) 40 mg PO DAILY Qty: 90 1RF trazodone 50 mg tablet See Rx Instructions PO QHS PRN (Reason: sleep) Qty: 180 1RF Rx Instructions: 1-2 tablets orally every day at bedtime PRN; Follow-up/Referrals: Barbara Jean MD [Primary Care Provider, Family Practice]
[2025-01-07] MEDS: FUROSEMIDE INJ 40 MG/4 ML VIAL IV PUSH (13:40)
--- OUTSIDE RECORDS SUMMARY | 2025-01-07 14:43 | XMS_ITS | Clinical Summary ---
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 Name Role Phone Lesia Jean MD Primary Care Provider Allergies Active Allergy Reactions Criticality Noted Date Comments Meperidine Hallucinations Medium 10/20/2016 Meperidine Hallucinations Medium Preservative Hallucinations Medium Medications omega-3 fatty acids-fish oil 340-1,000 mg capsule take 1 by Oral route every day 0 3 Active tamsulosin (FLOMAX) 0.4 mg capsule,extende d release 24hr take 1 capsule by oral route 2 times every day 1/2 hour following the same meal each day 0 0 7 Active potassium chloride ER 20 mEq CR tablet 1 tablet (20 mEq total) 2 (two) times a day 2 Active Janumet XR 50-1,000 mg tablet, ER multiphase 24 [address] (PROTONIX) 40 mg EC tablet Take 1 tablet (40 mg total) by mouth every morning 4 Active cholecalciferol (Vitamin D3) 2000 unit tablet Active ascorbic acid (ascorbic acid with devorah hips) 500 mg tablet,chewable Acti ve furosemide (LASIX) 40 mg tablet Take 1 tablet (40 mg total) by mouth daily 30 tablet 11 4 Active escitalopram (LEXAPRO) 10 mg tablet Take 1 tablet (10 mg total) by mouth nightly 4 Active ferrous sulfate 325 mg (65 mg of elemental iron) tablet Take 1 tablet (325 mg total) by mouth daily 4 Active atorvastatin (LIPITOR) 20 mg tablet Take 1 tablet (20 mg total) by mouth nightly 90 tablet 6 4 Active amLODIPine (NORVASC) 10 mg tablet Take 1 tablet (10 mg total) by mouth daily 4 Active traZODone (DESYREL) 50 mg tablet Take 1 tablet (50 mg total) by mouth nightly 1-2 tablets nightly Active multivitamin with minerals tablet Take 1 tablet by mouth daily Active magnesium citrate 100 mg tablet Take 250 mg by mouth 2 gummies Active aspirin 81 mg chewable tabletIndicatio ns:coronary artery disease Take 1 tablet (81 mg total) by mouth daily 30 tablet 11 4 04/06/20 25 Active clopidogreL (PLAVIX) 75 mg tabletIndicatio ns:coronary artery disease Take 1 tablet (75 mg total) by mouth daily 30 tablet 11 4 04/06/20 25 Active metoprolol tartrate (LOPRESSOR) 50 mg immediate release tablet TAKE 1 TABLET BY MOUTH TWICE A DAY(REPLACE CARVEDILOL) 180 tablet 3 5 Active diclofenac 0.1 % ophthalmic solution INSTILL 1 DROP INTO LEFT EYE TWICE A DAY 5 Active lisinopriL (PRINIVIL,ZESTR IL) 40 mg tablet TAKE 1 TABLET BY MOUTH EVERY DAY 90 tablet 1 5 Active Active Problems Problem Noted Date Diagnosed Date Presence of Amulet left atrial appendage closure device 04/04/2024 Class 2 severe obesity due t o excess calories with serious comorbidity and body mass index (BMI) of 35.0 to 35.9 in adult 08/23/2022 Aortic valve stenosis 11/10/2020 Hypertension associated with diabetes 05/06/2020 Mixed diabetic hyperlipidemi a associated with type 2 diabetes mellitus (CMS/HCC) 11/16/2017 Coronary artery disease invo lving hoopa coronary artery of hoopa heart without angina pectoris 05/17/2016 Overview (08/04/2016): Coronary artery disease involving hoopa coronary artery of hoopa heart without angina pectoris History of coronary [...] 08/23/2022 Overview (08/04/2016): CAD (coronary artery disease) Surgical History Surgery Date Site/Laterality Comments CORONARY [...] Adiposity Obesity Hyperlipidemia Atrial fibrillation (HCC) Cardiomyopathy Myocardial infarction (HCC) Coronary artery disease Type 2 diabetes mellitus GERD (gastroesophageal reflux disease) Kidney stone Depression Cataract Personal history of fall Memory deficit per daughter, pa tient will attempt to get out of bed [...] drink = 0.6 oz pur e alcohol) [facility] Utilities Answer Date Recorded In the past 12 months has e [employer] gas, oil, or water [employer] threatened to shut off services in your home? No 04/05/2024 Social Connection and Isolation Panel Answer Date Recorded In a typical week, how many times do you talk on the phone with family, friends, or neighbors? More than three times a week 04/05/2024 How often do you get togethe r with friends or relatives? More than three times a week 04/05/2024 How often do you attend chur ch or catholic services? More than 4 times per year 04/05/2024 Do you belong to any clubs o r organizations such as taoist groups, unions, fraternal or athletic groups, or [...] any time in the past 12 m [facility], were you homeless or living in a penitentiary (including now)? No 04/05/2024 Personal Safety Answer Date Recorded Have you ever been in or are you currently in a harmful physical or emotional relationship or is someone making you feel afraid or unsafe? 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 Gender Identity Not on file Sexual Orientation Not on file Obstetrics History Last Filed Vital Signs Vital Sign Reading Time Taken Comments Blood Pressure 122/70 09/16/2024 9:24 AM CDT Pulse 61 09/16/2024 9:24 AM CDT Temperature 36.6 C (97.8 F) 04/05/2024 3:56 AM OPHTHALMIC ASSISTANT Respiratory Rate 22 04/05/2024 11:47 AM OPHTHALMIC ASSISTANT Oxygen Saturation 97% 09/16/2024 9:24 AM CDT Inhaled Oxygen Concentration - - Weight 108 kg (238 lb) 09/16/2024 9:24 AM CDT Height 175.3 cm (5' 9) 09/16/2024 9:24 AM CDT Body Mass Index 35.15 09/16/2024 9:24 AM CDT Plan of Treatment Health Maintenance [...] 05/06/2020, Additional history exists Influenza Vaccine (#1) 2024 , 02/21/2019, 02/01/2018, Additional history exists Fall Risk Assessment 04/05/2025 04/05/2024 eGFR 04/05/2025 04/05/2024, 04/01/2024 Medical Devices Implanted Type Area [employer] Device Identifier Shelf Expiration Date Model / Serial / Lot [employer] System Closure Repair Femoral Artery Suture Mediated Perclose Prostyle 80380-67 - [id number] Implanted:Qty: 1 on 04/04/2024 by Bijan Alvares MD at [facility] [employer] 12/29/2025 [id number] / / [id number] [employer] Occluder Cvasc Maddie Flexible Braided Amplatzer Amulet 25mm Nitinol [id number] - [id number] Implanted:Qty: 1 on 04/04/2024 by Bijan Alvares MD at [facility] [employer] 08/29/2027 [id number] / / [id number] [employer] [facility] Vascade Mvp 6-12fr Venous Closure [id number] - [id number] Implanted:Qty: 1 on 04/04/2024 by Bijan Alvares MD at [facility] [employer] 08/24/2025 [id number] / / [id number] Procedures Procedure Name Priority Date/Time Associated Diagnosis Comments EGFR Routine 04/05/2024 2:42 AM OPHTHALMIC ASSISTANT POCT LIPID PANEL Routine 08/23/2022 8:35 AM CDT Coronary artery disease involving hoopa coronary artery of hoopa heart without angina pectoris Mixed diabetic hyperlipidemia associated with type 2 diabetes mellitus ([facility]/HCC) ([facility]) from Last 3 Months or Most Recently Relevant to Health Maintenance Results * eGFR (04/05/2024 2:42 AM OPHTHALMIC ASSISTANT) eGFR 86 >=60 mL/min/1. 73 m2 Comment: [...] last reviewed 2021. Blood 04/05/2024 2:42 AM OPHTHALMIC ASSISTANT 04/05/2024 3:08 AM OPHTHALMIC ASSISTANT Bijan Alvares MD LAB BLOOD ORDERABLES Final Resul t [facility] [id number] Department [place] [address] * POCT lipid panel (08/23/2022 8:35 AM [...] Relevant to Health Maintenance Insurance [employer] MEDICARE AET MEDICARE AET MEDICARE Care Teams Blanket Cutting Machine Operator Relationship Specialty Start Date End Date Lesia Jean MD PCP - General Family Practice 05/16/22
--- OUTSIDE RECORDS SUMMARY | 2025-01-07 14:43 | XMS_ITS | Clinical Summary ---
Author Organization [facility] Address [address] [place] [address] Care Team Providers Care Dope Edger Name Role Phone Unavailable Primary Care Provider [...] COVID-19 Vaccine ( - 2023-2 5 season) 2024 Meningococcal B Vaccine Aged Out No l onger eligible based on patient's age to complete this topic Meningococcal Vaccine Aged Out No chiquita greg eligible based on patient's age to complete this topic RSV Immunizations Under 20 Months Aged Out No longer eligible based on patient's age to complete this topic
--- OUTSIDE RECORDS SUMMARY | 2025-01-07 14:43 | XMS_ITS | Encounter Summary ---
Author Organization [facility] Healthcare Address [address] [place] [address] Care Team Providers Care Pairer Name Role Phone Lesia Jean MD Primary Care Provider Encounter Details Date Type Department Care Team (Late st Contact Info) Description 08/09/2024 Orders Only [facility] Health Information Management [address] [place] [id number] Scanning, Provider Social History Tobacco Use Types Packs/Day Years Used Date Smoking Tobacco: Never Smokeless Tobacco: Never Alcohol Use Standard Drinks/Week Comments No 0 (1 standard drink = 0.6 oz pur e alcohol) [facility] Utilities Answer Date Recorded In the past 12 months has [employer] electric, gas, oil, or water company threatened [...] often do you attend chur ch or druze services? 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 Gender Identity Not on file Sexual Orientation Not on file documented as of this encounter Plan of Treatment Not on file documented as of this encounter Procedures Procedure Name Priority Date/Time Associated Diagnosis Comments CARDIOLOGY DOCUMENT SCAN 08/09/2024 SCAN - RADIOLOGY/IMAGING 08/08/2024 documented in this encounter Results * Cardiology Document Scan (08/09/2024) Anatomical Region Laterality Modality Other us Provider Scanning CV CARDIAC SERVICES PROCEDURES Final Result * SCAN - RADIOLOGY/IMAGING (08/08/2024) Anatomical Region Laterality Modality Other us Provider Scanning Edited Result - Final documented in this encounter Visit Diagnoses Not on filedocumented in this encounter Care Teams Pairer Relationship Specialty Start Date End Date Lesia Jean MD PCP - General Family Practice 05/16/22 documented as of this encounter
[2025-01-07 14:54] LABS: Influenza A QL RT-PCR Negative (Negative); Influenza B QL RT-PCR Negative (Negative); RSV RNA, RT-PCR Negative (Negative); SARS-CoV-2 RNA PCR Negative (Negative)
--- NOTE | 2025-01-07 15:53 | P.HP_ITS ---
H&P: HPI History of Present Illness Date/Time: 01/07/25 15:53 Chief Complaint: Shortness of breath Narrative: This is an 89-year-old male who presents to the ED with shortness of breath. Patient stated that he started getting short of breath that has been progressively getting worse and that got much worse this morning. EMS was called. EMS gave a breathing treatment after which he felt much better. He has a history of CHF in the past. He was also diagnosed with AFib last year. Denies any fever chills chest pain nausea vomiting abdominal pain diarrhea constipation. He also noted increasing swelling in his lower extremities. He does not follow fluid restriction at home per family In the ED his vitals were stable with mild hypertension oxygen saturation 90% on room air was placed on nasal cannula. He does not use oxygen at home He is noted to have significant pitting edema bilateral lower extremities up to the thighs. Laboratory workup revealed WBC of 9.6 hemoglobin 11.7 platelet count 189. Chem panel showed sodium of 134 potassium 3.9 chloride 98 bicarbonate 27 BUN 16 creatinine 0.8 and blood sugar of 273. INR 1.1 PTT 27.2. LFTs showed total bilirubin 1.7 AST 56 ALT 51 alkaline phosphatase of 193. Troponin was negative at 0.027 BNP was elevated at 6110. Influenza RSV COVID swab was negative. Chest x-ray showed pleural effusion with bibasilar atelectasis and/or airspace disease. Mild interstitial pulmonary edema. EKG showed AFib with slow ventricular rate with rate of [address]-T changes. Patient received 40 mg of IV Lasix. Patient admitted for further treatment Review of Systems Review of Systems: - CONSTITUTIONAL: Denies weight loss, fe patti and chills. - HEENT: Denies changes in vision and he aring - RESPIRATORY: Reports SOB and denies c ough. - CV: Denies palpitations and CP. - GI: Denies abdominal pain, nausea, vom iting and diarrhea. - : Denies dysuria and urinary frequen cy. - MSK: Denies myalgia and joint pain. - SKIN: Denies rash and pruritus. - NEUROLOGICAL: Denies headache and sync ope. - PSYCHIATRIC: Denies recent changes in mood. Denies anxiety and depression. [facility] Past Medical History Medical History Acute pancreatitis (~06/2023) Parkinsons disease Dementia of the Alzheimer's type Insomnia Lymphedema of lower extremity Dermatitis Paroxysmal atrial fibrillation Abdominal pain GURPREET (acute kidney injury) Leukocytosis Elevated liver enzymes Chronic venous insufficiency of lower extremity Dyslipidemia Aortic stenosis Hypokalemia Benign prostatic hyperplasia Type 2 diabetes mellitus Atherosclerotic heart disease of [place] coronary artery with other forms of angina pectoris Essential (primary) hypertension Surgical History Surgical History 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 Rice Family History Family History Father Depression, Onset Age: 35 Family history of suicide, Onset Age: 35 Mother Family history of malignant neoplasm of ovary, Onset Age: 77 Other Family history of cardiovascular disease Hypertension Social History Social History Smoking status: Never smoker Alcohol intake: never Substance use: never Substance use type: does not use Do You Feel Safe in your Home?: Yes Lack of Transportation: No Lack of Food: Never True Current Housing: I Have Housing Concerned About Future Housing: No Difficulty Paying Gas/Electric Bills: No Difficulty Paying for Meds: No Currently Unemployed: No Education: Master's Degree or Higher Difficulty w/ Childcare or Family Care: No Living arrangements: with family Additional living arrangements comments: and daughter Occupation/Education: retired 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 [employer] Gender identity (if verbalized by the patient): Male Sexual Orientation (if Verbalized by the Patient): Straight or Heterosexual Spiritual care concerns: No Agree to blood products: Yes Meds Home Medications and Allergies Home Medications ?Medication ?Instructions ?Recorded ?Confirmed ?Type omega3-dha 200 mg-epa 300 mg-othr 1 cap PO .pm 3 12/24/24 History om3 100 mg-fish oil 1,000 mg capsule lisinopril 40 mg tablet 40 mg PO DAILY 06/20/2311/30 History blood sugar diagnostic (Blood #100 ea 07/05/23 5 Rx Glucose Test strips) lancets #100 ea 07/05/23 12/24/24 Rx metoprolol tartrate 50 mg tablet 50 mg PO BID 07/10/23 12/24/24 History blood-glucose meter (OneTouch #1 ea 07/24/23 12/24/24 Rx Verio Flex Meter) ascorbate calcium (vitamin C) 500 500 mg PO .pm 12/24/24 History mg tablet magnesium citrate,mag oxide 250 mg 250 mg PO DAILY 12/24/24 History capsule aspirin 81 mg tablet,delayed 81 mg PO DAILY 04/12/24 0 12/24/24 History release clopidogrel 75 mg tablet (Plavix) 75 mg PO DAILY 04/1212/24/24 History wuyhiwdc-qv-tgjdy 300 mcg-K 60 1 tablet PO DAILY 04/1212/24/24 History mcg-lycop 600 mcg-lutein 300 mcg tablet (Men 50 Plus Multivitamin) atorvastatin 20 mg tablet (Lipitor) 20 mg PO QPM 08/0812/24/24 History diclofenac sodium 0.1 % eye drops 1 drp LEFT EYE BID 0 08/08/24 12/24/24 History cholecalciferol (vitamin D3) 50 50 mcg PO QPM 08/15/24 12/24/24 History mcg (2,000 unit) capsule escitalopram oxalate 10 mg tablet 10 mg PO QPM #90 tab s 09/09/24 12/24/24 Rx ferrous sulfate 325 mg (65 mg 325 mg PO DAILY #100 tab s 09/16/24 12/24/24 Rx iron) tablet,delayed release sitagliptin phos 50 mg-metformin 1 tablet PO QPM #90 t abs 10/18/24 12/24/24 Rx ER 1,000 mg tablet,extend rel 24h mp (Janumet XR) furosemide 40 mg tablet 40 mg PO DAILY #90 tabs 10/2912/24/24 Rx tamsulosin 0.4 mg capsule 0.4 mg PO QPM #90 caps 11/1812/24/24 Rx docusate sodium 50 mg capsule 50 mg PO DAILY 11/26/24 12/24/24 History memantine 10 mg tablet 10 mg PO BID #180 tabs 11/2612/24/24 Rx memantine 5 mg-10 mg tablets in a See Rx Instructions PO PER PKG DIR 11/26/24 12/24/24 Rx dose pack (Hunter Patterson) #49 ea sennosides 8.6 mg capsule (senna) 8.6 mg PO DAILY 10/3012/24/24 History pantoprazole 40 mg tablet,delayed 40 mg PO DAILY #90 t abs 12/11/24 12/24/24 Rx release trazodone 50 mg tablet See Rx Instructions PO QHS P RN 12/19/24 12/24/24 Rx sleep #180 tabs amlodipine 10 mg tablet 10 mg PO DAILY 12/24/2411/30 History cephalexin 500 mg capsule 500 mg PO Q8H #15 caps 12/2412/24/24 Rx ketoconazole 2 % topical cream 1 applic topical DAILY #60 grams 12/24/24 12/24/24 Rx polyethylene glycol 3350 17 17 g PO DAILY PRN 12/24/24 12/24/24 History gram/dose oral powder (Miralax) potassium chloride 20 mEq 40 meq PO BID 12/24/2412/24 History tablet,extended release triamcinolone acetonide 0.1 % 1 applic topical BID PRN itching 12/24/24 12/24/24 Rx topical cream #80 grams Allergies Allergy/AdvReac Type Severity Reaction Status Date / Time meperidine Allergy Unknown Hallucinati Verified 01/07/25 17:05 ons Vital Signs Vital Signs - 24 hr 01/07/25 12:18 01/07/25 12:31 01/07/25 12:31 Temperature 98.6 F Pulse Rate 62 64 Respiratory Rate 23 H Blood Pressure 159/64 H Pulse Oximetry 90 96 Oxygen Delivery Room Air Nasal Cannula Oxygen Flow Rate 4 01/07/25 12:42 01/07/25 13:01 01/07/25 13:39 Temperature Pulse Rate 65 61 Respiratory Rate 23 H 23 H Blood Pressure 140/72 148/86 H Pulse Oximetry 96 96 96 Oxygen Delivery Nasal Cannula Oxygen Flow Rate 4 01/07/25 13:42 01/07/25 15:06 01/07/25 15:43 Temperature 97.6 F Pulse Rate 60 62 Respiratory Rate 21 H 19 Blood Pressure 166/64 H 143/95 H Pulse Oximetry 96 96 94 Oxygen Delivery Nasal Cannula Oxygen Flow Rate 3 Exam Narrative: APPEARANCE: No acute distress, nontoxic, resting in bed EYES: EOMI HEENT: Normocephalic, atraumatic, OMM RESPIRATORY: diminished breath sounds to bilateral bases. No wheezes, On 3 L nasal cannula. CARDIOVASCULAR: Regular rate and rhythm without murmurs rubs or gallops. ABDOMINAL: Soft, nontender, nondistended, no rebound or guarding MUSCULOSKELETAl: 3 + pitting edema to the bilateral lower extremities up to the level of the thigh NEURO: Awake and alert. Following commands, speech normal, no focal deficits SKIN:: 4 x 5 cm area of erythema to the right anterior lower leg, evidence of a healing cellulitis PSYCHIATRIC: Normal affect/mood, H&P: Results Labs Labs: Short CBC 01/07/25 Range/Units 12:53 WBC 9.6 (4.5-10.0) K/mm3 Hgb 11.7 L (14.0-18.0) g/dL Hct 35.1 L (42.0-52.0) % Plt Count 189 (150-375) k/mm3 BMP 01/07/25 12:53 Sodium 134 L Potassium 3.9 Chloride 98 Carbon Dioxide 27 BUN 16 Creatinine 0.84 Glucose 273 H Calcium 8.7 Cardiac Enzymes 01/07/25 Range/Units 12:53 Troponin I 0.027 (0.000-0.034) ng/mL Liver Function 01/07/25 Range/Units 12:53 Total Bilirubin 1.7 H (0.2-1.3) mg/dL AST 56 (17-59) U/L ALT 51 H (6-50) U/L Alkaline Phosphatase 193 H (38-126) U/L Albumin 3.7 (3.5-5.1) g/dL Assessment and Plan Assessment and plan (1) Essential (primary) hypertension: Code(s): I10 - Essential (primary) hypertension Status: Acute (2) Acute exacerbation of CHF (congestive heart failure): Qualifiers: Heart failure type: unspecified Qualified Code(s): I50.9 - Heart failure, unspecified Code(s): I50.9 - Heart failure, unspecified Status: Acute (3) Aortic stenosis: Qualifiers: Cardiac valve disease etiology: nonrheumatic Qualified Code(s): I35.0 - Nonrheumatic aortic (valve) stenosis Code(s): I35.0 - Nonrheumatic aortic (valve) stenosis Status: Acute (4) Atherosclerotic heart disease of [place] coronary artery with other forms of angina pectoris: Code(s): I25.118 - Atherosclerotic heart disease of [place] coronary artery with other forms of angina pectoris Status: Acute (5) Paroxysmal atrial fibrillation: Code(s): I48.0 - Paroxysmal atrial fibrillation Status: Acute (6) Chronic venous insufficiency of lower extremity: Code(s): I87.2 - Venous insufficiency (chronic) (peripheral) Status: Acute (7) Dyslipidemia: Code(s): E78.5 - Hyperlipidemia, unspecified Status: Acute (8) Type 2 diabetes mellitus: Qualifiers: Diabetes mellitus therapeutic activities services worker insulin use: without therapeutic activities services worker use Diabetes mellitus complication status: without complication Qualified Code(s): E11.9 - Type 2 diabetes mellitus without complications Code(s): E11.9 - Type 2 diabetes mellitus without complications Status: Acute (9) Morbid (severe) obesity due to excess calories: Code(s): E66.01 - Morbid (severe) obesity due to excess calories Status: Acute (10) Benign prostatic hyperplasia: Qualifiers: Lower urinary tract symptom presence: symptoms absent Qualified Code(s): N40.0 - Benign prostatic hyperplasia without lower urinary tract symptoms Code(s): N40.0 - Benign prostatic hyperplasia without lower urinary tract symptoms Status: Acute (11) Parkinsons disease: Qualifiers: Dyskinesia presence: without dyskinesia Fluctuating manifestations: unspecified whether manifestations fluctuate Qualified Code(s): G20.A1 - Parkinson's disease without dyskinesia, without mention of fluctuations Code(s): G20.A1 - Parkinson's disease without dyskinesia, without mention of fluctuations Status: Acute (12) Dementia of the Alzheimer's type: Qualifiers: Alzheimer's disease onset: unspecified onset Dementia severity: mild Dementia behavioral or psychological symptom: without behavioral, psychotic, or mood disturbance or anxiety Qualified Code(s): G30.9 - Alzheimer's disease, unspecified; F02.A0 - Dementia in other diseases classified elsewhere, mild, without behavioral disturbance, psychotic disturbance, mood disturbance, and anxiety Code(s): G30.9 - Alzheimer's disease, unspecified; F02.80 - Dementia in other diseases classified elsewhere, unspecified severity, without behavioral disturbance, psychotic disturbance, mood disturbance, and anxiety Status: Acute (13) Acute hypoxic respiratory failure: Code(s): J96.01 - Acute respiratory failure with hypoxia Status: Acute (14) Lymphedema of lower extremity: Code(s): I89.0 - Lymphedema, not elsewhere classified Status: Acute Plan This is an 89-year-old male who presents to the ED with shortness of breath. Patient stated that he started getting short of breath progressively getting worse and that got much worse this morning. EMS was called. EMS gave a b reathing treatment after which he felt much better. He has a history of CHF in the past. He was also diagnosed with AFib last year. Denies any fever chills chest pain nausea vomiting abdominal pain diarrhea constipation. He reports having increased lower extremities edema In the ED his vitals were stable with mild hypertension oxygen saturation 90% on room air was placed on nasal cannula. He does not use oxygen at home He Is noted have significant pitting edema bilateral lower extremities up to the thighs. Laboratory workup revealed WBC of 9.6 hemoglobin 11.7 platelet count 189. Chem panel showed sodium of 134 potassium 3.9 chloride 98 bicarbonate 27 BUN 16 creatinine 0.8 and blood sugar of 273. INR 1.1 PTT 27.2. LFTs showed total bilirubin 1.7 AST 56 ALT 51 alkaline phosphatase of 193. Troponin was negative at 0.027 BNP was elevated at 6110. Influenza RSV COVID swab was negative. Chest x-ray showed pleural effusion with bibasilar atelectasis and/or airspace disease. Mild interstitial pulmonary edema. EKG showed AFib with slow ventricular rate with rate of [address]-T changes. Patient received 40 mg of IV Lasix. Patient admitted for further treatment Acute on chronic congestive heart failure diastolic. Continue IV diuresis. Check echo. Recent echo 08/23 EF 65-70% on moderately increased left ventricular wall thickness grade 1 diastolic dysfunction moderate aortic valve stenosis moderate mitral valve regurgitation moderate tricuspid valve regurgitation Acute hypoxic respiratory failure due to CHF. 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
--- NOTE | 2025-01-07 16:50 | ADMGEN ---
This patient, Lefty Haskins, was admitted to [facility] Surg Room 307-01. Patient/family oriented to hospital policies and general routines including ID bracelet, bed and alarms, visiting hours, pain management, procedures, bathroom and other care routines, personal items, smoking policy, room service/diet, and visiting hours. Information on how to activate the Rapid Response Team has been discussed. Patient/Family are encouraged to report perceived risks to care and to ask questions if they do not understand what they are told or what they should do.
--- OUTSIDE RECORDS SUMMARY | 2025-01-07 17:06 | XMS_ITS | Clinical Summary ---
Author Organization [facility] Address [address] [place] [address] Care Team Providers Care Foam Rubber Mixer Name Role Phone Unavailable Primary Care Provider [...]
--- OUTSIDE RECORDS SUMMARY | 2025-01-07 17:06 | XMS_ITS | Clinical Summary ---
Author Organization [facility] [address] Address [address] [place] [address] Care Team Providers Care Poultry Scalder Name Role Phone Lesia Jean MD Primary [...] (CMS/HCC) 11/16/2017 Coronary artery disease invo lving [place] tribe coronary artery of [place] heart without angina pectoris 05/17/2016 Overview (08/04/2016): Coronary artery disease involving [place] tribe coronary artery of [place] tribe heart without angina pectoris History of coronary [...] 0.6 oz pur e alcohol) [facility] Utilities Answer Date Recorded In the past 12 months has e [employer] gas, oil, or water [employer] threatened to shut off services in your [...] often do you attend chur ch or synagogue services? More than 4 times per year 04/05/2024 Do you belong to any clubs o r organizations such as worship groups, unions, fraternal or athletic groups, or [...] any time in the past 12 m [facility], were you homeless or living in a senior living (including now)? No 04/05/2024 Personal Safety Answer Date Recorded Have you ever been in or are you currently in a harmful physical or emotional relationship or is someone making you feel afraid or unsafe? Denies 04/04/2024 Sex and Gender Information Value Date Recorded Sex Assigned at Not on file Legal Sex Male 5:27 PM MICA BUILDER Gender Identity Not on file Sexual Orientation Not on file Obstetrics History Last Filed Vital Signs Vital Sign Reading Time Taken Comments Blood Pressure 122/70 09/16/2024 9:24 AM CDT Pulse 61 09/16/2024 9:24 AM CDT Temperature 36.6 C (97.8 F) 04/05/2024 3:56 AM MICA BUILDER Respiratory Rate 22 04/05/2024 11:47 AM MICA BUILDER Oxygen Saturation 97% 09/16/2024 9:24 AM CDT [...] 04/05/2024, 04/01/2024 Medical Devices Implanted Type Area Creative Director Device Identifier Shelf Expiration Date Model / Serial / Lot [employer] System Closure Repair Femoral Artery Suture Mediated Perclose Prostyle 98873-68 - [id number] Implanted:Qty: 1 on 04/04/2024 by Bijan Alvares MD at [facility] [employer] 12/29/2025 [id number] / / [id number] [employer] Occluder Cvasc Maddie Flexible Braided Amplatzer Amulet 25mm Nitinol [id number] - [id number] Implanted:Qty: 1 on 04/04/2024 by Bijan Alvares MD at [facility] [employer] 08/29/2027 [id number] / / [id number] [employer] [facility] Vascade Mvp [id number] Venous Closure [id number] - [id number] Implanted:Qty: 1 on 04/04/2024 by Bijan Alvares MD at [facility] [employer] 08/24/2025 [id number] / / [id number] Procedures Procedure Name Priority Date/Time Associated Diagnosis Comments EGFR Routine 04/05/2024 2:42 AM MICA BUILDER POCT LIPID PANEL Routine 08/23/2022 8:35 AM CDT Coronary artery disease involving [place] tribe coronary artery of [place] tribe heart without angina pectoris Mixed diabetic hyperlipidemia associated with type 2 diabetes mellitus ([facility]/HCC) ([facility]) from Last 3 Months or Most Recently Relevant to Health Maintenance Results * eGFR (04/05/2024 2:42 AM MICA BUILDER) eGFR 86 >=60 mL/min/1. 73 m2 Comment: [...] last reviewed 2021. Blood 04/05/2024 2:42 AM MICA BUILDER 04/05/2024 3:08 AM MICA BUILDER Bijan Alvares MD LAB BLOOD ORDERABLES Final Resul t [facility] [address] Department [place] [address] * POCT lipid panel (08/23/2022 8:35 AM [...] MEDICARE AET MEDICARE AET MEDICARE Care Teams Poultry Scalder Relationship Specialty Start Date End Date Lesia Jean MD PCP - General Family Practice 05/16/22
--- OUTSIDE RECORDS SUMMARY | 2025-01-07 17:06 | XMS_ITS | Encounter Summary ---
Author Organization [facility] Healthcare Address [address] [place] [address] Care Team Providers Care Lead Portfolio Manager Name Role Phone Lesia Jean MD Primary Care Provider Encounter Details Date Type Department Care Team (Late st Contact Info) Description 08/09/2024 Orders Only [facility] Information Management [address] [place] [id number] Scanning, Provider Social History Tobacco Use Types Packs/Day Years Used Date Smoking Tobacco: Never Smokeless Tobacco: Never Alcohol Use Standard Drinks/Week Comments No 0 (1 standard drink = 0.6 oz pur e alcohol) [facility] Utilities Answer Date Recorded In the past 12 months has [employer] electric, gas, oil, or water company threatened [...] often do you attend chur ch or zoroastrian services? More than 4 times per year 04/05/2024 Do you belong to any clubs o r organizations such as latter day groups, unions, fraternal or athletic groups, or [...] any time in the past 12 m [facility], were you homeless or living in a longterm (including now)? No 04/05/2024 Personal Safety Answer Date Recorded Have you ever been in or are you currently in a harmful physical or emotional relationship or is someone making you feel afraid or unsafe? Denies 04/04/2024 Sex and Gender Information Value Date Recorded Sex Assigned at Not on file Legal Sex Male 5:27 PM MANAGER OF MEDICAL Gender Identity Not on file Sexual Orientation [...] on filedocumented in this encounter Care Teams Lead Portfolio Manager Relationship Specialty Start Date End Date Lesia Jean MD PCP - General Family Practice 05/16/22 documented as of this encounter
[2025-01-07 19:56] LABS: Hemoglobin A1C 7.3 % (<5.7)
[2025-01-07] MEDS: METOPROLOL TARTRATE 50 MG TAB PO (20:46)
[2025-01-07] MEDS: OMEGA 3 POLYUNSAT FATTY ACIDS 1 GM CAP PO (20:46)
[2025-01-07] MEDS: ESCITALOPRAM OXALATE 10 MG TABLET PO (20:51)
[2025-01-07] MEDS: TAMSULOSIN HCL 0.4 MG CAPSULE PO (20:51)
[2025-01-07] MEDS: ASCORBIC ACID 500 MG TABLET PO (20:51)
[2025-01-07] MEDS: DICLOFENAC SODIUM 0.1% OPHTH SOLN 2.5 ML BOTTLE 1 DROP LEFT EYE (21:29)
[2025-01-08] VITALS (10 sets, daily range): BP systolic 106–163; BP diastolic 66–98; PULSE 50–117; RESP 16–20; TEMP 36.4–36.7; O2SAT 95–99
--- NOTE | 2025-01-08 | ECHO_ITS ---
Patient Info Name: Lefty Haskins Age: 89 years : 1935 Gender: Male Ht: 70 in Wt: 248 lbs BSA: 2.40 m2 HR: 63 bpm BP: 157 / 72 mmHg Heart Rhythm: Indeterminant Technical Quality: Poor Exam Date: 01/08/2025 9:17 AM Patient Status: I Admit Date: 01/08/2025 Exam Type: CA echo dop color flow w con Complete two-dimensional, color flow and Doppler transthoracic echocardiogram is performed with contrast to opacify the left ventricle and to improve the deliniation of the left ventricle endocardial borders. Staff Referring Physician: Fred Klein Photographic Equipment Inspector: Thuy Huizar Attending Provider: Tai De La Cruz Contrast/Agitated Saline Contrast/Ag. Saline: Definity Amount: 2.00 ml Existing IV Access: Yes IV Access Condition: patent with no signs of infiltration Reason for Poor Study: poor echocardiographic windows Summary 1. Concentric left ventricular hypertrophy with well-preserved systolic contractility. 2. Severe left atrial enlargement. 3. Calcified mitral valve annulus with moderate MR. 4. Severe aortic valve stenosis with calculated valve area 0.8 cm2, mean gradient of 34 mmHg. 5. Trivial aortic regurgitation. 6. Compared with echocardiogram and July of this year findings are essentially unchanged other than slightly smaller aortic valve area. Left Ventricle Left ventricular chamber dimension is normal. Left ventricular systolic function is normal, estimated at 65-70. There is severe concentric increased left ventricular wall thickness. Right Ventricle Right ventricular chamber dimension is normal. Left Atria Left atrial chamber dimension is severely enlarged. Right Atria Right atrial chamber dimension is normal. Aortic Valve The aortic valve is trileaflet. There is severe aortic valve sclerosis. There is severe aortic valve stenosis with a peak velocity of 389 cm/s, mean gradient of 26 mmHg, and aortic valve area of 0.8 cm2. There is trace aortic valve regurgitation. Pulmonic Valve The pulmonic valve is not well visualized. There is mild pulmonic regurgitation. Mitral Valve The mitral valve has normal leaflets. There is mild to moderate mitral valve regurgitation. The mitral valve annulus is moderately calcified. Tricuspid Valve The tricuspid valve leaflets are normal. Pericardium/Pleural The pericardium appears normal. Aorta The aortic root size at the sinus of Valsalva is normal. Left Ventricular Outflow Tract Name Value Normal LVOT 2D LVOT Diameter 2.2 cm LVOT Doppler LVOT Peak Velocity 78 cm/s LVOT Peak Gradient 2 mmHg LVOT Mean Gradient 1 mmHg LVOT VTI 18 cm LVOT VTI/AV VTI Ratio 0.2 LVOT Stroke Volume 69 ml LVOT CO 12.6 l/min LVOT CI 5.3 l/min/m2 Mitral Valve Name Value Normal MV Diastolic Function MV E Peak Velocity 138 cm/s MV A Peak Velocity 85 cm/s MV E/A 1.6 MV Decel Time (PW) 188 ms MV Annular TDI MV E/e' (Septal) 38.5 MV E/e' (Lateral) 31.9 MV E/e' (Average) 35.2 Tricuspid Valve Name Value Normal TV Annular TDI TV Lateral Delia s' Velocity 9.4 cm/s >=9.5 Aorta Name Value Normal Ascending Aorta Ao Root Diameter (MM) 3.4 cm Ao Root Diam Index (MM) 1.4 cm/m2 Aortic Valve Name Value Normal AV Doppler AV Peak Velocity 389 cm/s AV Peak Gradient 43 mmHg AV Mean Gradient 26 mmHg AV VTI 83 cm AV Area (Cont Eq VTI) 0.8 cm2 >=3.0 AV Area (Cont Eq Connor) 0.8 cm2 AV DI (Connor) 0.20 AV Regurgitation 2D LVOT Area 3.8 cm2 Ventricles Name Value Normal LV Dimensions 2D/MM IVS Diastolic Thickness (2D) 1.7 cm 0.6-1.0 LVID Diastole (2D) 5.0 cm 4.2-5.8 LVIW Diastolic Thickness (2D) 1.3 cm 0.6-1.0 LVID Systole (2D) 4.0 cm 2.5-4.0 LVOT Diameter 2.2 cm LV Mass (2D Cubed) 322.64 g 88.00-224.00 LV Mass Index (2D Cubed) 135 g/m2 49-115 Relative Wall Thickness (2D) 0.53 <=0.42 LV Fractional Shortening/Ejection Fraction 2D/MM LV Fractional Shortening (2D) 20 % 25-43 LV EF (2D Teichholz) 40 % LV Diastolic Volume (4C MOD) 82 ml LV EF (4C MOD) 68 % LV Diastolic Volume (2C MOD) 77 ml LV EF (2C MOD) 64 % LV Diastolic Volume (BP MOD) 81 ml 62-150 LV Diastolic Volume Index (BP MOD) 34 ml/m2 34-74 LV Systolic Volume (BP MOD) 28 ml 21-61 LV Systolic Volume Index (BP MOD) 12 ml/m2 11-31 LV EF (BP MOD) 66 % 52-72 LV Diastolic Length (4C) 8.8 cm LV Systolic Length (4C) 7.1 cm LV Stroke Volume (4C MOD) 56 ml Atria Name Value Normal LA Dimensions LA Dimension (MM) 4.2 cm 3.0-4.0 LA Volume (4C A-L) 84 ml LA Volume (BP A-L) 100 ml RA Dimensions RA Area (4C) 19.4 cm2 <=18.0 Report Signatures
[2025-01-08] MEDS: PERFLUTREN LIPID MICROSPHERES 1.5 ML VIAL DILUTED TO 10 ML TOTAL VOLUME IV PUSH (09:45)
[2025-01-08] MEDS: CLOPIDOGREL BISULFATE 75 MG TABLET PO (10:00)
[2025-01-08] MEDS: OPTI-GEN TAB 1 TABLET PO (10:00)
[2025-01-08] MEDS: PANTOPRAZOLE 40 MG TABLET PO (10:00)
[2025-01-08] MEDS: FUROSEMIDE INJ 40 MG/4 ML VIAL IV PUSH ×2 (10:00→17:38)
[2025-01-08] MEDS: POTASSIUM CHLORIDE 20 MEQ ER TABLET PO ×2 (10:00→17:38)
[2025-01-08] MEDS: ASPIRIN 81 MG ENTERIC TABLET PO (10:01)
[2025-01-08] MEDS: FERROUS SULFATE 325 MG TABLET PO (10:01)
[2025-01-08] MEDS: MEMANTINE 10 MG TABLET PO ×2 (10:01→17:38)
[2025-01-08] MEDS: METOPROLOL TARTRATE 50 MG TAB PO ×2 (10:02→21:23)
[2025-01-08] MEDS: MICONAZOLE NITRATE 2% CREAM 30 GM TUBE 1 APPLIC TOPICAL (10:19)
--- NOTE | 2025-01-08 10:45 | IVDEFINITY ---
Prior to administration of IV Definity the patient was educated on the risks and benefits of the imaging enhancing agent including potential adverse side effects. The patient verbalized understanding. Allergies were verified. No exclusion criteria were identified and at least one of the following inclusion criteria were met: 1) physician request, 2) patient technically difficult to image (per the [place] [employer]ocardi[employer] guidelines of two or more segments not discernable within the apical view), or 3) questionable left ventricular function. ?
--- NOTE | 2025-01-08 16:23 | P.PNIM_ITS ---
Progress Note: A&P Assessment and Plan (1) Essential (primary) hypertension: Code(s): I10 - Essential (primary) hypertension Status: Acute (2) Acute exacerbation of CHF (congestive heart failure): Qualifiers: Heart failure type: unspecified Qualified Code(s): I50.9 - Heart failure, unspecified Code(s): I50.9 - Heart failure, unspecified Status: Acute (3) Aortic stenosis: Qualifiers: Cardiac valve disease etiology: nonrheumatic Qualified Code(s): I35.0 - Nonrheumatic aortic (valve) stenosis Code(s): I35.0 - Nonrheumatic aortic (valve) stenosis Status: Acute (4) Atherosclerotic heart disease of [place] coronary artery with other forms of angina pectoris: Code(s): I25.118 - Atherosclerotic heart disease of [place] coronary artery with other forms of angina pectoris Status: Acute (5) Paroxysmal atrial fibrillation: Code(s): I48.0 - Paroxysmal atrial fibrillation Status: Acute (6) Chronic venous insufficiency of lower extremity: Code(s): I87.2 - Venous insufficiency (chronic) (peripheral) Status: Acute (7) Dyslipidemia: Code(s): E78.5 - Hyperlipidemia, unspecified Status: Acute (8) Type 2 diabetes mellitus: Qualifiers: Diabetes mellitus terminal clerk insulin use: without terminal clerk use Diabetes mellitus complication status: without complication Qualified Code(s): E11.9 - Type 2 diabetes mellitus without complications Code(s): E11.9 - Type 2 diabetes mellitus without complications Status: Acute (9) Morbid (severe) obesity due to excess calories: Code(s): E66.01 - Morbid (severe) obesity due to excess calories Status: Acute (10) Benign prostatic hyperplasia: Qualifiers: Lower urinary tract symptom presence: symptoms absent Qualified Code(s): N40.0 - Benign prostatic hyperplasia without lower urinary tract symptoms Code(s): N40.0 - Benign prostatic hyperplasia without lower urinary tract symptoms Status: Acute (11) Parkinsons disease: Qualifiers: Dyskinesia presence: without dyskinesia Fluctuating manifestations: unspecified whether manifestations fluctuate Qualified Code(s): G20.A1 - Parkinson's disease without dyskinesia, without mention of fluctuations Code(s): G20.A1 - Parkinson's disease without dyskinesia, without mention of fluctuations Status: Acute (12) Dementia of the Alzheimer's type: Qualifiers: Alzheimer's disease onset: unspecified onset Dementia severity: mild Dementia behavioral or psychological symptom: without behavioral, psychotic, or mood disturbance or anxiety Qualified Code(s): G30.9 - Alzheimer's disease, unspecified; F02.A0 - Dementia in other diseases classified elsewhere, mild, without behavioral disturbance, psychotic disturbance, mood disturbance, and anxiety Code(s): G30.9 - Alzheimer's disease, unspecified; F02.80 - Dementia in other diseases classified elsewhere, unspecified severity, without behavioral disturbance, psychotic disturbance, mood disturbance, and anxiety Status: Acute (13) Acute hypoxic respiratory failure: Code(s): J96.01 - Acute respiratory failure with hypoxia Status: Acute (14) Lymphedema of lower extremity: Code(s): I89.0 - Lymphedema, not elsewhere classified Status: Acute Plan This is an 89-year-old male who presents to the ED with shortness of breath. Patient stated that he started getting short of breath progressively getting worse and that got much worse this morning. EMS was called. EMS gave a breathing treatment after which he felt much better. He has a history of CHF in the past. He was also diagnosed with AFib last year. Denies any fever chills chest pain nausea vomiting abdominal pain diarrhea constipation. He reports having increased lower extremities edema In the ED his vitals were stable with mild hypertension oxygen saturation 90% on room air was placed on nasal cannula. He does not use oxygen at home He Is noted have significant pitting edema bilateral lower extremities up to the thighs. Laboratory workup revealed WBC of 9.6 hemoglobin 11.7 platelet count 189. Chem panel showed sodium of 134 potassium 3.9 chloride 98 bicarbonate 27 BUN 16 creatinine 0.8 and blood sugar of 273. INR 1.1 PTT 27.2. LFTs showed total bilirubin 1.7 AST 56 ALT 51 alkaline phosphatase of 193. Troponin was negative at 0.027 BNP was elevated at 6110. Influenza RSV COVID swab was negative. Chest x-ray showed pleural effusion with bibasilar atelectasis and/or airspace disease. Mild interstitial pulmonary edema. EKG showed AFib with slow ventricular rate with rate of [address]-T changes. Patient received 40 mg of IV Lasix. Patient admitted for further treatment Acute on chronic congestive heart failure diastolic. Continue IV diuresis. Check echo. Recent echo 08/23 EF 65-70% on moderately increased left ventricular wall thickness grade 1 diastolic dysfunction moderate aortic valve stenosis moderate mitral valve regurgitation moderate tricuspid valve regurgitation Acute hypoxic respiratory failure due to CHF. 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 patient daughter is present, gave up dates Subjective Date/time seen: 01/08/25 16:23 Interval history: Shortness of breath Narrative: This is an 89-year-old male who presents to the ED with shortness of breath. Patient stated that he started getting short of breath that has been progressively getting worse and that got much worse this morning. EMS was called. EMS gave a breathing treatment after which he felt much better. He has a history of CHF in the past. He was also diagnosed with AFib last year. Denies any fever chills chest pain nausea vomiting abdominal pain diarrhea constipation. He also noted increasing swelling in his lower extremities. He does not follow fluid restriction at home per family In the ED his vitals were stable with mild hypertension oxygen saturation 90% on room air was placed on nasal cannula. He does not use oxygen at home He is noted to have significant pitting edema bilateral lower extremities up to the thighs. Laboratory workup revealed WBC of 9.6 hemoglobin 11.7 platelet count 189. Chem panel showed sodium of 134 potassium 3.9 chloride 98 bicarbonate 27 BUN 16 creatinine 0.8 and blood sugar of 273. INR 1.1 PTT 27.2. LFTs showed total mary irubin 1.7 AST 56 ALT 51 alkaline phosphatase of 193. Troponin was negative at 0.027 BNP was elevated at 6110. Influenza RSV COVID swab was negative. Chest x-ray showed pleural effusion with bibasilar atelectasis and/or airspace disease. Mild interstitial pulmonary edema. EKG showed AFib with slow ventricular rate with rate of [address]-T changes. Patient received 40 mg of IV Lasix. Patient admitted for further treatment patient presented with shortness of breath and lower extremities edema, patient is being diuresed, his symptoms are improving, cardiac echo is pending, concern for UTI, UA is pending, will follow up, patient is working with PT, will benefit going to acute rehab, will monitor. patient daughter is present, gave up dates Review of Systems Review of Systems: - CONSTITUTIONAL: Denies weight loss, fe patti and chills. - HEENT: Denies changes in vision and he aring - RESPIRATORY: Reports SOB and denies c ough. - CV: Denies palpitations and CP. - GI: Denies abdominal pain, nausea, vom iting and diarrhea. - : Denies dysuria and urinary frequen cy. - MSK: Denies myalgia and joint pain. - SKIN: Denies rash and pruritus. - NEUROLOGICAL: Denies headache and sync ope. - PSYCHIATRIC: Denies recent changes in mood. Denies anxiety and depression. Exam Narrative: Patient is comfortable, NAD HEENT: eyes are clear and none icteric LUNGS:CTA HEART: RR S1S2 ABD: BS+, Soft and nontender Lower extremities: b/l edema SKIN: nonjaundiced Neuro: grossly intact. Objective Data Vital Signs Vital Signs: Vital Signs - 24 hr 01/07/25 16:51 01/07/25 17:54 01/07/25 19:38 Temperature 36.6 C Pulse Rate 61 78 Respiratory Rate 20 20 Blood Pressure 168/62 H Pulse Oximetry 95 95 97 Oxygen Delivery Nasal Cannula Room Air Oxygen Flow Rate 3 Fraction of Inspired Oxygen 01/07/25 20:00 01/07/25 20:00 01/07/25 20:40 Temperature 36.4 C L Pulse Rate 54 L 56 L Respiratory Rate 16 Blood Pressure 159/76 H Pulse Oximetry 95 96 Oxygen Delivery Nasal Cannula Oxygen Flow Rate 3 Fraction of Inspired Oxygen 01/07/25 20:46 01/08/25 00:00 01/08/25 04:00 Temperature Pulse Rate 78 50 L 51 L Respiratory Rate Blood Pressure Pulse Oximetry Oxygen Delivery Oxygen Flow Rate Fraction of Inspired Oxygen 01/08/25 05:42 01/08/25 08:00 01/08/25 10:02 Temperature 36.7 C 36.7 C Pulse Rate 55 L 62 66 Respiratory Rate 16 18 Blood Pressure 157/72 H 163/73 H Pulse Oximetry 98 95 Oxygen Delivery Oxygen Flow Rate Fraction of Inspired Oxygen 01/08/25 12:00 Temperature 36.7 C Pulse Rate 62 Respiratory Rate 18 Blood Pressure 159/78 H Pulse Oximetry 97 Oxygen Delivery Oxygen Flow Rate Fraction of Inspired Oxygen Intake/Output Intake/Output: Intake & Output 01/05/25 01/06/25 01/07/25 01/08/25 23:59 23:59 23:59 23:59 Intake Total 300 1030 Output Total 950 700 Balance -650 330 Meds/Results Medications: Active Medications Generic Name Dose Route Start Last Admin Trade Name Freq PRN Reason Stop Dose Admin Amlodipine Besylate 10 mg 01/08/25 09:00 Amlodipine Besylate 10 Mg Tablet PO DAILY [facility] Ascorbic Acid 500 mg 01/07/25 21:00 01/07/25 20:51 Ascorbic Acid 500 Mg Tablet PO 500 mg HS LEANNE Administration Aspirin 81 mg 01/08/25 09:00 01/08/25 10:01 Aspirin 81 Mg Enteric Tablet PO 81 mg DAILY LEANNE Administration Atorvastatin Calcium 20 mg 01/08/25 21:00 Atorvastatin 20 Mg Tablet PO HS LEANNE Clopidogrel Bisulfate 75 mg 01/08/25 09:00 01/08/25 10:00 Clopidogrel Bisulfate 75 Mg Tablet PO 75 mg DAILY LEANNE Administration Dextrose 12.5 gm 01/07/25 17:09 Dextrose 50% 25 Gm/50 Ml Syringe IV PUSH PRN PRN Hypoglycemia Protocol Diclofenac Sodium 1 drop 01/07/25 21:00 01/07/25 21:29 Diclofenac Sodium 0.1% Oph Soln 2.5 Ml Bottle LEFT EYE 1 drop Q12HR LEANNE Administration Docusate Sodium 50 mg 01/08/25 09:00 01/08/25 10:19 Docusate Sodium Liq 100 Mg/10 Ml Udc PO Not Given DAILY LEANNE Escitalopram Oxalate 10 mg 01/07/25 21:00 01/07/25 20:51 Escitalopram Oxalate 10 Mg Tablet PO 10 mg HS LEANNE Administration Ferrous Sulfate 325 mg 01/08/25 09:00 01/08/25 10:01 Ferrous Sulfate 325 Mg Tablet PO 325 mg DAILY LEANNE Administration Fish Oil 1 gm 01/07/25 21:00 01/07/25 20:46 [place] 3 Polyunsat Fatty Acids 1 Gm Cap PO 1 gm HS LEANNE Administration Furosemide 40 mg 01/08/25 09:00 01/08/25 10:00 Furosemide Inj 40 Mg/4 Ml Vial IV PUSH 40 mg BID LEANNE Administration Glucagon 1 mg 01/07/25 17:09 Glucagon For Inj 1 Mg Vial IM PRN PRN Hypoglycemia Protocol Glucose 15 gm 01/07/25 17:09 Glucose Oral Gel 15 Gm Of Glucse In 37.5 Gm Tube PO PRN PRN Hypoglycemia Protocol Dextrose 1,000 mls @ 100 mls/hr 01/07/25 17:09 Dextrose 5% 1,000 Ml IVPB PRN PRN Hypoglycemia Protocol Insulin Aspart 2 - 5 units 01/08/25 08:00 Insulin Aspart (*Bkc) 100 Units/Ml SUB-Q TIDWM LEANNE Protocol Insulin Aspart 1 - 2 units 01/07/25 21:00 01/07/25 20:53 Insulin Aspart (*Bkc) 100 Units/Ml SUB-Q Not Given HS LEANNE Protocol Lisinopril 40 mg 01/08/25 09:00 01/08/25 10:01 Lisinopril 20 Mg Tablet PO 40 mg DAILY LEANNE Administration Memantine 10 mg 01/08/25 09:00 01/08/25 10:01 Memantine 10 Mg Tablet PO 10 mg BID LEANNE Administration Metoprolol Tartrate 50 mg 01/07/25 21:00 01/08/25 10:02 Metoprolol Tartrate 50 Mg Tab PO 50 mg Q12HR LEANNE Administration Miconazole Nitrate 1 applic 01/08/25 09:00 01/08/25 10:19 Miconazole Nitrate 2% Cream 30 Gm Tube TOPICAL 1 applic DAILY LEANNE Administration Multivitamins/Minerals 1 tablet 01/08/25 09:00 01/08/25 10:00 Opti-Gen Tab PO 1 tablet DAILY LEANNE Administration Nonformulary 1 each 01/07/25 18:50 Nutritional XX 01/08/25 18:49 Supplement PRN PRN Nonformulary Drug ( PROTOCOL Magnesium Citrate, Mag Oxide 250 Mg Pantoprazole Sodium 40 mg 01/08/25 09:00 01/08/25 10:00 Pantoprazole 40 Mg Tablet PO 40 mg DAILY LEANNE Administration Polyethylene Glycol 17 gm 01/07/25 18:36 Polyethylene Glycol 3350 17 Gm Powd.Pack PO DAILY PRN Constipation Potassium Chloride 20 meq 01/08/25 09:00 01/08/25 10:00 Potassium Chloride 20 Meq Er Tablet PO 20 meq BID LEANNE Administration Tamsulosin HCl 0.4 mg 01/07/25 21:00 01/07/25 20:51 Tamsulosin Hcl 0.4 Mg Capsule PO 0.4 mg HS LEANNE Administration Trazodone HCl 50 - 100 mg 01/07/25 22:49 01/07/25 22:54 Trazodone Hcl 50 Mg Tablet PO 100 mg QHS PRN Administration Sleep Triamcinolone Acetonide 1 applic 01/07/25 18:36 Triamcinolone Acet 0.1% Cream 15 Gm Tube TOPICAL BID PRN Itching Vitamin D 50 mcg 01/08/25 21:00 Cholecalciferol (Vitamin D3) 25 Mcg (1,000 Units) Tablet PO [facility] Radiology Results: ITS Impressions Chest X-Ray 01/07/25 13:20 IMPRESSION: 1. Pleural effusions with bibasilar atelectasis and/or airspace disease. 2. Mild interstitial pulmonary edema. Labs Labs: Laboratory Results - last 24 hr 01/07/25 01/07/25 01/08/25 12:53 20:45 07:54 POC Capillary Glucose 257 H 184 H Hemoglobin A1c 7.3 H 01/08/25 11:57 POC Capillary Glucose 233 H Hemoglobin A1c
[2025-01-08] MEDS: INSULIN ASPART (*BKC) 100 UNITS/ML SUB-Q (17:39)
[2025-01-08] MEDS: ATORVASTATIN 20 MG TABLET PO (21:22)
[2025-01-08] MEDS: OMEGA 3 POLYUNSAT FATTY ACIDS 1 GM CAP PO (21:23)
[2025-01-08] MEDS: TAMSULOSIN HCL 0.4 MG CAPSULE PO (21:23)
[2025-01-08] MEDS: ESCITALOPRAM OXALATE 10 MG TABLET PO (21:23)
[2025-01-08] MEDS: CHOLECALCIFEROL (VITAMIN D3) 25 MCG (1,000 UNITS) TABLET 50 MCG PO (21:23)
[2025-01-08] MEDS: ASCORBIC ACID 500 MG TABLET PO (21:24)
[2025-01-08] MEDS: DICLOFENAC SODIUM 0.1% OPHTH SOLN 2.5 ML BOTTLE 1 DROP LEFT EYE (21:29)
[2025-01-08 22:50] LABS: Add Urine Microscopic? NO; Appearance Urine Clear (Clear); Glucose Urine UA Negative (Negative); Leukocyte Esterase Ur Negative LEU/UL (Negative); Nitrate Urine Negative (Negative); Specific Grav Ur 1.010 (1.001-1.035)
[2025-01-09] VITALS (12 sets, daily range): BP systolic 123–135; BP diastolic 68–84; PULSE 85–131; RESP 20; TEMP 36.4–36.6; O2SAT 95–97
[2025-01-09 06:24] LABS: Hematocrit 36.7 % (42.0-52.0); Hemoglobin 11.8 g/dL (14.0-18.0); Mean Corpuscular HGB Conc 32.2 g/dl (32-36); Mean Corpuscular Hemoglobin 28.5 pg (26-34); Mean Corpuscular Volume 88.6 fl (80-100); Platelet Count Result 207 k/mm3 (150-375); Red Blood Count 4.14 M/mm3 (4.6-6.20); White Blood Count 7.4 K/mm3 (4.5-10.0)
[2025-01-09 06:43] LABS: Anion Gap 6 mmol/L (4-12); Blood Urea Nitrogen 14 mg/dL (9-20); Calcium 8.4 mg/dL (8.4-10.2); Carbon Dioxide 31 mmol/L (22-30); Chloride 100 mmol/L (98-107); Estimated CRCL calculation 67 ml/min; Estimated Glomerular Filt Rate > 60; Glucose 173 mg/dL (65-110); Potassium 3.5 mmol/L (3.4-5.0); Sodium 137 mmol/L (137-145)
[2025-01-09 06:55] LABS: Magnesium 2.2 mg/dL (1.6-2.3)
[2025-01-09] MEDS: INSULIN ASPART (*BKC) 100 UNITS/ML SUB-Q ×4 (08:25→20:57)
[2025-01-09] MEDS: POTASSIUM CHLORIDE 20 MEQ ER TABLET PO ×2 (08:31→17:18)
[2025-01-09] MEDS: FUROSEMIDE INJ 40 MG/4 ML VIAL IV PUSH ×2 (08:33→17:18)
[2025-01-09] MEDS: DOCUSATE SODIUM 100 MG CAPSULE PO (08:34)
[2025-01-09] MEDS: OPTI-GEN TAB 1 TABLET PO (08:39)
[2025-01-09] MEDS: METOPROLOL TARTRATE 50 MG TAB PO ×2 (08:39→20:48)
[2025-01-09] MEDS: CLOPIDOGREL BISULFATE 75 MG TABLET PO (08:40)
[2025-01-09] MEDS: ASPIRIN 81 MG ENTERIC TABLET PO (08:40)
[2025-01-09] MEDS: FERROUS SULFATE 325 MG TABLET PO (08:40)
[2025-01-09] MEDS: MEMANTINE 10 MG TABLET PO ×2 (08:40→17:19)
[2025-01-09] MEDS: PANTOPRAZOLE 40 MG TABLET PO (08:41)
[2025-01-09] MEDS: DICLOFENAC SODIUM 0.1% OPHTH SOLN 2.5 ML BOTTLE 1 DROP LEFT EYE ×2 (08:42→20:57)
[2025-01-09] MEDS: MICONAZOLE NITRATE 2% CREAM 30 GM TUBE 1 APPLIC TOPICAL (08:42)
--- NOTE | 2025-01-09 11:13 | P.PNIM_ITS ---
Progress Note: A&P Assessment and Plan (1) Essential (primary) hypertension: Code(s): I10 - Essential (primary) hypertension Status: Acute (2) Acute exacerbation of CHF (congestive heart failure): Qualifiers: Heart failure type: unspecified Qualified Code(s): I50.9 - Heart failure, unspecified Code(s): I50.9 - Heart failure, unspecified Status: Acute (3) Aortic stenosis: Qualifiers: Cardiac valve disease etiology: nonrheumatic Qualified Code(s): I35.0 - Nonrheumatic aortic (valve) stenosis Code(s): I35.0 - Nonrheumatic aortic (valve) stenosis Status: Acute (4) Atherosclerotic heart disease of [place] coronary artery with other forms of angina pectoris: Code(s): I25.118 - Atherosclerotic heart disease of [place] coronary artery with other forms of angina pectoris Status: Acute (5) Paroxysmal atrial fibrillation: Code(s): I48.0 - Paroxysmal atrial fibrillation Status: Acute (6) Chronic venous insufficiency of lower extremity: Code(s): I87.2 - Venous insufficiency (chronic) (peripheral) Status: Acute (7) Dyslipidemia: Code(s): E78.5 - Hyperlipidemia, unspecified Status: Acute (8) Type 2 diabetes mellitus: Qualifiers: Diabetes mellitus intermediate accountant insulin use: without intermediate accountant use Diabetes mellitus complication status: without complication Qualified Code(s): E11.9 - Type 2 diabetes mellitus without complications Code(s): E11.9 - Type 2 diabetes mellitus without complications Status: Acute (9) Morbid (severe) obesity due to excess calories: Code(s): E66.01 - Morbid (severe) obesity due to excess calories Status: Acute (10) Benign prostatic hyperplasia: Qualifiers: Lower urinary tract symptom presence: symptoms absent Qualified Code(s): N40.0 - Benign prostatic hyperplasia without lower urinary tract symptoms Code(s): N40.0 - Benign prostatic hyperplasia without lower urinary tract symptoms Status: Acute (11) Parkinsons disease: Qualifiers: Dyskinesia presence: without dyskinesia Fluctuating manifestations: unspecified whether manifestations fluctuate Qualified Code(s): G20.A1 - Parkinson's disease without dyskinesia, without mention of fluctuations Code(s): G20.A1 - Parkinson's disease without dyskinesia, without mention of fluctuations Status: Acute (12) Dementia of the Alzheimer's type: Qualifiers: Alzheimer's disease onset: unspecified onset Dementia severity: mild Dementia behavioral or psychological symptom: without behavioral, psychotic, or mood disturbance or anxiety Qualified Code(s): G30.9 - Alzheimer's disease, unspecified; F02.A0 - Dementia in other diseases classified elsewhere, mild, without behavioral disturbance, psychotic disturbance, mood disturbance, and anxiety Code(s): G30.9 - Alzheimer's disease, unspecified; F02.80 - Dementia in other diseases classified elsewhere, unspecified severity, without behavioral disturbance, psychotic disturbance, mood disturbance, and anxiety Status: Acute (13) Acute hypoxic respiratory failure: Code(s): J96.01 - Acute respiratory failure with hypoxia Status: Acute (14) Lymphedema of lower extremity: Code(s): I89.0 - Lymphedema, not elsewhere classified Status: Acute Plan This is an 89-year-old male who presents to the ED with shortness of breath. Patient stated that he started getting short of breath progressively getting worse and that got much worse this morning. EMS was called. EMS gave a breathing treatment after which he felt much better. He has a history of CHF in the past. He was also diagnosed with AFib last year. Denies any fever chills chest pain nausea vomiting abdominal pain diarrhea constipation. He reports having increased lower extremities edema In the ED his vitals were stable with mild hypertension oxygen saturation 90% on room air was placed on nasal cannula. He does not use oxygen at home He Is noted have significant pitting edema bilateral lower extremities up to the thighs. Laboratory workup revealed WBC of 9.6 hemoglobin 11.7 platelet count 189. Chem panel showed sodium of 134 potassium 3.9 chloride 98 bicarbonate 27 BUN 16 creatinine 0.8 and blood sugar of 273. INR 1.1 PTT 27.2. LFTs showed total bilirubin 1.7 AST 56 ALT 51 alkaline phosphatase of 193. Troponin was negative at 0.027 BNP was elevated at 6110. Influenza RSV COVID swab was negative. Chest x-ray showed pleural effusion with bibasilar atelectasis and/or airspace disease. Mild interstitial pulmonary edema. EKG showed AFib with slow ventricular rate with rate of [address]-T changes. Patient received 40 mg of IV Lasix. Patient admitted for further treatment Acute on chronic congestive heart failure diastolic. Continue IV diuresis. Check echo. Recent echo 08/23 EF 65-70% on moderately increased left ventricular wall thickness grade 1 diastolic dysfunction moderate aortic valve stenosis moderate mitral valve regurgitation moderate tricuspid valve regurgitation Acute hypoxic respiratory failure due to CHF. 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 Iron deficiency anemia GERD Depression Hypertension Hyperlipidemia DVT prophylaxis Code status do not resuscitate patient presented with shortness of breath and lower extremities edema, today patient is present in the room, patient is being diuresed and his symptoms are improving, cardiac echo showed normal LV function, and patient has severe aortic valve stenosis, there was no mention of diastaltic function, unable to determine etiology of CHF, will follow up, patient is working with PT, will benefit going to acute rehab, will monitor however patient family is meeting with hospice today and further recommendation to follow. Subjective Date/time seen: 01/09/25 11:13 Interval history: Shortness of breath Narrative: This is an 89-year-old male who presents to the ED with shortness of breath. Patient stated that he started getting short of breath that has been progressively getting worse and that got much worse this morning. EMS was called. EMS gave a breathing treatment after which he felt much better. He has a history of CHF in the past. He was also diagnosed with AFib last year. Denies any fever chills chest pain nausea vomiting abdominal pain diarrhea constipation. He also noted increasing swelling in his lower extremities. He does not follow fluid restriction at home per family In the ED his vitals were stable with mild hypertension oxygen saturation 90% on room air was placed on nasal cannula. He does not use oxygen at home He is noted to have significant pitting edema bilateral lower extremities up to the thighs. Laboratory workup revealed WBC of 9.6 hemoglobin 11.7 platelet count 189. Chem panel showed sodium of 134 potassium 3.9 chloride 98 bicarbonate 27 BUN 16 creatinine 0.8 and blood sugar of 273. INR 1.1 PTT 27.2. LFTs showed total bilirubin 1.7 AST 56 ALT 51 alkaline phosphatase of 193. Troponin was negative at 0.027 BNP was elevated at 6110. Influenza RSV COVID swab was negative. Chest x-ray showed pleural effusion with bibasilar atelectasis and/or airspace disease. Mild interstitial pulmonary edema. EKG showed AFib with slow ventricular rate with rate of [address]-T changes. Patient received 40 mg of IV Lasix. Patient admitted for further treatment patient presented with shortness of breath and lower extremities edema, today patient is present in the room, patient is being diuresed and his symptoms are improving, cardiac echo showed normal LV function, and patient has severe aortic valve stenosis, there was no mention of diastaltic function, unable to determine etiology of CHF, will follow up, patient is working with PT, will benefit going to acute rehab, will monitor however patient family is meeting with hospice today and further recommendation to follow. Review of Systems Review of Systems: - CONSTITUTIONAL: Denies weight loss, fe patti and chills. - HEENT: Denies changes in vision and he aring - RESPIRATORY: Reports SOB and denies c ough. - CV: Denies palpitations and CP. - GI: Denies abdominal pain, nausea, vom iting and diarrhea. - : Denies dysuria and urinary frequen cy. - MSK: Denies myalgia and joint pain. - SKIN: Denies rash and pruritus. - NEUROLOGICAL: Denies headache and sync ope. - PSYCHIATRIC: Denies recent changes in mood. Denies anxiety and depression. Exam Narrative: Patient is comfortable, NAD HEENT: eyes are clear and none icteric LUNGS:CTA HEART: RR S1S2 ABD: BS+, Soft and nontender Lower extremities: b/l edema SKIN: nonjaundiced Neuro: grossly intact. Objective Data Vital Signs Vital Signs: Vital Signs - 24 hr 01/08/25 12:00 01/08/25 12:00 01/08/25 13:55 Temperature 36.7 C Pulse Rate 62 67 Respiratory Rate 18 Blood Pressure 159/78 H Pulse Oximetry 97 Oxygen Delivery Nasal Cannula Oxygen Flow Rate 2 01/08/25 16:00 01/08/25 16:01/08/25 20:00 Temperature 36.4 C 36.6 C Pulse Rate 117 H 101 H 114 H Respiratory Rate 18 20 Blood Pressure 125/98 H 106/66 Pulse Oximetry 97 97 Oxygen Delivery Oxygen Flow Rate 01/08/25 20:00 01/08/25 20:00 01/08/25 20:11 Temperature Pulse Rate 97 Respiratory Rate Blood Pressure Pulse Oximetry 99 99 Oxygen Delivery Nasal Cannula Nasal Cannula Oxygen Flow Rate 2 2 01/08/25 21:23 01/09/25 00:00 01/09/25 01:42 Temperature Pulse Rate 101 H 99 131 H Respiratory Rate Blood Pressure Pulse Oximetry Oxygen Delivery Oxygen Flow Rate 01/09/25 04:00 01/09/25 06:00 01/09/25 08:00 Temperature 36.4 C Pulse Rate 91 115 H 118 H Respiratory Rate 20 Blood Pressure 135/84 Pulse Oximetry 97 95 Oxygen Delivery Room Air Oxygen Flow Rate 01/09/25 08:00 01/09/25 08:39 Temperature Pulse Rate 116 H 118 H Respiratory Rate Blood Pressure Pulse Oximetry Oxygen Delivery Oxygen Flow Rate Intake/Output Intake/Output: Intake & Output 01/06/25 01/07/25 01/08/25 01/09/25 23:59 23:59 23:59 23:59 Intake Total 300 1270 300 Output Total 950 1800 200 Balance -650 -530 100 Meds/Results Medications: Active Medications Generic Name Dose Route Start Last Admin Trade Name Freq PRN Reason Stop Dose Admin Amlodipine Besylate 10 mg 01/08/25 09:00 01/09/25 08:40 Amlodipine Besylate 10 Mg Tablet PO 10 mg DAILY LEANNE Administration Ascorbic Acid 500 mg 01/07/25 21:00 01/08/25 21:24 Ascorbic Acid 500 Mg Tablet PO 500 mg HS LEANNE Administration Aspirin 81 mg 01/08/25 09:00 01/09/25 08:40 Aspirin 81 Mg Enteric Tablet PO 81 mg DAILY LEANNE Administration Atorvastatin Calcium 20 mg 01/08/25 21:00 01/08/25 21:22 Atorvastatin 20 Mg Tablet PO 20 mg HS LEANNE Administration Clopidogrel Bisulfate 75 mg 01/08/25 09:00 01/09/25 08:40 Clopidogrel Bisulfate 75 Mg Tablet PO 75 mg DAILY LEANNE Administration Dextrose 12.5 gm 01/07/25 17:09 Dextrose 50% 25 Gm/50 Ml Syringe IV PUSH PRN PRN Hypoglycemia Protocol Diclofenac Sodium 1 drop 01/07/25 21:00 01/09/25 08:42 Diclofenac Sodium 0.1% Ophth Soln 2.5 Ml Bottle LEFT EYE 1 drop Q12HR LEANNE Administration Docusate Sodium 100 mg 01/08/25 21:00 01/09/25 08:34 Docusate Sodium 100 Mg Capsule PO 100 mg Q12HR LEANNE Administration Escitalopram Oxalate 10 mg 01/07/25 21:00 01/08/25 21:23 Escitalopram Oxalate 10 Mg Tablet PO 10 mg HS LEANNE Administration Ferrous Sulfate 325 mg 01/08/25 09:00 01/09/25 08:40 Ferrous Sulfate 325 Mg Tablet PO 325 mg DAILY LEANNE Administration Fish Oil 1 gm 01/07/25 21:00 01/08/25 21:23 [place] 3 Polyunsat Fatty Acids 1 Gm Cap PO 1 gm HS LEANNE Administration Furosemide 40 mg 01/08/25 09:00 01/09/25 08:33 Furosemide Inj 40 Mg/4 Ml Vial IV PUSH 40 mg BID LEANNE Administration Glucagon 1 mg 01/07/25 17:09 Glucagon For Inj 1 Mg Vial IM PRN PRN Hypoglycemia Protocol Glucose 15 gm 01/07/25 17:09 Glucose Oral Gel 15 Gm Of Glucse In 37.5 Gm Tube PO PRN PRN Hypoglycemia Protocol Dextrose 1,000 mls @ 100 mls/hr 01/07/25 17:09 Dextrose 5% 1,000 Ml IVPB PRN PRN Hypoglycemia Protocol Insulin Aspart 2 - 5 units 01/08/25 08:00 01/09/25 08:25 Insulin Aspart (*Bkc) 100 Units/Ml SUB-Q 2 units TIDWM LEANNE Administration Protocol Insulin Aspart 1 - 2 units 01/07/25 21:00 01/08/25 21:50 Insulin Aspart (*Bkc) 100 Units/Ml SUB-Q Not Given HS LEANNE Protocol Lisinopril 40 mg 01/08/25 09:00 01/09/25 08:41 Lisinopril 20 Mg Tablet PO 40 mg DAILY LEANNE Administration Memantine 10 mg 01/08/25 09:00 01/09/25 08:40 Memantine 10 Mg Tablet PO 10 mg BID LEANNE Administration Metoprolol Tartrate 50 mg 01/07/25 21:00 01/09/25 08:39 Metoprolol Tartrate 50 Mg Tab PO 50 mg Q12HR LEANEN Administration Metoprolol Tartrate 5 mg 01/08/25 19:44 Metoprolol Tartrate Inj 5 Mg/5 Ml Vial IV PUSH ONCE PRN Heart Rate- High; HR>130 susta Miconazole Nitrate 1 applic 01/08/25 09:00 01/09/25 08:42 Miconazole Nitrate 2% Cream 30 Gm Tube TOPICAL 1 applic DAILY LEANNE Administration Multivitamins/Minerals 1 tablet 01/08/25 09:00 01/09/25 08:39 Opti-Gen Tab PO 1 tablet DAILY LEANNE Administration Pantoprazole Sodium 40 mg 01/08/25 09:00 01/09/25 08:41 Pantoprazole 40 Mg Tablet PO 40 mg DAILY LEANNE Administration Polyethylene Glycol 17 gm 01/07/25 18:36 Polyethylene Glycol 3350 17 Gm Powd.Pack PO DAILY PRN Constipation Polyethylene Glycol 17 gm 01/08/25 21:00 01/09/25 08:36 Polyethylene Glycol 3350 17 Gm Powd.Pack PO 17 gm QAM LEANNE Administration Potassium Chloride 20 meq 01/08/25 09:00 01/09/25 08:31 Potassium Chloride 20 Meq Er Tablet PO 20 meq BID LEANNE Administration Tamsulosin HCl 0.4 mg 01/07/25 21:00 01/08/25 21:23 Tamsulosin Hcl 0.4 Mg Capsule PO 0.4 mg HS LEANNE Administration Trazodone HCl 50 - 100 mg 01/07/25 22:49 01/08/25 21:23 Trazodone Hcl 50 Mg Tablet PO 100 mg QHS PRN Administration Sleep Triamcinolone Acetonide 1 applic 01/07/25 18:36 Triamcinolone Acet 0.1% Cream 15 Gm Tube TOPICAL BID PRN Itching Vitamin D 50 mcg 01/08/25 21:00 01/08/25 21:23 Cholecalciferol (Vitamin D3) 25 Mcg (1,000 Units) Tablet PO 50 mcg HS LEANNE Administration Radiology Results: ITS Impressions Chest X-Ray 01/07/25 13:20 IMPRESSION: 1. Pleural effusions with bibasilar atelectasis and/or airspace disease. 2. Mild interstitial pulmonary edema. Labs Labs: Laboratory Results - last 24 hr 01/08/25 01/08/25 01/08/25 11:57 17:01 21:45 WBC RBC Hgb Hct MCV MCH MCHC RDW Plt Count MPV Sodium Potassium Chloride Carbon Dioxide Anion Gap BUN Creatinine Estim Creat Clear Calc Estimated GFR Glucose POC Capillary Glucose 233 H 228 H 194 H Calcium Magnesium Urine Color Urine Appearance Urine pH Ur Specific [place] Urine Protein Urine Glucose (UA) Urine Ketones Ur Blood (Man) Urine Nitrate Urine Bilirubin Urine Urobilinogen Leukocyte Esterase Rfl 01/08/25 01/09/25 01/09/25 22:40 05:10 08:05 WBC 7.4 RBC 4.14 L Hgb 11.8 L Hct 36.7 L MCV 88.6 MCH 28.5 MCHC 32.2 RDW 15.1 H Plt Count 207 MPV 9.5 Sodium 137 Potassium 3.5 Chloride 100 Carbon Dioxide 31 H Anion Gap 6 BUN 14 Creatinine 0.83 Estim Creat Clear Calc 67 Estimated GFR > 60 Glucose 173 H POC Capillary Glucose 207 H Calcium 8.4 Magnesium 2.2 Urine Color Yellow Urine Appearance Clear Urine pH 5.5 Ur Specific [place] 1.010 Urine Protein Negative Urine Glucose (UA) Negative Urine Ketones Negative Ur Blood (Man) Negative Urine Nitrate Negative Urine Bilirubin Negative Urine Urobilinogen 1.0 Leukocyte Esterase Rfl Negative
[2025-01-09] MEDS: OMEGA 3 POLYUNSAT FATTY ACIDS 1 GM CAP PO (20:48)
[2025-01-09] MEDS: CHOLECALCIFEROL (VITAMIN D3) 25 MCG (1,000 UNITS) TABLET 50 MCG PO (20:49)
[2025-01-09] MEDS: ATORVASTATIN 20 MG TABLET PO (20:49)
[2025-01-09] MEDS: ASCORBIC ACID 500 MG TABLET PO (20:49)
[2025-01-09] MEDS: TAMSULOSIN HCL 0.4 MG CAPSULE PO (20:50)
[2025-01-09] MEDS: ESCITALOPRAM OXALATE 10 MG TABLET PO (20:50)
[2025-01-10] VITALS (13 sets, daily range): BP systolic 111–143; BP diastolic 71–84; PULSE 88–112; RESP 18–20; TEMP 36.3–36.6; O2SAT 96–98
[2025-01-10 07:01] LABS: Hematocrit 35.9 % (42.0-52.0); Hemoglobin 11.8 g/dL (14.0-18.0); Mean Corpuscular HGB Conc 32.9 g/dl (32-36); Mean Corpuscular Hemoglobin 28.7 pg (26-34); Mean Corpuscular Volume 87.3 fl (80-100); Platelet Count Result 221 k/mm3 (150-375); Red Blood Count 4.11 M/mm3 (4.6-6.20); White Blood Count 7.6 K/mm3 (4.5-10.0)
[2025-01-10 07:42] LABS: Anion Gap 10 mmol/L (4-12); Blood Urea Nitrogen 16 mg/dL (9-20); Calcium 8.6 mg/dL (8.4-10.2); Carbon Dioxide 27 mmol/L (22-30); Chloride 99 mmol/L (98-107); Estimated CRCL calculation 68 ml/min; Estimated Glomerular Filt Rate > 60; Glucose 173 mg/dL (65-110); Magnesium 2.1 mg/dL (1.6-2.3); Potassium 3.2 mmol/L (3.4-5.0); Sodium 136 mmol/L (137-145)
[2025-01-10] MEDS: ASPIRIN 81 MG ENTERIC TABLET PO (08:15)
[2025-01-10] MEDS: OPTI-GEN TAB 1 TABLET PO (08:15)
[2025-01-10] MEDS: POTASSIUM CHLORIDE 20 MEQ ER TABLET PO ×2 (08:15→16:45)
[2025-01-10] MEDS: MEMANTINE 10 MG TABLET PO ×2 (08:16→16:45)
[2025-01-10] MEDS: FERROUS SULFATE 325 MG TABLET PO (08:16)
[2025-01-10] MEDS: CLOPIDOGREL BISULFATE 75 MG TABLET PO (08:16)
[2025-01-10] MEDS: PANTOPRAZOLE 40 MG TABLET PO (08:17)
[2025-01-10] MEDS: METOPROLOL TARTRATE 50 MG TAB PO (08:17)
[2025-01-10] MEDS: DOCUSATE SODIUM 100 MG CAPSULE PO ×2 (08:17→21:04)
[2025-01-10] MEDS: FUROSEMIDE INJ 40 MG/4 ML VIAL IV PUSH ×2 (08:18→16:44)
[2025-01-10] MEDS: MICONAZOLE NITRATE 2% CREAM 30 GM TUBE 1 APPLIC TOPICAL (08:19)
[2025-01-10] MEDS: DICLOFENAC SODIUM 0.1% OPHTH SOLN 2.5 ML BOTTLE 1 DROP LEFT EYE ×2 (08:19→21:05)
[2025-01-10] MEDS: POTASSIUM CHLORIDE 20 MEQ ER TABLET 40 MEQ PO (09:59)
--- NOTE | 2025-01-10 12:02 | PM.CNCAR ---
Assessment and Plan Assessment and plan (1) Atherosclerotic heart disease of [place] coronary artery with other forms of angina pectoris: Code(s): I25.118 - Atherosclerotic heart disease of [place] coronary artery with other forms of angina pectoris Status: Acute Assessment and Plan: Coronary artery disease with history of multivessel bypass grafting in 2000. His coronary artery disease is stable-he is not experiencing any anginal symptoms. Continue Plavix, aspirin, and statin. (2) Aortic stenosis: Qualifiers: Cardiac valve disease etiology: nonrheumatic Qualified Code(s): I35.0 - Nonrheumatic aortic (valve) stenosis Code(s): I35.0 - Nonrheumatic aortic (valve) stenosis Status: Acute Assessment and Plan: Previously moderate with ELEAZAR 1.0cm2, now severe with ELEAZAR 0.8cm2, mean gradient 34 mmHg. I requested a follow-up appointment with Dr. Alvares to discuss possible TAVR. (3) Dyslipidemia: Code(s): E78.5 - Hyperlipidemia, unspecified Status: Acute Assessment and Plan: Continue statin (4) Paroxysmal atrial fibrillation: Code(s): I48.0 - Paroxysmal atrial fibrillation Status: Acute Assessment and Plan: Generally rate control beta does have RVR at times. Will cautiously increase metoprolol to 75 mg b.i.d.-given his severe aortic stenosis want to avoid hypotension none, however a better controlled heart rate is also important in this situation. (5) Acute exacerbation of CHF (congestive heart failure): Qualifiers: Heart failure type: unspecified Qualified Code(s): I50.9 - Heart failure, unspecified Code(s): I50.9 - Heart failure, unspecified Status: Acute Assessment and Plan: Probably secondary to worsening aortic stenosis. Apparently he also drinks an excessive amount of fluids. Symptoms have improved with IV diuresis. He does still have some lower extremity edema. Continue IV furosemide for today and probably shift to p.o. furosemide tomorrow. Perfomed CHF counseling in regards to fluid intake and dietary choices. History of Present Illness History of Present Illness Consult date/time: 01/10/25 12:02 Reason For Visit: acute hypoxic respiratory failure CHF exacerbation Narrative: Lefty Haskins is an 89-year-old male with paroxysmal atrial fibrillation, coronary artery disease, and severe aortic stenosis. This is a patient who presented to the hospital because of shortness of breath. Cardiology is consulted for palpitations. Upon questioning the patient, he denies any complaints of palpitations. However, the patient's daughter is at the bedside and states that she is concerned about the patient's heart rate being elevated on telemetry intermittently. His heart rate is generally in the 90s to low 100s but it does intermittently reach the 120s. Again, he is not experiencing any symptoms from this. His shortness of breath has significantly improved with diuresis and the patient is eager to be released from the hospital. He does not have any chest pain, syncope, orthopnea, and lower extremity edema has significantly improved with diuresis. He is lying comfortably in the bed at the time of my evaluation does not have any active complaints Review of Systems Review of Systems: All systems reviewed & are unremarkable except as noted in HPI and below PMFSH Past Medical History Medical History Acute pancreatitis (~06/2023) Parkinsons disease Dementia of the Alzheimer's type Insomnia Lymphedema of lower extremity Dermatitis Paroxysmal atrial fibrillation Abdominal pain GURPREET (acute kidney injury) Leukocytosis Elevated liver enzymes Chronic venous insufficiency of lower extremity Dyslipidemia Aortic stenosis Hypokalemia Benign prostatic hyperplasia Type 2 diabetes mellitus Atherosclerotic heart disease of [place] coronary artery with other forms of angina pectoris Essential (primary) hypertension Surgical History Surgical History 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 Rice Family History Family History Father Depression, Onset Age: 35 Family history of suicide, Onset Age: 35 Mother Family history of malignant neoplasm of ovary, Onset Age: 77 Other Family history of cardiovascular disease Hypertension Social History Social History Smoking status: Never smoker Alcohol intake: never Substance use: never Substance use type: does not use Do You Feel Safe in your Home?: Yes Lack of Transportation: No Lack of Food: Never True Current Housing: I Have Housing Concerned About Future Housing: No Difficulty Paying Gas/Electric Bills: No Difficulty Paying for Meds: No Currently Unemployed: No Education: Master's Degree or Higher Difficulty w/ Childcare or Family Care: No Living arrangements: with family Additional living arrangements comments: and daughter Occupation/Education: retired 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 [employer] Gender identity (if verbalized by the patient): Male Sexual Orientation (if Verbalized by the Patient): Straight or Heterosexual Spiritual care concerns: No Agree to blood products: Yes Meds Home Medications and Allergies Home Medications ?Medication ?Instructions ?Recorded ?Confirmed ?Type omega3-dha 200 mg-epa 300 mg-othr 1 cap PO .pm 08/17/22 01/07/25 History om3 100 mg-fish oil 1,000 mg capsule lisinopril 40 mg tablet 40 mg PO DAILY 06/20/23 01/07/25 History blood sugar diagnostic (Blood #100 ea 07/05/23 01/07/25 Rx Glucose Test strips) lancets #100 ea 07/05/23 01/07/25 Rx metoprolol tartrate 50 mg tablet 50 mg PO BID 07/10/23 01/07/25 History blood-glucose meter (OneTouch #1 ea 07/24/23 01/07/25 Rx Verio Flex Meter) ascorbate calcium (vitamin C) 500 500 mg PO .pm 11/01/23 01/07/25 History mg tablet magnesium citrate,mag oxide 250 mg 250 mg PO DAILY 12/12/23 01/07/25 History capsule aspirin 81 mg tablet,delayed 81 mg PO DAILY 04/12/24 01/07/25 History release clopidogrel 75 mg tablet (Plavix) 75 mg PO DAILY 04/12/24 01/07/25 History khwryigo-zb-krtib 300 mcg-K 60 1 tablet PO DAILY 04/12/24 01/07/25 History mcg-lycop 600 mcg-lutein 300 mcg tablet (Men 50 Plus Multivitamin) atorvastatin 20 mg tablet (Lipitor) 20 mg PO QPM 08/08/24 01/07/25 History diclofenac sodium 0.1 % eye drops 1 drp LEFT EYE BID 08/08/24 01/07/25 History cholecalciferol (vitamin D3) 50 50 mcg PO QPM 08/15/24 01/07/25 History mcg (2,000 unit) capsule escitalopram oxalate 10 mg tablet 10 mg PO QPM #90 tabs 09/09/24 01/07/25 Rx ferrous sulfate 325 mg (65 mg 325 mg PO DAILY #100 tabs 09/16/24 01/07/25 Rx iron) tablet,delayed release sitagliptin phos 50 mg-metformin 1 tablet PO QPM #90 tabs 10/18/24 01/07/25 Rx ER 1,000 mg tablet,extend rel 24h mp (Janumet XR) furosemide 40 mg tablet 40 mg PO DAILY #90 tabs 11/11/24 01/07/25 Rx tamsulosin 0.4 mg capsule 0.4 mg PO QPM #90 caps 11/18/24 01/07/25 Rx docusate sodium 50 mg capsule 50 mg PO DAILY 11/26/24 01/07/25 History memantine 10 mg tablet 10 mg PO BID #180 tabs 11/26/24 01/07/25 Rx pantoprazole 40 mg tablet,delayed 40 mg PO DAILY #90 tabs 12/11/24 01/07/25 Rx release trazodone 50 mg tablet See Rx Instructions PO QHS PRN 12/19/24 01/07/25 Rx sleep #180 tabs amlodipine 10 mg tablet 10 mg PO DAILY 12/24/24 01/07/25 History ketoconazole 2 % topical cream 1 applic topical DAILY #60 grams 12/24/24 01/07/25 Rx polyethylene glycol 3350 17 17 g PO DAILY PRN constipation 12/24/24 01/07/25 History gram/dose oral powder (Miralax) potassium chloride 20 mEq 20 meq PO BID 12/24/24 01/07/25 History tablet,extended release triamcinolone acetonide 0.1 % 1 applic topical BID PRN itching 12/24/24 01/07/25 Rx topical cream #80 grams Allergies Allergy/AdvReac Type Severity Reaction Status Date / Time meperidine Allergy Unknown Hallucinati Verified 01/07/25 17:05 ons Vital Signs Vital Signs - 24 hr 01/09/25 14:00 01/09/25 16:00 01/09/25 20:00 Temperature 36.5 C Pulse Rate 85 114 H Respiratory Rate 20 Blood Pressure 130/82 Pulse Oximetry 96 Oxygen Delivery Room Air 01/09/25 20:00 01/09/25 20:48 01/09/25 22:00 Temperature 36.6 C Pulse Rate 112 H 111 H 91 Respiratory Rate 20 Blood Pressure 123/68 Pulse Oximetry 97 Oxygen Delivery 01/10/25 00:00 01/10/25 04:00 01/10/25 06:00 Temperature 36.3 C L Pulse Rate 95 103 H 99 Respiratory Rate 18 Blood Pressure 143/84 H Pulse Oximetry 96 Oxygen Delivery 01/10/25 08:00 01/10/25 08:00 01/10/25 08:17 Temperature Pulse Rate 112 H 110 H Respiratory Rate Blood Pressure Pulse Oximetry 98 Oxygen Delivery Room Air 01/10/25 10:35 Temperature Pulse Rate Respiratory Rate Blood Pressure Pulse Oximetry 97 Oxygen Delivery Room Air Exam Const: General: comfortable, no acute distress, alert and awake Orientation/consciousness: patient oriented x3 HENMT: Head: normal to inspection Eyes: General: appearance normal, both eyes and all related structures Pupils: Equal, round and reactive pupils present Neck: Neck: normal visual inspection, supple and no JVD Carotids: normal carotid upstroke Resp: Effort & Inspection: normal respiratory effort Auscultation: clear to auscultation bilaterally Cardio: Rate: regular rate Rhythm: abnormal rhythm irregularly irregular Heart sounds: S1 normal heart sound present, S2 normal heart sound present and Murmur heart sound present systolic GI: Auscultation: normal bowel sounds Skin: General skin exam: normal color Neuro: General: patient oriented x3 Cranial nerves: Yes Equal, round and reactive pupils present Extrem: General: edema and pedal edema Other: 1+ bilateral pretibial edema Psych: Appearance: grossly normal Mental Status: mental status grossly normal Results Labs and Meds 01/10/25 06:07 01/10/25 06:07 Lab results: CBC 01/10/25 Range/Units 06:07 WBC 7.6 (4.5-10.0) K/mm3 RBC 4.11 L (4.6-6.20) M/mm3 Hgb 11.8 L (14.0-18.0) g/dL Hct 35.9 L (42.0-52.0) % Plt Count 221 (150-375) k/mm3 Comprehensive Metabolic Panel 01/10/25 Range/Units 06:07 Sodium 136 L (137-145) mmol/L Potassium 3.2 L (3.4-5.0) mmol/L Chloride 99 (98-107) mmol/L Carbon Dioxide 27 (22-30) mmol/L BUN 16 (9-20) mg/dL Creatinine 0.81 (0.7-1.3) mg/dL Glucose 173 H (65-110) mg/dL Calcium 8.6 (8.4-10.2) mg/dL Intake and Output 01/09/25 01/10/25 01/10/25 23:59 07:59 15:59 Intake Total 640 390 Output Total 975 Balance 640 -585 Intake: Oral 640 390 Output: Catheter Urine 975 External/Condom 975 Other: # Incontinent Voids 1 Patient Weight 01/10/25 23:59 Weight 110.1 kg
[2025-01-10] MEDS: INSULIN ASPART (*BKC) 100 UNITS/ML SUB-Q ×2 (12:23→21:05)
--- NOTE | 2025-01-10 15:32 | PM.IMPN ---
Progress Note: A&P Assessment and Plan (1) Essential (primary) hypertension: Code(s): I10 - Essential (primary) hypertension Status: Acute (2) Acute exacerbation of CHF (congestive heart failure): Qualifiers: Heart failure type: unspecified Qualified Code(s): I50.9 - Heart failure, unspecified Code(s): I50.9 - Heart failure, unspecified Status: Acute (3) Aortic stenosis: Qualifiers: Cardiac valve disease etiology: nonrheumatic Qualified Code(s): I35.0 - Nonrheumatic aortic (valve) stenosis Code(s): I35.0 - Nonrheumatic aortic (valve) stenosis Status: Acute (4) Atherosclerotic heart disease of [place] coronary artery with other forms of angina pectoris: Code(s): I25.118 - Atherosclerotic heart disease of [place] coronary artery with other forms of angina pectoris Status: Acute (5) Paroxysmal atrial fibrillation: Code(s): I48.0 - Paroxysmal atrial fibrillation Status: Acute (6) Chronic venous insufficiency of lower extremity: Code(s): I87.2 - Venous insufficiency (chronic) (peripheral) Status: Acute (7) Dyslipidemia: Code(s): E78.5 - Hyperlipidemia, unspecified Status: Acute (8) Type 2 diabetes mellitus: Qualifiers: Diabetes mellitus medical sales consultant insulin use: without medical sales consultant use Diabetes mellitus complication status: without complication Qualified Code(s): E11.9 - Type 2 diabetes mellitus without complications Code(s): E11.9 - Type 2 diabetes mellitus without complications Status: Acute (9) Morbid (severe) obesity due to excess calories: Code(s): E66.01 - Morbid (severe) obesity due to excess calories Status: Acute (10) Benign prostatic hyperplasia: Qualifiers: Lower urinary tract symptom presence: symptoms absent Qualified Code(s): N40.0 - Benign prostatic hyperplasia without lower urinary tract symptoms Code(s): N40.0 - Benign prostatic hyperplasia without lower urinary tract symptoms Status: Acute (11) Parkinsons disease: Qualifiers: Dyskinesia presence: without dyskinesia Fluctuating manifestations: unspecified whether manifestations fluctuate Qualified Code(s): G20.A1 - Parkinson's disease without dyskinesia, without mention of fluctuations Code(s): G20.A1 - Parkinson's disease without dyskinesia, without mention of fluctuations Status: Acute (12) Dementia of the Alzheimer's type: Qualifiers: Alzheimer's disease onset: unspecified onset Dementia severity: mild Dementia behavioral or psychological symptom: without behavioral, psychotic, or mood disturbance or anxiety Qualified Code(s): G30.9 - Alzheimer's disease, unspecified; F02.A0 - Dementia in other diseases classified elsewhere, mild, without behavioral disturbance, psychotic disturbance, mood disturbance, and anxiety Code(s): G30.9 - Alzheimer's disease, unspecified; F02.80 - Dementia in other diseases classified elsewhere, unspecified severity, without behavioral disturbance, psychotic disturbance, mood disturbance, and anxiety Status: Acute (13) Acute hypoxic respiratory failure: Code(s): J96.01 - Acute respiratory failure with hypoxia Status: Acute (14) Lymphedema of lower extremity: Code(s): I89.0 - Lymphedema, not elsewhere classified Status: Acute Plan This is an 89-year-old male who presents to the ED with shortness of breath. Patient stated that he started getting short of breath progressively getting worse and that got much worse this morning. EMS was called. EMS gave a breathing treatment after which he felt much better. He has a history of CHF in the past. He was also diagnosed with AFib last year. Denies any fever chills chest pain nausea vomiting abdominal pain diarrhea constipation. He reports having increased lower extremities edema In the ED his vitals were stable with mild hypertension oxygen saturation 90% on room air was placed on nasal cannula. He does not use oxygen at home He Is noted have significant pitting edema bilateral lower extremities up to the thighs. Laboratory workup revealed WBC of 9.6 hemoglobin 11.7 platelet count 189. Chem panel showed sodium of 134 potassium 3.9 chloride 98 bicarbonate 27 BUN 16 creatinine 0.8 and blood sugar of 273. INR 1.1 PTT 27.2. LFTs showed total bilirubin 1.7 AST 56 ALT 51 alkaline phosphatase of 193. Troponin was negative at 0.027 BNP was elevated at 6110. Influenza RSV COVID swab was negative. Chest x-ray showed pleural effusion with bibasilar atelectasis and/or airspace disease. Mild interstitial pulmonary edema. EKG showed AFib with slow ventricular rate with rate of [address]-T changes. Patient received 40 mg of IV Lasix. Patient admitted for further treatment Acute on chronic congestive heart failure diastolic. Continue IV diuresis. Check echo. Recent echo 08/23 EF 65-70% on moderately increased left ventricular wall thickness grade 1 diastolic dysfunction moderate aortic valve stenosis moderate mitral valve regurgitation moderate tricuspid valve regurgitation Acute hypoxic respiratory failure due to CHF. 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 Iron deficiency anemia GERD Depression Hypertension Hyperlipidemia DVT prophylaxis Code status do not resuscitate patient presented with shortness of breath and lower extremities edema, today patient is present in the room, patient is being diuresed and his symptoms are improving, cardiac echo showed normal LV function, and patient has severe aortic valve stenosis, there was no mention of diastaltic function, unable to determine etiology of CHF, will follow up, patient is working with PT, will benefit going to acute rehab, Patient met with hospice team however family is not decided, patient clinical symptoms are improving as his lower extremities edema has improved and chest x-ray showed improvement in pulmonary edema, patient continue to palpitation, industrial maintenance repairer helper is consulted and seen the patient, patient does have severe aortic stenosis, conservatively increase metoprolol to 75mg BID, will monitor, patient daughter is present in the room and gave updates. Subjective Date/time seen: 01/10/25 15:32 Interval history: Shortness of breath Narrative: This is an 89-year-old male who presents to the ED with shortness of breath. Patient stated that he started getting short of breath that has been progressively getting worse and that got much worse this morning. EMS was called. EMS gave a breathing treatment after which he felt much better. He has a history of CHF in the past. He was also diagnosed with AFib last year. Denies any fever chills chest pain nausea vomiting abdominal pain diarrhea constipation. He also noted increasing swelling in his lower extremities. He does not follow fluid restriction at home per family In the ED his vitals were stable with mild hypertension oxygen saturation 90% on room air was placed on nasal cannula. He does not use oxygen at home He is noted to have significant pitting edema bilateral lower extremities up to the thighs. Laboratory workup revealed WBC of 9.6 hemoglobin 11.7 platelet count 189. Chem panel showed sodium of 134 potassium 3.9 chloride 98 bicarbonate 27 BUN 16 creatinine 0.8 and blood sugar of 273. INR 1.1 PTT 27.2. LFTs showed total bilirubin 1.7 AST 56 ALT 51 alkaline phosphatase of 193. Troponin was negative at 0.027 BNP was elevated at 6110. Influenza RSV COVID swab was negative. Chest x-ray showed pleural effusion with bibasilar atelectasis and/or airspace disease. Mild interstitial pulmonary edema. EKG showed AFib with slow ventricular rate with rate of [address]-T changes. Patient received 40 mg of IV Lasix. Patient admitted for further treatment patient presented with shortness of breath and lower extremities edema, today patient is present in the room, patient is being diuresed and his symptoms are improving, cardiac echo showed normal LV function, and patient has severe aortic valve stenosis, there was no mention of diastaltic function, unable to determine etiology of CHF, will follow up, patient is working with PT, will benefit going to acute rehab, Patient met with hospice team however family is not decided, patient clinical symptoms are improving as his lower extremities edema has improved and chest x-ray showed improvement in pulmonary edema, patient continue to palpitation, industrial maintenance repairer helper is consulted and seen the patient, patient does have severe aortic stenosis, conservatively increase metoprolol to 75mg BID, will monitor, patient daughter is present in the room and gave updates. Review of Systems Review of Systems: - CONSTITUTIONAL: Denies weight loss, fever and chills. - HEENT: Denies changes in vision and hearing - RESPIRATORY: Reports SOB and denies cough. - CV: Denies palpitations and CP. - GI: Denies abdominal pain, nausea, vomiting and diarrhea. - : Denies dysuria and urinary frequency. - MSK: Denies myalgia and joint pain. - SKIN: Denies rash and pruritus. - NEUROLOGICAL: Denies headache and syncope. - PSYCHIATRIC: Denies recent changes in mood. Denies anxiety and depression. Exam Narrative: Patient is comfortable, NAD HEENT: eyes are clear and none icteric LUNGS:CTA HEART: RR S1S2 ABD: BS+, Soft and nontender Lower extremities: b/l edema SKIN: nonjaundiced Neuro: grossly intact. Objective Data Vital Signs Vital Signs: Vital Signs - 24 hr 01/09/25 16:00 01/09/25 20:00 01/09/25 20:00 Temperature Pulse Rate 114 H 112 H Respiratory Rate Blood Pressure Pulse Oximetry Oxygen Delivery Room Air 01/09/25 20:48 01/09/25 22:00 01/10/25 00:00 Temperature 36.6 C Pulse Rate 111 H 91 95 Respiratory Rate 20 Blood Pressure 123/68 Pulse Oximetry 97 Oxygen Delivery 01/10/25 04:00 01/10/25 06:00 01/10/25 08:00 Temperature 36.3 C L Pulse Rate 103 H 99 Respiratory Rate 18 Blood Pressure 143/84 H Pulse Oximetry 96 98 Oxygen Delivery Room Air 01/10/25 08:00 01/10/25 08:17 01/10/25 10:35 Temperature Pulse Rate 112 H 110 H Respiratory Rate Blood Pressure Pulse Oximetry 97 Oxygen Delivery Room Air 01/10/25 12:00 01/10/25 13:34 Temperature Pulse Rate 89 Respiratory Rate Blood Pressure Pulse Oximetry Oxygen Delivery Room Air Intake/Output Intake/Output: Intake & Output 01/07/25 01/08/25 01/09/25 01/10/25 23:59 23:59 23:59 23:59 Intake Total 300 1270 1180 510 Output Total 950 1800 200 975 Balance -650 -530 980 -465 Meds/Results Medications: Active Medications Generic Name Dose Route Start Last Admin Trade Name Freq PRN Reason Stop Dose Admin Amlodipine Besylate 10 mg 01/08/25 09:00 01/10/25 08:17 Amlodipine Besylate 10 Mg Tablet PO 10 mg DAILY LEANNE Administration Ascorbic Acid 500 mg 01/07/25 21:00 01/09/25 20:49 Ascorbic Acid 500 Mg Tablet PO 500 mg HS LEANNE Administration Aspirin 81 mg 01/08/25 09:00 01/10/25 08:15 Aspirin 81 Mg Enteric Tablet PO 81 mg DAILY LEANNE Administration Atorvastatin Calcium 20 mg 01/08/25 21:00 01/09/25 20:49 Atorvastatin 20 Mg Tablet PO 20 mg HS LEANNE Administration Clopidogrel Bisulfate 75 mg 01/08/25 09:00 01/10/25 08:16 Clopidogrel Bisulfate 75 Mg Tablet PO 75 mg DAILY LEANNE Administration Dextrose 12.5 gm 01/07/25 17:09 Dextrose 50% 25 Gm/50 Ml Syringe IV PUSH PRN PRN Hypoglycemia Protocol Diclofenac Sodium 1 drop 01/07/25 21:00 01/10/25 08:19 Diclofenac Sodium 0.1% Ophth Soln 2.5 Ml Bottle LEFT EYE 1 drop Q12HR LEANNE Administration Docusate Sodium 100 mg 01/08/25 21:00 01/10/25 08:17 Docusate Sodium 100 Mg Capsule PO 100 mg Q12HR LEANNE Administration Escitalopram Oxalate 10 mg 01/07/25 21:00 01/09/25 20:50 Escitalopram Oxalate 10 Mg Tablet PO 10 mg HS LEANNE Administration Ferrous Sulfate 325 mg 01/08/25 09:00 01/10/25 08:16 Ferrous Sulfate 325 Mg Tablet PO 325 mg DAILY LEANNE Administration Fish Oil 1 gm 01/07/25 21:00 01/09/25 20:48 [place] 3 Polyunsat Fatty Acids 1 Gm Cap PO 1 gm HS LEANNE Administration Furosemide 40 mg 01/08/25 09:00 01/10/25 08:18 Furosemide Inj 40 Mg/4 Ml Vial IV PUSH 40 mg BID LEANNE Administration Glucagon 1 mg 01/07/25 17:09 Glucagon For Inj 1 Mg Vial IM PRN PRN Hypoglycemia Protocol Glucose 15 gm 01/07/25 17:09 Glucose Oral Gel 15 Gm Of Glucse In 37.5 Gm Tube PO PRN PRN Hypoglycemia Protocol Dextrose 1,000 mls @ 100 mls/hr 01/07/25 17:09 Dextrose 5% 1,000 Ml IVPB PRN PRN Hypoglycemia Protocol Insulin Aspart 2 - 5 units 01/08/25 08:00 01/10/25 12:23 Insulin Aspart (*Bkc) 100 Units/Ml SUB-Q 2 units TIDWM LEANNE Administration Protocol Insulin Aspart 1 - 2 units 01/07/25 21:00 01/09/25 20:57 Insulin Aspart (*Bkc) 100 Units/Ml SUB-Q 1 units HS LEANNE Administration Protocol Lisinopril 40 mg 01/08/25 09:00 01/10/25 08:16 Lisinopril 20 Mg Tablet PO 40 mg DAILY LEANNE Administration Memantine 10 mg 01/08/25 09:00 01/10/25 08:16 Memantine 10 Mg Tablet PO 10 mg BID LEANNE Administration Metoprolol Tartrate 5 mg 01/08/25 19:44 Metoprolol Tartrate Inj 5 Mg/5 Ml Vial IV PUSH ONCE PRN Heart Rate- High; HR>130 susta Metoprolol Tartrate 75 mg 01/10/25 21:00 Metoprolol Tartrate 25 Mg Tablet PO Q12HR [facility] Miconazole Nitrate 1 applic 01/08/25 09:00 01/10/25 08:19 Miconazole Nitrate 2% Cream 30 Gm Tube TOPICAL 1 applic DAILY LEANNE Administration Multivitamins/Minerals 1 tablet 01/08/25 09:00 01/10/25 08:15 Opti-Gen Tab PO 1 tablet DAILY LEANNE Administration Pantoprazole Sodium 40 mg 01/08/25 09:00 01/10/25 08:17 Pantoprazole 40 Mg Tablet PO 40 mg DAILY LEANNE Administration Polyethylene Glycol 17 gm 01/07/25 18:36 Polyethylene Glycol 3350 17 Gm Powd.Pack PO DAILY PRN Constipation Polyethylene Glycol 17 gm 01/08/25 21:00 01/10/25 07:13 Polyethylene Glycol 3350 17 Gm Powd.Pack PO Not Given QAM LEANNE Potassium Chloride 20 meq 01/08/25 09:00 01/10/25 08:15 Potassium Chloride 20 Meq Er Tablet PO 20 meq BID LEANNE Administration Tamsulosin HCl 0.4 mg 01/07/25 21:00 01/09/25 20:50 Tamsulosin Hcl 0.4 Mg Capsule PO 0.4 mg HS LEANNE Administration Trazodone HCl 50 - 100 mg 01/07/25 22:49 01/09/25 20:49 Trazodone Hcl 50 Mg Tablet PO 100 mg QHS PRN Administration Sleep Triamcinolone Acetonide 1 applic 01/07/25 18:36 Triamcinolone Acet 0.1% Cream 15 Gm Tube TOPICAL BID PRN Itching Vitamin D 50 mcg 01/08/25 21:00 01/09/25 20:49 Cholecalciferol (Vitamin D3) 25 Mcg (1,000 Units) Tablet PO 50 mcg HS LEANNE Administration Radiology Results: ITS Impressions Chest X-Ray 01/10/25 11:03 IMPRESSION: 1. Improving interstitial pulmonary edema and pleural effusions. Labs Labs: Laboratory Results - last 24 hr 01/09/25 01/09/25 01/10/25 16:59 20:04 06:07 WBC 7.6 RBC 4.11 L Hgb 11.8 L Hct 35.9 L MCV 87.3 MCH 28.7 MCHC 32.9 RDW 15.1 H Plt Count 221 MPV 9.6 Sodium 136 L Potassium 3.2 L Chloride 99 Carbon Dioxide 27 Anion Gap 10 BUN 16 Creatinine 0.81 Estim Creat Clear Calc 68 Estimated GFR > 60 Glucose 173 H POC Capillary Glucose 229 H 223 H Calcium 8.6 Magnesium 2.1 01/10/25 01/10/25 08:06 11:56 WBC RBC Hgb Hct MCV MCH MCHC RDW Plt Count MPV Sodium Potassium Chloride Carbon Dioxide Anion Gap BUN Creatinine Estim Creat Clear Calc Estimated GFR Glucose POC Capillary Glucose 183 H 229 H Calcium Magnesium
[2025-01-10] MEDS: ESCITALOPRAM OXALATE 10 MG TABLET PO (21:04)
[2025-01-10] MEDS: OMEGA 3 POLYUNSAT FATTY ACIDS 1 GM CAP PO (21:04)
[2025-01-10] MEDS: METOPROLOL TARTRATE 25 MG TABLET 75 MG PO (21:04)
[2025-01-10] MEDS: ATORVASTATIN 20 MG TABLET PO (21:04)
[2025-01-10] MEDS: CHOLECALCIFEROL (VITAMIN D3) 25 MCG (1,000 UNITS) TABLET 50 MCG PO (21:04)
[2025-01-10] MEDS: ASCORBIC ACID 500 MG TABLET PO (21:04)
[2025-01-10] MEDS: TAMSULOSIN HCL 0.4 MG CAPSULE PO (21:05)
[2025-01-11] VITALS (9 sets, daily range): BP systolic 112–135; BP diastolic 73–86; PULSE 63–118; RESP 20; TEMP 36.5–37.1; O2SAT 94–99
[2025-01-11 06:23] LABS: Hematocrit 35.6 % (42.0-52.0); Hemoglobin 11.5 g/dL (14.0-18.0); Mean Corpuscular HGB Conc 32.3 g/dl (32-36); Mean Corpuscular Hemoglobin 28.5 pg (26-34); Mean Corpuscular Volume 88.1 fl (80-100); Platelet Count Result 213 k/mm3 (150-375); Red Blood Count 4.04 M/mm3 (4.6-6.20); White Blood Count 7.2 K/mm3 (4.5-10.0)
[2025-01-11 06:44] LABS: Anion Gap 8 mmol/L (4-12); Blood Urea Nitrogen 16 mg/dL (9-20); Calcium 8.6 mg/dL (8.4-10.2); Carbon Dioxide 28 mmol/L (22-30); Chloride 101 mmol/L (98-107); Estimated CRCL calculation 62 ml/min; Estimated Glomerular Filt Rate > 60; Glucose 191 mg/dL (65-110); Magnesium 2.1 mg/dL (1.6-2.3); Potassium 3.2 mmol/L (3.4-5.0); Sodium 137 mmol/L (137-145)
[2025-01-11] MEDS: POTASSIUM CHLORIDE 20 MEQ ER TABLET 40 MEQ PO (09:26)
[2025-01-11] MEDS: METOPROLOL TARTRATE 25 MG TABLET 75 MG PO (09:27)
[2025-01-11] MEDS: FUROSEMIDE INJ 40 MG/4 ML VIAL IV PUSH (09:27)
[2025-01-11] MEDS: OPTI-GEN TAB 1 TABLET PO (09:27)
[2025-01-11] MEDS: FERROUS SULFATE 325 MG TABLET PO (09:28)
[2025-01-11] MEDS: MEMANTINE 10 MG TABLET PO (09:28)
[2025-01-11] MEDS: CLOPIDOGREL BISULFATE 75 MG TABLET PO (09:28)
[2025-01-11] MEDS: PANTOPRAZOLE 40 MG TABLET PO (09:28)
[2025-01-11] MEDS: ASPIRIN 81 MG ENTERIC TABLET PO (09:28)
[2025-01-11] MEDS: POTASSIUM CHLORIDE 20 MEQ ER TABLET PO (09:28)
[2025-01-11] MEDS: DOCUSATE SODIUM 100 MG CAPSULE PO (09:28)
[2025-01-11] MEDS: TRIAMCINOLONE ACET 0.1% CREAM 15 GM TUBE 1 APPLIC TOPICAL (09:29)
[2025-01-11] MEDS: DICLOFENAC SODIUM 0.1% OPHTH SOLN 2.5 ML BOTTLE 1 DROP LEFT EYE (09:29)
[2025-01-11] MEDS: MICONAZOLE NITRATE 2% CREAM 30 GM TUBE 1 APPLIC TOPICAL (09:29)
--- NOTE | 2025-01-11 17:00 | P.DS_ITS ---
DS: Admitting Diagnosis Discharge Date 01/11/25 Admitting Diagnosis Shortness of breath DS: Discharge Diagnosis Discharge Diagnosis (1) Essential (primary) hypertension: Code(s): I10 - Essential (primary) hypertension Status: Acute (2) Acute exacerbation of CHF (congestive heart failure): Qualifiers: Heart failure type: unspecified Qualified Code(s): I50.9 - Heart failure, unspecified Code(s): I50.9 - Heart failure, unspecified Status: Acute (3) Aortic stenosis: Qualifiers: Cardiac valve disease etiology: nonrheumatic Qualified Code(s): I35.0 - Nonrheumatic aortic (valve) stenosis Code(s): I35.0 - Nonrheumatic aortic (valve) stenosis Status: Acute (4) Atherosclerotic heart disease of [place] coronary artery with other forms of angina pectoris: Code(s): I25.118 - Atherosclerotic heart disease of [place] coronary artery with other forms of angina pectoris Status: Acute (5) Paroxysmal atrial fibrillation: Code(s): I48.0 - Paroxysmal atrial fibrillation Status: Acute (6) Chronic venous insufficiency of lower extremity: Code(s): I87.2 - Venous insufficiency (chronic) (peripheral) Status: Acute (7) Dyslipidemia: Code(s): E78.5 - Hyperlipidemia, unspecified Status: Acute (8) Type 2 diabetes mellitus: Qualifiers: Diabetes mellitus detention insulin use: without intermodal owner operator truck driver use Diabetes mellitus complication status: without complication Qualified Code(s): E11.9 - Type 2 diabetes mellitus without complications Code(s): E11.9 - Type 2 diabetes mellitus without complications Status: Acute (9) Morbid (severe) obesity due to excess calories: Code(s): E66.01 - Morbid (severe) obesity due to excess calories Status: Acute (10) Benign prostatic hyperplasia: Qualifiers: Lower urinary tract symptom presence: symptoms absent Qualified Code(s): N40.0 - Benign prostatic hyperplasia without lower urinary tract symptoms Code(s): N40.0 - Benign prostatic hyperplasia without lower urinary tract symptoms Status: Acute (11) Parkinsons disease: Qualifiers: Dyskinesia presence: without dyskinesia Fluctuating manifestations: unspecified whether manifestations fluctuate Qualified Code(s): G20.A1 - Parkinson's disease without dyskinesia, without mention of fluctuations Code(s): G20.A1 - Parkinson's disease without dyskinesia, without mention of fluctuations Status: Acute (12) Dementia of the Alzheimer's type: Qualifiers: Alzheimer's disease onset: unspecified onset Dementia severity: mild Dementia behavioral or psychological symptom: without behavioral, psychotic, or mood disturbance or anxiety Qualified Code(s): G30.9 - Alzheimer's disease, unspecified; F02.A0 - Dementia in other diseases classified elsewhere, mild, without behavioral disturbance, psychotic disturbance, mood disturbance, and an xiety Code(s): G30.9 - Alzheimer's disease, unspecified; F02.80 - Dementia in other diseases classified elsewhere, unspecified severity, without behavioral disturbance, psychotic disturbance, mood disturbance, and anxiety Status: Acute (13) Acute hypoxic respiratory failure: Code(s): J96.01 - Acute respiratory failure with hypoxia Status: Acute (14) Lymphedema of lower extremity: Code(s): I89.0 - Lymphedema, not elsewhere classified Status: Acute Plan This is an 89-year-old male who presents to the ED with shortness of breath. Patient stated that he started getting short of breath progressively getting worse and that got much worse this morning. EMS was called. EMS gave a breathing treatment after which he felt much better. He has a history of CHF in the past. He was also diagnosed with AFib last year. Denies any fever chills chest pain nausea vomiting abdominal pain diarrhea constipation. He reports having increased lower extremities edema In the ED his vitals were stable with mild hypertension oxygen saturation 90% on room air was placed on nasal cannula. He does not use oxygen at home He Is noted have significant pitting edema bilateral lower extremities up to the thighs. Laboratory workup revealed WBC of 9.6 hemoglobin 11.7 platelet count 189. Chem panel showed sodium of 134 potassium 3.9 chloride 98 bicarbonate 27 BUN 16 creatinine 0.8 and blood sugar of 273. INR 1.1 PTT 27.2. LFTs showed total bilirubin 1.7 AST 56 ALT 51 alkaline phosphatase of 193. Troponin was negative at 0.027 BNP was elevated at 6110. Influenza RSV COVID swab was negative. Chest x-ray showed pleural effusion with bibasilar atelectasis and/or airspace disease. Mild interstitial pulmonary edema. EKG showed AFib with slow ventricular rate with rate of [address]-T changes. Patient received 40 mg of IV Lasix. Patient admitted for further treatment Acute on chronic congestive heart failure diastolic. Continue IV diuresis. Check echo. Recent echo 08/23 EF 65-70% on moderately increased left ventricular wall thickness grade 1 diastolic dysfunction moderate aortic valve stenosis moderate mitral valve regurgitation moderate tricuspid valve regurgitation Acute hypoxic respiratory failure due to CHF. 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 Iron deficiency anemia GERD Depression Hypertension Hyperlipidemia DVT prophylaxis Code status do not resuscitate patient presented with shortness of breath and lower extremities edema, today patient is present in the room, patient is being diuresed and his symptoms are improving, cardiac echo showed normal LV function, and patient has severe aortic valve stenosis, there was no mention of diastaltic function, unable to determine etiology of CHF, will follow up, patient is working with PT, will benefit going to acute rehab, Patient met with hospice team however family is not decided, patient clinical symptoms are improving as his lower extremities edema has improved and chest x-ray showed improvement in pulmonary edema, patient continue to palpitation, transportation museum helper is consulted and seen the patient, patient does have severe aortic stenosis, conservatively increase metoprolol to 75mg BID, will monitor, patient daughter is present in the room and gave updates. DS: Summary Hospital Course Hospital Course: patient presented with shortness of breath and lower extremities edema, today patient is present in the room, patient is being diuresed and his symptoms are improving, cardiac echo showed normal LV function, and patient has severe aortic valve stenosis, there was no mention of diastaltic function, unable to determine etiology of CHF, will follow up, patient is working with PT, will benefit going to acute rehab, Patient met with hospice team however family is not decided, patient clinical symptoms are improving as his lower extremities edema has improved and chest x-ray showed improvement in pulmonary edema, patient continue to palpitation, transportation museum helper is consulted and seen the patient, patient does have severe aortic stenosis, conservatively increase metoprolol to 75mg BID, patient daughter is present in the room and gave updates. Nursing staff spoke with patient daughter who is herself a nurse and caregiver for the patient, patient is clinically stable and wish to be discharged home, patient is present in the room and agreeable, patient is instructed to avoid excessive fluid intake, monitor blood pressure twice day and maintain systolic blood pressure between 110 and 130, if blood pressure is above 130, please take lisinopril, if the heart rate persist above 110 please return to the ER. please follow up with your transportation museum helper and primary care provider as soon as possible, if any symptoms worsen to go to nearest ER. Time Spent with Patient Time attestation: Total time spent providing and/or coordinating discharge services: Exam Narrative: Patient is comfortable, NAD HEENT: eyes are clear and none icteric LUNGS:CTA HEART: RR S1S2 ABD: BS+, Soft and nontender Lower extremities: b/l edema SKIN: nonjaundiced Neuro: grossly intact. DS: Data Data Completed and Pending Labs on day of discharge: Labs from last 24 hours 01/11/25 01/11/25 01/11/25 11:38 07:33 05:58 WBC 7.2 RBC 4.04 L Hgb 11.5 L Hct 35.6 L MCV 88.1 MCH 28.5 MCHC 32.3 RDW 15.2 H Plt Count 213 MPV 9.1 Sodium 137 Potassium 3.2 L Chloride 101 Carbon Dioxide 28 Anion Gap 8 BUN 16 Creatinine 0.90 Estim Creat Clear Calc 62 Estimated GFR > 60 Glucose 191 H POC Capillary Glucose 183 H 178 H Calcium 8.6 Magnesium 2.1 01/10/25 20:11 WBC RBC Hgb Hct MCV MCH MCHC RDW Plt Count MPV Sodium Potassium Chloride Carbon Dioxide Anion Gap BUN Creatinine Estim Creat Clear Calc Estimated GFR Glucose POC Capillary Glucose 210 H Calcium Magnesium Discharge Plan Discharge Attending physician on discharge: Tai De La Cruz Consulting providers: Theresa Ugalde Discharging Clinician: Medhat Avalos Patient Disposition: Home with Home Health Service Diet: heart healthy Discharge Instructions: Per Care Coordination Patient has been accpepted to have [facility] for RN, PT, OT [phone]. [facility] staff will call you to arrange a visit at your home early next week. patient is instructed to avoid excessive fluid intake, monitor blood pressure twice a day and maintain systolic blood pressure between 110 and 130, if blood pressure is above 130, please take lisinopril, if the heart rate persist above 110 please return to the ER. please follow up with your transportation museum helper and primary care provider as soon as possible, if any symptoms worsen to go to nearest ER. Patient Instructions: Antibiotic Form, Heart Failure (DC) Patient Language: Sri Lankan Stand Alone Forms: General Discharge Information Follow-up/Referrals: Theresa Ugalde APN-C [Advanced Practice Nurse, Cardiology] Barbara Jean MD [Primary Care Provider, [facility]] Discharge Medications: New docusate sodium 100 mg Capsule 100 mg PO Q12HR Qty: 30 0RF furosemide [Lasix] 40 mg tablet 40 mg PO BID Qty: 30 0RF dextrose [Glutose-15] 40 % Gel 15 g PO PRN PRN (Reason: Hypoglycemia) Qty: 112 0RF metoprolol tartrate 25 mg Tablet 75 mg PO Q12HR Qty: 60 0RF Continued tnjew-[id number]-opy-epa-fish oil 200 mg-300 mg- 100 mg-1,000 mg capsule 1 cap PO .pm memantine 10 mg tablet 10 mg PO BID Qty: 180 3RF docusate sodium 50 mg capsule 50 mg PO DAILY polyethylene glycol 3350 [Miralax] 17 gram/dose powder 17 g PO DAILY PRN (Reason: constipation) Men 50 Plus Multivitamin 124-61-607-300 mcg tablet 1 tablet PO DAILY clopidogrel [Plavix] 75 mg tablet 75 mg PO DAILY aspirin 81 mg tablet,delayed release (DR/EC) 81 mg PO DAILY metoprolol tartrate 50 mg tablet 50 mg PO BID ascorbate calcium (vitamin C) 500 mg tablet 500 mg PO .pm magnesium citrate,mag oxide 250 mg capsule 250 mg PO DAILY cholecalciferol (vitamin D3) 50 mcg (2,000 unit) capsule 50 mcg PO QPM amlodipine 10 mg tablet 10 mg PO DAILY ketoconazole 2 % cream 1 applic topical DAILY Qty: 60 1RF Patient Comments: apply to groin triamcinolone acetonide 0.1 % cream 1 applic topical BID PRN (Reason: itching) Qty: 80 1RF Patient Comments: apply to groin Rx Instructions: legs potassium chloride 20 mEq tablet extended release 20 meq PO BID Patient Comments: 0.5 tabs po bid diclofenac sodium 0.1 % drops 1 drp LEFT EYE BID atorvastatin [Lipitor] 20 mg tablet 20 mg PO QPM (DME) Blood Glucose Test Strip See Rx Instructions .Route Qty: 100 1RF Rx Instructions: Use to check BS daily (DME) lancets Misc See Rx Instructions .Route Qty: 100 1RF Rx Instructions: Use to kitty BS daily (DME) blood-glucose meter [OneTouch Verio Flex meter] Misc See Rx Instructions .Route Qty: 1 0RF Rx Instructions: check blood sugars q.day As directed escitalopram oxalate 10 mg tablet 10 mg PO QPM Qty: 90 1RF ferrous sulfate 325 mg (65 mg iron) tablet,delayed release (DR/EC) 325 mg PO DAILY Qty: 100 1RF Janumet XR 50-1,000 mg tablet, ER multiphase 24 hr 1 tablet PO QPM Qty: 90 1RF tamsulosin 0.4 mg capsule 0.4 mg PO QPM Qty: 90 1RF pantoprazole 40 mg tablet,delayed release (DR/EC) 40 mg PO DAILY Qty: 90 1RF trazodone 50 mg tablet See Rx Instructions PO QHS PRN (Reason: sleep) Qty: 180 1RF Rx Instructions: 1-2 tablets orally every day at bedtime PRN; Changed lisinopril 40 mg tablet 40 mg PO PRN Qty: 30 0RF Discontinued furosemide 40 mg tablet 40 mg PO DAILY Qty: 90 1RF Other Ambulatory Orders: Basic Metabolic Panel (Routine) Timeframe: 3 Days Location: Determined by Patient Ordered By: Medhat Avalos Date of admission: 01/08/25 10:06 Primary Care Provider: Barbara Jean Admitting Provider: Tai De La Cruz Attending physician on admission: Tai De La Cruz Condition: Stable
== END 2025-01-11 17:55 | disposition home health service (06) | DRG 291 ==
LOC: ANHED 15:51 → ANH3MEDSUR 16:07
PROVIDERS: Emergency Medicine; Admitting Provider Internal Medicine; Emergency Provider Student in an Organized Health Care Education/Training Program; PCP Family Medicine; Visit Provider Family Medicine
DX: I11.0 Hypertensive heart disease with heart failure (principal); I50.33 Acute on chronic diastolic (congestive) heart failure; J96.01 Acute respiratory failure with hypoxia; D50.9 Iron deficiency anemia, unspecified; E11.9 Type 2 diabetes mellitus without complications; E66.01 Morbid (severe) obesity due to excess calories; E78.5 Hyperlipidemia, unspecified; F32.A Depression, unspecified; F02.80 Dementia in other diseases classified elsewhere, unspecified severity, without behavioral disturbance, psychotic disturbance, mood disturbance, and anxiety; G20.A1 Parkinson's disease without dyskinesia, without mention of fluctuations; G30.9 Alzheimer's disease, unspecified; I08.3 Combined rheumatic disorders of mitral, aortic and tricuspid valves; I89.0 Lymphedema, not elsewhere classified; I48.0 Paroxysmal atrial fibrillation; I87.2 Venous insufficiency (chronic) (peripheral); I25.118 Atherosclerotic heart disease of native coronary artery with other forms of angina pectoris; K21.9 Gastro-esophageal reflux disease without esophagitis; N40.0 Benign prostatic hyperplasia without lower urinary tract symptoms; Z95.5 Presence of coronary angioplasty implant and graft; Z95.1 Presence of aortocoronary bypass graft; Z66 Do not resuscitate; Z20.822 Contact with and (suspected) exposure to COVID-19; Z96.651 Presence of right artificial knee joint; Z79.02 Long term (current) use of antithrombotics/antiplatelets; Z79.84 Long term (current) use of oral hypoglycemic drugs; Z79.82 Long term (current) use of aspirin
CPT/HCPCS: 36415; 71045; 71046; 80048; 80053; 81003; 82948; 83036; 83735; 83880; 84484; 85025; 85027; 85610; 85730; 87637; 93005; 96374; 96375; 97110; 97116; 97161; 97166; 97530; 99285; A9270; C8929; G0378; J1815; J1938; Q9957

== ENCOUNTER 2025-01-14 15:21 | Outpatient (CLI) | payer MEDICARE, SELFPAY ==
--- OUTSIDE RECORDS SUMMARY | 2025-01-14 16:39 | XMS_ITS | Clinical Summary ---
Author Organization [facility] [place] [address] Address [address] [place] [address] Care Team Providers Care Tuft Machine Operator Name Role Phone Lesia Jean [...] (CMS/HCC) 11/16/2017 Coronary artery disease invo lving [place] coronary artery of [place] heart without angina pectoris 05/17/2016 Overview (08/04/2016): Coronary artery disease involving [place] coronary artery of [place] heart without angina pectoris History of coronary [...] Encounters Date Type Department Care Team Description 01/13/2025 Telephone [facility] Medical [facility] Cardiology [address] [place] [address] Svitlana Gomez NP 01/07/2025 11:50 AM CDT - 01/07/2025 11:59 PM CDT Hospital Encounter [facility] Emergency, Room R Discharge Disposition: Discharge to home or self care from Last 3 Months Surgical History Surgery [...] 0.6 oz pur e alcohol) [facility] Utilities Answer Date Recorded In the past 12 months has e electric, gas, oil, or water company [...] often do you attend chur ch or religion services? More than 4 times per year 04/05/2024 Do you belong to any clubs o r organizations such as oriental orthodox groups, unions, fraternal or athletic groups, or [...] any time in the past 12 m [facility], were you homeless or living in a fpc (including now)? No 04/05/2024 Personal Safety Answer Date Recorded Have you ever been in or are you currently in a harmful physical or emotional relationship or is someone making you feel afraid or unsafe? 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 Gender Identity Not on file Sexual Orientation Not on file Obstetrics History Last Filed Vital Signs Vital Sign Reading Time Taken Comments Blood Pressure 122/70 09/16/2024 9:24 AM CDT Pulse 61 09/16/2024 9:24 AM CDT Temperature 36.6 C (97.8 F) 04/05/2024 3:56 AM PUBLIC DEFENDER Respiratory Rate 22 04/05/2024 11:47 AM PUBLIC DEFENDER Oxygen Saturation 97% 09/16/2024 9:24 AM CDT [...] Additional history exists Influenza Vaccine (#1) 2024 0, 02/21/2019, 02/01/2018, Additional history exists Fall Risk Assessment 04/05/2025 04/05/2024 eGFR 04/05/2025 04/05/2024, 04/01/2024 Medical Devices Implanted Type Area Stem Roller Or Crusher Operator Device Identifier Shelf Expiration Date Model / Serial / Lot [employer] Vascular System Closure Repair Femoral Artery Suture Mediated Perclose Prostyle 05211-54 - [id number] Implanted:Qty: 1 on 04/04/2024 by Bijan Alvares MD at [facility] 12/29/2025 [id number] / / [id number] [employer] Vascular Occluder Cvasc Maddie Flexible Braided Amplatzer Amulet 25mm Nitinol [id number] - [id number] Implanted:Qty: 1 on 04/04/2024 by Bijan Alvares MD at [facility] 08/29/2027 [id number] / / [id number] [facility] Vascade Mvp 6-12fr Venous Closure [id number] - [id number] Implanted:Qty: 1 on 04/04/2024 by Bijan Alvares MD at [facility] 08/24/2025 [id number] / / [id number] Procedures Procedure Name Priority Date/Time Associated Diagnosis Comments EGFR Routine 04/05/2024 2:42 AM PUBLIC DEFENDER POCT LIPID PANEL Routine 08/23/2022 8:35 AM CDT Coronary artery disease involving [place] coronary artery of [place] heart without angina pectoris Mixed diabetic hyperlipidemia associated with type 2 diabetes mellitus (CMS/HCC) (HCC) from Last 3 Months or Most Recently Relevant to Health Maintenance Results * eGFR (04/05/2024 2:42 AM PUBLIC DEFENDER) eGFR 86 >=60 mL/min/1. 73 m2 Comment: [...] last reviewed 2021. Blood 04/05/2024 2:42 AM PUBLIC DEFENDER 04/05/2024 3:08 AM PUBLIC DEFENDER us Bijan Alvares MD LAB BLOOD ORDERABLES Final [facility]ul t [facility] [address] Department [place] [address] * POCT lipid panel (08/23/2022 [...] Most Recently Relevant to Health Maintenance Insurance [facility] [employer] [facility] [employer] [employer] Care Teams Tuft Machine Operator Relationship Specialty Start Date End Date Lesia Jean MD PCP - General Family Practice 05/16/22
--- OUTSIDE RECORDS SUMMARY | 2025-01-14 16:39 | XMS_ITS | Clinical Summary ---
Author Organization [facility] Address [address] [place] [address] Care Team Providers Care Holistic Health Practitioner Name Role Phone Unavailable Primary Care Provider [...]
--- OUTSIDE RECORDS SUMMARY | 2025-01-14 16:39 | XMS_ITS | Encounter Summary ---
Author Organization [facility] Healthcare Address [address] [place] [address] Care Team Providers Care Pulverizer Mill Operator Name Role Phone Lesia Jean MD Primary Care Provider Encounter Details Date Type Department Care Team (Late st Contact Info) Description 01/13/2025 Telephone [facility] Medical Group Cardiology [address] [facility] [address] [place] [address] Svitlana Gomez NP [address] [facility] [address] [place] [address] Social History Tobacco Use Types Packs/Day Years Used Date Smoking Tobacco: Never Smokeless Tobacco: Never Alcohol Use Standard Drinks/Week Comments No 0 (1 standard drink = 0.6 oz pur e alcohol) [facility] Utilities Answer Date Recorded In the past 12 months has [employer], gas, oil, or water [employer] threatened to shut off services in your [...] week 04/05/2024 How often do you attend [facility] or spiritism services? More than 4 times per year 04/05/2024 Do you belong to any clubs o r organizations such as religion groups, unions, fraternal or athletic groups, or [...] any time in the past 12 m [facility], were you homeless or living in a skilled nursing (including now)? No 04/05/2024 Personal Safety Answer Date Recorded Have you ever been in or are you currently in a harmful physical or emotional relationship or is someone making you feel afraid or unsafe? 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 Pts metoprolol was increased to 75 mg daily. She states pts HR's have been in the 50-60's and she is concerned that is too low. She states that pt is feeling fine, no symptoms. Advised to continue medications as instructed upon discharge from the hospital. She will continue to monitor HR and BP readings, advised that HR in the 50's-60's is ok as long as pt does not have any symptoms. Advised to call if pt develops any symptoms of lightheadedness or dizziness or has any further questions or concerns. Daughter verbalizes understanding. * Telephone Encounter - Gloria Feldman - 01/13/2025 12:04 PM CDT Allyssa, patients daughter, called in to let us know that [facility] She has several questions in regard to the medication that the patient is taking. She is requesting a call back. Thank you. Contact : [phone] documented in this encounter Plan of Treatment Not on file documented as of this encounter Visit Diagnoses Not on filedocumented in this encounter Care Teams Pulverizer Mill Operator Relationship Specialty Start Date End Date Lesia Jean MD PCP - General Family Practice 05/16/22 documented as of this encounter
--- OUTSIDE RECORDS SUMMARY | 2025-01-14 16:39 | XMS_ITS | Encounter Summary ---
Author Organization [facility] Healthcare Address [address] [place] [address] Care Team Providers Care Clean Room Operator Name Role Phone Lesia Jean MD Primary Care Provider Encounter Details Date Type Department Care Team (Late st Contact Info) Description 08/09/2024 Orders Only [facility] Health Information Management [address] [place] [id number] Scanning, Provider Social History Tobacco Use Types Packs/Day Years Used Date Smoking Tobacco: Never Smokeless Tobacco: Never Alcohol Use Standard Drinks/Week Comments No 0 (1 standard drink = 0.6 oz pur e alcohol) [facility] Utilities Answer Date Recorded In the past 12 months has [employer] electric, gas, oil, or water company threatened [...] often do you attend chur ch or cheondoism services? More than 4 times per year 04/05/2024 Do you belong to any clubs o r organizations such as advent groups, unions, fraternal or athletic groups, or [...] any time in the past 12 m [facility], were you homeless or living in a senior care (including now)? No 04/05/2024 Personal Safety Answer Date Recorded Have you ever been in or are you currently in a harmful physical or emotional relationship or is someone making you feel afraid or unsafe? 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
[2025-01-14 19:32] LABS: Anion Gap 7 mmol/L (4-12); Blood Urea Nitrogen 21 mg/dL (9-20); Calcium 8.7 mg/dL (8.4-10.2); Carbon Dioxide 29 mmol/L (22-30); Chloride 103 mmol/L (98-107); Estimated Glomerular Filt Rate > 60; Glucose 179 mg/dL (65-110); Potassium 4.2 mmol/L (3.4-5.0); Sodium 139 mmol/L (137-145)
== END 2025-01-14 15:22 | disposition home or self-care (01) ==
LOC: ANHGOSHLAB 15:22
PROVIDERS: PCP Family Medicine; Visit Provider Family Medicine
DX: I50.9 Heart failure, unspecified (principal)
CPT/HCPCS: 36415; 80048

== ENCOUNTER 2025-01-20 10:19 | Outpatient (CLI) | payer MEDICARE, SELFPAY ==
--- OUTSIDE RECORDS SUMMARY | 2025-01-20 11:26 | XMS_ITS | Clinical Summary ---
Author Organization [facility] Address [address] [place] [address] Care Team Providers Care Plier Worker Name Role Phone Unavailable Primary Care Provider [...]
[2025-01-20 13:11] LABS: Magnesium 2.1 mg/dL (1.6-2.3)
[2025-01-20 13:14] LABS: Alanine Aminotransferase 35 U/L (6-50); Albumin Level 3.8 g/dL (3.5-5.1); Alkaline Phosphatase 147 U/L (38-126); Anion Gap 8 mmol/L (4-12); Aspartate Amino Transferase 73 U/L (17-59); Bilirubin,Total 1.0 mg/dL (0.2-1.3); Blood Urea Nitrogen 14 mg/dL (9-20); Calcium 8.4 mg/dL (8.4-10.2); Carbon Dioxide 31 mmol/L (22-30); Chloride 100 mmol/L (98-107); Estimated Glomerular Filt Rate > 60; Glucose 153 mg/dL (65-110); Potassium 3.3 mmol/L (3.4-5.0); Sodium 139 mmol/L (137-145); Total Protein 7.3 g/dL (6.3-8.2)
[2025-01-20 13:15] LABS: Iron 58 ug/dL (49-181)
[2025-01-20 13:16] LABS: Cholesterol 101 mg/dL (0-200); HDL Direct 31 mg/dL; Triglycerides 163 mg/dL (<150)
[2025-01-20 13:34] LABS: Percent Iron Saturation 20 % (20-50)
[2025-01-20 13:47] LABS: Hematocrit 36.7 % (42.0-52.0); Hemoglobin 11.7 g/dL (14.0-18.0); Immature Granulocyte Percent A 0.6 % (0-0.5); Lymphocytes Absolute Auto 1.68 K/mm3 (0.9-3.2); Mean Corpuscular HGB Conc 31.9 g/dl (32-36); Mean Corpuscular Hemoglobin 28.3 pg (26-34); Mean Corpuscular Volume 88.9 fl (80-100); Nucleated Red Blood Cells Absolute Auto 0.000 K/mm3 (0.0-0.012); Nucleated Red Blood Cells Perc 0.0 % (0.0-0.2); Platelet Count Result 244 k/mm3 (150-375); Red Blood Count 4.13 M/mm3 (4.6-6.20); White Blood Count 7.1 K/mm3 (4.5-10.0)
[2025-01-20 13:52] LABS: Thyroid Stimulating Hormone Reflex 2.910 uIU/mL (0.465-4.68)
[2025-01-20 13:56] LABS: Ferritin 119.00 ng/mL (11.1-264)
[2025-01-20 14:27] LABS: Vitamin B12 360.0 pg/mL (239-931)
[2025-01-20 15:10] LABS: Hemoglobin A1C 7.3 % (<5.7)
== END 2025-01-20 10:20 | disposition home or self-care (01) ==
PROVIDERS: Psychiatry & Neurology Neurology; PCP Nurse Practitioner Family; Visit Provider Family Medicine
DX: D64.9 Anemia, unspecified (principal); E78.5 Hyperlipidemia, unspecified; E11.22 Type 2 diabetes mellitus with diabetic chronic kidney disease; I13.0 Hypertensive heart and chronic kidney disease with heart failure and stage 1 through stage 4 chronic kidney disease, or unspecified chronic kidney disease; N18.30 Chronic kidney disease, stage 3 unspecified; I50.33 Acute on chronic diastolic (congestive) heart failure; D63.1 Anemia in chronic kidney disease; G30.9 Alzheimer's disease, unspecified; F02.80 Dementia in other diseases classified elsewhere, unspecified severity, without behavioral disturbance, psychotic disturbance, mood disturbance, and anxiety; G20.A1 Parkinson's disease without dyskinesia, without mention of fluctuations
CPT/HCPCS: 36415; 80053; 80061; 82607; 82728; 82746; 83036; 83090; 83540; 83550; 83735; 84443; 85025

== ENCOUNTER 2025-01-22 15:08 | Outpatient (NON) | payer MEDICARE, SELFPAY ==
--- OUTSIDE RECORDS SUMMARY | 2025-01-22 14:57 | XMS_ITS | Encounter Summary ---
Author Organization [facility] Healthcare Address [address] [place] [address] Care Team Providers Care Shot Core Drill Operator Helper Name Role Phone Lesia Jean MD Primary Care Provider Encounter Details Date Type Department Care Team (Late st Contact Info) Description 08/09/2024 Orders Only [facility] [place] Information Management [address] [place] [id number] Scanning, Provider Social History Tobacco Use Types Packs/Day Years Used Date Smoking Tobacco: Never Smokeless Tobacco: Never Alcohol Use Standard Drinks/Week Comments No 0 (1 standard drink = 0.6 oz pur e alcohol) [facility] Utilities Answer Date Recorded In the past 12 months has [employer] electric, gas, oil, or water company threatened [...] often do you attend chur ch or scientologist services? More than 4 times per year 04/05/2024 Do you belong to any clubs o r organizations such as gnosticist groups, unions, fraternal or athletic groups, or [...] on file Legal Sex Male 5:27 PM ORACLE DATABASE ANALYST Gender Identity Not on file Sexual Orientation [...] on filedocumented in this encounter Care Teams Shot Core Drill Operator Helper Relationship Specialty Start Date End Date Lesia Jean MD PCP - General Family Practice 05/16/22 documented as of this encounter
--- OUTSIDE RECORDS SUMMARY | 2025-01-22 14:57 | XMS_ITS | Encounter Summary ---
Author Organization [facility] Healthcare Address [address] [place] [address] Care Team Providers Care Frame Aligner Name Role Phone Lesia Jean MD Primary Care Provider Encounter Details Date Type Department Care Team (Late st Contact Info) Description 01/13/2025 Telephone [facility] Medical Group Cardiology [address] [facility] [address] [place] [address] Svitlana Gomez NP [address] [facility] [address] [place] [address] Social History Tobacco Use Types Packs/Day Years Used Date Smoking Tobacco: Never Smokeless Tobacco: Never Alcohol Use Standard Drinks/Week Comments No 0 (1 standard drink = 0.6 oz pur e alcohol) [facility] Utilities Answer Date Recorded In the past 12 months has [employer], gas, oil, or water [employer] threatened to shut off services in your [...] week 04/05/2024 How often do you attend [facility] or advent services? More than 4 times per year 04/05/2024 Do you belong to any clubs o r organizations such as tenriism groups, unions, fraternal or athletic groups, or [...] were you homeless or living in a prison (including now)? No 04/05/2024 Personal Safety Answer Date Recorded Have you ever been in or are you currently in a harmful physical or emotional relationship or is someone making you feel afraid or unsafe? Denies 04/04/2024 Sex and Gender Information Value Date Recorded Sex Assigned at Not on file Legal Sex Male 5:27 PM PLANT CHANGER Gender Identity Not on file Sexual Orientation [...] know that the patient was discharged from [facility] on 01/11. She has several questions in regard to the medication that the patient is taking. She is requesting a call back. Thank you. Contact : [phone] documented in this encounter Plan of Treatment Not on file documented as of this encounter Visit Diagnoses Not on filedocumented in this encounter Care Teams Frame Aligner Relationship Specialty Start Date End Date Lesia Jean MD PCP - General Family Practice 05/16/22 documented as of this encounter
--- OUTSIDE RECORDS SUMMARY | 2025-01-22 14:57 | XMS_ITS | Clinical Summary ---
Author Organization [facility] [address] Address [address] [place] [address] Care Team Providers Care Api Product Manager Name Role Phone Lesia Jean MD [...] (CMS/HCC) 11/16/2017 Coronary artery disease invo lving tu[place]umne coronary artery of tu[place]umne heart without angina pectoris 05/17/2016 Overview (08/04/2016): Coronary artery disease involving tuolumne coronary artery of tuolumne heart without angina pectoris History of coronary [...] Encounters Date Type Department Care Team Description 01/15/2025 Orders Only [facility] Cardiology [address] [place] [address] Theresa Ugalde NP 01/13/2025 Telephone [facility] Cardiology [address] [place] [address] Svitlana Gomez NP 01/07/2025 11:50 AM CDT [...] drink = 0.6 oz pur e alcohol) [facility] Utilities Answer Date Recorded In the past 12 months has th e electric, gas, oil, or water [employer] threatened to shut off services in your [...] week 04/05/2024 How often do you attend [facility] or confucianist services? More than 4 times per year 04/05/2024 Do you belong to any clubs o r organizations such as restoration groups, unions, fraternal or athletic groups, or [...] any time in the past 12 m [facility], were you homeless or living in a jail (including now)? No 04/05/2024 Personal Safety Answer Date Recorded Have you ever been in or are you currently in a harmful physical or emotional relationship or is someone making you feel afraid or unsafe? Denies 04/04/2024 Sex and Gender Information Value Date Recorded Sex Assigned at Not on file Legal Sex Male 5:27 PM FAMILY SUPPORT WORKER Gender Identity Not on file Sexual Orientation Not on file Obstetrics History Last Filed Vital Signs Vital Sign Reading Time Taken Comments Blood Pressure 122/70 09/16/2024 9:24 AM CDT Pulse 61 09/16/2024 9:24 AM CDT Temperature 36.6 C (97.8 F) 04/05/2024 3:56 AM FAMILY SUPPORT WORKER Respiratory Rate 22 04/05/2024 11:47 AM FAMILY SUPPORT WORKER Oxygen Saturation 97% 09/16/2024 9:24 AM CDT [...] 04/05/2024, 04/01/2024 Medical Devices Implanted Type Area Legal File Clerk Device Identifier Shelf Expiration Date Model / Serial / Lot Huang Vascular System Closure Repair Femoral Artery Suture Mediated Perclose Prostyle 39013-81 - [id number] Implanted:Qty: 1 on 04/04/2024 by Bijan Alvares MD at [facility] [employer] 12/29/2025 [id number] / / [id number] Huang Vascular Occluder Cvasc Maddie Flexible Braided Amplatzer Amulet 25mm Nitinol [id number] - [id number] Implanted:Qty: 1 on 04/04/2024 by Bijan Alvares MD at [facility] [employer] 08/29/2027 9-ACP2-01 0- 025 / / [id number] [employer] Vascade Mvp 6-12fr Venous Closure [id number] - [id number] Implanted:Qty: 1 on 04/04/2024 by Bijan Alvares MD at [facility] [employer] 08/24/2025 800-612C-10 [id number] / / [id number] Procedures Procedure Name Priority Date/Time Associated Diagnosis Comments CARDIOLOGY DOCUMENT SCAN Routine 01/10/2025 12:47 PM CDT EGFR Routine 04/05/2024 2:42 AM FAMILY SUPPORT WORKER POCT LIPID PANEL Routine 08/23/2022 8:35 AM CDT Coronary artery disease involving tu[place]umne coronary artery of tuolumne heart without angina pectoris Mixed diabetic hyperlipidemia associated with type 2 diabetes mellitus (CMS/HCC) (HCC) from Last 3 Months or Most Recently Relevant to Health Maintenance Results * Cardiology Document Scan (01/10/2025 12:47 PM CDT) Anatomical Region Laterality Modality Other us Theresa Ugalde NP CV CARDIAC SERVICES PROCEDUR ES Final Result * eGFR (04/05/2024 2:42 AM FAMILY SUPPORT WORKER) eGFR 86 >=60 mL/min/1. 73 m2 Comment: [...] last reviewed 2021. Blood 04/05/2024 2:42 AM FAMILY SUPPORT WORKER 04/05/2024 3:08 AM FAMILY SUPPORT WORKER us Bijan Alvares MD LAB BLOOD ORDERABLES Final Resul t JERROD [id number] Department [place] [address] * POCT lipid panel (08/23/2022 [...] Health Maintenance Insurance AETNA MEDICARE AETNA MEDICARE [facility] MEDICARE Care Teams Api Product Manager Relationship Specialty Start Date End Date Lesia Jean MD PCP - General Family Practice 05/16/22
--- OUTSIDE RECORDS SUMMARY | 2025-01-22 14:57 | XMS_ITS | Clinical Summary ---
Author Organization [facility] Address [address] [place] [address] Care Team Providers Care Rn Oncology Name Role Phone Unavailable Primary Care Provider [...]
[2025-01-22 16:16] LABS: Add Urine Microscopic? NO; Appearance Urine Clear (Clear); Glucose Urine UA Negative (Negative); Leukocyte Esterase Ur Negative LEU/UL (Negative); Nitrate Urine Negative (Negative); Specific Grav Ur 1.013 (1.001-1.035)
== END 2025-01-22 15:09 | disposition home or self-care (01) ==
PROVIDERS: PCP Nurse Practitioner Family; Visit Provider Nurse Practitioner Family
DX: N39.0 Urinary tract infection, site not specified (principal); Z87.440 Personal history of urinary (tract) infections
CPT/HCPCS: 81003

== ENCOUNTER 2025-01-27 08:42 | Outpatient (CLI) | payer MEDICARE, SELFPAY ==
--- OUTSIDE RECORDS SUMMARY | 2025-01-27 08:56 | XMS_ITS | Encounter Summary ---
Author Organization [facility] Healthcare Address [address] [place] [address] Care Team Providers Care Lapping Machine Operator Name Role Phone Lesia Jean MD Primary Care Provider Encounter Details Date Type Department Care Team (Late st Contact Info) Description 08/09/2024 Orders Only [facility] Health Information Management [address] [place] [id number] Scanning, Provider Social History Tobacco Use Types Packs/Day Years Used Date Smoking Tobacco: Never Smokeless Tobacco: Never Alcohol Use Standard Drinks/Week Comments No 0 (1 standard drink = 0.6 oz pur e alcohol) [facility] Utilities Answer Date Recorded In the past 12 months has [employer], gas, oil, or water company threatened [...] often do you attend chur ch or jain services? More than 4 times per year 04/05/2024 Do you belong to any clubs o r organizations such as sikhism groups, unions, fraternal or athletic groups, or [...] any time in the past 12 m [facility], were you homeless or living in a long-term (including now)? No 04/05/2024 Personal Safety Answer Date Recorded Have you ever been in or are you currently in a harmful physical or emotional relationship or is someone making you feel afraid or unsafe? Denies 04/04/2024 Sex and Gender Information Value Date Recorded Sex Assigned at Not on file Legal Sex Male 5:27 PM ASSISTANT FOOD SERVICE DIRECTOR Gender Identity Not on file Sexual [...] on filedocumented in this encounter Care Teams Lapping Machine Operator Relationship Specialty Start Date End Date Lesia Jean MD PCP - General Family Practice 05/16/22 documented as of this encounter
--- OUTSIDE RECORDS SUMMARY | 2025-01-27 08:56 | XMS_ITS | Clinical Summary ---
Author Organization [facility] Address [address] [place] [address] Care Team Providers Care City Driver Name Role Phone Unavailable Primary Care Provider [...]
--- OUTSIDE RECORDS SUMMARY | 2025-01-27 08:56 | XMS_ITS | Clinical Summary ---
Author Organization [facility] [address] Address [address] [place] [address] Care Team Providers Care Algology Teacher Name Role Phone Lesia Jean MD Primary [...] (CMS/HCC) 11/16/2017 Coronary artery disease invo lving creek coronary artery of creek heart without angina pectoris 05/17/2016 Overview (08/04/2016): Coronary artery disease involving creek coronary artery of creek heart without angina pectoris History of [...] Description 01/15/2025 Orders Only [facility] Medical [facility] Cardiology [address] [place] [address] Theresa Ugalde NP 01/13/2025 Telephone [facility] Cardiology [address] [place] [address] Svitlana Gomez NP 01/07/2025 11:50 AM CDT [...] drink = 0.6 oz pur e alcohol) [facility] Utilities Answer Date Recorded In the past 12 months has th e electric, gas, oil, or water [employer] threatened to shut off services in your [...] week 04/05/2024 How often do you attend [facility] or catholic services? More than 4 times [...] time in the past 12 m [facility], were you homeless or living in a intermediate (including now)? No 04/05/2024 Personal Safety Answer Date Recorded Have you ever been in or are you currently in a harmful physical or emotional relationship or is someone making you feel afraid or unsafe? Denies 04/04/2024 Sex and Gender Information Value Date Recorded Sex Assigned at Not on file Legal Sex Male 5:27 PM CATALOGUE LIBRARIAN Gender Identity Not on file Sexual Orientation Not on file Obstetrics History Last Filed Vital Signs Vital Sign Reading Time Taken Comments Blood Pressure 122/70 09/16/2024 9:24 AM CDT Pulse 61 09/16/2024 9:24 AM CDT Temperature 36.6 C (97.8 F) 04/05/2024 3:56 AM CATALOGUE LIBRARIAN Respiratory Rate 22 04/05/2024 11:47 AM CATALOGUE LIBRARIAN Oxygen Saturation 97% 09/16/2024 9:24 AM CDT [...] 04/05/2024, 04/01/2024 Medical Devices Implanted Type Area Software Test Engineer Device Identifier Shelf Expiration Date Model / Serial / Lot Huang Vascular System Closure Repair Femoral Artery Suture Mediated Perclose Prostyle 12654-58 - [id number] Implanted:Qty: 1 on 04/04/2024 by Bijan Alvares MD at [facility] [employer] 12/29/2025 [id number] / / [id number] [employer] Occluder Cvasc Maddie Flexible Braided Amplatzer Amulet 25mm Nitinol [id number] - [id number] Implanted:Qty: 1 on 04/04/2024 by Bijan Alvares MD at [facility] [employer] 08/29/2027 9-ACP2-01 0- 025 / / [id number] [employer] Vascade Mvp 6-12fr Venous Closure [id number] - [id number] Implanted:Qty: 1 on 04/04/2024 by Bijan Alvares MD at [facility] [employer] 08/24/2025 800-612C-10 U / / [id number] C Procedures Procedure Name Priority Date/Time Associated Diagnosis Comments CARDIOLOGY DOCUMENT SCAN Routine 01/10/2025 12:47 PM CDT EGFR Routine 04/05/2024 2:42 AM CATALOGUE LIBRARIAN POCT LIPID PANEL Routine 08/23/2022 8:35 AM CDT Coronary artery disease involving creek coronary artery of creek heart without angina pectoris Mixed diabetic hyperlipidemia associated with type 2 diabetes mellitus (CMS/HCC) (HCC) from Last 3 Months or Most Recently Relevant to Health Maintenance Results * Cardiology Document Scan (01/10/2025 12:47 PM CDT) Anatomical Region Laterality Modality Other us Theresa Ugalde NP CV CARDIAC SERVICES PROCEDUR ES Final Result * eGFR (04/05/2024 2:42 AM CATALOGUE LIBRARIAN) eGFR 86 >=60 mL/min/1. 73 m2 Comment: [...] last reviewed 2021. Blood 04/05/2024 2:42 AM CATALOGUE LIBRARIAN 04/05/2024 3:08 AM CATALOGUE LIBRARIAN us Bijan Alvares MD LAB BLOOD ORDERABLES Final Resul t JERROD [id number] [address] Department [place] [address] * POCT lipid panel (08/23/2022 [...] Health Maintenance Insurance AETNA MEDICARE AETNA MEDICARE [facility] MEDICARE Care Teams Algology Teacher Relationship Specialty Start Date End Date Lesia Jean MD PCP - General Family Practice 05/16/22
--- OUTSIDE RECORDS SUMMARY | 2025-01-27 08:56 | XMS_ITS | Encounter Summary ---
Author Organization [facility] Healthcare Address [address] [place] [address] Care Team Providers Care Motorcycle Service Technician Name Role Phone Lesia Jean MD Primary Care Provider Encounter Details Date Type Department Care Team (Late st Contact Info) Description 01/13/2025 Telephone [facility] Medical Group Cardiology [address] [facility] [address] [place] [address] Svitlana Gomez NP [address] [facility] [address] [place] [address] Social History Tobacco Use Types Packs/Day Years Used Date Smoking Tobacco: Never Smokeless Tobacco: Never Alcohol Use Standard Drinks/Week Comments No 0 (1 standard drink = 0.6 oz pur e alcohol) [facility] Utilities Answer Date Recorded In the past 12 months has [employer], gas, oil, or water [employer] threatened to shut off services in your [...] 04/05/2024 How often do you attend [facility] or baptist services? More than 4 times per year 04/05/2024 Do you belong to any clubs o r organizations such as buddhist groups, unions, fraternal or athletic groups, or [...] any time in the past 12 m [facility], were you homeless or living in a snf (including now)? No 04/05/2024 Personal Safety Answer Date Recorded Have you ever been in or are you currently in a harmful physical or emotional relationship or is someone making you feel afraid or unsafe? Denies 04/04/2024 Sex and Gender Information Value Date Recorded Sex Assigned at Not on file Legal Sex Male 5:27 PM TRAY LINE SUPERVISOR Gender Identity Not on file Sexual [...] know that the patient was discharged from [facility] on 01/11. She has several questions in regard to the medication that the patient is taking. She is requesting a call back. Thank you. Contact : [phone] documented in this encounter Plan of Treatment Not on file documented as of this encounter Visit Diagnoses Not on filedocumented in this encounter Care Teams Motorcycle Service Technician Relationship Specialty Start Date End Date Lesia Jean MD PCP - General Family Practice 05/16/22 documented as of this encounter
[2025-01-27 13:05] LABS: Alanine Aminotransferase 29 U/L (6-50); Albumin Level 3.7 g/dL (3.5-5.1); Alkaline Phosphatase 137 U/L (38-126); Anion Gap 9 mmol/L (4-12); Aspartate Amino Transferase 77 U/L (17-59); Bilirubin,Total 0.6 mg/dL (0.2-1.3); Blood Urea Nitrogen 17 mg/dL (9-20); Calcium 8.4 mg/dL (8.4-10.2); Carbon Dioxide 28 mmol/L (22-30); Chloride 101 mmol/L (98-107); Estimated Glomerular Filt Rate > 60; Glucose 147 mg/dL (65-110); Potassium 3.2 mmol/L (3.4-5.0); Sodium 138 mmol/L (137-145); Total Protein 7.1 g/dL (6.3-8.2)
== END 2025-01-27 08:43 | disposition home or self-care (01) ==
PROVIDERS: PCP Nurse Practitioner Family; Visit Provider Nurse Practitioner Family
DX: E87.6 Hypokalemia (principal); R74.8 Abnormal levels of other serum enzymes
CPT/HCPCS: 36415; 80053

== ENCOUNTER 2025-01-30 09:40 | Outpatient (NON) | payer MEDICARE, SELFPAY ==
--- OUTSIDE RECORDS SUMMARY | 2025-01-30 10:11 | XMS_ITS | Clinical Summary ---
Author Organization [facility] [address] Address [address] [place] [address] Care Team Providers Care Interpreter Deaf Name Role Phone Lesia Jean MD Primary [...] devorah hips) 500 mg tablet,chewable Acti ve escitalopram (LEXAPRO) 10 mg tablet Take 1 [...] EVERY DAY 90 tablet 1 5 Active furosemide (LASIX) 40 mg tablet Take 1 tablet (40 mg total) by mouth 2 (two) times a day 60 tablet 5 Active furosemide (LASIX) 40 mg tablet Take 1 tablet (40 mg total) by mouth daily 30 tablet 11 4 01/25/20 25 Discontinu ed(Reorder ) Active Problems Problem Noted Date Diagnosed Date Presence of Amulet left atrial appendage closure device 04/04/2024 Class 2 severe obesity due t o excess calories with serious comorbidity and body mass index (BMI) of 35.0 to 35.9 in adult 08/23/2022 Aortic valve stenosis 11/10/2020 Hypertension associated with diabetes 05/06/2020 Mixed diabetic hyperlipidemi a associated with type 2 diabetes mellitus ([facility]/HCC) 11/16/2017 Coronary artery disease invo lving ruby coronary artery of ruby heart without angina pectoris 05/17/2016 Overview (08/04/2016): Coronary artery disease involving ruby coronary artery of ruby heart without angina pectoris History of coronary [...] Department Care Team Description 01/15/2025 Orders Only [facility] Medical [facility] Cardiology [address] [place] [address] Theresa Ugalde NP 01/13/2025 Telephone [facility] Cardiology [address] [place] [address] Svitlana Gomez NP 01/07/2025 11:50 AM CDT [...] drink = 0.6 oz pur e alcohol) [facility] Utilities Answer Date Recorded In the past 12 months has e electric, gas, oil, or water [employer] threatened to shut off services in your [...] week 04/05/2024 How often do you attend [facility] or spiritism services? More than 4 times per year 04/05/2024 Do you belong to any clubs o r organizations such as gnosticism groups, unions, fraternal or athletic groups, or [...] were you homeless or living in a group home (including now)? No 04/05/2024 Personal Safety Answer Date Recorded Have you ever been in or are you currently in a harmful physical or emotional relationship or is someone making you feel afraid or unsafe? Denies 04/04/2024 Sex and Gender Information Value Date Recorded Sex Assigned at Not on file Legal Sex Male 5:27 PM EDUCATIONAL FUNDRAISING DIRECTOR Gender Identity Not on file Sexual Orientation Not on file Obstetrics History Last Filed Vital Signs Vital Sign Reading Time Taken Comments Blood Pressure 122/70 09/16/2024 9:24 AM CDT Pulse 61 09/16/2024 9:24 AM CDT Temperature 36.6 C (97.8 F) 04/05/2024 3:56 AM EDUCATIONAL FUNDRAISING DIRECTOR Respiratory Rate 22 04/05/2024 11:47 AM EDUCATIONAL FUNDRAISING DIRECTOR Oxygen Saturation 97% 09/16/2024 9:24 AM CDT [...] 04/05/2024, 04/01/2024 Medical Devices Implanted Type Area Quality Control Inspector Device Identifier Shelf Expiration Date Model / Serial / Lot Huang Vascular System Closure Repair Femoral Artery Suture Mediated Perclose Prostyle 73714-43 - [id number] Implanted:Qty: 1 on 04/04/2024 by Bijan Alvares MD at [facility] Vascular 12/29/2025 [id number] / / [id number] [employer] V[employer] Occluder Cvasc Maddie Flexible Braided Amplatzer Amulet 25mm Nitinol [id number] - [id number] Implanted:Qty: 1 on 04/04/2024 by Bijan Alvares MD at [facility] [employer] 08/29/2027 9-ACP2-01 0- 025 / / [id number] [employer] [facility] Vascade Mvp 6-12fr Venous Closure [id number] - [id number] Implanted:Qty: 1 on 04/04/2024 by Bijan Alvares MD at [facility] 08/24/2025 800-612C-10 U / / [id number] Procedures Procedure Name Priority Date/Time Associated Diagnosis Comments CARDIOLOGY DOCUMENT SCAN Routine 01/10/2025 12:47 PM CDT EGFR Routine 04/05/2024 2:42 AM EDUCATIONAL FUNDRAISING DIRECTOR POCT LIPID PANEL Routine 08/23/2022 8:35 AM CDT Coronary artery disease involving ruby coronary artery of ruby heart without angina pectoris Mixed diabetic hyperlipidemia associated with type 2 diabetes mellitus (CMS/HCC) (HCC) from Last 3 Months or Most Recently Relevant to Health Maintenance Results * Cardiology Document Scan (01/10/2025 12:47 PM CDT) Anatomical Region Laterality Modality Other us Theresa Ugalde NP CV CARDIAC SERVICES PROCEDUR ES Final Result * eGFR (04/05/2024 2:42 AM EDUCATIONAL FUNDRAISING DIRECTOR) eGFR 86 >=60 mL/min/1. 73 m2 Comment: [...] last reviewed 2021. Blood 04/05/2024 2:42 AM EDUCATIONAL FUNDRAISING DIRECTOR 04/05/2024 3:08 AM EDUCATIONAL FUNDRAISING DIRECTOR us Bijan Alvares MD LAB BLOOD ORDERABLES Final Resul t JERROD BRAR [id number] [address] Department [place] [address] * POCT lipid panel (08/23/2022 8:35 AM [...] Health Maintenance Insurance AETNA MEDICARE AETNA MEDICARE AETNA MEDICARE Care Teams Interpreter Deaf Relationship Specialty Start Date End Date Lesia Jean MD PCP - General Family Practice 05/16/22
--- OUTSIDE RECORDS SUMMARY | 2025-01-30 10:11 | XMS_ITS | Encounter Summary ---
Author Organization [facility] Healthcare Address [address] [place] [address] Care Team Providers Care Meat Packer Name Role Phone Lesia Jean MD Primary Care Provider Encounter Details Date Type Department Care Team (Late st Contact Info) Description 08/09/2024 Orders Only [facility] Health Information Management [address] [place] [address] Scanning, Provider Social History Tobacco Use Types Packs/Day Years Used Date Smoking Tobacco: Never Smokeless Tobacco: Never Alcohol Use Standard Drinks/Week Comments No 0 (1 standard drink = 0.6 oz pur e alcohol) [facility] Utilities Answer Date Recorded In the past 12 months has [employer] electric, gas, oil, or water company threatened [...] often do you attend chur ch or tenriism services? More than 4 times per year [...] any time in the past 12 m [facility], were you homeless or living in a custodial (including now)? No 04/05/2024 Personal Safety Answer Date Recorded Have you ever been in or are you currently in a harmful physical or emotional relationship or is someone making you feel afraid or unsafe? Denies 04/04/2024 Sex and Gender Information Value Date Recorded Sex Assigned at Not on file Legal Sex Male 5:27 PM NARROW GAUGE ENGINEER Gender Identity Not on file Sexual [...] on filedocumented in this encounter Care Teams Meat Packer Relationship Specialty Start Date End Date Lesia Jean MD PCP - General Family Practice 05/16/22 documented as of this encounter
--- OUTSIDE RECORDS SUMMARY | 2025-01-30 10:11 | XMS_ITS | Encounter Summary ---
Author Organization [facility] Healthcare Address [address] [place] [address] Care Team Providers Care Waste Treatment Operator Name Role Phone Lesia Jean MD Primary Care Provider Encounter Details Date Type Department Care Team (Late st Contact Info) Description 01/13/2025 Telephone [facility] Medical Group Cardiology [address] [facility] [address] [place] [address] Svitlana Gomez NP [address] [facility] [address] [place] [address] Social History Tobacco Use Types Packs/Day Years Used Date Smoking Tobacco: Never Smokeless Tobacco: Never Alcohol Use Standard Drinks/Week Comments No 0 (1 standard drink = 0.6 oz pur e alcohol) [facility] Utilities Answer Date Recorded In the past 12 months has [employer], gas, oil, or water [employer] threatened to shut off services in your [...] week 04/05/2024 How often do you attend [facility] or yazdanism services? More than 4 times per year [...] any time in the past 12 m [facility], were you homeless or living in a longterm (including now)? No 04/05/2024 Personal Safety Answer Date Recorded Have you ever been in or are you currently in a harmful physical or emotional relationship or is someone making you feel afraid or unsafe? Denies 04/04/2024 Sex and Gender Information Value Date Recorded Sex Assigned at Not on file Legal Sex Male 5:27 PM MEDICINE TECHNOLOGIST Gender Identity Not on file Sexual Orientation [...] know that the patient was discharged from [facility] on 01/11. She has several questions in regard to the medication that the patient is taking. She is requesting a call back. Thank you. Contact : [phone] documented in this encounter Plan of Treatment Not on file documented as of this encounter Visit Diagnoses Not on filedocumented in this encounter Care Teams Waste Treatment Operator Relationship Specialty Start Date End Date Lesia Jean MD PCP - General Family Practice 05/16/22 documented as of this encounter
--- OUTSIDE RECORDS SUMMARY | 2025-01-30 10:11 | XMS_ITS | Clinical Summary ---
Author Organization [facility] Address [address] [place] [address] Care Team Providers Care Benefits Manager Name Role Phone Unavailable Primary Care [...]
[2025-01-30 10:22] LABS: Anion Gap 13 mmol/L (4-12); Blood Urea Nitrogen 12 mg/dL (9-20); Calcium 8.8 mg/dL (8.4-10.2); Carbon Dioxide 27 mmol/L (22-30); Chloride 101 mmol/L (98-107); Estimated Glomerular Filt Rate > 60; Glucose 197 mg/dL (65-110); Osmolality Calculated 296 mOsm/kg (285-295); Potassium 3.8 mmol/L (3.4-5.0); Sodium 141 mmol/L (137-145)
== END 2025-01-30 09:41 | disposition home or self-care (01) ==
LOC: CHSHH 09:42
PROVIDERS: PCP Nurse Practitioner Family; Visit Provider Family Medicine
DX: E87.6 Hypokalemia (principal)
CPT/HCPCS: 36415; 80048

== ENCOUNTER 2025-02-07 09:43 | Outpatient (CLI) | payer MEDICARE, SELFPAY ==
[2025-02-07 10:42] LABS: Anion Gap 6 mmol/L (4-12); Blood Urea Nitrogen 17 mg/dL (9-20); Calcium 8.7 mg/dL (8.4-10.2); Carbon Dioxide 29 mmol/L (22-30); Chloride 101 mmol/L (98-107); Estimated Glomerular Filt Rate > 60; Glucose 185 mg/dL (65-110); Potassium 3.9 mmol/L (3.4-5.0); Sodium 136 mmol/L (137-145)
== END 2025-02-07 09:44 | disposition home or self-care (01) ==
PROVIDERS: PCP Family Medicine; Visit Provider Nurse Practitioner Family
DX: E87.6 Hypokalemia (principal)
CPT/HCPCS: 36415; 80048

== ENCOUNTER 2025-04-14 08:58 | Outpatient (CLI) | payer MEDICARE, SELFPAY ==
[2025-04-14 11:21] LABS: Hematocrit 38.2 % (42.0-52.0); Hemoglobin 12.7 g/dL (14.0-18.0); Immature Granulocyte Percent A 0.3 % (0-0.5); Lymphocytes Absolute Auto 1.48 K/mm3 (0.9-3.2); Mean Corpuscular HGB Conc 33.2 g/dl (32-36); Mean Corpuscular Hemoglobin 28.9 pg (26-34); Mean Corpuscular Volume 87.0 fl (80-100); Nucleated Red Blood Cells Absolute Auto 0.000 K/mm3 (0.0-0.012); Nucleated Red Blood Cells Perc 0.0 % (0.0-0.2); Platelet Count Result 206 k/mm3 (150-375); Red Blood Count 4.39 M/mm3 (4.6-6.20); White Blood Count 6.0 K/mm3 (4.5-10.0)
[2025-04-14 11:23] LABS: Alanine Aminotransferase 32 U/L (6-50); Albumin Level 3.8 g/dL (3.5-5.1); Alkaline Phosphatase 144 U/L (38-126); Anion Gap 5 mmol/L (4-12); Aspartate Amino Transferase 76 U/L (17-59); Bilirubin,Total 0.9 mg/dL (0.2-1.3); Blood Urea Nitrogen 13 mg/dL (9-20); Calcium 9.0 mg/dL (8.4-10.2); Carbon Dioxide 29 mmol/L (22-30); Chloride 103 mmol/L (98-107); Estimated Glomerular Filt Rate > 60; Glucose 157 mg/dL (65-110); Potassium 3.3 mmol/L (3.4-5.0); Sodium 137 mmol/L (137-145); Total Protein 7.1 g/dL (6.3-8.2)
[2025-04-14 11:48] LABS: Hemoglobin A1C 7.2 % (<5.7)
== END 2025-04-14 08:59 | disposition home or self-care (01) ==
PROVIDERS: PCP Family Medicine; Visit Provider Family Medicine
DX: I10 Essential (primary) hypertension (principal); E11.9 Type 2 diabetes mellitus without complications; D64.9 Anemia, unspecified
CPT/HCPCS: 36415; 80053; 83036; 85025

== ENCOUNTER 2025-04-21 08:54 | Outpatient (CLI) | payer MEDICARE, SELFPAY ==
--- OUTSIDE RECORDS SUMMARY | 2025-04-21 09:35 | XMS_ITS | Encounter Summary ---
Author Organization [facility] Address [address] [place] [address] Care Team Providers Care Collections Professional Name Role Phone Lesia Jean MD Primary Care Provider Encounter Details Date Type Department Care Team (Late st Contact Info) Description 08/09/2024 Orders Only [facility] [facility] [place] [address] [place] [id number] Scanning, Provider Social History Tobacco Use Types Packs/Day Years Used Date Smoking Tobacco: Never Smokeless Tobacco: Never Alcohol Use Standard Drinks/Week Comments No 0 (1 standard drink = 0.6 oz pur e alcohol) [facility] Utilities Answer Date Recorded In the past 12 months has [employer], gas, oil, or water company threatened [...] often do you attend chur ch or shinto services? More than 4 times per year [...] time in the past 12 m [facility], were you homeless or living in a residential (including now)? No 04/05/2024 Personal Safety Answer Date Recorded Have you ever been in or are you currently in a harmful physical or emotional relationship or is someone making you feel afraid or unsafe? 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
--- OUTSIDE RECORDS SUMMARY | 2025-04-21 09:35 | XMS_ITS | Clinical Summary ---
Author Organization [facility] [address] Address [address] [place] [address] Care Team Providers Care Cmv Driver Name Role Phone Lesia Jean MD Primary [...] each day 0 0 07/26/19 17 Active POTASSIUM CHLORIDE ORAL 40 mEq 2 (two) times a day 05/04/19 22 Active Janumet XR 50-1,000 mg tablet, ER multiphase 24 hr 05/04/[address] (PROTONIX) 40 mg EC tablet Take 1 tablet (40 mg total) by mouth every morning 06/19/19 24 Active cholecalcifero l (Vitamin D3) 2000 unit tablet Active ascorbic acid (ascorbic acid with devorah hips) 500 mg tablet,chewabl e Active escitalopram (LEXAPRO) 10 mg tablet Take [...] 2 gummies Active aspirin 81 mg chewable tabletIndicati ons:coronary artery disease Take 1 tablet (81 mg total) by mouth daily 30 tablet 11 04/06/20 24 Active diclofenac 0.1 % ophthalmic solution INSTILL 1 DROP INTO LEFT EYE TWICE A DAY 07/29/19 25 Active lisinopriL (PRINIVIL,ZEST RIL) 40 mg tablet TAKE 1 TABLET BY MOUTH EVERY DAY 90 tablet 1 11/12/19 25 Active docusate sodium (COLACE) 100 mg capsuleIndicat ions:constipat ion Take 1 capsule (100 mg total) by mouth 2 (two) times a day Active memantine (NAMENDA) 10 mg tabletIndicati ons:Moderate to Severe Alzheimer's Type Dementia Take 1 tablet (10 mg total) by mouth 2 (two) times a day Active ketoconazole (NIZORAL) 2 % cream Apply topically daily Active triamcinolone (KENALOG) 0.5 % ointment Apply topically 2 (two) times a day Active furosemide (LASIX) 40 mg tablet TAKE 1 TABLET BY MOUTH TWICE A DAY 180 tablet 1 02/26/20 25 Active metoprolol (LOPRESSOR) 100 mg tablet Take 0.5 tablets (50 mg total) by mouth 2 (two) times a day 90 tablet 2 03/24/20 25 Active clopidogreL (PLAVIX) 75 mg tablet TAKE 1 TABLET BY MOUTH EVERY DAY 90 tablet 3 03/26/20 25 Active clopidogreL (PLAVIX) 75 mg tabletIndicati ons:coronary artery disease Take 1 tablet (75 mg total) by mouth daily 30 tablet 11 04/06/20 24 025 Discontinued metoprolol (LOPRESSOR) 100 mg tablet Take 0.5 tablets (50 mg total) by mouth 2 (two) times a day 025 Discontinued(Re order) Active Problems Problem Noted Date Diagnosed Date [...] (CMS/HCC) 11/16/2017 Coronary artery disease invo lving [place] coronary artery of [place] heart without angina pectoris 05/17/2016 Overview (08/04/2016): Coronary artery disease involving [place] coronary artery of [place] heart without angina pectoris History of coronary [...] Encounters Date Type Department Care Team Description 03/24/2025 Telephone [facility] [address] [place] [address] Bijan Alvares MD 02/07/2025 9:00 AM CDT Office Visit [facility] [address] [place] [address] Svitlana Gomez NP Chronic heart failure with preserved ejection fraction (HFpEF) (Primary Dx); Persistent atrial fibrillation (HCC); Presence of Amulet left atrial appendage closure device; Nonrheumatic aortic valve stenosis from Last 3 Months Surgical History Surgery [...] of fall Memory deficit per daughter, pa elma will attempt to get out of [...] = 0.6 oz pur e alcohol) [facility] Utilities Answer Date Recorded In the past 12 months has [employer] gas, oil, or water [employer] threatened to shut off services in your [...] often do you attend chur ch or caodaism services? More than 4 times per year 04/05/2024 Do you belong to any clubs o r organizations such as zoroastrianism groups, unions, fraternal or athletic groups, or [...] any time in the past 12 m [facility], were you homeless or living in a correction (including now)? No 04/05/2024 Personal Safety Answer Date Recorded Have you ever been in or are you currently in a harmful physical or emotional relationship or is someone making you feel afraid or unsafe? 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 Gender Identity Not on file Sexual Orientation Not on file Last Filed Vital Signs Vital Sign Reading Time Taken Comments Blood Pressure 102/54 02/07/2025 8:56 AM CDT Pulse 60 02/07/2025 8:56 AM CDT Temperature 36.6 C (97.8 F) 04/05/2024 3:56 AM TRANSITIONS MANAGER RN Respiratory Rate 22 04/05/2024 11:47 AM TRANSITIONS MANAGER RN Oxygen Saturation 99% 02/07/2025 8:56 AM CDT Inhaled Oxygen Concentration - - Weight 107.5 kg (237 lb) 02/07/2025 8:56 AM CDT per pt Height 175.3 cm (5' 9) 02/07/2025 8:56 AM CDT Body Mass Index 35 02/07/2025 8:56 AM CDT Plan of Treatment Health Maintenance [...] 04/05/2024, 04/01/2024 Medical Devices Implanted Type Area Solid Plasterer Device Identifier Shelf Expiration Date Model / Serial / Lot [employer] System Closure Repair Femoral Artery Suture Mediated Perclose Prostyle 83673-01 - [id number] Implanted:Qty: 1 on 04/04/2024 by Bijan Alvares MD at [facility] [employer] 12/29/2025 [id number] / / [id number] [employer] Occluder Cvasc Maddie Flexible Braided Amplatzer Amulet 25mm Nitinol [id number] - [id number] Implanted:Qty: 1 on 04/04/2024 by Bijan Alvares MD at [facility] [employer] 08/29/2027 [id number] / / [id number] [employer] Vascade Mvp [id number] Venous Closure [id number] - [id number] Implanted:Qty: 1 on 04/04/2024 by Bijan Alvares MD at [facility] [employer] [facility] 08/24/2025 [id number] / / [id number] Procedures Procedure Name Priority Date/Time Associated Diagnosis Comments EGFR Routine 04/05/2024 2:42 AM TRANSITIONS MANAGER RN POCT LIPID PANEL Routine 08/23/2022 8:35 AM CDT Coronary artery disease involving [place] coronary artery of [place] heart without angina pectoris Mixed diabetic hyperlipidemia associated with type 2 diabetes mellitus (CMS/HCC) (HCC) from Last 3 Months or Most Recently Relevant to Health Maintenance Results * eGFR (04/05/2024 2:42 AM TRANSITIONS MANAGER RN) eGFR 86 >=60 mL/min/1. 73 m2 Comment: [...] last reviewed 2021. Blood 04/05/2024 2:42 AM TRANSITIONS MANAGER RN 04/05/2024 3:08 AM TRANSITIONS MANAGER RN us Bijan Alvares MD LAB BLOOD ORDERABLES Final Resul t [facility] [address] Department [place] [address] * POCT lipid panel (08/23/2022 8:35 AM [...] MEDICARE AETNA MEDICARE AETNA MEDICARE Care Teams Cmv Driver Relationship Specialty Start Date End Date Lesia Jean MD PCP - General Family Practice 05/16/22
--- OUTSIDE RECORDS SUMMARY | 2025-04-21 09:35 | XMS_ITS | Clinical Summary ---
Author Organization [facility] Address [facility] [place] [address] Care Team Providers Care Payroll Director Name Role Phone Unavailable Primary Care Provider [...] 75+ series) 07/24/2011 COVID-19 Vaccine ( - 2024-2 6 season) 2024 Influenza Adult (#1) 2025 Hepatitis A Vaccines Aged Out No long er eligible based on patient's age to complete this topic Meningococcal B Vaccine Aged Out No l onger eligible based on patient's age to complete this topic Meningococcal Vaccine Aged Out No chiquita greg eligible based on patient's age to complete this topic RSV Immunizations Under 20 Months Aged Out No longer eligible based on patient's age to complete this topic
[2025-04-21 14:18] LABS: Anion Gap 8 mmol/L (4-12); Blood Urea Nitrogen 12 mg/dL (9-20); Calcium 9.0 mg/dL (8.4-10.2); Carbon Dioxide 29 mmol/L (22-30); Chloride 99 mmol/L (98-107); Estimated Glomerular Filt Rate > 60; Glucose 172 mg/dL (65-110); Potassium 4.0 mmol/L (3.4-5.0); Sodium 136 mmol/L (137-145)
== END 2025-04-21 08:55 | disposition home or self-care (01) ==
PROVIDERS: PCP Family Medicine; Visit Provider Family Medicine
DX: E87.6 Hypokalemia (principal)
CPT/HCPCS: 36415; 80048